=== PATIENT | female | born 1940 | race Caucasian/White ===

== ENCOUNTER 2020-04-19 10:45 | Inpatient (IN) | payer MEDICARE, SELFPAY ==
[2020-04-19] VITALS (8 sets, daily range): BP systolic 125–143; BP diastolic 64–109; PULSE 64–91; RESP 18–22; TEMP 36.3–36.7; O2SAT 91–98; BMI 30.5
--- NOTE | ~2020-04-19 | CT_ITS ---
EXAMINATION: CT pelvis wo con DATE: 04/19/2020 13:30 INDICATION: Pelvic fractures TECHNIQUE: Computed tomography (CT) of the pelvis was performed without intravenous contrast. Automat ed exposure control and iterative reconstruction technique were employed. Exam dose: 906.88 mGy-cm t otal exam DLP. COMPARISON: 04/19/2020 pelvis and bilateral hips 06/17/2019 CT pelvis FINDINGS: Advanced healing of a left posterolateral 11th rib fracture is noted. Bilateral recent sacral alar and body fractures are noted. There is some sclerosis of the sacrum from previous fracture is noted 06/17/2019. The sacral fractures extend into the sacroiliac joints but no dislocation is noted at the sacroiliac joints. Diffuse osteopenia. There is comminuted fracture of the right superior pubic ramus with displacement. There is a fracture of the right inferior pubic ramus. Old healed left inferior and left superior pubic ramus fractures. These were acute on 06/17/2019. Bilateral total hip arthroplasties. Degenerative disc disease of the lumbar spine. There is nonspecific increased fat density at the base of the mesentery. There is a moderately large umbilical hernia containing fat and probably nonobstructed small bowel lo op. IMPRESSION: Recent bilateral sacral fractures and right superior and inferior pubic ramus fractures Diffuse osteopenia Old left superior and inferior pubic ramus fractures Old sacral fractures Bilateral hip arthroplasties Reviewed, dictated and finalized at [facility]. Reviewed, dictated and finalized at location [facility].
--- NOTE | ~2020-04-19 | CT_ITS ---
EXAMINATION: CT brain wo con DATE: 04/19/2020 11:38 INDICATION: Patient fell and struck right side of head TECHNIQUE: Computed tomography (CT) of the head was performed without intravenous contrast. The mA wa s adjusted according to patient size. Iterative reconstruction technique was employed. Exam dose: 60 5.33 mGy-cm total exam DLP. COMPARISON: 05/09/2019 CT brain FINDINGS: No intracranial mass lesion or hemorrhage or cerebrovascular accident is evident. No midlin e shift or mass effect. No subdural or epidural hematoma. There is nonspecific diminished attenuation of the cerebral white matter, likely due to chronic small vessel ischemic changes. There are bilateral carotid siphon internal carotid artery calcifications. No fracture or bone destruction of the cranial vault. There is focal soft tissue opacification the posterior left sphenoid sinus. The paranasal sinuses and mastoid air cells are otherwise unremarkable. Is evidence of bilateral cataract surgery. No orbital mass lesion. IMPRESSION: No skull fracture or acute intracranial finding Reviewed, dictated and finalized at [facility]. Reviewed, dictated and finalized at [facility].
--- NOTE | ~2020-04-19 | XR_ITS ---
XR knee RT min 4V DATE: 04/19/2020 11:56 INDICATION: Fall. Right knee pain, swelling TECHNIQUE: Crosstable lateral, AP, oblique views COMPARISON: None FINDINGS: There is very prominent soft tissue swelling, particularly anteriorly. There is evidence of knee joint effusion. There is prominent periarticular spurring of the patellofemoral joint. There is periarticular spurrin g at the lateral compartment. Mild chondrocalcinosis of the knee joint. No fracture or dislocation is evident. Osteopenia. IMPRESSION: Prominent soft tissue swelling. Knee joint effusion Osteoarthritis Osteopenia. Reviewed, dictated and finalized at location [facility].
--- NOTE | ~2020-04-19 | XR_ITS ---
XR humerus LT DATE: 04/19/2020 11:56 INDICATION: Fall. Left shoulder, arm injury, pain TECHNIQUE: AP and lateral views COMPARISON: None FINDINGS: There is osteopenia. Rotator cuff atrophy. Osteoarthritis at the glenohumeral joint. Minimal dorsal spurring of the olecra non process of the proximal ulna. No fracture or dislocation, periosteal reaction or bone destruction of the left humerus is detected. IMPRESSION: No fracture or dislocation of left humerus Reviewed, dictated and finalized at location [facility].
--- NOTE | ~2020-04-19 | XR_ITS ---
XR shoulder LT min 2V DATE: 04/19/2020 11:56 INDICATION: Fall. Left shoulder injury, pain TECHNIQUE: 4 views COMPARISON: None FINDINGS: There is diffuse osteopenia. There is osteoarthritic change at the glenohumeral joint. There is rotator cuff atrophy. There is deg enerative change including joint space narrowing and spurring at the acromioclavicular joint. No fracture, dislocation, periosteal reaction or bone destruction of the left shoulder. Old healed left rib fractures. There is scoliosis and degenerative spurring of the thoracic spine. IMPRESSION: Osteopenia Osteoarthritic change at the glenohumeral joint, degenerative change at the acromioclavicular joint Rotator cuff atrophy Reviewed, dictated and finalized at location [facility]. IMPRESSION: Osteopenia Osteoarthritic change at the glenohumeral joint, degenerative change at the acr omioclavicular joint Rotator cuff atrophy
--- NOTE | ~2020-04-19 | XR_ITS ---
XR hip BI 2V w AP pelvis DATE: 04/19/2020 11:56 INDICATION: Fall. Pelvic, bilateral hip pain TECHNIQUE: AP pelvis. AP and lateral views of each hip. COMPARISON: 05/09/2019 pelvis FINDINGS: Diffuse osteopenia. There are displaced right superior and inferior pubic ramus fractures. There is left inferior pubic r amus fracture of uncertain age. Alignment appears intact at the pubic symphysis. Consider CT evaluati on for possible associated iliac or sacral fractures. Status post bilateral total hip arthroplasties. No recent fracture or dislocation at either hip is no jon. IMPRESSION: Displaced right superior and inferior pubic ramus fractures, new since 05/09/2019 Left inferior pubic ramus fracture, uncertain age Osteopenia Consider CT pelvis for further evaluation of any additional pelvic ring fractures Bilateral total hip arthroplasty Reviewed, dictated and finalized at location [facility]. IMPRESSION: Displaced right superior and inferior pubic ramus fractures, new si nce 05/09/2019 Left inferior pubic ramus fracture, uncertain age Osteopenia Consider CT pelvis for further evaluation of any additional pelvic ring fractur es Bilateral total hip arthroplasty
--- NOTE | ~2020-04-19 | XR_ITS ---
XR chest 2V DATE: 04/19/2020 11:56 INDICATION: Fall. TECHNIQUE: AP and lateral views COMPARISON: 06/16/2019 portable AP chest FINDINGS: Cardiomegaly. Aortic calcification and unfolding. No pulmonary infiltrate or consolidation, pleural effusion or pulmonary vascular congestion or pneumo thorax. The lungs are moderately hyperinflated. Diffuse osteopenia. Osteoarthritic changes at the glenohumeral joints, rotator cuff atrophy. Suggesti on of some calcification at the right rotator cuff. Levoscoliosis and degenerative spurring of the thoracic spine. IMPRESSION: Cardiomegaly Aortic atherosclerosis Bilateral hyperinflation; no active pulmonary disease Reviewed, dictated and finalized at location [facility].
--- NOTE | ~2020-04-19 | CT_ITS ---
CT knee RT wo con DATE: 04/19/2020 13:30 INDICATION: Right knee injury, pain, joint effusion TECHNIQUE: Axial CT images through the right knee; sagittal and coronal reconstructions. Exam dose: 427.77 mGy-cm total exam DLP. COMPARISON: 04/19/2020 right knee FINDINGS: There is edema of the right lower extremity. There is apparent hematoma in the anterior asp ect of the knee in the peripatellar area. There is knee joint effusion. Diffuse osteopenia. Tricompartment osteoarthritic changes are noted, including subchondral degenerative cysts, joint spac e narrowing, periarticular spurring. No recent fracture or dislocation or bone destruction is evident. IMPRESSION: Tricompartment osteoarthritis and joint effusion Soft tissue swelling, hematoma Reviewed, dictated and finalized at [facility]. Reviewed, dictated and finalized at location [facility].
--- NOTE | ~2020-04-19 | XR_ITS ---
XR knee LT min 4V DATE: 04/19/2020 11:56 INDICATION: Fall. Left knee injury, pain TECHNIQUE: Crosstable lateral, AP, bilateral oblique views COMPARISON: None FINDINGS: There is postoperative change from left total knee arthroplasty with patellar resurfacing. Mild knee joint effusion is suggested. There is enthesopathy of the patella at the insertions of the quadriceps and patellar tendon insertio ns. Osteopenia. No fracture or dislocation, periosteal reaction or bone destruction or radiopaque intra-articular loo se body is evident. IMPRESSION: Left total knee arthroplasty Knee joint effusion Reviewed, dictated and finalized at location [facility].
--- NOTE | 2020-04-19 11:16 | ED.FALL ---
HPI - Fall General Chief Complaint: Fall <ESPERANZA Benito Last Filed: 04/19/20 15:36> Stated Complaint: Fall <ESPERANZA Benito Last Filed: 04/19/20 15:36> Time Seen by Provider: 04/19/20 11:02 <ESPERANZA Benito Last Filed: 04/19/20 15:36> Source: patient <ESPERANZA Benito Last Filed: 04/19/20 15:36> Mode of arrival: wheelchair <ESPERANZA Benito Last Filed: 04/19/20 15:36> Limitations: no limitations <ESPERANZA Benito Last Filed: 04/19/20 15:36> History of Present Illness HPI Narrative: This is an 79-year-old female that presents the emergency department for a fall this morning. Reports she was in her garage and tripped over a plant. Reports falling forward and injuring her head, left shoulder, and right knee. Denies prodromal symptoms, loss of consciousness, shortness of breath, vision changes, vomiting, or numbness. <ESPERANZA Benito Last Filed: 04/19/20 15:36> Related Data Home Medications: Home Medications Medication Instructions Recorded Confirmed cholecalciferol (vitamin D3) 125 125 mcg PO DAILY 04/03/20 04/03/20 mcg (5,000 unit) capsule mecobalamin (vitamin B12) 5,000 mcg PO DAILY tablet 04/03/20 04/03/20 mcg disintegrating tablet <ESPERANZA Benito Last Filed: 04/19/20 15:36> Allergies/Adverse Reactions: Allergies Allergy/AdvReac Type Severity Reaction Status Date / Time Sulfa (Sulfonamide Allergy Severe Swelling Verified 04/19/20 11:07 Antibiotics) of Lip/Tongue/Throat aspirin AdvReac Unknown Unknown Verified 04/19/20 11:06 <ESPERANZA Benito Last Filed: 04/19/20 15:36> Review of Systems Review of Systems: Narrative: CONSTITUTIONAL: Denies fever EYES: Denies visual changes CARDIOVASCULAR: Denies chest pain RESPIRATORY: Denies dyspnea. GASTROINTESTINAL: Denies vomiting MUSCULOSKELETAL: Reports joint pain and myalgia. Denies back pain NEUROLOGIC: Denies headache, numbness, or weakness. <Sigrid Reyes PA-C - Last Filed: 04/19/20 15:36> All systems reviewed & are unremarkable except as noted in HPI and below <Sigrid Reyes PA-C - Last Filed: 04/19/20 15:36> PMFSH Social History Social History: Social History Smoking status: Former smoker Second hand tobacco smoke exposure: No Smoking end date: 11/28/81 Alcohol intake: current Gender identity (if verbalized by the patient): Female <Sigrid Reyes PA-C - Last Filed: 04/19/20 15:36> Exam Narrative: Exam Narrative: GENERAL: Elderly, well-nourished, and in no acute distress. HEAD: Normocephalic. Small frontal scalp contusion EYES: PERRLA and EOMI. ENT: Nares clear, no rhinorrhea or epistaxis. Mucous membranes moist. Oropharynx without tonsillar hypertrophy exudate or other lesions. Bilateral TMs pearly juan non-bulging NECK: Supple. No adenopathy or masses. No midline spinal tenderness CHEST: Clear to auscultation. No respiratory distress. No wheezes rales or rhonchi HEART: Regular rate and rhythm. No murmur heard. Normal peripheral pulses. ABDOMEN: Soft, nontender, nondistended, normal active bowel sounds. BACK: No midline spinal tenderness EXTREMITIES: Edema and bruising to the left shoulder and right knee with decreased range of motion due to pain. Otherwise normal range of motion in the extremities without pain SKIN: Warm, dry, no rash. NEURO: No focal deficits. Alert and oriented x3. Cranial nerves II through XII grossly intact PSYCH: Normal mood and affect <Sigrid Reyes PA-C - Last Filed: 04/19/20 15:36> Course WEAVER NEEDLE LOOM/PA Physician Supervision For this encounter, I have reviewed the PA documentation, treatment plan and medical decision making: And I have had [id number] time with the patient. Patient seen and evaluated by myself. Long discussion with patient as well as PA about admission patient with left shoulder pain as well as
--- NOTE | 2020-04-19 17:55 | ADMGEN ---
This patient, Lisa Robertson, was admitted to Medical Room 344-01. Patient/family oriented to hospital policies and general routines including ID bracelet, bed and alarms, visiting hours, pain management, procedures, bathroom and other care routines, personal items, smoking policy, room service/diet, and visiting hours. Valuables list has been completed. Information on how to activate the Rapid Response Team has been discussed. Patient/Family are encouraged to report perceived risks to care and to ask questions if they do not understand what they are told or what they should do.
--- NOTE | 2020-04-19 21:18 | PM.IMHP ---
H&P: HPI History of Present Illness Chief complaint: right inferior and superior pubic rami fractures Narrative: This is a pleasant 79 year old female who presented to the hospital after suffering a fall this morning in her garage. She is known to live alone and reports that she had a similar fall last year. Apparently she tripped over a plant in the garage and fell face forward. She injured her forehead, left shoulder and right knee. The patient denies passing out or seizure like activity today. She experienced ambulatory dysfunction afterwards. Pelvic CT demonstrated recent bilateral sacral fractures and right superior and inferior pubic ramus fractures. Tonight the patient is complaining of mild shortness of breath and bilateral hip pain. She continues to sporadically smoke cigarettes but denies any definitive diagnosis of COPD. On further questioning she denies any cough, fevers, chills, sore throat, abdominal pain, chest pain, dysuria, hematuria, nausea, vomiting, diarrhea or rectal bleeding. No other complaints. The patient was admitted to the hospital for pain control and placement. Review of Systems Review of Systems: All systems reviewed & are unremarkable except as noted in HPI and below PMFSH Past Medical History Medical History Arthritis of knee, degenerative Chronic bilateral low back pain without sciatica CKD (chronic kidney disease) stage 3, GFR 30-59 ml/min Contusion of knee, right Dyslipidemia Edema of both lower legs due to peripheral venous insufficiency Essential (primary) hypertension Fibrocystic breast 11/2010 Peripheral polyneuropathy RLS (restless legs syndrome) Rotator cuff arthropathy of right shoulder Unspecified osteoarthritis, unspecified site Vitamin D deficiency Surgical History Surgical History H/O arthroscopy 03/08/2007 - right knee H/O arthroscopy of knee 09/28/2006 - Left knee History of lumbar discectomy Family History Family History Father Hodgkin lymphoma Mother Cancer Social History Social History Smoking status: Former smoker Second hand tobacco smoke exposure: No Smoking end date: 11/28/81 Alcohol intake: never Substance use: never Gender identity (if verbalized by the patient): Female Spiritual care concerns: No Meds Home Medications and Allergies Home Medications Medication Instructions Recorded Confirmed Type furosemide 20 mg tablet 20 mg PO DAILY #90 tablet 11/20/19 04/19/20 Rx metoprolol succinate 50 mg 50 mg PO DAILY #90 tablet 12/17/19 04/19/20 Rx tablet,extended release 24 hr diclofenac sodium 75 mg See Rx Instructions .ROUTE 03/31/20 04/19/20 Rx tablet,delayed release .COMPLEX #90 each pramipexole 0.5 mg tablet See Rx Instructions .ROUTE 03/31/20 04/19/20 Rx .COMPLEX #90 tablet albuterol sulfate 90 mcg/actuation 1 puff INHALATION Q4H PRN #8.5 gm 04/03/20 04/19/20 Rx aerosol inhaler cholecalciferol (vitamin D3) 125 125 mcg PO DAILY 04/03/20 04/19/20 History mcg (5,000 unit) capsule mecobalamin (vitamin B12) 5,000 5,000 mcg PO DAILY tablet 04/03/20 04/19/20 History mcg disintegrating tablet triamcinolone acetonide 0.5 % See Rx Instructions .ROUTE 04/09/20 04/19/20 Rx topical cream .COMPLEX #30 gm Allergies Allergy/AdvReac Type Severity Reaction Status Date / Time Sulfa (Sulfonamide Allergy Severe Swelling Verified 04/19/20 11:07 Antibiotics) of Lip/Tongue/Throat aspirin AdvReac Unknown Unknown Verified 04/19/20 11:06 Vital Signs Vital Signs - 24 hr 04/19/20 10:54 04/19/20 16:06 04/19/20 17:33 Temperature 36.3 C L Pulse Rate 84 72 86 Respiratory Rate 18 18 18 Blood Pressure 126/109 H 142/71 H Pulse Oximetry 96 93 04/19/20 17:35 04/19/20 18:01 Temperatu
[2020-04-19] MEDS: ALBUTEROL SULFATE NEB 2.5 MG/0.5 ML INH 5 MG INHALATION (23:53)
[2020-04-20] VITALS (9 sets, daily range): BP systolic 108–142; BP diastolic 56–66; PULSE 75–95; RESP 16–20; TEMP 36.2–36.4; O2SAT 92–99
--- NOTE | 2020-04-20 01:52 | PCRCNOTE ---
Too close to previous tx
[2020-04-20] MEDS: ALBUTEROL SULFATE NEB 2.5 MG/0.5 ML INH 5 MG INHALATION (07:57)
--- NOTE | 2020-04-20 09:10 | PM.CNOR ---
Assessment and Plan Assessment and plan (1) Closed fracture of right superior pubic ramus: Qualifiers: Encounter type: initial encounter Qualified Code(s): S32.511A - Fracture of superior rim of right pubis, initial encounter for closed fracture Code(s): S32.511A - Fracture of superior rim of right pubis, initial encounter for closed fracture Status: Acute Assessment and Plan: New patient evaluation status post injury with fall yesterday at home. The history, physical exam and radiographs/CT scan reviewed with the patient. Type of fracture discussed in detail . Treatment options including operative and non operative treatment reviewed . Risks, benefits and alternatives of each treatment discussed in detail . The patient has declined surgical treatment. Risks of treatment decision discussed in detail. Potential problems with displacement of the fracture, loss of alignment, nonunion, malunion and dysfunction discussed in detail. The patient's questions were answered. They verbalized understanding and agreement. Conservative treatment with ice , compression and elevation. PT/OT with weight-bearing as tolerated. Patient will require placement due to inability to be independent at home. (2) Closed fracture of right inferior pubic ramus: Qualifiers: Encounter type: initial encounter Qualified Code(s): S32.591A - Other specified fracture of right pubis, initial encounter for closed fracture Code(s): S32.591A - Other specified fracture of right pubis, initial encounter for closed fracture Status: Acute (3) Acute pain of right knee: Code(s): M25.561 - Pain in right knee Status: Acute (4) Arthritis of knee, degenerative: Qualifiers: Osteoarthritis type: primary Laterality: right Qualified Code(s): M17.11 - Unilateral primary osteoarthritis, right knee Code(s): M17.10 - Unilateral primary osteoarthritis, unspecified knee Status: Acute (5) Contusion of knee, right: Qualifiers: Encounter type: initial encounter Qualified Code(s): S80.01XA - Contusion of right knee, initial encounter Code(s): S80.01XA - Contusion of right knee, initial encounter Status: Acute Assessment and Plan: CT scan reviewed showing knee effusion, no fracture. Moderate degenerative changes. Conservative treatment ice, compression, elevation and anti-inflammatories. Physical therapy offered/occupational therapy with weight-bearing as tolerated. (6) Rotator cuff arthropathy of right shoulder: Code(s): M12.811 - Other specific arthropathies, not elsewhere classified, right shoulder Status: Acute Assessment and Plan: New patient evaluation for chief complaint fall at home with right shoulder and right knee, pelvis injury. History, physical exam and radiographs reviewed with the patient. Discussed the condition, nature, etiology and course of natural history with the patient. Treatment options including surgical and nonoperative treatment were reviewed. Risks and benefits of each as well as alternatives reviewed. The patient's questions were answered. Conservative treatment ice, compression and elevation. Physical therapy/occupational therapy History of Present Illness HPI Consult date: 04/20/20 Requesting physician: Sarmad Auguste MD Chief complaint: right inferior and superior pubic rami fractures Narrative: Very active, pleasant woman fell at home yesterday in her garage. Initially with right shoulder and right hip pain. Brought to the emergency room and found to have pelvis fractures. Also with right knee pain and swelling with radiographs showing arthritis. Patient states right shoulder has improved overnight. She still has pain swelling in the right knee with motion. She has pain in the right hip with motion of the leg. She was unable to stand or walk yesterday. She denies numbness or tingling. Denies head neck or
[2020-04-20] MEDS: CHOLECALCIFEROL 1,000 UNIT TABLET 5000 UNITS PO (09:19)
[2020-04-20] MEDS: CYANOCOBALAMIN 1,000 MCG TABLET 5000 MCG PO (09:19)
[2020-04-20] MEDS: FUROSEMIDE 20 MG TABLET PO (09:20)
[2020-04-20] MEDS: METOPROLOL SUCCINATE EXT REL 50 MG TABCR PO (09:24)
[2020-04-20 10:35] LABS: Blood Urea Nitrogen 26 mg/dL (7-17); Calcium 8.8 mg/dL (8.4-10.2); Carbon Dioxide 30 mmol/L (22-30); Chloride 108 mmol/L (98-107); Estimated CRCL calculation 33 ml/min; Estimated Glomerular Filt Rate 39; Glucose 136 mg/dL (65-105); Magnesium 1.8 mg/dL (1.6-2.3); Potassium 3.9 mmol/L (3.4-5.0); Sodium 141 mmol/L (137-145)
--- NOTE | 2020-04-20 11:52 | PM.IMPN ---
Progress Note: A&P Assessment and Plan (1) Closed fracture of right inferior pubic ramus: Qualifiers: Encounter type: initial encounter Qualified Code(s): S32.591A - Other specified fracture of right pubis, initial encounter for closed fracture Code(s): S32.591A - Other specified fracture of right pubis, initial encounter for closed fracture Status: Acute Assessment and Plan: Patient presented after a fall 04/19 at home; imaging demonstrates bilateral sacral fractures and right superior and inferior pubic ramus fractures. Right knee joint effusion and hematoma without acute fracture. Imaging detailed below. Dr Agarwal consulted - appreciate recommendations. He offered her treatment options and patient has decided on nonoperative management. Continue pain control, care coordination working on placement. Weight bearing as tolerated. (2) Closed fracture of right superior pubic ramus: Qualifiers: Encounter type: initial encounter Qualified Code(s): S32.511A - Fracture of superior rim of right pubis, initial encounter for closed fracture Code(s): S32.511A - Fracture of superior rim of right pubis, initial encounter for closed fracture Status: Acute Assessment and Plan: See above. (3) Acute pain of right knee: Code(s): M25.561 - Pain in right knee Status: Acute Assessment and Plan: See imaging studies above. Conservative management. (4) Acute pain of left shoulder: Code(s): M25.512 - Pain in left shoulder Status: Acute Assessment and Plan: See above. (5) Acute respiratory failure with hypoxia: Code(s): J96.01 - Acute respiratory failure with hypoxia Status: Acute Assessment and Plan: On 2L supplemental O2. Not on oxygen at home. Given the bilateral hyperinflation and no active pulmonary disease on CXR and wheezing on exam, suspect possible undiagnosed COPD. Continue bronchodilator therapy. Wean O2 as tolerated to keep O2 saturations > 90%. Subjective Date/time seen: 04/20/20 1045 Interval history: Ms. Robertson is a 79yo F admitted with pelvic fractures. She is sitting up in the bedside chair. She notes that her pain is worst in her right knee currently. She denies any chest pain or shortness of breath. She is tolerating oral intake without nausea or vomiting. Review of Systems Review of Systems: Narrative: Twelve systems were reviewed with pertinent positives and negatives as per HPI. Exam Narrative: Exam Narrative: General: Female resting comfortably sitting up in bedside chair in no acute distress. HEENT: Normocephalic, EOMI, oral mucosa moist. Cardiovascular: Rate and rhythm are regular. Respiratory: Expiratory wheezing bilaterally. Non-labored breathing. Tolerating 2L nasal cannula. Abdomen: Soft, non-tender, non-distended, bowel sounds present. Extremities: R knee edematous with faint ecchymosis forming; L knee edematous but R > L. Distal extremities are neurovascularly intact. ROM R knee is limited due to pain. Neuro: No focal neurological deficits. Speech is clear. Objective Data Vital Signs Vital Signs: Last Vital Signs Temp 97.1 F L 04/20/20 06:00 Pulse 95 04/20/20 09:24 Resp 20 04/20/20 08:07 BP 108/62 04/20/20 06:00 Pulse Ox 92 04/20/20 09:43 Intake/Output Intake/Output: Intake & Output 04/17/20 04/18/20 04/19/20 04/20/20 23:59 23:59 23:59 23:59 Intake Total 240 890 Output Total 800 Balance 240 90 Meds/Results Medications: Active Medications Generic Name Dose Route Start Last Admin Trade Name Freq PRN Reason Stop Dose Admin Hydrocodone Bitart/Acetaminophen 1 tab 04/19/20 15:29 04/20/20 05:37 [place] 5-325 Mg PO 1 tab Q6H PRN Administration Pain Rated 6 or Greater Albuterol 1 puff
[2020-04-20 12:05] LABS: Folic Acid 14.2 ng/mL (2.76->20); Vitamin B12 > 1000.0 pg/mL (239-931)
[2020-04-20 15:27] LABS: Basophils Percent Auto 0.5 % (0.2-1.2); Eosinophils Absolute Auto 0.2 K/mm3 (0-0.3); Eosinophils Percent Auto 2.2 % (0-4.4); Hematocrit 37.2 % (37.0-47.0); Hemoglobin 11.4 g/dL (12.0-15.0); Immature Granulocyte Absolute 0.03 K/mm3 (0.00-0.031); Immature Granulocyte Percent A 0.4 % (0-0.5); Lymphocytes Absolute Auto 1.01 K/mm3 (0.9-3.2); Lymphocytes Percent Auto 12.5 % (18.3-44.2); Mean Corpuscular HGB Conc 30.6 g/dl (32-36); Mean Corpuscular Hemoglobin 29.5 pg (26-34); Mean Corpuscular Volume 96.1 fl (80-100); Mean Platelet Volume 10.7 fl (7.4-10.4); Monocytes Absolute Auto 0.7 K/mm3 (0.1-0.6); Monocytes Percent Auto 8.4 % (2.6-8.5); Neutrophils Absolute Auto 6.1 K/mm3 (1.3-6.7); Platelet Count Result 166 k/mm3 (150-375); Red Blood Count 3.87 M/mm3 (4.2-5.4); Red Cell Distribution Width 14.6 % (11.5-14.5); White Blood Count 8.1 K/mm3 (4.5-10.0)
[2020-04-20] MEDS: PRAMIPEXOLE 0.5 MG TABLET PO (17:31)
[2020-04-21 05:35] VITALS: BP 138/65; PULSE 87; RESP 14; TEMP 36.7; O2SAT 90
[2020-04-21 06:08] LABS: Basophils Percent Auto 0.3 % (0.2-1.2); Eosinophils Absolute Auto 0.2 K/mm3 (0-0.3); Eosinophils Percent Auto 3.4 % (0-4.4); Hematocrit 36.5 % (37.0-47.0); Hemoglobin 11.2 g/dL (12.0-15.0); Immature Granulocyte Absolute 0.02 K/mm3 (0.00-0.031); Immature Granulocyte Percent A 0.3 % (0-0.5); Lymphocytes Absolute Auto 1.06 K/mm3 (0.9-3.2); Lymphocytes Percent Auto 15.2 % (18.3-44.2); Mean Corpuscular HGB Conc 30.7 g/dl (32-36); Mean Corpuscular Hemoglobin 29.1 pg (26-34); Mean Corpuscular Volume 94.8 fl (80-100); Mean Platelet Volume 10.5 fl (7.4-10.4); Monocytes Absolute Auto 0.6 K/mm3 (0.1-0.6); Neutrophils Absolute Auto 5.1 K/mm3 (1.3-6.7); Neutrophils Percent Auto 72.8 % (45.5-73.1); Platelet Count Result 166 k/mm3 (150-375); Red Blood Count 3.85 M/mm3 (4.2-5.4); Red Cell Distribution Width 14.5 % (11.5-14.5)
[2020-04-21 06:21] LABS: Blood Urea Nitrogen 29 mg/dL (7-17); Calcium 8.6 mg/dL (8.4-10.2); Carbon Dioxide 31 mmol/L (22-30); Chloride 107 mmol/L (98-107); Estimated CRCL calculation 39 ml/min; Estimated Glomerular Filt Rate 48; Glucose 88 mg/dL (65-105); Potassium 4.2 mmol/L (3.4-5.0); Sodium 140 mmol/L (137-145)
[2020-04-21] MEDS: CHOLECALCIFEROL 1,000 UNIT TABLET 5000 UNITS PO (08:38)
[2020-04-21] MEDS: CYANOCOBALAMIN 1,000 MCG TABLET 5000 MCG PO (08:39)
[2020-04-21] MEDS: FUROSEMIDE 20 MG TABLET PO (08:39)
[2020-04-21 08:54] VITALS: PULSE 86
[2020-04-21] MEDS: METOPROLOL SUCCINATE EXT REL 50 MG TABCR PO (08:54)
[2020-04-21 10:23] VITALS: O2SAT 93
--- NOTE | 2020-04-21 12:51 | PM.IMPN ---
Progress Note: A&P Assessment and Plan (1) Closed fracture of right inferior pubic ramus: Qualifiers: Encounter type: initial encounter Qualified Code(s): S32.591A - Other specified fracture of right pubis, initial encounter for closed fracture Code(s): S32.591A - Other specified fracture of right pubis, initial encounter for closed fracture Status: Acute Assessment and Plan: Patient presented after a fall 04/19 at home; imaging demonstrates bilateral sacral fractures and right superior and inferior pubic ramus fractures. Right knee joint effusion and hematoma without acute fracture. Imaging detailed below. Dr Agarwal consulted - appreciate recommendations. He offered her treatment options and patient has decided on nonoperative management. Continue pain control. Weight bearing as tolerated. She is medically stable for discharge pending SNF placement. (2) Closed fracture of right superior pubic ramus: Qualifiers: Encounter type: initial encounter Qualified Code(s): S32.511A - Fracture of superior rim of right pubis, initial encounter for closed fracture Code(s): S32.511A - Fracture of superior rim of right pubis, initial encounter for closed fracture Status: Acute Assessment and Plan: See above. (3) Acute pain of right knee: Code(s): M25.561 - Pain in right knee Status: Acute Assessment and Plan: See imaging studies above. Conservative management. (4) Acute pain of left shoulder: Code(s): M25.512 - Pain in left shoulder Status: Acute Assessment and Plan: See above. (5) Acute respiratory failure with hypoxia: Code(s): J96.01 - Acute respiratory failure with hypoxia Status: Acute Assessment and Plan: On 2L supplemental O2. Not on oxygen at home. Given the bilateral hyperinflation and no active pulmonary disease on CXR and wheezing on exam, suspect possible undiagnosed COPD. Continue bronchodilator therapy. Wean O2 as tolerated to keep O2 saturations > 90%. Will monitor. Encourage incentive spirometry. (6) CKD (chronic kidney disease) stage 3, GFR 30-59 ml/min: Code(s): N18.3 - Chronic kidney disease, stage 3 (moderate) Status: Chronic Assessment and Plan: Cr 1.1 today; on review of previous labs her baseline creatinine appears around 1.5. Monitor renal function and avoid nephrotoxic agents. Subjective Date/time seen: 04/21/20 1015 Interval history: Ms. Robertson is a 79yo F admitted with pelvic fractures. She is sitting up in the bedside chair and reports feeling a little better today. Less pain in her right knee. She denies any chest pain or shortness of breath. She is tolerating oral intake without nausea or vomiting. Review of Systems Review of Systems: Narrative: Twelve systems were reviewed with pertinent positives and negatives as per HPI. Exam Narrative: Exam Narrative: General: Female resting comfortably sitting up in bedside chair in no acute distress. HEENT: Normocephalic, EOMI, oral mucosa moist. Cardiovascular: Rate and rhythm are regular. Respiratory: Faint expiratory wheezing improved from yesterday. Non-labored breathing. Tolerating 2L nasal cannula. Abdomen: Soft, non-tender, non-distended, bowel sounds present. Extremities: R knee edematous with faint ecchymosis but slightly improved from yesterday; L knee edematous but R > L. Distal extremities are neurovascularly intact. ROM R knee is limited due to pain. Neuro: No focal neurological deficits. Speech is clear. Objective Data Vital Signs Vital Signs: Last Vital Signs Temp 98.0 F 04/21/20 05:35 Pulse 86 04/21/20 08:54 Resp 14 04/21/20 05:35 BP 138/65 04/21/20 05:35 Pulse Ox 93 04/21/20 10:23 Intake/Output
[2020-04-21 14:00] VITALS: BP 123/53; PULSE 79; RESP 20; TEMP 36.1; O2SAT 98
[2020-04-21] MEDS: PRAMIPEXOLE 0.5 MG TABLET PO (17:23)
[2020-04-21 20:59] VITALS: BP 131/44; PULSE 88; RESP 18; TEMP 36.4; O2SAT 94
[2020-04-22 04:14] VITALS: BP 131/44; PULSE 88; RESP 18; TEMP 36.4; O2SAT 95
[2020-04-22 08:26] VITALS: PULSE 88
[2020-04-22] MEDS: FUROSEMIDE 20 MG TABLET PO (08:26)
[2020-04-22] MEDS: METOPROLOL SUCCINATE EXT REL 50 MG TABCR PO (08:26)
[2020-04-22] MEDS: CHOLECALCIFEROL 1,000 UNIT TABLET 5000 UNITS PO (08:26)
[2020-04-22 08:27] VITALS: PULSE 88; RESP 18; O2SAT 95
[2020-04-22] MEDS: CYANOCOBALAMIN 1,000 MCG TABLET 5000 MCG PO (08:27)
--- NOTE | 2020-04-22 10:35 | PM.IMPN ---
Subjective Date/time seen: 04/22/20 1000 Objective Data Vital Signs Vital Signs: Vital Signs - 24 hr 04/21/20 14:00 04/21/20 20:59 04/22/20 04:14 Temperature 96.9 F L 97.5 F L 97.5 F L Pulse Rate 79 88 88 Respiratory Rate 20 18 18 Blood Pressure 123/53 L 131/44 L 131/44 L Pulse Oximetry 98 94 95 04/22/20 08:26 Temperature Pulse Rate 88 Respiratory Rate Blood Pressure Pulse Oximetry Intake/Output Intake/Output: Intake & Output 04/19/20 04/20/20 04/21/20 04/22/20 23:59 23:59 23:59 23:59 Intake Total 240 2760 2040 625 Output Total 2800 250 790 Balance 240 -40 1790 -165 Meds/Results Medications: Active Medications Generic Name Dose Route Start Last Admin Trade Name Freq PRN Reason Stop Dose Admin Hydrocodone Bitart/Acetaminophen 1 tab 04/20/20 14:24 04/22/20 08:24 [place] 5-325 Mg PO 1 tab Q4HR PRN Administration Pain Rated 6 or Greater Albuterol 1 puff 04/20/20 05:41 Proventil Hfa INHALATION Q4H PRN shortness of breath or wheezing Cyanocobalamin 5,000 mcg 04/20/20 09:00 04/22/20 08:27 Vitamin B-12 Tab PO 5,000 mcg DAILY ADRIANO Administration Furosemide 20 mg 04/20/20 09:00 04/22/20 08:26 Lasix Tablet PO 20 mg DAILY ADRIANO Administration Metoprolol Succinate 50 mg 04/20/20 09:00 04/22/20 08:26 Toprol Xl PO 50 mg DAILY ADRIANO Administration Pramipexole Dihydrochloride 0.5 mg 04/20/20 18:00 04/21/20 17:23 Mirapex PO 0.5 mg QPM ADRIANO Administration Vitamin D 5,000 unit 04/20/20 09:00 04/22/20 08:26 Vitamin D PO 5,000 unit DAILY ADRIANO Administration Radiology Results: ITS Impressions Head CT 04/19/20 11:43 IMPRESSION: No skull fracture or acute intracranial finding Shoulder X-Ray 04/19/20 12:05 IMPRESSION: Osteopenia Osteoarthritic change at the glenohumeral joint, degenerative change at the acromioclavicular joint Rotator cuff atrophy Humerus X-Ray 04/19/20 12:07 IMPRESSION: No fracture or dislocation of left humerus Chest X-Ray 04/19/20 12:09 IMPRESSION: Cardiomegaly Aortic atherosclerosis Bilateral hyperinflation; no active pulmonary disease Knee X-Ray 04/19/20 12:13 IMPRESSION: Left total knee arthroplasty Knee joint effusion Hip/Pelvis X-Ray 04/19/20 12:14 IMPRESSION: Displaced right superior and inferior pubic ramus fractures, new since 05/09/2019 Left inferior pubic ramus fracture, uncertain age Osteopenia Consider CT pelvis for further evaluation of any additional pelvic ring fractures Bilateral total hip arthroplasty Pelvis CT 04/19/20 13:44 IMPRESSION: Recent bilateral sacral fractures and right superior and inferior pubic ramus fractures Diffuse osteopenia Old left superior and inferior pubic ramus fractures Old sacral fractures Bilateral hip arthroplasties Knee CT 04/19/20 13:53 IMPRESSION: Tricompartment osteoarthritis and joint effusion Soft tissue swelling, hematoma Quality VTE Prophylaxis VTE prophylaxis: mechanical ordered
--- NOTE | 2020-04-22 15:31 | PM.DS ---
DS: Admitting Diagnosis Admitting Diagnosis Admitting Diagnosis: Fracture of superior rim of right pubis, initial encounter for closed fracture DS: Discharge Diagnosis Discharge Diagnosis (1) Closed fracture of right inferior pubic ramus: Qualifiers: Encounter type: initial encounter Qualified Code(s): S32.591A - Other specified fracture of right pubis, initial encounter for closed fracture Code(s): S32.591A - Other specified fracture of right pubis, initial encounter for closed fracture Status: Acute Assessment and Plan: Date of Service 04/22/20: Ms. Robertson is a pleasant 79yo F with history of asthma, hypertension, and chronic kidney disease who presented to the ED for evaluation after a fall at home 04/19/20. She is normally quite active, was working on some yard work, walking in her garage and tripped over a plant, falling face first onto the concrete. She was unable to walk. Imaging is detailed below and demonstrated bilateral sacral fractures, right superior and inferior pubic rami fractures, right knee joint effusion with hematoma. She was evaluated by orthopedic surgery, Dr Agarwal, who educated her on the risks and benefits of her different her treatment options. She opted for nonsurgical management. She did well with PT/OT and has good rehabilitation potential. She was felt to be a good candidate for [facility]. She was hemodynamically stable for discharge to [facility] 04/22/20 and instructed to follow up with PCP after discharge from [facility]. She will be weight bearing as tolerated per orthopedic recommendations. She has a history of asthma and notes she has not been diagnosed with COPD. Chest XR shows hyperinflation without other acute cardiopulmonary disease. She was requiring 2L of supplemental O2 at discharge. Continue to encourage incentive spirometer in [facility] and wean O2 as tolerated, albuterol PRN. Consultations: -- Orthopedic surgery -- Dr Agarwal (2) Closed fracture of right superior pubic ramus: Qualifiers: Encounter type: initial encounter Qualified Code(s): S32.511A - Fracture of superior rim of right pubis, initial encounter for closed fracture Code(s): S32.511A - Fracture of superior rim of right pubis, initial encounter for closed fracture Status: Acute Assessment and Plan: See above. (3) Acute pain of right knee: Code(s): M25.561 - Pain in right knee Status: Acute Assessment and Plan: See imaging studies above. Conservative management. (4) Acute pain of left shoulder: Code(s): M25.512 - Pain in left shoulder Status: Acute Assessment and Plan: See above. (5) Acute respiratory failure with hypoxia: Code(s): J96.01 - Acute respiratory failure with hypoxia Status: Acute Assessment and Plan: On 2L supplemental O2. Not on oxygen at home. Given the bilateral hyperinflation and no active pulmonary disease on CXR and wheezing on exam, suspect possible undiagnosed COPD. Continue bronchodilator therapy. Wean O2 as tolerated to keep O2 saturations > 90%. Will monitor. Encourage incentive spirometry. (6) CKD (chronic kidney disease) stage 3, GFR 30-59 ml/min: Code(s): N18.3 - Chronic kidney disease, stage 3 (moderate) Status: Chronic Assessment and Plan: Stable. DS: Summary Time Spent with Patient Time attestation: Total time spent providing and/or coordinating discharge services: 35 minutes Exam Narrative: Exam Narrative: Last Vital Signs Temp 97.5 F L 04/22/20 04:14 Pulse 88 04/22/20 08:27 Resp 18 04/22/20 08:27 BP 131/44 L 04/22/20 04:14 Pulse Ox
--- NOTE | 2020-04-22 15:54 | PM.PNORT ---
Subjective Subjective Date/Time Seen: 04/22/20 15:54 Review of Systems Constitutional: Constitutional: Denies fever(s) Eyes: Eyes: Denies blurry vision ENT: Reports Normal hearing present Cardiovascular: Cardiovascular: Denies chest pain and Denies dyspnea Respiratory: Respiratory: Denies dyspnea and Denies wheezing Gastrointestinal: Gastrointestinal: Denies abdominal pain Genitourinary: Genitourinary: Denies urinary urgency Musculoskeletal: Musculoskeletal: Reports as per HPI and Denies numbness Integumentary/Breasts: Skin/Breast: Denies changing lesions and Denies sores Neurologic: Reports Normal hearing present, Denies behavioral changes, Denies confusion, Denies numbness and Denies convulsions Psychiatric: Psychiatric: Denies behavioral changes, Denies confusion and Denies hallucinations Endocrine: Endocrine: Denies heat intolerance Hematologic/Lymphatic: Hematologic/Lymphatic: Denies easy bleeding Allergic/Immunologic: Allergic/Immunologic: Denies wheezing Exam Const: General: No confusion Orientation/consciousness: patient oriented x3 and No confusion HENMT: Head: normal to inspection, normocephalic and atraumatic Eyes: Conjunctivae: conjunctivae normal Sclera: sclerae normal Neck: Neck: supple and nontender Chest: Chest palpation & inspection: normal inspection of the chest Resp: Effort & Inspection: normal respiratory effort and no audible wheezes Cardio: Rate: regular rate Rhythm: regular rhythm GI: GI Palp: No abdominal tenderness and Yes Soft to palpation : General: Yes deferred Skin: General skin exam: no rashes or lesions noted Neuro: General: patient oriented x3 and No confusion Extrem: General: capillary refill normal Right upper extremity: shoulder/upper arm, elbow/forearm, wrist and Extremity exam: right hand Left upper extremity: normal to inspection Right lower extremity: hip/thigh (Healed lateral hip incision), knee, ankle ( able to actively flex and extend ankle) and foot Left lower extremity: normal to inspection, hip/thigh (Healed lateral hip incision), knee (Healed anterior incision), lower leg, ankle (no calf tenderness) and foot Psych: Affect: normal affect Objective Data Vital Signs Vital Signs: Vital Signs - 24 hr 04/21/20 20:59 04/22/20 04:14 04/22/20 08:26 Temperature 36.4 C L 36.4 C L Pulse Rate 88 88 88 Respiratory Rate 18 18 Blood Pressure 131/44 L 131/44 L Pulse Oximetry 94 95 04/22/20 08:27 Temperature Pulse Rate 88 Respiratory Rate 18 Blood Pressure Pulse Oximetry 95 Intake/Output Intake/Output: Intake & Output 04/19/20 04/20/20 04/21/20 04/22/20 23:59 23:59 23:59 23:59 Intake Total 240 2760 2040 950 Output Total 2800 250 790 Balance 240 -40 1790 160 Meds/Results Medications: Active Medications Generic Name Dose Route Start Last Admin Trade Name Freq PRN Reason Stop Dose Admin Hydrocodone Bitart/Acetaminophen 1 tab 04/20/20 14:24 04/22/20 08:24 [place] 5-325 Mg PO 1 tab Q4HR PRN Administration Pain Rated 6 or Greater Albuterol 1 puff 04/20/20 05:41 Proventil Hfa INHALATION Q4H PRN shortness of breath or wheezing Cyanocobalamin 5,000 mcg 04/20/20 09:00 04/22/20 08:27 Vitamin B-12 Tab PO 5,000 mcg DAILY ADRIANO Administration Furosemide 20 mg 04/20/20 09:00 04/22/20 08:26 Lasix Tablet PO 20 mg DAILY ADRIANO Administration Metoprolol Succinate 50 mg 04/20/20 09:00 04/22/20 08:26 Toprol Xl PO 50 mg DAILY ADRIANO Administration Pramipexole Dihydrochloride 0.5 mg 04/20/20 18:00 04/21/20 17:23 Mirapex PO 0.5 mg QPM ADRIANO Administration Triamcinolone Acetonide 1 applic 04/22/20 21:00 Kenalog 0.1% Cream TOPICAL Q12HR [facility] Vitamin D 5,000 unit 04/20/20 09:00 04/22/20 08:26 Vitamin D PO 5,000 unit DAILY ADRIANO Administration Radiology Results: ITS Impressions Head CT 04/19/20 11:43 IMPRESSION: No skull fracture or
--- NOTE | 2020-04-22 15:58 | PM.PNORT ---
Progress Note: A&P Assessment and Plan (1) Closed fracture of right superior pubic ramus: Qualifiers: Encounter type: initial encounter Qualified Code(s): S32.511A - Fracture of superior rim of right pubis, initial encounter for closed fracture Code(s): S32.511A - Fracture of superior rim of right pubis, initial encounter for closed fracture Status: Acute Assessment and Plan: Continue PT/OT with WBAT. Continue pain control. Continue ice/compression and elevation. TRC for acute rehab. Fall Risk. (2) Contusion of knee, right: Qualifiers: Encounter type: initial encounter Qualified Code(s): S80.01XA - Contusion of right knee, initial encounter Code(s): S80.01XA - Contusion of right knee, initial encounter Status: Acute Assessment and Plan: Continue conservative treatment ice, compression, elevation and anti-inflammatories. PT/OT with weight-bearing as tolerated. (3) Rotator cuff arthropathy of right shoulder: Code(s): M12.811 - Other specific arthropathies, not elsewhere classified, right shoulder Status: Acute Assessment and Plan: Continue PT/OT. WBAT. Subjective Subjective Date/Time Seen: 04/22/20 15:58 Patient sitting up in bed. Awaiting transfer to [facility]. Reports improvement in pain. Concerned about previous rash on the anterior aspect of the right leg which she has battled for a long time per report. She has medication from her PCP and would like to begin using as it is her daily home medication. Complaints of right breast pain, hospitalist aware as well. No rib fractures noted. Plans to continue to monitor. Review of Systems Constitutional: Constitutional: Denies fever(s) Eyes: Eyes: Denies blurry vision ENT: Reports Normal hearing present Cardiovascular: Cardiovascular: Denies chest pain and Denies dyspnea Respiratory: Respiratory: Denies dyspnea and Denies wheezing Gastrointestinal: Gastrointestinal: Denies abdominal pain Genitourinary: Genitourinary: Denies urinary urgency Musculoskeletal: Musculoskeletal: Reports as per HPI and Denies numbness Integumentary/Breasts: Skin/Breast: Denies changing lesions and Denies sores Neurologic: Reports Normal hearing present, Denies behavioral changes, Denies confusion, Denies numbness and Denies convulsions Psychiatric: Psychiatric: Denies behavioral changes, Denies confusion and Denies hallucinations Endocrine: Endocrine: Denies heat intolerance Hematologic/Lymphatic: Hematologic/Lymphatic: Denies easy bleeding Allergic/Immunologic: Allergic/Immunologic: Denies wheezing Exam Const: General: No confusion Orientation/consciousness: patient oriented x3 and No confusion HENMT: Head: normal to inspection, normocephalic and atraumatic Eyes: Conjunctivae: conjunctivae normal Sclera: sclerae normal Neck: Neck: supple and nontender Chest: Chest palpation & inspection: normal inspection of the chest Resp: Effort & Inspection: normal respiratory effort and no audible wheezes Cardio: Rate: regular rate Rhythm: regular rhythm GI: GI Palp: No abdominal tenderness and Yes Soft to palpation : General: Yes deferred Skin: General skin exam: no rashes or lesions noted Neuro: General: patient oriented x3 and No confusion Extrem: General: capillary refill normal Right upper extremity: shoulder/upper arm abnormal ROM (limited ROM ) pain with active ROM, elbow/forearm, wrist and Extremity exam: right hand Left upper extremity: shoulder/upper arm (Limited ROM ) abnormal ROM pain with active ROM in ADduction, in ABduction, in extension and in flexion Right lower extremity: hip/thigh (Healed lateral hip incision), knee Details: swelling (moderate right knee effusion ) and ecchymosis, ankle ( able to actively flex and extend ankle) and foot Left lower extremity: normal to inspection, hip/thigh (Healed lateral hip incision), knee (Healed anterior incision), lower leg, ank
[2020-04-22] MEDS: PRAMIPEXOLE 0.5 MG TABLET PO (16:37)
== END 2020-04-22 17:40 | DRG 535 ==
LOC: ANHED 15:37 → ANH3MED 04-21 05:23
PROVIDERS: Physician Assistant; Admitting Provider Internal Medicine; Emergency Provider Emergency Medicine; PCP Family Medicine; Visit Provider Internal Medicine
DX: S32.511A Fracture of superior rim of right pubis, initial encounter for closed fracture (principal); J96.01 Acute respiratory failure with hypoxia; W01.0XXA Fall on same level from slipping, tripping and stumbling without subsequent striking against object, initial encounter; Y92.015 Private garage of single-family (private) house as the place of occurrence of the external cause; I12.9 Hypertensive chronic kidney disease with stage 1 through stage 4 chronic kidney disease, or unspecified chronic kidney disease; N18.3 Chronic kidney disease, stage 3 (moderate); E55.9 Vitamin D deficiency, unspecified; E78.5 Hyperlipidemia, unspecified; M25.512 Pain in left shoulder; S80.01XA Contusion of right knee, initial encounter; M12.811 Other specific arthropathies, not elsewhere classified, right shoulder; Z87.891 Personal history of nicotine dependence; J45.909 Unspecified asthma, uncomplicated
CPT/HCPCS: 36415; 70450; 71046; 72192; 73030; 73060; 73521; 73564; 73700; 80048; 82607; 82746; 83735; 85025; 94640; 97110; 97116; 97161; 97165; 97530; 97535; 99285; A9270; J0131

== ENCOUNTER 2020-04-22 17:59 | IRF | payer MEDICARE, SELFPAY ==
--- NOTE | ~2020-04-22 | US_ITS ---
EXAMINATION:US venous doppler LE BI INDICATION:Bilateral lower extremity swelling TECHNIQUE: Multiple grayscale, color flow and Doppler images of the lower extremity deep venous syste ms were obtained and reviewed. COMPARISON:Comparison ultrasound dated 08/30/2019 FINDINGS: The common femoral, superficial femoral and popliteal veins demonstrate normal respiratory variation, augmentation and compressibility. Color flow is also seen within the posterior tibial, pe roneal, greater saphenous and profunda veins. IMPRESSION: 1: No lower extremity deep venous thrombosis. Reviewed, dictated and finalized at location A.
[2020-04-22 17:45] VITALS: BP 123/57; PULSE 90; RESP 20; TEMP 37.7; O2SAT 98
[2020-04-22 18:11] VITALS: BMI 33.1
--- NOTE | 2020-04-22 18:27 | PC.NURSE ---
This patient, Lisa Robertson, was admitted to [facility] Room 230-02. Patient/family oriented to hospital policies and general routines including ID bracelet, bed and alarms, visiting hours, pain management, procedures, bathroom and other care routines, personal items, smoking policy, room service/diet, and visiting hours. Valuables list has been completed. Information on how to activate the Rapid Response Team has been discussed. Patient/Family are encouraged to report perceived risks to care and to ask questions if they do not understand what they are told or what they should do.
[2020-04-22 20:17] VITALS: O2SAT 90
[2020-04-22] MEDS: TRIAMCINOLONE ACET 0.5% CREAM 15 GM TUBE 1 APPLIC TOPICAL (20:20)
[2020-04-22] MEDS: PRAMIPEXOLE 0.5 MG TABLET 1 MG PO (20:20)
[2020-04-22 22:00] VITALS: BP 130/50; PULSE 99; RESP 18; TEMP 37.9; O2SAT 92
[2020-04-23 04:39] LABS: Basophils Percent Auto 0.3 % (0.2-1.2); Eosinophils Absolute Auto 0.2 K/mm3 (0-0.3); Eosinophils Percent Auto 2.5 % (0-4.4); Hematocrit 32.7 % (37.0-47.0); Immature Granulocyte Absolute 0.02 K/mm3 (0.00-0.031); Immature Granulocyte Percent A 0.3 % (0-0.5); Lymphocytes Absolute Auto 0.88 K/mm3 (0.9-3.2); Mean Corpuscular HGB Conc 30.6 g/dl (32-36); Mean Corpuscular Hemoglobin 29.2 pg (26-34); Mean Corpuscular Volume 95.3 fl (80-100); Mean Platelet Volume 10.8 fl (7.4-10.4); Monocytes Absolute Auto 0.8 K/mm3 (0.1-0.6); Monocytes Percent Auto 10.9 % (2.6-8.5); Neutrophils Absolute Auto 5.4 K/mm3 (1.3-6.7); Platelet Count Result 163 k/mm3 (150-375); Red Blood Count 3.43 M/mm3 (4.2-5.4); Red Cell Distribution Width 14.2 % (11.5-14.5); White Blood Count 7.3 K/mm3 (4.5-10.0)
[2020-04-23 06:00] VITALS: BP 124/55; PULSE 79; RESP 20; TEMP 36.8; O2SAT 95
[2020-04-23 07:35] LABS: Blood Urea Nitrogen 29 mg/dL (7-17); Carbon Dioxide 37 mmol/L (22-30); Chloride 101 mmol/L (98-107); Estimated CRCL calculation 36 ml/min; Estimated Glomerular Filt Rate 43; Glucose 91 mg/dL (65-105); Sodium 138 mmol/L (137-145)
[2020-04-23] MEDS: CHOLECALCIFEROL 1,000 UNIT TABLET 5000 UNITS PO (10:19)
[2020-04-23] MEDS: TRIAMCINOLONE ACET 0.5% CREAM 15 GM TUBE 1 APPLIC TOPICAL ×2 (10:20→20:06)
[2020-04-23] MEDS: FUROSEMIDE 20 MG TABLET PO (10:20)
[2020-04-23] MEDS: CYANOCOBALAMIN 1,000 MCG TABLET 5000 MCG PO (10:20)
[2020-04-23 10:21] VITALS: PULSE 79
[2020-04-23] MEDS: METOPROLOL SUCCINATE EXT REL 50 MG TABCR PO (10:21)
[2020-04-23 13:35] VITALS: BMI 33.1
[2020-04-23 14:00] VITALS: BP 129/54; PULSE 88; RESP 18; TEMP 36.3; O2SAT 98
--- NOTE | 2020-04-23 14:12 | WPDREHABHP ---
H&P: HPI History of Present Illness Chief complaint: Pelvic Fracture Narrative: Lisa Robertson is a 79 year old female HISTORY OF PRESENT ILLNESS: The patient's primary rehab impairment category is 0 7/orthopedic/ lower extremity fracture. The etiologic diagnosis is Right inferior and superior pubic rami fractures I saw this patient [id number] on April 23, 2020 at 10:30 a.m. The patient is a 79-year-old right-handed woman with a past medical history of peripheral polyneuropathy, chronic back pain and peripheral venous insufficiency of bilateral lower extremity who presented to [facility] on April 19, 2020 after she fell in her garage. She lives alone and reported a similar fall last year. She complained of injury to her forehead left shoulder and right knee. Head CT showed no fractures or acute intracranial minute findings. Shoulder x-ray showed osteopenia osteoarthritic change at the Ivan 0 humeral joint degenerative changes at the acromioclavicular joint and rotator cuff atrophy. Humerus x-ray was negative for fracture or dislocation. Chest x-ray showed cardiomegaly aortic atherosclerosis and bilateral hyperinflation but no active pulmonary disease. CT of the pelvis revealed bilateral hip arthroplasties recent bilateral sacral fractures and right superior and inferior pubic ramus fractures and old sacral fractures. CT of the D showed try compartment osteoarthritis and joint effusion with soft tissue swelling and hematoma. Orthopedic surgeon was consulted in the plan for non operative treatment at this time. Dr. bucio recommends in patient acute rehab for PT OT with weight-bearing as tolerated. Medical complications including respiratory insufficiency requiring supplemental oxygen uncontrolled pain, anemia, leukocytosis, renal issues, edema, hypertension, and increased urinary incontinence. Patient is awake alert x4 patient's evening [place] March 30, 2025 for pain The patient has not traveled outside the [place] or had contact with someone who is ill that has traveled outside the [place] in the past 21 days. The patient has not traveled to an area of the [place] that is experiencing no transmission of the Coronavirus and has not had close personal contact with anyone that has. Patient does not have a fever. The patient is not experiencing lower extremity illness symptoms. The patient does however have shortness of breath at her baseline and the ordinarily uses oxygen at home Therapy was initiated at the acute care facility and the patient transferred to us from [facility] on April 22, 2020 FALLS OR SURGERIES: The patient has had no major surgeries in the 100 days prior to admission. They had falls in the past year. They had falls with injury in the past year. PAST MEDICAL HISTORY: acute respiratory failure, degenerative right knee arthritis, shortness of breath, chronic bilateral low back pain without she had a car, peripheral neuropathy, vitamin-D deficiency, dyslipidemia, restless leg syndrome, osteoarthritis, hypertension, stage 3 chronic kidney disease, peripheral initial sufficiency. PAST SURGICAL HISTORY: Right knee arthroplasty, arthroscopic left knee, lumbar diskectomy, bilateral hip arthroplasty SOCIAL HISTORY: patient lives alone in a 1 level home with 2 to 4 steps to enter. She has a full basement. She was totally independent with all ADLs I ADL S and mobility without assistive device but has used a cane wheel walker or wheelchair occasionally in the last 3 months due to low back pain. 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 Patient reported that she has had 2 granddaughters who has been assisting her at home or she can higher help. She is very motivated to do [facility] program. Patient is a former smoker and stopped on smoking 1982 patient denies any alcohol or illicit use of drugs. FAMILY HISTORY: Mother had cancer, father had Hodgkin's lymphoma PRIOR LEVEL OF FUNCTION:
[2020-04-23] MEDS: PRAMIPEXOLE 0.5 MG TABLET 1 MG PO (17:58)
[2020-04-23 22:00] VITALS: BP 132/60; PULSE 95; RESP 16; TEMP 37.4; O2SAT 96
[2020-04-24 06:00] VITALS: BP 128/60; PULSE 82; RESP 20; TEMP 36.6; O2SAT 92
[2020-04-24 08:39] VITALS: PULSE 82
[2020-04-24] MEDS: METOPROLOL SUCCINATE EXT REL 50 MG TABCR PO (08:39)
[2020-04-24] MEDS: CYANOCOBALAMIN 1,000 MCG TABLET 5000 MCG PO (08:40)
[2020-04-24] MEDS: FUROSEMIDE 20 MG TABLET PO (08:40)
[2020-04-24] MEDS: CHOLECALCIFEROL 1,000 UNIT TABLET 5000 UNITS PO (08:40)
[2020-04-24] MEDS: TRIAMCINOLONE ACET 0.5% CREAM 15 GM TUBE 1 APPLIC TOPICAL ×2 (08:40→20:05)
[2020-04-24 14:00] VITALS: BP 131/57; PULSE 82; RESP 19; TEMP 36.4; O2SAT 98
--- NOTE | 2020-04-24 16:31 | RPD ---
INDIVIDUALIZED PLAN OF CARE FOR Lisa Robertson Brief Synthesis of Pre-Admission Screen, Post-Admission Evaluation and Therapy Evaluations: The patient presents to rehab with right inferior and superior pubic rami fractures and bilateral sacral fractures. Comorbidities include acute respiratory failure with hypoxia, rotator cuff arthropathy of right shoulder, contusion of right knee, degenerative right knee arthritis, acute pain right knee, acute pain left shoulder, shortness of breath, chronic bilateral low back pain without sciatica, peripheral neuropathy, vitamin D deficiency, dyslipidemia, restless leg syndrome, osteoarthritis, hypertension, stage 3 chronic kidney disease, bilateral LE edema due to peripheral venous insufficiency. The complexity of the patient's medical management, nursing, and therapy needs require an inpatient rehab hospital stay with a physician-led interdisciplinary team approach. The patient requires physician services for medical oversight, management of medical complications in setting of present comorbidities, and pain management.The patient requires nursing services for DVT prophylactics, infection protection, medication management and education, pressure relief, and wound care. Deficits include:ADLs, Balance, Endurance, Family Training/Education, Mobility, Pain Management, ROM, Strength, Transfers, and Safety Lithoduplicator Operator/Case Management for: Discharge Planning and Patient/Family Counseling Physical Therapy: 5 days per week for 90 minutes. Treatments may include: Therapeutic Exercise, Gait Training, Neuromuscular Re-education, Transfer Training, Community Reintegration, Bed Mobility, Patient/Family Education, Wheelchair Mobility Group Therapy/Concurrent Therapy Rationales: -Improve attention span during functional activities in a distracted environment. -Enhance problem solving and/or adequate judgment skills during functional activities in a distracted environment. -Promote increased safety awareness in a distracted environment to reduce fall risk with functional tasks, transfers, and ambulation to allow a more safe, self-sufficient return to the home environment. -Improve dynamic balance skills to promote safety and independence with functional activities in a distracted environment for maximum gain. Occupational Therapy: 5 days per week for 90 minutes. Treatments may include: Therapeutic Exercise, Therapeutic Activity, Cognitive Training, Self-Care Transfer Training, Community Reintegration, Home Management, Patient/Family Education, Wheelchair Mobility Training, Energy Conservation Training Group Therapy/Concurrent Therapy Rationales: -Allow therapist to observe and teach generalization and carry-over of skills learned in individual therapy. -Enhance problem solving and sequencing skills during therapeutic activities in a distracted environment. -Promote increased safety awareness in a realistic setting to reduce fall risk with functional tasks due to visual and verbal distractions. -Increase functional level with ADLs, ADL transfers and use of adaptive equipment through therapeutic activities with others while promoting safety to allow a more safe, self-sufficient return home. Medical Prognosis: Good Anticipated Length of Stay: 10 days Rehab Goals: Eating Goal: 06-Independent Oral Hygiene Goal: 06-Independent Toileting Hygiene Goal: 06-Independent Shower/Bathe Self Goal: 04-Supervision or Touching Assistance Upper Body Dressing Goal: 06-Independent Lower Body Dressing Goal: 06-Independent Putting On/Taking Off Footwear Goal: 06-Independent Rolling Left and Right Goal: 06-Independent Sit to Lying Goal: 06-Independent Lying to Sitting on Side of Bed Goal: 06-Independent Sit to Stand Goal: 06-Independent Chair/[id number] Transfer Goal: 06-Independent Toilet Transfer Goal: 06-Independent Car Transfer Goal: 06-Independent Walk 10' Goal: 06-Independent Walk 50' with Two Turns Goal: 06-Independent Walk 150' Goal: 0
[2020-04-24] MEDS: PRAMIPEXOLE 0.5 MG TABLET 1 MG PO (17:09)
[2020-04-24 21:04] VITALS: O2SAT 92
[2020-04-24 22:00] VITALS: BP 102/50; PULSE 81; RESP 20; TEMP 36.9; O2SAT 97
[2020-04-25 06:00] VITALS: BP 145/66; PULSE 84; RESP 20; TEMP 37.1; O2SAT 91
[2020-04-25 08:06] VITALS: O2SAT 95
[2020-04-25] MEDS: CYANOCOBALAMIN 1,000 MCG TABLET 5000 MCG PO (09:40)
[2020-04-25] MEDS: FUROSEMIDE 20 MG TABLET PO (09:40)
[2020-04-25] MEDS: CHOLECALCIFEROL 1,000 UNIT TABLET 5000 UNITS PO (09:40)
[2020-04-25 09:41] VITALS: PULSE 84
[2020-04-25] MEDS: TRIAMCINOLONE ACET 0.5% CREAM 15 GM TUBE 1 APPLIC TOPICAL ×2 (09:41→21:00)
[2020-04-25] MEDS: METOPROLOL SUCCINATE EXT REL 50 MG TABCR PO (09:41)
--- NOTE | 2020-04-25 11:16 | PM.PNORT ---
Progress Note: A&P Assessment and Plan (1) Contusion of right knee: Qualifiers: Encounter type: subsequent encounter Qualified Code(s): S80.01XD - Contusion of right knee, subsequent encounter Code(s): S80.01XA - Contusion of right knee, initial encounter Status: Acute Assessment and Plan: Continue PT/OT. WBAT. Ice. Compression as needed. Walker. High Fall Risk. Continue pain control. Follow up as an outpatient in 5-6 weeks. (2) Closed fracture of right superior pubic ramus: Qualifiers: Encounter type: initial encounter Qualified Code(s): S32.511A - Fracture of superior rim of right pubis, initial encounter for closed fracture Code(s): S32.511A - Fracture of superior rim of right pubis, initial encounter for closed fracture Status: Acute Assessment and Plan: Continue PT/OT with WBAT. Continue pain control. Continue ice/compression and elevation. Fall Risk. Walker. Follow up as an outpatient in 5-6 weeks. (3) Closed fracture of right inferior pubic ramus: Qualifiers: Encounter type: initial encounter Qualified Code(s): S32.591A - Other specified fracture of right pubis, initial encounter for closed fracture Code(s): S32.591A - Other specified fracture of right pubis, initial encounter for closed fracture Status: Acute Assessment and Plan: Continue PT/OT with WBAT. Continue pain control. Continue ice/compression and elevation. Fall Risk. (4) Rotator cuff arthropathy of both shoulders: Code(s): M12.811 - Other specific arthropathies, not elsewhere classified, right shoulder; M12.812 - Other specific arthropathies, not elsewhere classified, left shoulder Status: Acute Assessment and Plan: Limitations with ROM/strength of b/l UE. Continue PT/OT. WBAT. Assistive devices for ADLs as needed. Subjective Subjective Date/Time Seen: 04/25/20 11:16 Patient currently in [facility]. She is sitting up in the chair taking her morning pills. She states she overall feels better and is working well with PT/OT. She does continue to c/o right knee pain. Review of Systems Constitutional: Constitutional: Denies fever(s) Eyes: Eyes: Denies blurry vision ENT: Reports Normal hearing present Cardiovascular: Cardiovascular: Denies chest pain and Denies dyspnea Respiratory: Respiratory: Denies dyspnea and Denies wheezing Gastrointestinal: Gastrointestinal: Denies abdominal pain Genitourinary: Genitourinary: Denies urinary urgency Musculoskeletal: Musculoskeletal: Reports as per HPI and Denies numbness Integumentary/Breasts: Skin/Breast: Denies changing lesions and Denies sores Neurologic: Reports Normal hearing present, Denies behavioral changes, Denies confusion, Denies numbness and Denies convulsions Psychiatric: Psychiatric: Denies behavioral changes, Denies confusion and Denies hallucinations Endocrine: Endocrine: Denies heat intolerance Hematologic/Lymphatic: Hematologic/Lymphatic: Denies easy bleeding Allergic/Immunologic: Allergic/Immunologic: Denies wheezing Exam Const: General: comfortable and no acute distress Resp: Effort & Inspection: normal respiratory effort Cardio: Rate: regular rate Rhythm: regular rhythm GI: Inspection: non-distended Skin: Other: Ecchymosis right LE Extrem: Right upper extremity: normal capillary refill and shoulder/upper arm tenderness of the proximal humerus and of the mid-shaft humerus; not of the A-C joint and not of the scapula, swelling of the proximal humerus and abnormal ROM pain with active ROM in ABduction and with range as follows (FF: 90) Left upper extremity: normal capillary refill and shoulder/upper arm axillary nerve sensory function normal, abnormal ROM (RTC arthropathy) with range as follows (FF: 20 (must use right arm to lift arm above 90) ) and other (Can touch hair with LUE with bent elbow ); no tenderness and no swelling Right lower extremity: knee D
[2020-04-25 14:00] VITALS: BP 134/63; PULSE 88; RESP 19; TEMP 36.7; O2SAT 100
--- NOTE | 2020-04-25 14:23 | WPDNEURORHBP ---
Subjective Date/time seen: 04/25/20 14:23 Interval history: this 79-year-old woman is here because of pelvic fracture debility and also dependent on oxygen with underlying medical issues as outlined in my initial history and physical examination she also has contusion of the right knee complaining of swelling of the right knee and also some redness which is definite producing does not look like cellulitis however I am concerned about the DVT so I am going to order a Doppler study Review of Systems Review of Systems: All systems reviewed & are unremarkable except as noted in HPI and below Functional Status Ambulation Ability Ability to Ambulate 10 Feet: Contact Guard Ability to Ambulate 50 Feet With 2 Turns: Contact Guard Ability to Ambulate 150 Feet: Contact Guard Ambulation Assistive Devices: Walker, Wheeled Transfers Ability Ability to Transfer In/Out of Chair: Minimum Assistance X 1 Exam Const: General: comfortable and no acute distress HENMT: General nose exam: Normal nares present Mouth: Yes moist mucous membranes Eyes: General: appearance normal, both eyes and all related structures Neck: Neck: supple and no JVD Resp: Effort & Inspection: normal respiratory effort Auscultation: clear to auscultation bilaterally Cardio: Rate: regular rate Rhythm: regular rhythm GI: GI Palp: Yes Soft to palpation Auscultation: normal bowel sounds Skin: General skin exam: normal color and no rashes or lesions noted Neuro: Other: she is awake and alert well oriented has generalized weakness without any lateralizing focal motor weakness the weakness is related to the contusion of the right knee and swelling of the leg for which the orthopedic is following Extrem: Other: swelling of the right more than left leg I do not feel that the redness is due to cellulitis I believe it is the bruising when she apparently had fallen and broke pelvic Psych: Mental Status: mental status grossly normal Objective Data Vital Signs Vital Signs: Vital Signs - 24 hr 04/24/20 21:04 04/24/20 22:00 04/25/20 06:00 Temperature 36.9 C 37.1 C Pulse Rate 81 84 Respiratory Rate 20 20 Blood Pressure 102/50 L 145/66 H Pulse Oximetry 92 97 91 04/25/20 08:06 04/25/20 09:41 Temperature Pulse Rate 84 Respiratory Rate Blood Pressure Pulse Oximetry 95 Intake/Output Intake/Output: Intake & Output 04/22/20 04/23/20 04/24/2004/25/20 23:59 23:59 23:59 23:59 Intake Total 240 1440 1440 240 Balance 240 1440 1440 240 Meds/Results Medications: Active Medications Generic Name Dose Route Start Last Admin Trade Name Freq PRN Reason Stop Dose Admin Acetaminophen 650 mg 04/22/20 18:41 Tylenol Tablet PO Q6H PRN fever or pain RATED 1-3 Hydrocodone Bitart/Acetaminophen 1 tab 04/22/20 18:41 04/25/20 09:45 [place] 5-325 Mg PO 1 tab Q4HR PRN Administration Pain Rated 6 Or Greater Albuterol 1 puff 04/22/20 18:41 Proventil Hfa INHALATION Q4H PRN shortness of breath or wheezin Cyanocobalamin 5,000 mcg 04/23/20 09:00 04/25/20 09:40 Vitamin B-12 Tab PO 05/23/20 09:01 5,000 mcg DAILY ADRIANO Administration Furosemide 20 mg 04/23/20 09:00 04/25/20 09:40 Lasix Tablet PO 20 mg DAILY ADRIANO Administration Metoprolol Succinate 50 mg 04/23/20 09:00 04/25/20 09:41 Toprol Xl PO 50 mg DAILY ADRIANO Administration Pramipexole Dihydrochloride 1 mg 04/22/20 19:10 04/24/20 17:09 Mirapex PO 1 mg DAILY@1800 ADRIANO Administration Triamcinolone Acetonide 1 applic 04/22/20 21:00 04/25/20 09:41 Kenalog 0.5% Cream TOPICAL 1 applic Q12HR ADRIANO Administration Vitamin D 5,000 unit 04/23/20 09:00 04/25/20 09:40 Vitamin D PO 5,000 unit DAILY ADRIANO Administration Progress Note: A&P Assessment and Plan (1) Contusion of right knee: Qualifiers: Encounter type: subsequent encounter Qualified Code(s): S80.01XD - Contusion of right knee, subsequen
[2020-04-25] MEDS: PRAMIPEXOLE 0.5 MG TABLET 1 MG PO (18:35)
[2020-04-25 21:44] VITALS: BP 132/68; PULSE 87; RESP 18; TEMP 37.3; O2SAT 98
[2020-04-26 06:00] VITALS: BP 141/65; PULSE 88; RESP 20; TEMP 37.1; O2SAT 97
[2020-04-26] MEDS: FUROSEMIDE 20 MG TABLET PO (10:24)
[2020-04-26] MEDS: CHOLECALCIFEROL 1,000 UNIT TABLET 5000 UNITS PO (10:24)
[2020-04-26] MEDS: CYANOCOBALAMIN 1,000 MCG TABLET 5000 MCG PO (10:24)
[2020-04-26 10:25] VITALS: PULSE 88
[2020-04-26] MEDS: TRIAMCINOLONE ACET 0.5% CREAM 15 GM TUBE 1 APPLIC TOPICAL ×2 (10:25→20:28)
[2020-04-26] MEDS: METOPROLOL SUCCINATE EXT REL 50 MG TABCR PO (10:25)
[2020-04-26 14:00] VITALS: BP 142/68; PULSE 85; RESP 19; TEMP 36.3; O2SAT 98
--- NOTE | 2020-04-26 16:11 | WPDNEURORHBP ---
Subjective Date/time seen: 04/26/20 16:11 Interval history: this 79-year-old woman is here with pelvic fracture doing fairly well her Doppler studies of the lower extremities unremarkable she does have venous insufficiency for quite some time and that is the reason her legs are swollen she does not have any calf tenderness in Rosi sign is negative she denies any headache nausea vomiting chest pain shortness of breath fever chills sore throat Review of Systems Review of Systems: All systems reviewed & are unremarkable except as noted in HPI and below Functional Status Ambulation Ability Ability to Ambulate 10 Feet: Contact Guard Ability to Ambulate 50 Feet With 2 Turns: Contact Guard Ability to Ambulate 150 Feet: Contact Guard Ambulation Assistive Devices: Walker, Wheeled Transfers Ability Ability to Transfer In/Out of Chair: Standby Assistance Exam Const: General: comfortable and no acute distress HENMT: General nose exam: Normal nares present Mouth: Yes moist mucous membranes Eyes: General: appearance normal, both eyes and all related structures Neck: Neck: supple and no JVD Resp: Effort & Inspection: normal respiratory effort Auscultation: clear to auscultation bilaterally Cardio: Rate: regular rate Rhythm: regular rhythm GI: GI Palp: Yes Soft to palpation Auscultation: normal bowel sounds Skin: General skin exam: normal color and no rashes or lesions noted Neuro: Other: she is awake and alert well oriented time place and person speech and language functions are normal cranial examination is normal strength is improving she is engage in therapy quite well Extrem: Other: bilateral lower extremity venous insufficiency no evidence of cellulitis Psych: Mental Status: mental status grossly normal Objective Data Vital Signs Vital Signs: Vital Signs - 24 hr 04/25/20 21:44 04/26/20 06:00 04/26/20 10:25 Temperature 37.3 C 37.1 C Pulse Rate 87 88 88 Respiratory Rate 18 20 Blood Pressure 132/68 141/65 H Pulse Oximetry 98 97 Intake/Output Intake/Output: Intake & Output 04/23/20 04/24/20 04/25/20 04/26/20 23:59 23:59 23:59 23:59 Intake Total 1440 1440 1200 480 Balance 1440 1440 1200 480 Meds/Results Medications: Active Medications Generic Name Dose Route Start Last Admin Trade Name Freq PRN Reason Stop Dose Admin Acetaminophen 650 mg 04/22/20 18:41 Tylenol Tablet PO Q6H PRN fever or pain RATED 1-3 Hydrocodone Bitart/Acetaminophen 1 tab 04/22/20 18:41 04/25/20 09:45 [place] 5-325 Mg PO 1 tab Q4HR PRN Administration Pain Rated 6 Or Greater Albuterol 1 puff 04/22/20 18:41 Proventil Hfa INHALATION Q4H PRN shortness of breath or wheezin Cyanocobalamin 5,000 mcg 04/23/20 09:00 04/26/20 10:24 Vitamin B-12 Tab PO 05/23/20 09:01 5,000 mcg DAILY ADRIANO Administration Furosemide 20 mg 04/23/20 09:00 04/26/20 10:24 Lasix Tablet PO 20 mg DAILY ADRIANO Administration Metoprolol Succinate 50 mg 04/23/20 09:00 04/26/20 10:25 Toprol Xl PO 50 mg DAILY ADRIANO Administration Pramipexole Dihydrochloride 1 mg 04/22/20 19:10 04/25/20 18:35 Mirapex PO 1 mg DAILY@1800 ADRIANO Administration Triamcinolone Acetonide 1 applic 04/22/20 21:00 04/26/20 10:25 Kenal[place] 0.5% Cream TOPICAL 1 applic Q12HR ADRIANO Administration Vitamin D 5,000 unit 04/23/20 09:00 04/26/20 10:24 Vitamin D PO 5,000 unit DAILY ADRIANO Administration Radiology Results: ITS Impressions Venous Doppler Study 04/25/20 15:48 IMPRESSION: 1: No lower extremity deep venous thrombosis. Progress Note: A&P Assessment and Plan (1) Contusion of right knee: Qualifiers: Encounter type: subsequent encounter Qualified Code(s): S80.01XD - Contusion of right knee, subsequent encounter Code(s): S80.01XA - Contusion of right knee, initial encounter Status: Acute (2) Rotator cuff arthropathy of both shoulders
[2020-04-26] MEDS: PRAMIPEXOLE 0.5 MG TABLET 1 MG PO (18:02)
[2020-04-26 20:00] VITALS: BP 131/51; PULSE 84; RESP 20; TEMP 36.9; O2SAT 97
[2020-04-27 06:00] VITALS: BP 134/62; PULSE 86; RESP 16; TEMP 37.1; O2SAT 94
[2020-04-27] MEDS: CHOLECALCIFEROL 1,000 UNIT TABLET 5000 UNITS PO (08:32)
[2020-04-27] MEDS: CYANOCOBALAMIN 1,000 MCG TABLET 5000 MCG PO (08:32)
[2020-04-27] MEDS: FUROSEMIDE 20 MG TABLET PO (08:32)
[2020-04-27 08:55] VITALS: PULSE 86
[2020-04-27] MEDS: METOPROLOL SUCCINATE EXT REL 50 MG TABCR PO (08:55)
[2020-04-27] MEDS: TRIAMCINOLONE ACET 0.5% CREAM 15 GM TUBE 1 APPLIC TOPICAL ×2 (08:55→20:51)
[2020-04-27 09:48] VITALS: O2SAT 93
[2020-04-27 14:00] VITALS: BP 128/53; PULSE 82; RESP 20; TEMP 36.7; O2SAT 97
[2020-04-27] MEDS: PRAMIPEXOLE 0.5 MG TABLET 1 MG PO (17:52)
--- NOTE | 2020-04-27 18:44 | WPDNEURORHBP ---
Subjective Date/time seen: 04/27/20 18:44 Interval history: this pleasant 79-year-old woman is here after sustaining pelvic fracture she is doing fairly well she denies any extraordinary amount of pain she denies any fever chills sore throat headache nausea and vomiting and progressing well in the rehab Review of Systems Review of Systems: All systems reviewed & are unremarkable except as noted in HPI and below Functional Status Ambulation Ability Ability to Ambulate 10 Feet: Contact Guard Ability to Ambulate 50 Feet With 2 Turns: Contact Guard Ability to Ambulate 150 Feet: Contact Guard Ambulation Assistive Devices: Walker, Wheeled Transfers Ability Ability to Transfer In/Out of Chair: Minimum Assistance X 1 Exam Const: General: comfortable and no acute distress HENMT: General nose exam: Normal nares present Mouth: Yes moist mucous membranes Eyes: General: appearance normal, both eyes and all related structures Neck: Neck: supple and no JVD Resp: Effort & Inspection: normal respiratory effort Auscultation: clear to auscultation bilaterally Cardio: Rate: regular rate Rhythm: regular rhythm GI: GI Palp: Yes Soft to palpation Auscultation: normal bowel sounds Skin: General skin exam: normal color and no rashes or lesions noted Neuro: Other: she is awake and alert well oriented in time place and person has normal speech and language function normal cranial examination and improving strength in both upper lower extremitie Extrem: General: normal to inspection Psych: Mental Status: mental status grossly normal Objective Data Vital Signs Vital Signs: Vital Signs - 24 hr 04/26/20 20:00 04/27/20 06:00 04/27/20 08:55 Temperature 36.9 C 37.1 C Pulse Rate 84 86 86 Respiratory Rate 20 16 Blood Pressure 131/51 L 134/62 Pulse Oximetry 97 94 04/27/20 09:48 04/27/20 14:00 Temperature 36.7 C Pulse Rate 82 Respiratory Rate 20 Blood Pressure 128/53 L Pulse Oximetry 93 97 Intake/Output Intake/Output: Intake & Output 04/24/20 04/25/20 04/26/20 04/27/20 23:59 23:59 23:59 23:59 Intake Total 1440 1200 1440 720 Balance 1440 1200 1440 720 Meds/Results Medications: Active Medications Generic Name Dose Route Start Last Admin Trade Name Freq PRN Reason Stop Dose Admin Acetaminophen 650 mg 04/22/20 18:41 Tylenol Tablet PO Q6H PRN fever or pain RATED 1-3 Hydrocodone Bitart/Acetaminophen 1 tab 04/22/20 18:41 04/27/20 08:33 [place] 5-325 Mg PO 1 tab Q4HR PRN Administration Pain Rated 6 Or Greater Albuterol 1 puff 04/22/20 18:41 Proventil Hfa INHALATION Q4H PRN shortness of breath or wheezin Cyanocobalamin 5,000 mcg 04/23/20 09:00 04/27/20 08:32 Vitamin B-12 Tab PO 05/23/20 09:01 5,000 mcg DAILY ADRIANO Administration Furosemide 20 mg 04/23/20 09:00 04/27/20 08:32 Lasix Tablet PO 20 mg DAILY ADRIANO Administration Metoprolol Succinate 50 mg 04/23/20 09:00 04/27/20 08:55 Toprol Xl PO 50 mg DAILY ADRIANO Administration Pramipexole Dihydrochloride 1 mg 04/22/20 19:10 04/27/20 17:52 Mirapex PO 1 mg DAILY@1800 ADRIANO Administration Triamcinolone Acetonide 1 applic 04/22/20 21:00 04/27/20 08:55 Kenalog 0.5% Cream TOPICAL 1 applic Q12HR ADRIANO Administration Vitamin D 5,000 unit 04/23/20 09:00 04/27/20 08:32 Vitamin D PO 5,000 unit DAILY ADRIANO Administration Radiology Results: ITS Impressions Venous Doppler Study 04/25/20 15:48 IMPRESSION: 1: No lower extremity deep venous thrombosis. Progress Note: A&P Assessment and Plan (1) Contusion of right knee: Qualifiers: Encounter type: subsequent encounter Qualified Code(s): S80.01XD - Contusion of right knee, subsequent encounter Code(s): S80.01XA - Contusion of right knee, initial encounter Status: Acute (2) Rotator cuff arthropathy of both shoulders: Code(s): M12.811 - Other specific arthro
[2020-04-27 22:10] VITALS: BP 135/52; PULSE 86; RESP 20; TEMP 37.1; O2SAT 95
[2020-04-28 06:00] VITALS: BP 133/54; PULSE 81; RESP 20; TEMP 36.9; O2SAT 95
[2020-04-28] MEDS: CYANOCOBALAMIN 1,000 MCG TABLET 5000 MCG PO (09:39)
[2020-04-28 09:40] VITALS: PULSE 81
[2020-04-28] MEDS: CHOLECALCIFEROL 1,000 UNIT TABLET 5000 UNITS PO (09:40)
[2020-04-28] MEDS: TRIAMCINOLONE ACET 0.5% CREAM 15 GM TUBE 1 APPLIC TOPICAL ×2 (09:40→21:40)
[2020-04-28] MEDS: FUROSEMIDE 20 MG TABLET PO (09:40)
[2020-04-28] MEDS: METOPROLOL SUCCINATE EXT REL 50 MG TABCR PO (09:40)
--- NOTE | 2020-04-28 11:10 | WPDNEURORHBP ---
Subjective Date/time seen: S/P pelvic fracture doing well04/28/20 11:10 Review of Systems Review of Systems: All systems reviewed & are unremarkable except as noted in HPI and below Functional Status Ambulation Ability Ability to Ambulate 10 Feet: Contact Guard Ability to Ambulate 50 Feet With 2 Turns: Contact Guard Ability to Ambulate 150 Feet: Contact Guard Ambulation Assistive Devices: Walker, Wheeled Transfers Ability Ability to Transfer In/Out of Chair: Minimum Assistance X 1 Exam Const: General: cooperative, healthy appearing, comfortable and no acute distress HENMT: Head: normal to inspection Ears: hearing grossly normal bilaterally General nose exam: Normal external nose present, Normal nares present and No nasal discharge present Face and sinus: normal facial exam Mouth: Yes Normal oral and palatal mucosa present Eyes: General: appearance normal, both eyes and all related structures Neck: Neck: full ROM Resp: Effort & Inspection: normal respiratory effort Auscultation: clear to auscultation bilaterally Cardio: Rate: regular rate Rhythm: regular rhythm GI: Inspection: normal to inspection Percussion: Yes normal to percussion Auscultation: normal bowel sounds Skin: General skin exam: no rashes or lesions noted Neuro: General: patient oriented x3 Cranial nerves: Yes CN's II-XII intact bilaterally Speech: normal speech Motor exam (neuro): 5/5 motor strength present throughout (improving) Psych: Appearance: grossly normal Objective Data Vital Signs Vital Signs: Vital Signs - 24 hr 04/27/20 14:00 04/27/20 22:10 04/28/20 06:00 Temperature 36.7 C 37.1 C 36.9 C Pulse Rate 82 86 81 Respiratory Rate 20 20 20 Blood Pressure 128/53 L 135/52 L 133/54 L Pulse Oximetry 97 95 95 04/28/20 09:40 Temperature Pulse Rate 81 Respiratory Rate Blood Pressure Pulse Oximetry Intake/Output Intake/Output: Intake & Output 04/25/20 04/26/20 04/27/20 04/28/20 23:59 23:59 23:59 23:59 Intake Total 1200 1440 720 120 Balance 1200 1440 720 120 Meds/Results Medications: Active Medications Generic Name Dose Route Start Last Admin Trade Name Freq PRN Reason Stop Dose Admin Acetaminophen 650 mg 04/22/20 18:41 Tylenol Tablet PO Q6H PRN fever or pain RATED 1-3 Hydrocodone Bitart/Acetaminophen 1 tab 04/22/20 18:41 04/28/20 09:37 [place] 5-325 Mg PO 1 tab Q4HR PRN Administration Pain Rated 6 Or Greater Albuterol 1 puff 04/22/20 18:41 Proventil Hfa INHALATION Q4H PRN shortness of breath or wheezin Cyanocobalamin 5,000 mcg 04/23/20 09:00 04/28/20 09:39 Vitamin B-12 Tab PO 05/23/20 09:01 5,000 mcg DAILY ADRIANO Administration Furosemide 20 mg 04/23/20 09:00 04/28/20 09:40 Lasix Tablet PO 20 mg DAILY ADRIANO Administration Metoprolol Succinate 50 mg 04/23/20 09:00 04/28/20 09:40 Toprol Xl PO 50 mg DAILY ADRIANO Administration Pramipexole Dihydrochloride 1 mg 04/22/20 19:10 04/27/20 17:52 Mirapex PO 1 mg DAILY@1800 ADRIANO Administration Triamcinolone Acetonide 1 applic 04/22/20 21:00 04/28/20 09:40 Kenalog 0.5% Cream TOPICAL 1 applic Q12HR ADRIANO Administration Vitamin D 5,000 unit 04/23/20 09:00 04/28/20 09:40 Vitamin D PO 5,000 unit DAILY ADRIANO Administration Radiology Results: ITS Impressions Venous Doppler Study 04/25/20 15:48 IMPRESSION: 1: No lower extremity deep venous thrombosis. Progress Note: A&P Assessment and Plan (1) Contusion of right knee: Qualifiers: Encounter type: subsequent encounter Qualified Code(s): S80.01XD - Contusion of right knee, subsequent encounter Code(s): S80.01XA - Contusion of right knee, initial encounter Status: Acute (2) Rotator cuff arthropathy of both shoulders: Code(s): M12.811 - Other specific arthropathies, not elsewhere classified, right shoulder; M12.812 - Other specif
[2020-04-28 14:00] VITALS: BP 128/57; PULSE 83; RESP 20; TEMP 36.9; O2SAT 97
[2020-04-28] MEDS: PRAMIPEXOLE 0.5 MG TABLET 1 MG PO (17:38)
[2020-04-28 21:56] VITALS: BP 130/49; PULSE 84; RESP 20; TEMP 36.8; O2SAT 96
[2020-04-29 06:00] VITALS: BP 145/59; PULSE 92; RESP 20; TEMP 36.8; O2SAT 93
[2020-04-29] MEDS: CHOLECALCIFEROL 1,000 UNIT TABLET 5000 UNITS PO (09:28)
[2020-04-29] MEDS: FUROSEMIDE 20 MG TABLET PO (09:29)
[2020-04-29] MEDS: CYANOCOBALAMIN 1,000 MCG TABLET 5000 MCG PO (09:29)
[2020-04-29 09:31] VITALS: PULSE 92
[2020-04-29] MEDS: METOPROLOL SUCCINATE EXT REL 50 MG TABCR PO (09:31)
[2020-04-29] MEDS: TRIAMCINOLONE ACET 0.5% CREAM 15 GM TUBE 1 APPLIC TOPICAL ×2 (10:00→20:58)
--- NOTE | 2020-04-29 14:33 | WPDNEURORHBP ---
Subjective Date/time seen: 04/29/20 14:33 Interval history: this 79-year-old woman is here after having had pelvic fracture she is complaining of more redness and more swelling of the right leg and she feels that she needs to be on an antibiotic she is also on the oxygen. But she denies any headache nausea vomiting chest pain shortness of breath fever chills sore throat she has walked 150 feet and she is on weight-bearing as tolerated Discussed in the team conference and I will add some antibiotic to the regimen empirically Review of Systems Review of Systems: All systems reviewed & are unremarkable except as noted in HPI and below Functional Status Ambulation Ability Ability to Ambulate 10 Feet: Standby Assistance Ability to Ambulate 50 Feet With 2 Turns: Standby Assistance Ability to Ambulate 150 Feet: Standby Assistance Ambulation Assistive Devices: Walker, Wheeled Transfers Ability Ability to Transfer In/Out of Chair: Independent Exam Const: General: comfortable and no acute distress HENMT: General nose exam: Normal nares present Mouth: Yes moist mucous membranes Eyes: General: appearance normal, both eyes and all related structures Neck: Neck: supple and no JVD Resp: Effort & Inspection: normal respiratory effort Auscultation: clear to auscultation bilaterally Cardio: Rate: regular rate Rhythm: regular rhythm GI: GI Palp: Yes Soft to palpation Auscultation: normal bowel sounds Skin: Other: right more the left swelling of the legs which she has had for long time and possibility of a cellulitis of the right leg along with the bruising and swelling of the right knee Neuro: Other: patient is walking much better still needs assistance in most of the activities of daily living Extrem: Other: swelling of the right knee and the bruising and redness along with the swelling and redness of the right lower extremity raising the question of cellulitis Objective Data Vital Signs Vital Signs: Vital Signs - 24 hr 04/28/20 21:56 04/29/20 06:00 04/29/20 09:31 Temperature 36.8 C 36.8 C Pulse Rate 84 92 92 Respiratory Rate 20 20 Blood Pressure 130/49 L 145/59 H Pulse Oximetry 96 93 Intake/Output Intake/Output: Intake & Output 04/26/20 04/27/20 04/28/20 04/29/20 23:59 23:59 23:59 23:59 Intake Total 1440 720 560 480 Balance 1440 720 560 480 Meds/Results Medications: Active Medications Generic Name Dose Route Start Last Admin Trade Name Freq PRN Reason Stop Dose Admin Acetaminophen 650 mg 04/22/20 18:41 Tylenol Tablet PO Q6H PRN fever or pain RATED 1-3 Hydrocodone Bitart/Acetaminophen 1 tab 04/22/20 18:41 04/29/20 09:27 [place] 5-325 Mg PO 1 tab Q4HR PRN Administration Pain Rated 6 Or Greater Albuterol 1 puff 04/22/20 18:41 Proventil Hfa INHALATION Q4H PRN shortness of breath or wheezin Cyanocobalamin 5,000 mcg 04/23/20 09:00 04/29/20 09:29 Vitamin B-12 Tab PO 05/23/20 09:01 5,000 mcg DAILY ADRIANO Administration Furosemide 20 mg 04/23/20 09:00 04/29/20 09:29 Lasix Tablet PO 20 mg DAILY ADRIANO Administration Metoprolol Succinate 50 mg 04/23/20 09:00 04/29/20 09:31 Toprol Xl PO 50 mg DAILY ADRIANO Administration Pramipexole Dihydrochloride 1 mg 04/22/20 19:10 04/28/20 17:38 Mirapex PO 1 mg DAILY@1800 ADRIANO Administration Triamcinolone Acetonide 1 applic 04/22/20 21:00 04/28/20 21:40 Kenalog 0.5% Cream TOPICAL 1 applic Q12HR ADRIANO Administration Vitamin D 5,000 unit 04/23/20 09:00 04/29/20 09:28 Vitamin D PO 5,000 unit DAILY ADRIANO Administration Radiology Results: ITS Impressions Venous Doppler Study 04/25/20 15:48 IMPRESSION: 1: No lower extremity deep venous thrombosis. Progress Note: A&P Assessment and Plan (1) Cellulitis of right leg: Code(s): L03.115 - Cellulitis of right lower limb Status: Acute (2) Contusion of right knee: Qualifiers:
[2020-04-29 14:40] VITALS: O2SAT 83
[2020-04-29 16:00] VITALS: BP 140/58; PULSE 93; RESP 20; TEMP 36.9; O2SAT 95
[2020-04-29] MEDS: PRAMIPEXOLE 0.5 MG TABLET 1 MG PO (17:35)
[2020-04-29 20:45] VITALS: O2SAT 93
[2020-04-29] MEDS: CEFUROXIME AXETIL 250 MG TABLET 500 MG PO (20:58)
[2020-04-29 22:00] VITALS: BP 151/57; PULSE 99; RESP 18; TEMP 37.4; O2SAT 93
[2020-04-30] VITALS (9 sets, daily range): BP systolic 134–146; BP diastolic 53–69; PULSE 84–89; RESP 18–20; TEMP 36.6–37; O2SAT 87–98
[2020-04-30 05:16] LABS: Basophils Percent Auto 0.4 % (0.2-1.2); Eosinophils Absolute Auto 0.3 K/mm3 (0-0.3); Hematocrit 34.7 % (37.0-47.0); Hemoglobin 10.6 g/dL (12.0-15.0); Immature Granulocyte Absolute 0.03 K/mm3 (0.00-0.031); Immature Granulocyte Percent A 0.4 % (0-0.5); Lymphocytes Absolute Auto 1.43 K/mm3 (0.9-3.2); Lymphocytes Percent Auto 16.8 % (18.3-44.2); Mean Corpuscular HGB Conc 30.5 g/dl (32-36); Mean Corpuscular Hemoglobin 28.7 pg (26-34); Mean Platelet Volume 10.3 fl (7.4-10.4); Monocytes Absolute Auto 0.7 K/mm3 (0.1-0.6); Monocytes Percent Auto 7.7 % (2.6-8.5); Neutrophils Absolute Auto 6.1 K/mm3 (1.3-6.7); Neutrophils Percent Auto 71.7 % (45.5-73.1); Platelet Count Result 233 k/mm3 (150-375); Red Blood Count 3.69 M/mm3 (4.2-5.4); Red Cell Distribution Width 13.7 % (11.5-14.5); White Blood Count 8.5 K/mm3 (4.5-10.0)
[2020-04-30 05:38] LABS: Blood Urea Nitrogen 42 mg/dL (7-17); Carbon Dioxide 37 mmol/L (22-30); Chloride 98 mmol/L (98-107); Estimated CRCL calculation 39 ml/min; Estimated Glomerular Filt Rate 48; Glucose 101 mg/dL (65-105); Potassium 4.3 mmol/L (3.4-5.0); Sodium 136 mmol/L (137-145)
[2020-04-30] MEDS: CEFUROXIME AXETIL 250 MG TABLET 500 MG PO ×2 (09:55→21:37)
[2020-04-30] MEDS: METOPROLOL SUCCINATE EXT REL 50 MG TABCR PO (09:56)
[2020-04-30] MEDS: CYANOCOBALAMIN 1,000 MCG TABLET 5000 MCG PO (09:56)
[2020-04-30] MEDS: CHOLECALCIFEROL 1,000 UNIT TABLET 5000 UNITS PO (09:57)
[2020-04-30] MEDS: FUROSEMIDE 20 MG TABLET PO (09:57)
[2020-04-30] MEDS: TRIAMCINOLONE ACET 0.5% CREAM 15 GM TUBE 1 APPLIC TOPICAL ×2 (09:57→21:37)
--- NOTE | 2020-04-30 11:16 | WPDNEURORHBP ---
Subjective Date/time seen: 04/30/20 11:16 Interval history: this 79-year-old woman is here after having had a pelvic fracture she is engage in therapy however always concerned about her right leg which is more swollen and reddish for which I put her on antibiotic she denies any fever chills sore throat headache nausea vomiting chest pain and after finished rehab looking forward to go home Review of Systems Review of Systems: All systems reviewed & are unremarkable except as noted in HPI and below Functional Status Ambulation Ability Ability to Ambulate 10 Feet: Standby Assistance Ability to Ambulate 50 Feet With 2 Turns: Standby Assistance Ability to Ambulate 150 Feet: Standby Assistance Ambulation Assistive Devices: Walker, Wheeled Transfers Ability Ability to Transfer In/Out of Chair: Standby Assistance Exam Const: General: comfortable and no acute distress HENMT: General nose exam: Normal nares present Mouth: Yes moist mucous membranes Eyes: General: appearance normal, both eyes and all related structures Neck: Neck: supple and no JVD Resp: Effort & Inspection: normal respiratory effort Auscultation: clear to auscultation bilaterally Cardio: Rate: regular rate Rhythm: regular rhythm GI: GI Palp: Yes Soft to palpation Auscultation: normal bowel sounds Skin: General skin exam: normal color and no rashes or lesions noted Neuro: Other: patient is awake and alert will oriented not any distress her legs are roughly about the same high due to contusion the right knee also bothers her but overall she is improving making progress her strength is moving improving and she is improving in the PT and OT and gait training Extrem: Other: swelling of the legs from chronic venous in for insufficiency possibly cellulitis of the right leg being treated with antibiotic also contusion of the knee which is slowly resolving however it is painful and hurting to her Psych: Mental Status: mental status grossly normal Objective Data Vital Signs Vital Signs: Vital Signs - 24 hr 04/29/20 14:40 04/29/20 16:00 04/29/20 20:45 Temperature 36.9 C Pulse Rate 93 Respiratory Rate 20 Blood Pressure 140/58 L Pulse Oximetry 83 L 95 93 04/29/20 22:00 04/30/20 06:00 04/30/20 09:35 Temperature 37.4 C 36.6 C Pulse Rate 99 84 Respiratory Rate 18 18 Blood Pressure 151/57 H 146/69 H Pulse Oximetry 93 98 93 Intake/Output Intake/Output: Intake & Output 04/27/20 04/28/20 04/29/20 04/30/20 23:59 23:59 23:59 23:59 Intake Total 720 560 720 240 Balance 720 560 720 240 Meds/Results Medications: Active Medications Generic Name Dose Route Start Last Admin Trade Name Freq PRN Reason Stop Dose Admin Acetaminophen 650 mg 04/22/20 18:41 Tylenol Tablet PO Q6H PRN fever or pain RATED 1-3 Hydrocodone Bitart/Acetaminophen 1 tab 04/22/20 18:41 04/30/20 09:56 [place] 5-325 Mg PO 1 tab Q4HR PRN Administration Pain Rated 6 Or Greater Albuterol 1 puff 04/22/20 18:41 Proventil Hfa INHALATION Q4H PRN shortness of breath or wheezin Cefuroxime Axetil 500 mg 04/29/20 21:00 04/30/20 09:55 Ceftin PO 500 mg Q12HR ADIRANO Administration Cyanocobalamin 5,000 mcg 04/23/20 09:00 04/30/20 09:56 Vitamin B-12 Tab PO 05/23/20 09:01 5,000 mcg DAILY ADRIANO Administration Furosemide 20 mg 04/23/20 09:00 04/30/20 09:57 Lasix Tablet PO 20 mg DAILY ADRIANO Administration Metoprolol Succinate 50 mg 04/23/20 09:00 04/30/20 09:56 Toprol Xl PO 50 mg DAILY ADRIANO Administration Pramipexole Dihydrochloride 1 mg 04/22/20 19:10 04/29/20 17:35 Mirapex PO 1 mg DAILY@1800 ADRIANO Administration Triamcinolone Acetonide 1 applic 04/22/20 21:00 04/30/20 09:57 Kenalog 0.5% Cream TOPICAL 1 applic Q12HR ADRIANO Administration Vitamin D 5,000 unit 04/23/20 09:00 04/30/20 09:57 Vitamin D PO 5,000 unit DAILY ADRIANO Administration Radiology Results: ITS Im
--- NOTE | 2020-04-30 13:13 | PCDIET ---
Nutrition Follow-Up Complete: No nutrition diagnosis at this time. Nutrition Goal: Patient to consume 75% of meals or greater. Goal met. Patient consuming 100% of most meals on regular diet. Reports good appetite and denies c/o or concerns. Last recorded weight is 87.6 kg. Recommend obtaining new weight. Bowel Motility: +BM on 04/29/20. Labs Reviewed: BUN (42), Cr (1.1), Na (136) Meds Noted: Albuterol, Vitamin B12, Lasix, Ceftin, Vitamin D Additional Notes: No documented skin breakdown. Nutrition Monitoring and Evaluation: Follow up in 7 days.
--- NOTE | 2020-04-30 16:57 | HOMEO2EVAL ---
Home Oxygen Evaluation RC: Home Oxygen (O2) Evaluation Start: 04/29/20 14:37 Freq: ONCE Status: Active Protocol: RPE Activity Type Activity Date Activity User E-Sign Co-Sign Detail Recorded Client Recorded Date Recorded By Document 04/30/20 16:32 [email or web address] [email or web address] 04/30/20 16:55 ROSI Document 04/30/20 16:35 [email or web address] [email or web address] 04/30/20 16:55 ROSI Document 04/30/20 16:40 [email or web address] [email or web address] 04/30/20 16:55 RSOI Document 04/30/20 16:50 [email or web address] [email or web address] 04/30/20 16:57 ROSI Document 04/30/20 16:30 [email or web address] [email or web address] 04/30/20 16:53 ROSI 04/30/20 04/30/20 04/30/20 16:32 16:35 16:40 Home O2 Evaluation Test Phase Resting Resting Exercise Oxygen Delivery Nasal Cannula Nasal Cannula Nasal Cannula Oxygen Flow Rate (L/min) 1 2 2 Pulse Oximetry (90-100 %) 87 L 93 90 Activity Tolerance Good Home Oxygen Evaluation Comments PT AMBULATED TO BATHROOM AND BACK TO BED WITH WALKER Treatment Charges 04/30/20 04/30/20 16:50 16:30 Home O2 Evaluation Test Phase Resting Resting Oxygen Delivery Nasal Cannula Room Air Oxygen Flow Rate (L/min) 2 Pulse Oximetry (90-100 %) 93 87 L Activity Tolerance Home Oxygen Evaluation Comments PT REQUIRES 2 L AT REST AND WITH EXERTION Treatment Charges O2 Evaluation
[2020-04-30] MEDS: PRAMIPEXOLE 0.5 MG TABLET 1 MG PO (18:11)
[2020-05-01 06:00] VITALS: BP 149/61; PULSE 82; RESP 19; TEMP 36.8; O2SAT 92
[2020-05-01] MEDS: FUROSEMIDE 20 MG TABLET PO (10:01)
[2020-05-01] MEDS: CYANOCOBALAMIN 1,000 MCG TABLET 5000 MCG PO (10:01)
[2020-05-01] MEDS: CHOLECALCIFEROL 1,000 UNIT TABLET 5000 UNITS PO (10:01)
[2020-05-01] MEDS: CEFUROXIME AXETIL 250 MG TABLET 500 MG PO ×2 (10:01→21:35)
[2020-05-01] MEDS: TRIAMCINOLONE ACET 0.5% CREAM 15 GM TUBE 1 APPLIC TOPICAL ×2 (10:02→21:37)
[2020-05-01 10:31] VITALS: PULSE 82
[2020-05-01] MEDS: METOPROLOL SUCCINATE EXT REL 50 MG TABCR PO (10:31)
[2020-05-01 14:00] VITALS: BP 122/50; PULSE 90; RESP 22; TEMP 36.9; O2SAT 98
--- NOTE | 2020-05-01 14:21 | WPDNEURORHBP ---
Subjective Date/time seen: 05/01/20 14:21 Interval history: this 79-year-old is here after having had pelvic fracture with previous history of having had other fractures also she is doing fairly well in the rehab and the denies any new complaints she is walking with a walker quite a bit denies any headache nausea vomiting chest pain shortness of breath fever chills sore throat Review of Systems Review of Systems: All systems reviewed & are unremarkable except as noted in HPI and below Functional Status Ambulation Ability Ability to Ambulate 10 Feet: Independent Ability to Ambulate 50 Feet With 2 Turns: Standby Assistance Ability to Ambulate 150 Feet: Standby Assistance Ambulation Assistive Devices: Walker, Wheeled Transfers Ability Ability to Transfer In/Out of Chair: Independent Exam Const: General: comfortable and no acute distress HENMT: General nose exam: Normal nares present Mouth: Yes moist mucous membranes Eyes: General: appearance normal, both eyes and all related structures Neck: Neck: supple and no JVD Resp: Effort & Inspection: normal respiratory effort Auscultation: clear to auscultation bilaterally Cardio: Rate: regular rate Rhythm: regular rhythm GI: GI Palp: Yes Soft to palpation Auscultation: normal bowel sounds Skin: General skin exam: normal color and no rashes or lesions noted Neuro: Other: patient is awake and alert well oriented time place and person her weakness in the lower extremities is improving Extrem: General: normal to inspection Psych: Mental Status: mental status grossly normal Objective Data Vital Signs Vital Signs: Vital Signs - 24 hr 05/01/20 22:00 05/02/20 06:00 05/02/20 09:10 Temperature 37.9 C H 37.4 C Pulse Rate 91 90 90 Respiratory Rate 20 20 Blood Pressure 143/49 H 145/62 H Pulse Oximetry 97 93 Intake/Output Intake/Output: Intake & Output 04/29/20 04/30/20 05/01/20 05/02/20 23:59 23:59 23:59 23:59 Intake Total 720 720 600 240 Balance 720 720 600 240 Meds/Results Medications: Active Medications Generic Name Dose Route Start Last Admin Trade Name Freq PRN Reason Stop Dose Admin Acetaminophen 650 mg 04/22/20 18:41 Tylenol Tablet PO Q6H PRN fever or pain RATED 1-3 Hydrocodone Bitart/Acetaminophen 1 tab 04/22/20 18:41 05/01/20 10:00 [place] 5-325 Mg PO 1 tab Q4HR PRN Administration Pain Rated 6 Or Greater Albuterol 1 puff 04/22/20 18:41 Proventil Hfa INHALATION Q4H PRN shortness of breath or wheezin Cefuroxime Axetil 500 mg 04/29/20 21:00 05/02/20 09:09 Ceftin PO 500 mg Q12HR ADRIANO Administration Cyanocobalamin 5,000 mcg 04/23/20 09:00 05/02/20 09:09 Vitamin B-12 Tab PO 05/23/20 09:01 5,000 mcg DAILY ADRIANO Administration Furosemide 20 mg 04/23/20 09:00 05/02/20 09:09 Lasix Tablet PO 20 mg DAILY ADRIANO Administration Metoprolol Succinate 50 mg 04/23/20 09:00 05/02/20 09:10 Toprol Xl PO 50 mg DAILY ADRIANO Administration Pramipexole Dihydrochloride 1 mg 04/22/20 19:10 05/01/20 17:42 Mirapex PO 1 mg DAILY@1800 ADRIANO Administration Triamcinolone Acetonide 1 applic 04/22/20 21:00 05/02/20 09:15 Kenalog 0.5% Cream TOPICAL 1 applic Q12HR ADRIANO Administration Vitamin D 5,000 unit 04/23/20 09:00 05/02/20 09:09 Vitamin D PO 5,000 unit DAILY ADRIANO Administration Radiology Results: ITS Impressions Venous Doppler Study 04/25/20 15:48 IMPRESSION: 1: No lower extremity deep venous thrombosis. Progress Note: A&P Assessment and Plan (1) Cellulitis of right leg: Code(s): L03.115 - Cellulitis of right lower limb Status: Acute (2) Contusion of right knee: Qualifiers: Encounter type: subsequent encounter Qualified Code(s): S80.01XD - Contusion of right knee, subsequent encounter Code(s): S80.01XA - Contusion of right knee, initial encounter Status: Acute (3) Rotator cuff
[2020-05-01] MEDS: PRAMIPEXOLE 0.5 MG TABLET 1 MG PO (17:42)
[2020-05-01 22:00] VITALS: BP 143/49; PULSE 91; RESP 20; TEMP 37.9; O2SAT 97
[2020-05-02 06:00] VITALS: BP 145/62; PULSE 90; RESP 20; TEMP 37.4; O2SAT 93
[2020-05-02] MEDS: CEFUROXIME AXETIL 250 MG TABLET 500 MG PO ×2 (09:09→20:23)
[2020-05-02] MEDS: FUROSEMIDE 20 MG TABLET PO (09:09)
[2020-05-02] MEDS: CHOLECALCIFEROL 1,000 UNIT TABLET 5000 UNITS PO (09:09)
[2020-05-02] MEDS: CYANOCOBALAMIN 1,000 MCG TABLET 5000 MCG PO (09:09)
[2020-05-02 09:10] VITALS: PULSE 90
[2020-05-02] MEDS: METOPROLOL SUCCINATE EXT REL 50 MG TABCR PO (09:10)
[2020-05-02] MEDS: TRIAMCINOLONE ACET 0.5% CREAM 15 GM TUBE 1 APPLIC TOPICAL ×2 (09:15→20:27)
--- NOTE | 2020-05-02 13:40 | PCRCNOTE ---
PLEASE CALL OXYGEN COMPANY AT [facility] - REP FOR PayPay [phone] CELL #
[2020-05-02 14:00] VITALS: BP 155/70; PULSE 88; RESP 19; TEMP 37; O2SAT 96
--- NOTE | 2020-05-02 14:54 | WPDNEURORHBP ---
Subjective Date/time seen: 05/02/20 14:54 Interval history: this 79-year-old is here because of pelvic fracture and multiple other comorbidities including suspected cellulitis of the right leg she is doing fairly well and will be going home in couple of days progress in rehab she denies any fever chills sore throat nausea vomiting Review of Systems Review of Systems: All systems reviewed & are unremarkable except as noted in HPI and below Functional Status Ambulation Ability Ability to Ambulate 10 Feet: Independent Ability to Ambulate 50 Feet With 2 Turns: Standby Assistance Ability to Ambulate 150 Feet: Standby Assistance Ambulation Assistive Devices: Walker, Wheeled Transfers Ability Ability to Transfer In/Out of Chair: Independent Exam Const: General: comfortable and no acute distress HENMT: General nose exam: Normal nares present Mouth: Yes moist mucous membranes Eyes: General: appearance normal, both eyes and all related structures Neck: Neck: supple and no JVD Resp: Effort & Inspection: normal respiratory effort Auscultation: clear to auscultation bilaterally Cardio: Rate: regular rate Rhythm: regular rhythm GI: GI Palp: Yes Soft to palpation Auscultation: normal bowel sounds Skin: General skin exam: normal color and no rashes or lesions noted Other: except the right lower extremity which is reddish but is getting better Neuro: Other: patient's has normal mental status normal cranial examination and the weakness in the lower extremities related to the pelvic fracture is improving Extrem: Other: the right lower extremity is getting better the contusion of the knee is getting better Psych: Mental Status: mental status grossly normal Objective Data Vital Signs Vital Signs: Vital Signs - 24 hr 05/01/20 22:00 05/02/20 06:00 05/02/20 09:10 Temperature 37.9 C H 37.4 C Pulse Rate 91 90 90 Respiratory Rate 20 20 Blood Pressure 143/49 H 145/62 H Pulse Oximetry 97 93 Intake/Output Intake/Output: Intake & Output 04/29/20 04/30/20 05/01/20 05/02/20 23:59 23:59 23:59 23:59 Intake Total 720 720 600 240 Balance 720 720 600 240 Meds/Results Medications: Active Medications Generic Name Dose Route Start Last Admin Trade Name Freq PRN Reason Stop Dose Admin Acetaminophen 650 mg 04/22/20 18:41 Tylenol Tablet PO Q6H PRN fever or pain RATED 1-3 Hydrocodone Bitart/Acetaminophen 1 tab 04/22/20 18:41 05/01/20 10:00 [place] 5-325 Mg PO 1 tab Q4HR PRN Administration Pain Rated 6 Or Greater Albuterol 1 puff 04/22/20 18:41 Proventil Hfa INHALATION Q4H PRN shortness of breath or wheezin Cefuroxime Axetil 500 mg 04/29/20 21:00 05/02/20 09:09 Ceftin PO 500 mg Q12HR ADRIANO Administration Cyanocobalamin 5,000 mcg 04/23/20 09:00 05/02/20 09:09 Vitamin B-12 Tab PO 05/23/20 09:01 5,000 mcg DAILY ADRIANO Administration Furosemide 20 mg 04/23/20 09:00 05/02/20 09:09 Lasix Tablet PO 20 mg DAILY ADRIANO Administration Metoprolol Succinate 50 mg 04/23/20 09:00 05/02/20 09:10 Toprol Xl PO 50 mg DAILY ADRIANO Administration Pramipexole Dihydrochloride 1 mg 04/22/20 19:10 05/01/20 17:42 Mirapex PO 1 mg DAILY@1800 ADRIANO Administration Triamcinolone Acetonide 1 applic 04/22/20 21:00 05/02/20 09:15 Kenalog 0.5% Cream TOPICAL 1 applic Q12HR ADRIANO Administration Vitamin D 5,000 unit 04/23/20 09:00 05/02/20 09:09 Vitamin D PO 5,000 unit DAILY ADRIANO Administration Radiology Results: ITS Impressions Venous Doppler Study 04/25/20 15:48 IMPRESSION: 1: No lower extremity deep venous thrombosis. Progress Note: A&P Assessment and Plan (1) Cellulitis of right leg: Code(s): L03.115 - Cellulitis of right lower limb Status: Acute (2) Contusion of right knee: Qualifiers: Encounter type: subsequent encounter Qualified Code(s): S80.01XD - Contusion of right kn
[2020-05-02 15:29] VITALS: O2SAT 87
--- NOTE | 2020-05-02 15:30 | HOMEO2EVAL ---
Home Oxygen Evaluation RC: Home Oxygen (O2) Evaluation Start: 04/29/20 14:37 Freq: ONCE Status: Active Protocol: RPE Activity Type Activity Date Activity User E-Sign Co-Sign Detail Recorded Client Recorded Date Recorded By Document 05/02/20 15:29 ROSI [id number] 05/02/20 15:29 ROSI 05/02/20 15:29 Home O2 Evaluation Test Phase Resting Oxygen Delivery Room Air Pulse Oximetry (90-100 %) 87 L Treatment Charges O2 Evaluation
[2020-05-02] MEDS: PRAMIPEXOLE 0.5 MG TABLET 1 MG PO (17:57)
[2020-05-02 22:00] VITALS: BP 136/67; PULSE 86; RESP 20; TEMP 37.1; O2SAT 96
[2020-05-03] VITALS (7 sets, daily range): BP systolic 100–147; BP diastolic 59–78; PULSE 85–94; RESP 18–19; TEMP 36.8; O2SAT 93–98
[2020-05-03] MEDS: METOPROLOL SUCCINATE EXT REL 50 MG TABCR PO (09:05)
[2020-05-03] MEDS: FUROSEMIDE 20 MG TABLET PO (09:05)
[2020-05-03] MEDS: CHOLECALCIFEROL 1,000 UNIT TABLET 5000 UNITS PO (09:05)
[2020-05-03] MEDS: CEFUROXIME AXETIL 250 MG TABLET 500 MG PO ×2 (09:05→20:19)
[2020-05-03] MEDS: CYANOCOBALAMIN 1,000 MCG TABLET 5000 MCG PO (09:06)
[2020-05-03] MEDS: TRIAMCINOLONE ACET 0.5% CREAM 15 GM TUBE 1 APPLIC TOPICAL ×2 (09:07→20:19)
[2020-05-03] MEDS: PRAMIPEXOLE 0.5 MG TABLET 1 MG PO (17:08)
[2020-05-04 06:00] VITALS: BP 143/81; PULSE 78; RESP 19; TEMP 36; O2SAT 98
[2020-05-04] MEDS: CEFUROXIME AXETIL 250 MG TABLET 500 MG PO (10:33)
[2020-05-04 10:36] VITALS: PULSE 78
[2020-05-04] MEDS: CHOLECALCIFEROL 1,000 UNIT TABLET 5000 UNITS PO (10:36)
[2020-05-04] MEDS: FUROSEMIDE 20 MG TABLET PO (10:36)
[2020-05-04] MEDS: METOPROLOL SUCCINATE EXT REL 50 MG TABCR PO (10:36)
[2020-05-04] MEDS: CYANOCOBALAMIN 1,000 MCG TABLET 5000 MCG PO (10:36)
[2020-05-04] MEDS: TRIAMCINOLONE ACET 0.5% CREAM 15 GM TUBE 1 APPLIC TOPICAL (10:37)
--- NOTE | 2020-05-07 10:50 | PM.DS ---
DS: Admitting Diagnosis Admitting Diagnosis Admitting Diagnosis: Fracture of superior rim of right pubis, initial encounter for closed fracture DS: Discharge Diagnosis Discharge Diagnosis (1) Cellulitis of right leg: Code(s): L03.115 - Cellulitis of right lower limb Status: Acute (2) Contusion of right knee: Qualifiers: Encounter type: subsequent encounter Qualified Code(s): S80.01XD - Contusion of right knee, subsequent encounter Code(s): S80.01XA - Contusion of right knee, initial encounter Status: Acute (3) Rotator cuff arthropathy of both shoulders: Code(s): M12.811 - Other specific arthropathies, not elsewhere classified, right shoulder; M12.812 - Other specific arthropathies, not elsewhere classified, left shoulder Status: Acute (4) Venous insufficiency (chronic) (peripheral): Code(s): I87.2 - Venous insufficiency (chronic) (peripheral) Status: Acute (5) Acute respiratory failure with hypoxia: Code(s): J96.01 - Acute respiratory failure with hypoxia Status: Acute (6) Arthritis of knee, degenerative: Qualifiers: Osteoarthritis type: primary Laterality: right Qualified Code(s): M17.11 - Unilateral primary osteoarthritis, right knee Code(s): M17.10 - Unilateral primary osteoarthritis, unspecified knee Status: Acute (7) Closed fracture of right inferior pubic ramus: Qualifiers: Encounter type: initial encounter Qualified Code(s): S32.591A - Other specified fracture of right pubis, initial encounter for closed fracture Code(s): S32.591A - Other specified fracture of right pubis, initial encounter for closed fracture Status: Acute (8) Closed fracture of right superior pubic ramus: Qualifiers: Encounter type: initial encounter Qualified Code(s): S32.511A - Fracture of superior rim of right pubis, initial encounter for closed fracture Code(s): S32.511A - Fracture of superior rim of right pubis, initial encounter for closed fracture Status: Acute (9) Acute pain of right knee: Code(s): M25.561 - Pain in right knee Status: Acute (10) Acute pain of left shoulder: Code(s): M25.512 - Pain in left shoulder Status: Acute (11) Shortness of breath on exertion: Code(s): R06.02 - Shortness of breath Status: Acute (12) Chronic bilateral low back pain without sciatica: Code(s): M54.5 - Low back pain; G89.29 - Other chronic pain Status: Acute (13) Peripheral polyneuropathy: Code(s): G62.9 - Polyneuropathy, unspecified Status: Acute (14) Vitamin D deficiency: Code(s): E55.9 - Vitamin D deficiency, unspecified Status: Acute (15) Dyslipidemia: Code(s): E78.5 - Hyperlipidemia, unspecified Status: Acute (16) RLS (restless legs syndrome): Code(s): G25.81 - Restless legs syndrome Status: Acute (17) Essential (primary) hypertension: Code(s): I10 - Essential (primary) hypertension Status: Acute (18) CKD (chronic kidney disease) stage 3, GFR 30-59 ml/min: Code(s): N18.3 - Chronic kidney disease, stage 3 (moderate) Status: Chronic (19) Edema of both lower legs due to peripheral venous insufficiency: Code(s): I87.2 - Venous insufficiency (chronic) (peripheral); R60.9 - Edema, unspecified Status: Acute DS: Summary Hospital Course Reason for hospitalization: this 79-year-old woman was admitted with multiple medical issues but the primary diagnosis for the admission was pelvic fractures which were conservatively treated her ongoing issue has been her left shoulder issues which will need to be addressed when the patient goes home along with most likely having the EMG and nerve conduction study to looking into the weakness of that arm which I had discussed with her during the course of hospitalization she did receive the physical therapy occupational therap
== END 2020-05-04 10:40 | disposition home health service (06) | DRG 560 ==
PROVIDERS: Admitting Provider Psychiatry & Neurology Neurology; PCP Family Medicine; Visit Provider Psychiatry & Neurology Neurology
DX: S32.511D Fracture of superior rim of right pubis, subsequent encounter for fracture with routine healing (principal); L03.115 Cellulitis of right lower limb; S32.591D Other specified fracture of right pubis, subsequent encounter for fracture with routine healing; S80.01XD Contusion of right knee, subsequent encounter; D63.1 Anemia in chronic kidney disease; E55.9 Vitamin D deficiency, unspecified; E78.5 Hyperlipidemia, unspecified; G25.81 Restless legs syndrome; G89.29 Other chronic pain; G62.9 Polyneuropathy, unspecified; I87.2 Venous insufficiency (chronic) (peripheral); I13.10 Hypertensive heart and chronic kidney disease without heart failure, with stage 1 through stage 4 chronic kidney disease, or unspecified chronic kidney disease; M54.5 Low back pain; M85.811 Other specified disorders of bone density and structure, right shoulder; N18.3 Chronic kidney disease, stage 3 (moderate); R06.02 Shortness of breath; R60.9 Edema, unspecified; R32 Unspecified urinary incontinence; Z96.643 Presence of artificial hip joint, bilateral; Z96.651 Presence of right artificial knee joint; Z87.891 Personal history of nicotine dependence; M12.811 Other specific arthropathies, not elsewhere classified, right shoulder; M12.812 Other specific arthropathies, not elsewhere classified, left shoulder; Z99.81 Dependence on supplemental oxygen
CPT/HCPCS: 36415; 80048; 85025; 93970; 94618; 97110; 97116; 97161; 97165; 97166; 97530; 97535; A9270

== ENCOUNTER 2020-06-20 12:40 | Outpatient (CLI) | payer MEDICARE, SELFPAY ==
--- NOTE | 2020-06-22 12:32 | WPDPFTINT ---
PFT Interpretation PFT Interpretation: This PFT met all criteria for ATS standards and reproducibility FEV/FVC post bronchodilator 55% of predicted FEV1 39% or 0.85 liters FVC 46% or 1.55 liters Post bronchodilator FEV1 and FVC both improved in significant amounts but hard to know if this is true improvement or improved patient effort on post bronchodilator attempt. TLC 135% or 6.96 liters RV 196% RV/TLC 67% DLCO 50% when adjusted for alveolar volume but not adjusted for hemoglobin Flow volume loops showed significant expiratory coving Impression: Severe airflow obstruction with good response to bronchodilators. Hyperinflation with air trapping and moderately reduced diffusion capacity are also present. This pattern fits that of COPD with possible Asthma component present. Clinical correlation is advised.
== END 2020-06-20 12:41 | disposition home or self-care (01) ==
PROVIDERS: PCP Family Medicine; Visit Provider Family Medicine
DX: R06.02 Shortness of breath (principal); F17.200 Nicotine dependence, unspecified, uncomplicated
CPT/HCPCS: 94060; 94726; 94729

== ENCOUNTER 2020-09-25 15:09 | Inpatient (IN) | payer MEDICARE, SELFPAY ==
[2020-09-25] VITALS (10 sets, daily range): BP systolic 130–171; BP diastolic 70–102; PULSE 78–94; RESP 17–24; TEMP 36.9; O2SAT 63–98; BMI 31.4
--- NOTE | ~2020-09-25 | XR_ITS ---
EXAMINATION: XR chest 2V DATE: 09/25/2020 15:49 INDICATION: Asthma presenting with shortness of breath TECHNIQUE: frontal and lateral views of the chest were obtained. COMPARISON: Chest radiograph dated 03/30/2020 FINDINGS: Cardiomegaly with pulmonary vascular congestion. Increased opacities at the posterior lung bases and favor atelectasis or mild pulmonary edema over pneumonia. Small amount of fluid tracking along one of the fissures on the lateral projection. No pneumothorax. Thoracic kyphosis with moderate spondylosis . IMPRESSION: 1. Bibasilar opacities which could represent atelectasis, mild pulmonary edema, pneumonia or some com bination thereof. 2. Cardiomegaly with pulmonary vascular congestion. Reviewed, dictated and finalized at location B. IMPRESSION: 1. Bibasilar opacities which could represent atelectasis, mild pulmonary edema, pneumonia or some combination thereof. 2. Cardiomegaly with pulmonary vascular congestion.
--- NOTE | ~2020-09-25 | NM_ITS ---
NM pulmonary perfusion INDICATION: This of breath TECHNIQUE: 5.2 mCi Tc 99m MAA was injected intravenously for perfusion images. Multiple images were then acquired. COMPARISON: Chest x-ray dated 09/25/2020 FINDINGS: Comparison chest radiograph demonstrates bibasilar infiltrates. Cardiomegaly. There is perf usion abnormality of the left mid lung, likely due to cardiomegaly. Small perfusion abnormalities of the lower lung zones. IMPRESSION: 1: Small perfusion abnormality is of the lower lung zones corresponding to the areas of bibasilar inf iltrate seen on chest x-ray. Reviewed, dictated and finalized at location A. IMPRESSION: 1: Small perfusion abnormality is of the lower lung zones corresponding to the areas of bibasilar infiltrate seen on chest x-ray.
--- NOTE | 2020-09-25 15:15 | ECG_ITS ---
Measurements Intervals [place] Rate: 92 P: 43 MO: 178 QRS: -10 QRSD: 94 T: 48 QT: 349 QTc: 433 Interpretive Statements SINUS RHYTHM BORDERLINE R WAVE PROGRESSION, ANTERIOR LEADS CONSIDER INFERIOR INFARCT, AGE INDETERMINATE BASELINE ARTIFACT- I, II, III, V5-V6 ABNORMAL ECG Electronically Signed On 09-25-2020 15:32:15 CDT by Arnold Berg D.O.
--- NOTE | 2020-09-25 15:32 | ED.GENADULT ---
HPI - General Adult General Chief complaint: Shortness of Breath/Dyspnea Stated complaint: SOB Time Seen by Provider: 09/25/20 15:26 Source: patient History of Present Illness HPI narrative: Patient is a 79 y/o female complaining of severe SOB starting yesterday. She states that she has history of asthma and COPD. She is normally not on O2. She was seen at Dr. Hernandez's office today and her pulse ox was in 60s. She was then sent here for further evaluation. She thought COVID test was done while she was in Dr. Hernandez's office, but she is not sure. She declined transport by EMS. She was brought in by granddaughter. Related Data Home Medications Medication Instructions Recorded Confirmed cholecalciferol (vitamin D3) 125 125 mcg PO DAILY 04/03/20 09/25/20 mcg (5,000 unit) capsule mecobalamin (vitamin B12) 5,000 5,000 mcg PO DAILY tablet 04/03/20 09/25/20 mcg disintegrating tablet Allergies Allergy/AdvReac Type Severity Reaction Status Date / Time Sulfa (Sulfonamide Allergy Unknown Rash,Swelling Verified 09/25/20 14:18 Antibiotics) of Lip/Tongue/Throat aspirin AdvReac Unknown Unknown Verified 09/25/20 14:18 Review of Systems Constitutional: Constitutional: Denies chills, Denies fever(s), Denies headache(s) and Denies weakness Eyes: Eyes: Denies blurry vision ENT: Denies headache(s) and Denies neck pain Cardiovascular: Cardiovascular: Denies chest pain and Reports dyspnea Respiratory: Respiratory: Denies cough and Reports dyspnea Gastrointestinal: Gastrointestinal: Denies abdominal pain, Denies diarrhea, Denies nausea and Denies vomiting Genitourinary: Genitourinary: Denies hematuria and Denies dysuria Musculoskeletal: Musculoskeletal: Denies back pain and Denies neck pain Neurologic: Denies headache(s) and Denies weakness [facility] Past Medical History Medical History Arthritis of knee, degenerative Chronic bilateral low back pain without sciatica CKD (chronic kidney disease) stage 3, GFR 30-59 ml/min Contusion of knee, right Contusion of right knee COPD with asthma Diastolic dysfunction Dyslipidemia Edema of both lower legs due to peripheral venous insufficiency Essential (primary) hypertension Fibrocystic breast 11/2010 Peripheral polyneuropathy RLS (restless legs syndrome) Rotator cuff arthropathy of both shoulders Rotator cuff arthropathy of right shoulder Unspecified osteoarthritis, unspecified site Venous insufficiency (chronic) (peripheral) Vitamin D deficiency Surgical History Surgical History H/O arthroscopy 03/08/2007 - right knee H/O arthroscopy of knee 09/28/2006 - Left knee History of lumbar discectomy Family History Family History Father Hodgkin lymphoma Mother Cancer Social History Social History Smoking status: Former smoker Second hand tobacco smoke exposure: No Smoking end date: 04/22/20 Alcohol intake: never Substance use: never Gender identity (if verbalized by the patient): Female Spiritual care concerns: No Exam Const: General: no acute distress and well developed Orientation/consciousness: oriented to person, oriented to place, oriented to time and patient oriented x3 HENMT: Head: normocephalic Ears: external ears normal General nose exam: Normal external nose present Eyes: General: appearance normal, both eyes and all related structures Conjunctivae: conjunctivae normal Neck: Neck: normal visual inspection and full ROM Chest: Chest palpation & inspection: normal inspection of the chest and no tenderness Resp: Effort & Inspection: normal respiratory effort Auscultation: clear to auscultation bilaterally Cardio: Rate: regular rate Rhythm: regular rhythm GI: GI Palp: No abdominal tenderness and Yes Soft to p
--- NOTE | 2020-09-25 15:39 | PC.NURSE ---
pt in xray at this time.
[2020-09-25] MEDS: methylPREDNISolone SOD SUCC 125 MG VIAL IV PUSH (15:58)
[2020-09-25 16:02] LABS: Basophils Percent Auto 0.4 % (0.2-1.2); Eosinophils Percent Auto 0.5 % (0-4.4); Hematocrit 43.6 % (37.0-47.0); Hemoglobin 12.8 g/dL (12.0-15.0); Immature Granulocyte Absolute 0.02 K/mm3 (0.00-0.031); Immature Granulocyte Percent A 0.3 % (0-0.5); Lymphocytes Absolute Auto 0.75 K/mm3 (0.9-3.2); Lymphocytes Percent Auto 9.7 % (18.3-44.2); Mean Corpuscular HGB Conc 29.4 g/dl (32-36); Mean Corpuscular Hemoglobin 27.9 pg (26-34); Mean Platelet Volume 11.2 fl (7.4-10.4); Monocytes Absolute Auto 0.6 K/mm3 (0.1-0.6); Monocytes Percent Auto 7.9 % (2.6-8.5); Neutrophils Absolute Auto 6.3 K/mm3 (1.3-6.7); Neutrophils Percent Auto 81.2 % (45.5-73.1); Platelet Count Result 195 k/mm3 (150-375); Red Blood Count 4.59 M/mm3 (4.2-5.4); Red Cell Distribution Width 15.3 % (11.5-14.5); White Blood Count 7.7 K/mm3 (4.5-10.0)
[2020-09-25 16:14] LABS: Alanine Aminotransferase 14 U/L (4-35); Albumin Level 3.8 g/dL (3.5-5.1); Alkaline Phosphatase 79 U/L (38-126); Anion Gap 3.99999 mmol/L (8-16); Aspartate Amino Transferase 24 U/L (14-36); Bilirubin,Total 0.4 mg/dL (0.2-1.3); Blood Urea Nitrogen 36 mg/dL (7-17); Calcium 8.7 mg/dL (8.4-10.2); Carbon Dioxide > 40 mmol/L (22-30); Chloride 101 mmol/L (98-107); Estimated Glomerular Filt Rate 29; Glucose 97 mg/dL (65-105); Potassium 3.8 mmol/L (3.4-5.0); Sodium 145 mmol/L (137-145)
[2020-09-25 16:24] LABS: Anisocytosis 2+ (NORMAL); Hypochromasia 1+ (NORMAL); Platelet Estimate Adequate (Adequate)
[2020-09-25 16:25] LABS: NT Pro B Type Natriuretic Pept 1510 PG/ML (5-100); Troponin I 0.014 ng/mL (0.000-0.034)
[2020-09-25 17:21] LABS: D Dimer 1.46 ug/mL (<0.48)
--- NOTE | 2020-09-25 18:24 | PC.NURSE ---
HEART HEALTHY DIET PLACED AT THIS TIME PER YESI GRULLON.
[2020-09-25 18:25] LABS: Alveolar/Arterial O2 Gradient 18.1 mmHg; Base Excess ABG 6.2 mEq/l (+/-2.0); Fractional Inspired Oxygen 21 %; HCO3 ABG 33.8 mEq/l (22.0-26.0); Oxygen Content ABG 16.5 %vol (16.0-22.0); Oxygen Saturation ABG 87.3 % (95.0-100.0); Oxyhemoglobin 86.8 % THb (90.0-100.0); PO2 ABG 56.7 mmHg (80.0-100.0); Total Hemoglobin 13.5 g/dL (12.0-18.0)
[2020-09-25 18:27] LABS: Device ROOM AIR; Modified Allen's Test Pass; PCO2 ABG 62.6 mmHg (35.0-45.0); Site Drawn LEFT RADIAL
--- NOTE | 2020-09-25 22:10 | ADMGEN ---
This patient, Lisa Robertson, was admitted to [facility] Surg Room 324-01. Patient/family oriented to hospital policies and general routines including ID bracelet, bed and alarms, visiting hours, pain management, procedures, bathroom and other care routines, personal items, smoking policy, room service/diet, and visiting hours. Information on how to activate the Rapid Response Team has been discussed. Patient/Family are encouraged to report perceived risks to care and to ask questions if they do not understand what they are told or what they should do.
--- NOTE | 2020-09-25 22:11 | PM.IMHP ---
H&P: HPI History of Present Illness Date/Time: 09/25/20 22:40 Chief complaint: Shortness of breath Narrative: Lisa Robertson is a 79 year old female With a past medical history of diastolic dysfunction and COPD with asthma who presented to the ER with worsening shortness of breath. She reports that she has been having increased shortness of breath for about 2 months but it acutely worsened yesterday. Her shortness breath is worse with exertion. She has noticed increased fatigue and she thinks that she does snore. It sounds as if she also may be having some orthopnea. She denies any cough, congestion, fevers or chills. She has had chronic lower extremity swelling but over the last 2 months her lower extremity swelling is not improving with Lasix like it used to. She denies any calf pain or tenderness. She has not been having any chest pain or palpitations. She does not notice a cough or congestion but does have frequent sneezing but this is unchanged from baseline. Due to her increased shortness of breath she went to her primary care physician's office where she was noted to have oxygen saturations in the 50s. She was referred to the ER but declined transport via EMS. When she arrived to the ER her oxygen saturations were 60% on arrival. Patient was placed on 6 L nasal cannula initially with improvement in her oxygen saturations up to 98%. Her oxygen was weaned down to 3 L nasal cannula and her oxygen saturation was 96% at the time of my evaluation. the patient reports that she thinks she snores and that she feels fatigued frequently. She reports she can fall asleep almost immediately after she gets up for the day. She has never had a study. Being staff reported to me that the patient's oxygen saturations were dropping down as low as 88% while she was asleep. She reports that she has been going out in the community and went to the [employer] [place] to shop recently. She denies any known recent ill contacts or COVID-19 exposure. Review of Systems Review of Systems: Narrative: 12 systems were reviewed with pertinent positives and negatives per HPI. Except as documented in the HPI, all other systems were reviewed and are negative. [facility] Past Medical History Medical History (Updated 09/26/20 @ 01:37 by Neha Walker DO) Arthritis of knee, degenerative B12 deficiency Chronic bilateral low back pain without sciatica CKD (chronic kidney disease) stage 3, GFR 30-59 ml/min COPD with asthma PFTs 06/22/2020 Diastolic dysfunction echocardiogram 05/13/2020: Moderate concentric left ventricular hypertrophy, impaired diastolic relaxation grade 1, EF of 65%, mild aortic stenosis with peak velocity 1.8 peak gradient of 13 mean gradient of 7 valve area of 1.7 Dyslipidemia Essential (primary) hypertension Fibrocystic breast 11/2010 Mild aortic stenosis Osteoporosis Peripheral polyneuropathy RLS (restless legs syndrome) Rotator cuff arthropathy of both shoulders 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 insufficiency (chronic) (peripheral) Vitamin D deficiency Surgical History Surgical History (Updated 09/25/20 @ 22:15 by Neha Walker DO) History of bilateral cataract extraction History of bilateral hip replacements History of lumbar discectomy History of release of tendon right lower extremity History of total bilateral knee replacement History of total hysterectomy with bilateral salpingo-oophorectomy (BSO) Hx of cholecystectomy S/P FESS (functional endoscopic sinus surgery) Family History Family History Father Hodgkin lymphoma Mother Diabetes mellitus Uterine cancer Social History Social History Social History: The patient is and lives in [facility]. she is a former smoker and smoked a quarter pack of cigarettes per day and quit in 2008. Primar
[2020-09-26] VITALS (13 sets, daily range): BP systolic 110–156; BP diastolic 54–84; PULSE 79–94; RESP 18–22; TEMP 36.6–37.4; O2SAT 85–97
[2020-09-26] MEDS: ALBUTEROL SULFATE (*SP) AEROSOL 1 PUFF 6 PUFF INHALATION ×3 (02:19→15:15)
[2020-09-26] MEDS: methylPREDNISolone SOD SUCC 125 MG VIAL 60 MG IV PUSH ×3 (05:47→22:12)
[2020-09-26] MEDS: HYDROcodone/acetaminophen (*CRX) 5-325 MG TABLET 1 TAB PO (05:47)
[2020-09-26 05:57] LABS: Hematocrit 40.2 % (37.0-47.0); Hemoglobin 11.9 g/dL (12.0-15.0); Mean Corpuscular HGB Conc 29.6 g/dl (32-36); Mean Corpuscular Hemoglobin 27.9 pg (26-34); Mean Corpuscular Volume 94.4 fl (80-100); Mean Platelet Volume 10.7 fl (7.4-10.4); Platelet Count Result 165 k/mm3 (150-375); Red Blood Count 4.26 M/mm3 (4.2-5.4); White Blood Count 5.6 K/mm3 (4.5-10.0)
[2020-09-26 06:09] LABS: Anion Gap 2.99999 mmol/L (8-16); Blood Urea Nitrogen 39 mg/dL (7-17); Calcium 8.3 mg/dL (8.4-10.2); Carbon Dioxide > 40 mmol/L (22-30); Chloride 101 mmol/L (98-107); Estimated CRCL calculation 28 ml/min; Estimated Glomerular Filt Rate 31; Glucose 137 mg/dL (65-105); Sodium 144 mmol/L (137-145)
[2020-09-26] MEDS: FUROSEMIDE INJ 40 MG/4 ML VIAL IV PUSH (08:28)
[2020-09-26] MEDS: ENOXAPARIN 40 MG/0.4 ML SYRINGE SUB-Q (08:28)
[2020-09-26] MEDS: TRIAMCINOLONE ACET 0.5% CREAM 15 GM TUBE 1 APPLIC TOPICAL ×2 (08:28→17:20)
[2020-09-26] MEDS: CHOLECALCIFEROL 1,000 UNITS TABLET 5000 UNITS PO (08:29)
[2020-09-26] MEDS: CYANOCOBALAMIN 1,000 MCG TABLET 5000 MCG PO (08:29)
--- NOTE | 2020-09-26 11:31 | PM.IMPN ---
Progress Note: A&P Assessment and Plan (1) Acute respiratory failure with hypoxia: Code(s): J96.01 - Acute respiratory failure with hypoxia Status: Acute Assessment and Plan: CXR showed bibasilar opacities representing likely a combination of atelectasis, pulmonary edema, or pneumonia. She was hypoxic at 60% on room air upon presentation. She was hypercarbic and hypoxic. Seems to be multifactorial related to COPD exacerbation and diastolic dysfunction. She is currently maintaining adequate oxygen saturations on 3L O2 per NC. Continue supplemental O2 as needed with goal saturation 90% or above Continue IV steroids, bronchodilators, and Lasix (2) Asthma exacerbation in COPD: Code(s): J44.1 - Chronic obstructive pulmonary disease with (acute) exacerbation; J45.901 - Unspecified asthma with (acute) exacerbation Status: Acute Assessment and Plan: She is not on chronic O2. She is not established with pulmonology. She reported audible wheezing for 2 days. Continue IV Solu-medrol. Plan to wean as tolerated. Supplemental O2 with goal 90% or above. Bronchodilators. Albuterol increased to 4 puffs q6h Continue symbicort. (3) Diastolic CHF: Code(s): I50.30 - Unspecified diastolic (congestive) heart failure Status: Acute Assessment and Plan: Echo from 04/2020 showed normal EF 65% with grade I diastolic dysfunction. CXR shows evidence of pulmonary vascular congestion and patient has 2+ edema of lower extremities. She complains of ORTEGA. IV lasix administered in place of patients typical 20 mg PO Lasix. Strict I&O's and daily weights. Heart healthy diet. (4) CKD (chronic kidney disease) stage 3, GFR 30-59 ml/min: Code(s): N18.3 - Chronic kidney disease, stage 3 (moderate) Status: Chronic Assessment and Plan: At presentation, Cr was 1.7. Baseline appears to be fluctuant. Creatinine is 1.6 today. Monitor renal function closely. Renally dose medications and avoid nephrotoxic agents. (5) Essential (primary) hypertension: Code(s): I10 - Essential (primary) hypertension Status: Acute Assessment and Plan: BP evaluated today and is stable at 143/65. Continue metoprolol Monitor BP daily (6) COVID-19 ruled out by laboratory testing: Code(s): Z03.818 - Encounter for observation for suspected exposure to other biological agents ruled out Status: Acute Assessment and Plan: Negative test on 09/25/2020. Isolation precautions discontinued. Subjective Date/time seen: 09/26/20 11:31 Interval history: Date of service: 09/26/2020 Lisa Robertson is a an 79-year-old female with a history of CKD stage 3, COPD, diastolic dysfunction, and hypertension who is seen in follow-up for acute respiratory failure, likely secondary to COPD exacerbation. on my encounter, patient was quite irritated by several details including the bathroom being too far from the bed and not receiving a dose of her pramipexole. She stated that she would not stay in this hospital any longer because of these things. I explained to her the importance of her hospitalization, which reassured her and she became calm. She tells me that overall she is feeling well today. She has not had any cough. She still feels a bit short of breath but notes significant improvement. She did endorse wheezing yesterday and all through the night. She states that she got no sleep secondary to this. She denies orthopnea or PND. She denies dyspnea on exertion. She had a small amount of breakfast today. She had a bowel movement last night. She has been urinating today and denies any episodes of dysuria, hematuria, malodorous or dark appearing urine. she denies chest pain or palpitations. She denies nausea, vomiting, fever, chills, or abdominal pain. Review of Systems Review of Systems: All systems reviewed & are unremarkable except as noted in HPI and belo
[2020-09-26 12:45] LABS: SARS-CoV-2 RNA PCR Negative
[2020-09-26] MEDS: METOPROLOL SUCCINATE EXT REL 50 MG TABCR PO (14:38)
[2020-09-26] MEDS: PRAMIPEXOLE 0.5 MG TABLET BY MOUTH (17:20)
[2020-09-26] MEDS: ALBUTEROL SULFATE (*SP) AEROSOL 1 PUFF 4 PUFF INHALATION (20:25)
[2020-09-27] VITALS (21 sets, daily range): BP systolic 132–162; BP diastolic 62–74; PULSE 56–99; RESP 16–22; TEMP 36.6–37.2; O2SAT 84–97
[2020-09-27 05:12] LABS: Hematocrit 39.1 % (37.0-47.0); Hemoglobin 11.8 g/dL (12.0-15.0); Mean Corpuscular HGB Conc 30.2 g/dl (32-36); Mean Corpuscular Hemoglobin 27.3 pg (26-34); Mean Corpuscular Volume 90.5 fl (80-100); Platelet Count Result 167 k/mm3 (150-375); Red Blood Count 4.32 M/mm3 (4.2-5.4); Red Cell Distribution Width 14.7 % (11.5-14.5); White Blood Count 7.5 K/mm3 (4.5-10.0)
[2020-09-27] MEDS: methylPREDNISolone SOD SUCC 125 MG VIAL 60 MG IV PUSH ×3 (05:27→21:21)
[2020-09-27 05:30] LABS: Anion Gap 1.99999 mmol/L (8-16); Blood Urea Nitrogen 48 mg/dL (7-17); Calcium 8.6 mg/dL (8.4-10.2); Carbon Dioxide > 40 mmol/L (22-30); Chloride 98 mmol/L (98-107); Estimated CRCL calculation 32 ml/min; Estimated Glomerular Filt Rate 36; Glucose 163 mg/dL (65-105); Potassium 4.3 mmol/L (3.4-5.0); Sodium 140 mmol/L (137-145)
[2020-09-27] MEDS: ALBUTEROL SULFATE (*SP) AEROSOL 1 PUFF 4 PUFF INHALATION ×3 (08:31→20:01)
[2020-09-27] MEDS: FUROSEMIDE INJ 40 MG/4 ML VIAL IV PUSH (09:28)
[2020-09-27] MEDS: METOPROLOL SUCCINATE EXT REL 50 MG TABCR PO (09:28)
[2020-09-27] MEDS: CYANOCOBALAMIN 1,000 MCG TABLET 5000 MCG PO (09:29)
[2020-09-27] MEDS: ENOXAPARIN 40 MG/0.4 ML SYRINGE SUB-Q (09:29)
[2020-09-27] MEDS: CHOLECALCIFEROL 1,000 UNITS TABLET 5000 UNITS PO (09:30)
[2020-09-27] MEDS: HYDROcodone/acetaminophen (*CRX) 5-325 MG TABLET 1 TAB PO ×2 (09:43→21:20)
[2020-09-27] MEDS: TRIAMCINOLONE ACET 0.5% CREAM 15 GM TUBE 1 APPLIC TOPICAL ×2 (09:44→18:51)
--- NOTE | 2020-09-27 12:01 | PM.IMPN ---
Progress Note: A&P Assessment and Plan (1) Acute respiratory failure with hypoxia: Code(s): J96.01 - Acute respiratory failure with hypoxia Status: Acute Assessment and Plan: CXR showed bibasilar opacities representing likely a combination of atelectasis, pulmonary edema, or pneumonia. She was hypoxic at 60% on room air upon presentation and hypercarbic. Seems to be multifactorial related to COPD exacerbation and diastolic dysfunction. She is currently maintaining adequate oxygen saturations on 3L O2 per NC. Continue supplemental O2 as needed with goal saturation 90% or above Continue IV steroids, bronchodilators, and Lasix Will complete home O2 eval (2) Asthma exacerbation in COPD: Code(s): J44.1 - Chronic obstructive pulmonary disease with (acute) exacerbation; J45.901 - Unspecified asthma with (acute) exacerbation Status: Acute Assessment and Plan: She is not on chronic O2. She is not established with pulmonology. She reported audible wheezing for 2 days. Continue IV Solu-medrol. Transition to PO Prednisone 60 mg tomorrow. Supplemental O2 with goal 90% or above. Bronchodilators. Albuterol increased to 4 puffs q6h Continue symbicort. (3) Diastolic CHF: Code(s): I50.30 - Unspecified diastolic (congestive) heart failure Status: Acute Assessment and Plan: Echo from 04/2020 showed normal EF 65% with grade I diastolic dysfunction. CXR shows evidence of pulmonary vascular congestion and patient had 2+ edema of lower extremities which has improved. Continue IV lasix. Patient is on 20 mg PO lasix at home, which will likely be increased to 40 mg upon discharge Strict I&O's and daily weights. Heart healthy diet. (4) CKD (chronic kidney disease) stage 3, GFR 30-59 ml/min: Code(s): N18.3 - Chronic kidney disease, stage 3 (moderate) Status: Chronic Assessment and Plan: At presentation, Cr was 1.7. Baseline appears to be anywhere between 1.1-1.4. Creatinine is 1.4 today. Monitor renal function closely. Renally dose medications and avoid nephrotoxic agents. (5) Essential (primary) hypertension: Code(s): I10 - Essential (primary) hypertension Status: Acute Assessment and Plan: BP evaluated today and is stable at 132/63. Continue metoprolol Monitor BP daily (6) COVID-19 ruled out by laboratory testing: Code(s): Z03.818 - Encounter for observation for suspected exposure to other biological agents ruled out Status: Acute Assessment and Plan: Negative test on 09/25/2020. Isolation precautions discontinued. Subjective Date/time seen: 09/27/20 12:01 Interval history: Date of service: 09/27/2020 Lisa Robertson is a an 79-year-old female with a history of CKD stage 3, COPD, diastolic dysfunction, and hypertension who is seen in follow-up for acute respiratory failure secondary to COPD exacerbation. she reports that she is feeling much better today. She is very eager to go home, stating that she has many details to tend to in her house and she has to sort the mail. I discussed with her that it is important to continue monitoring her. She agreed to this but made it clear that she absolutely wants to go home first thing tomorrow morning. She is feeling better. She thinks that she is breathing better and she is having a looser cough. She is not coughing up anything. She endorses ORTEGA. No orthopnea or palpitations. No N/V/D, fever, chills, abd pain, dizziness, lightheadedness, weakness. She is eating well. She has no additional concerns. Review of Systems Review of Systems: All systems reviewed & are unremarkable except as noted in HPI and below Exam Narrative: Exam Narrative: Ms. Robertson is a well-nourished, well-appearing 79-year-old female who is sitting up at the bedside. She appears comfortable and is in NARD. HR 56, BP 132/63, R 16, T 98.9?, 97% on 3 L Neuro: awake, alert and alba
[2020-09-27] MEDS: PRAMIPEXOLE 0.5 MG TABLET BY MOUTH (18:50)
[2020-09-28] VITALS (8 sets, daily range): BP systolic 159–162; BP diastolic 68–80; PULSE 71–82; RESP 20; TEMP 36.7–37.1; O2SAT 95–98
--- NOTE | 2020-09-28 01:46 | PC.NURSE ---
Daylight Savings Time For Daylight Savings Time Ending in the Fall - Clocks are moved back. For Daylight Savings Time Beginning in the Spring - Clocks are moved ahead. For [facility], the time of change occurs at 0200 hrs. Time is taken from the artillery or naval gunfire observer. This entry on the patient's chart recognizes the change in time reflected during documentation. Example: 2 entries for vital signs may be charted for 0200 hrs.
[2020-09-28] MEDS: ALBUTEROL SULFATE (*SP) AEROSOL 1 PUFF 4 PUFF INHALATION ×2 (02:21→08:43)
[2020-09-28] MEDS: HYDROcodone/acetaminophen (*CRX) 5-325 MG TABLET 1 TAB PO (02:33)
[2020-09-28 06:30] LABS: Hematocrit 41.4 % (37.0-47.0); Hemoglobin 12.3 g/dL (12.0-15.0); Mean Corpuscular HGB Conc 29.7 g/dl (32-36); Mean Corpuscular Hemoglobin 27.3 pg (26-34); Mean Corpuscular Volume 91.8 fl (80-100); Mean Platelet Volume 11.4 fl (7.4-10.4); Platelet Count Result 196 k/mm3 (150-375); Red Blood Count 4.51 M/mm3 (4.2-5.4); Red Cell Distribution Width 14.7 % (11.5-14.5); White Blood Count 9.7 K/mm3 (4.5-10.0)
[2020-09-28 06:38] LABS: Anion Gap 4 mmol/L (8-16); Blood Urea Nitrogen 52 mg/dL (7-17); Calcium 8.8 mg/dL (8.4-10.2); Carbon Dioxide 38 mmol/L (22-30); Chloride 97 mmol/L (98-107); Estimated CRCL calculation 32 ml/min; Estimated Glomerular Filt Rate 36; Glucose 127 mg/dL (65-105); Potassium 4.1 mmol/L (3.4-5.0); Sodium 139 mmol/L (137-145)
[2020-09-28] MEDS: predniSONE 20 MG TABLET 60 MG PO (08:48)
[2020-09-28] MEDS: ENOXAPARIN 40 MG/0.4 ML SYRINGE SUB-Q (08:49)
[2020-09-28] MEDS: CHOLECALCIFEROL 1,000 UNITS TABLET 5000 UNITS PO (08:49)
[2020-09-28] MEDS: FUROSEMIDE INJ 40 MG/4 ML VIAL IV PUSH (08:49)
[2020-09-28] MEDS: METOPROLOL SUCCINATE EXT REL 50 MG TABCR PO (08:49)
[2020-09-28] MEDS: CYANOCOBALAMIN 1,000 MCG TABLET 5000 MCG PO (08:49)
[2020-09-28] MEDS: TRIAMCINOLONE ACET 0.5% CREAM 15 GM TUBE 1 APPLIC TOPICAL (08:50)
--- NOTE | 2020-09-28 10:43 | PCRCNOTE ---
PT. DME CHOICE IS [facility]. TANK IN ROOM. 2LPM AT REST, 4LPM WITH ACTIVITY.
--- NOTE | 2020-09-28 11:28 | PM.DS ---
DS: Admitting Diagnosis Admitting Diagnosis Admitting Diagnosis: Shortness of breath DS: Discharge Diagnosis Discharge Diagnosis (1) Acute respiratory failure with hypoxia: Code(s): J96.01 - Acute respiratory failure with hypoxia Status: Acute Assessment and Plan: CXR showed bibasilar opacities representing likely a combination of atelectasis, pulmonary edema, or pneumonia. She was hypoxic at 60% on room air upon presentation and hypercarbic. Seemed to be multifactorial related to COPD exacerbation and diastolic dysfunction. She maintained adequate oxygen saturations on 2-4L O2 per NC. She was treated with IV steroids and bronchodilators. Home O2 eval was completed on 09/28/20. She will require 2L O2 at rest and 4L O2 with activity. She will benefit from outpatient pulmonology referral at PCP discretion. (2) Asthma exacerbation in COPD: Code(s): J44.1 - Chronic obstructive pulmonary disease with (acute) exacerbation; J45.901 - Unspecified asthma with (acute) exacerbation Status: Acute Assessment and Plan: Prior to admission, not on chronic O2. She is not established with pulmonology. She reported audible wheezing for 2 days prior to presentation. She was treated with IV solu-medrol and improved. Lungs were clear to auscultation. She was given nebulized breathing treatments. She will continue an outpatient Prednisone taper. As above, she will benefit from pulmonology referral for PFT. (3) Diastolic CHF: Code(s): I50.30 - Unspecified diastolic (congestive) heart failure Status: Acute Assessment and Plan: Echo from 04/2020 showed normal EF 65% with grade I diastolic dysfunction. CXR showed evidence of pulmonary vascular congestion and patient had 2+ edema of lower extremities. She was diuresed with IV Lasix and had symptomatic improvement. Lower extremity edema improved. Her PO lasix was increased from 20 mg to 40 mg. We discussed heart healthy diet and monitoring daily weights. (4) CKD (chronic kidney disease) stage 3, GFR 30-59 ml/min: Code(s): N18.3 - Chronic kidney disease, stage 3 (moderate) Status: Chronic Assessment and Plan: At presentation, Cr was 1.7. Baseline appears to be anywhere between 1.1-1.4. Creatinine was 1.4 at time of discharge. (5) Essential (primary) hypertension: Code(s): I10 - Essential (primary) hypertension Status: Acute Assessment and Plan: Blood pressures evaluated daily and were generally well controlled. Continue metoprolol. (6) COVID-19 ruled out by laboratory testing: Code(s): Z03.818 - Encounter for observation for suspected exposure to other biological agents ruled out Status: Acute Assessment and Plan: Negative test on 09/25/2020. Isolation precautions discontinued. DS: Summary Hospital Course Hospital Course: Date of admission: 09/25/2020 Date of discharge: 09/28/2020 Lisa Robertson is a an 79-year-old female with a history of CKD stage 3, COPD, diastolic dysfunction, and hypertension who presented to the emergency department on 09/25/2020 with complaints of SOB. She had been at an appointment with her PCP and was found to by hypoxic in the 60s. She also complained of wheezing for several days. At presentation, VSS, afebrile, CBC wnl, bicarb elevated, BUN 36, Cr 1.7, CXR showed bibasilar opacities and cardiomegaly, and pulmonary perfusion study showed small perfusion abnormality correlating to bibasilar infiltrate. She was admitted to the hospitalist service for further evaluation and treatment. Please see above for further details. She was treated with IV steroids and bronchodilators. Her SOB and wheezing resolved. She had a home O2 eval performed and will continue with home oxygen, 2L at rest and 4L with exertion. She was extremely eager for discharge home and felt comfortable with plan. Given her overall improvement, she was determined to no longer require inpatient care
== END 2020-09-28 11:50 | disposition home or self-care (01) | DRG 189 ==
LOC: ANHED 19:27 → ANH3MEDSUR 09-26 01:24
PROVIDERS: Internal Medicine; Admitting Provider Internal Medicine; Emergency Provider Emergency Medicine; PCP Family Medicine; Visit Provider Physician Assistant
DX: J96.01 Acute respiratory failure with hypoxia (principal); I50.33 Acute on chronic diastolic (congestive) heart failure; J44.1 Chronic obstructive pulmonary disease with (acute) exacerbation; I13.0 Hypertensive heart and chronic kidney disease with heart failure and stage 1 through stage 4 chronic kidney disease, or unspecified chronic kidney disease; N18.30 Chronic kidney disease, stage 3 unspecified; Z20.828 Contact with and (suspected) exposure to other viral communicable diseases
CPT/HCPCS: 36415; 36600; 71046; 78580; 80048; 80053; 82805; 83880; 84484; 85025; 85027; 85380; 87635; 93005; 94640; 94762; 96374; 99291; A9270; A9540; C9803; J1650; J1940; J2930; J7512; U0003

== ENCOUNTER 2021-01-21 18:28 | Inpatient (IN) | payer MEDICARE, SELFPAY ==
--- NOTE | ~2021-01-21 | US_ITS ---
EXAMINATION: US venous doppler [facility] EXAM DATE: 01/22/2021 16:02 INDICATION: Swollen legs. TECHNIQUE: Multiple grayscale, color flow and Doppler images of the lower extremity deep venous syste ms bilaterally were obtained and reviewed. Comparison is made to prior examination from 04/25/2020. FINDINGS: Right side: The right common femoral, femoral and profunda veins demonstrate normal color flow, respi ratory variation, augmentation and compressibility. Compressibility, color flow confirmed within the right popliteal, posterior tibial, peroneal, and greater saphenous veins. Left side: The left common femoral, femoral and profunda veins demonstrate normal color flow, respira tory variation, augmentation and compressibility. Compressibility, color flow confirmed within the l eft popliteal, posterior tibial, peroneal, and greater saphenous veins. IMPRESSION: 1. No lower extremity deep venous thrombosis bilaterally. Reviewed, dictated and finalized at location B. [employer] SERVICES MANAGER
--- NOTE | ~2021-01-21 | XR_ITS ---
EXAMINATION: XR chest 2V DATE: 01/21/2021 19:22 INDICATION: Shortness of breath. TECHNIQUE: Frontal and lateral views of the chest were obtained. COMPARISON: Chest 2 views 09/25/2020 FINDINGS: There is no pneumonia, pleural effusion, or pneumothorax. Cardiomegaly is noted. There are multiple old healed left rib fractures. IMPRESSION: 1. Cardiomegaly. Reviewed, dictated and finalized at location A. CMA IMPRESSION: 1. Cardiomegaly.
--- NOTE | ~2021-01-21 | NM_ITS ---
EXAMINATION: NM pulmonary perfusion DATE: 01/21/2021 21:47 INDICATION: Chest pain and shortness of breath. TECHNIQUE: 3.98 mCi Tc-99m MAA was administered intravenously for perfusion images. Scintigraphic im ages of the chest were obtained. COMPARISON: Chest 2 views 01/17/2021, perfusion scintigraphy 09/25/2020, chest CT 09/30/2006 FINDINGS: Perfusion images show large and moderate sized defects in the lower lobes and small and moderate size d defects in the upper lobes. IMPRESSION: 1. Pulmonary embolism present (high probability). Reviewed, dictated and finalized at location A. ICAL IMMUNOLOGIST
--- NOTE | 2021-01-21 18:31 | ECG_ITS ---
Measurements Intervals [place] Rate: 92 P: 63 MN: 175 QRS: 2 QRSD: 92 T: 72 QT: 337 QTc: 418 Interpretive Statements SINUS RHYTHM ANTERIOR INFARCT, AGE INDETERMINATE BASELINE ARTIFACT- V4 ABNORMAL ECG Electronically Signed On 01-21-2021 20:16:22 [employer]CHITECT by Arnold Berg D.O.
[2021-01-21 18:41] VITALS: BP 89/56; PULSE 90; RESP 18; TEMP 36.8; O2SAT 90
[2021-01-21 19:08] LABS: Basophils Percent Auto 0.2 % (0.2-1.2); Eosinophils Absolute Auto 0.2 K/mm3 (0-0.3); Eosinophils Percent Auto 1.8 % (0-4.4); Hematocrit 42.3 % (37.0-47.0); Hemoglobin 13.2 g/dL (12.0-15.0); Immature Granulocyte Absolute 0.02 K/mm3 (0.00-0.031); Immature Granulocyte Percent A 0.2 % (0-0.5); Lymphocytes Absolute Auto 1.23 K/mm3 (0.9-3.2); Lymphocytes Percent Auto 13.8 % (18.3-44.2); Mean Corpuscular HGB Conc 31.2 g/dl (32-36); Mean Corpuscular Hemoglobin 28.6 pg (26-34); Mean Corpuscular Volume 91.8 fl (80-100); Monocytes Absolute Auto 0.7 K/mm3 (0.1-0.6); Monocytes Percent Auto 7.8 % (2.6-8.5); Neutrophils Absolute Auto 6.8 K/mm3 (1.3-6.7); Neutrophils Percent Auto 76.2 % (45.5-73.1); Platelet Count Result 195 k/mm3 (150-375); Red Blood Count 4.61 M/mm3 (4.2-5.4); Red Cell Distribution Width 14.5 % (11.5-14.5); White Blood Count 8.9 K/mm3 (4.5-10.0)
[2021-01-21 19:19] LABS: D Dimer 1.85 ug/mL (<0.48)
--- NOTE | 2021-01-21 19:20 | ED.SOB ---
HPI - SOB/Dyspnea General Chief Complaint: Shortness of Breath/Dyspnea <Rubio Hayes MD - Last Filed: 01/22/21 11:38> Stated Complaint: Right Leg Swelling, SOB <Rubio Hayes MD - Last Filed: 01/22/21 11:38> Time Seen by Provider: 01/21/21 18:46 <Rubio Hayes MD - Last Filed: 01/22/21 11:38> Source: patient <Rubio Hayes MD - Last Filed: 01/22/21 11:38> Mode of arrival: ambulatory <Rubio Hayes MD - Last Filed: 01/22/21 11:38> Limitations: no limitations <Rubio Hayes MD - Last Filed: 01/22/21 11:38> History of Present Illness HPI Narrative: 80-year-old female Sent her doctor's office for evaluation of worsening shortness of breath right greater than left leg swelling Patient says that it has been a problem all winter and that it started in her opinion with a sinus infection and may be an ear infection which have been treated with different antibiotics at various times unsuccessfully She indicates the right leg swelling is not necessarily new but it is much worse than it usually is She has had prior hip replacements and a knee replacement on the left side but none of those operations have been done recently Currently she has a bit of a cough but it is not productive and is not having any fever She does not have chest pain Last summer she had a pretty unremarkable echocardiogram with a normal ejection fraction and normal systolic function <Rubio Hayes MD - Last Filed: 01/22/21 11:38> Related Data Home Medications: Home Medications Medication Instructions Recorded Confirmed cholecalciferol (vitamin D3) 125 125 mcg PO DAILY 04/03/20 01/22/21 mcg (5,000 unit) capsule mecobalamin (vitamin B12) 5,000 5,000 mcg PO DAILY tablet 04/03/20 01/22/21 mcg disintegrating tablet <Rubio Hayes MD - Last Filed: 01/22/21 11:38> Allergies/Adverse Reactions: Allergies Allergy/AdvReac Type Severity Reaction Status Date / Time Sulfa (Sulfonamide Allergy Unknown Rash,Swelling Verified 01/22/21 01:05 Antibiotics) of Lip/Tongue/Throat aspirin AdvReac Unknown Nausea Verified 01/22/21 01:05 <Rubio Hayes MD - Last Filed: 01/22/21 11:38> Review of Systems Review of Systems: All systems reviewed & are unremarkable except as noted in HPI and below <Rubio Hayes MD - Last Filed: 01/22/21 11:38> Constitutional: Constitutional: Denies chills, Denies fatigue, Denies fever(s), Denies headache(s) and Denies weakness <Rubio Hayes MD - Last Filed: 01/22/21 11:38> Eyes: Eyes: Reports no additional eye complaints and Denies change in vision <Rubio Hayes MD - Last Filed: 01/22/21 11:38> ENT: Denies headache(s), Denies epistaxis, Reports nasal congestion and Denies sore throat <Rubio Hayes MD - Last Filed: 01/22/21 11:38> Cardiovascular: Cardiovascular: Denies chest pain, Denies leg edema, Denies palpitations and Denies dyspnea <Rubio Hayes MD - Last Filed: 01/22/21 11:38> Respiratory: Respiratory: Reports cough, Reports dyspnea and Denies wheezing <Rubio Hayes MD - Last Filed: 01/22/21 11:38> Gastrointestinal: Gastrointestinal: Denies abdominal pain, Denies diarrhea, Denies nausea and Denies vomiting <Rubio Hayes MD - Last Filed: 01/22/21 11:38> Genitourinary: Genitourinary: Denies hematuria, Denies urinary frequency and Denies dysuria <Rubio Hayes MD - Last Filed: 01/22/21 11:38> Musculoskeletal: Musculoskeletal: Denies deformity, Denies arthralgias, Reports joint swelling (Right ankle), Denies muscle weakness and Denies numbness <Rubio Hayes MD - Last Filed: 01/22/21 11:38> Integumentary/Breasts: Skin/Breast: Denies rash and Denies wounds <Rubio Hayes MD - Last Filed: 01/22/21 11:38> Neurologic: Denies headache(s), Denies focal weakness, Denies numbness and Denies weakness <Rubio Hayes MD - Last Filed: 01/22/21 11:38> Psychiatric: Psychiatric: Reports no additional psychiatric complaints <Rubio Hayes MD
[2021-01-21 19:22] LABS: Anion Gap 5 mmol/L (8-16); Blood Urea Nitrogen 33 mg/dL (7-17); Calcium 9.2 mg/dL (8.4-10.2); Carbon Dioxide 38 mmol/L (22-30); Chloride 102 mmol/L (98-107); Estimated CRCL calculation 21 ml/min; Estimated Glomerular Filt Rate 24; Glucose 129 mg/dL (65-105); Potassium 4.3 mmol/L (3.4-5.0); Sodium 145 mmol/L (137-145)
[2021-01-21 19:42] LABS: NT Pro B Type Natriuretic Pept 519 PG/ML (5-100); Troponin I < 0.012 ng/mL (0.000-0.034)
[2021-01-21] MEDS: ENOXAPARIN 80 MG/0.8 ML SYRINGE SUB-Q (20:04)
[2021-01-21 23:59] VITALS: BP 156/89; PULSE 69; RESP 18; O2SAT 96
[2021-01-22] VITALS (13 sets, daily range): BP systolic 123–169; BP diastolic 56–77; PULSE 76–95; RESP 17–20; TEMP 36.7–37; O2SAT 92–100; BMI 31.9
--- NOTE | 2021-01-22 00:05 | ADMGEN ---
This patient, Lisa Robertson, was admitted to 3 [facility] Surg Room 302-01. Patient/family oriented to hospital policies and general routines including ID bracelet, bed and alarms, visiting hours, pain management, procedures, bathroom and other care routines, personal items, smoking policy, room service/diet, and visiting hours. Information on how to activate the Rapid Response Team has been discussed. Patient/Family are encouraged to report perceived risks to care and to ask questions if they do not understand what they are told or what they should do.
[2021-01-22] MEDS: SODIUM CHLORIDE 0.9% IV 1,000 ML 75 ML IV CONT ×2 (00:15→18:22)
[2021-01-22 06:20] LABS: Anion Gap 1 mmol/L (8-16); Blood Urea Nitrogen 30 mg/dL (7-17); Calcium 8.5 mg/dL (8.4-10.2); Carbon Dioxide 38 mmol/L (22-30); Chloride 104 mmol/L (98-107); Estimated CRCL calculation 31 ml/min; Estimated Glomerular Filt Rate 36; Glucose 99 mg/dL (65-105); Potassium 4.2 mmol/L (3.4-5.0); Sodium 143 mmol/L (137-145)
--- NOTE | 2021-01-22 10:51 | PM.IMHP ---
H&P: HPI History of Present Illness Date/Time: 01/22/21 10:51 Chief Complaint: SOB and right calf redness Narrative: Lisa Robertson is a 80 year old female admitted with SOB and swelling of her right calf. Pt has history of COPD ex -smoker heavy half pack for several years. pt usually wears oxygen she is at her baseline. Pt found to have PE on perfusion scan. Pt right calf is swollen and red tender to touch. Pt has history of hip and knee replacements, but non have been recently. Review of Systems Review of Systems: All systems reviewed & are unremarkable except as noted in HPI and below PMFSH Past Medical History Medical History B12 deficiency Chronic bilateral low back pain without sciatica CKD (chronic kidney disease) stage 3, GFR 30-59 ml/min COPD with asthma PFTs 06/22/2020 Diastolic dysfunction echocardiogram 05/13/2020: Moderate concentric left ventricular hypertrophy, impaired diastolic relaxation grade 1, EF of 65%, mild aortic stenosis with peak velocity 1.8 peak gradient of 13 mean gradient of 7 valve area of 1.7 Dyslipidemia Essential (primary) hypertension Fibrocystic breast 11/2010 Mild aortic stenosis Osteoporosis Peripheral polyneuropathy RLS (restless legs syndrome) Rotator cuff arthropathy of both shoulders 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 insufficiency (chronic) (peripheral) Vitamin D deficiency Surgical History Surgical History History of bilateral cataract extraction (~04/13/01) History of bilateral hip replacements (~03/08/07) Right Hip 03/08/07, Left hip 09/2007 History of lumbar discectomy (~1960) History of release of tendon (Unknown) right lower extremity History of total bilateral knee replacement (~09/28/06) History of total hysterectomy with bilateral salpingo-oophorectomy (BSO) (Unknown) Hx of cholecystectomy (Unknown) S/P FESS (functional endoscopic sinus surgery) (Unknown) Family History Family History Father Hodgkin lymphoma Mother Diabetes mellitus Uterine cancer Social History Social History Social History: The patient is and lives in [facility] in her own home. She is a former smoker and smoked a quarter pack of cigarettes per day and quit in 2008. Primary care physician: Dr. Nicky Watts Smoking packs per day: 0.5 Smoking cigarettes per day: 10.0 Years smoked: 40 Smoking pack-years: 20.00 Smoking status: Former smoker Tobacco type: cigarettes Second hand tobacco smoke exposure: No Smoking end date: 11/28/20 Alcohol intake: never Substance use: never Substance use type: does not use Gender identity (if verbalized by the patient): Female Sexual Orientation (if Verbalized by the Patient): Straight or Heterosexual Spiritual care concerns: No Meds Home Medications and Allergies Home Medications Medication Instructions Recorded Confirmed Type cholecalciferol (vitamin D3) 125 125 mcg PO DAILY 04/03/20 01/22/21 History mcg (5,000 unit) capsule mecobalamin (vitamin B12) 5,000 5,000 mcg PO DAILY tablet 04/03/20 01/22/21 History mcg disintegrating tablet albuterol sulfate 1 puff INHALATION Q4H PRN #8.5 gm 05/02/20 01/22/21 Rx triamcinolone acetonide See Rx Instructions .ROUTE 05/02/20 01/22/21 Rx .COMPLEX #30 gm pramipexole 0.5 mg tablet See Rx Instructions .ROUTE 09/09/20 01/22/21 Rx .COMPLEX #90 tablet furosemide 20 mg tablet 20 mg PO QAM #90 tablet 01/06/21 01/22/21 Rx metoprolol succinate 50 mg 50 mg PO DAILY #90 tablet 01/06/21 01/22/21 Rx tablet,extended release 24 hr fluticasone furoate 200 1 inh INHALATION DAILY #60 each 01/21/21 01/22/21 Rx mcg-vilanterol 25 mcg/dose inhalation powder
[2021-01-22] MEDS: ENOXAPARIN 80 MG/0.8 ML SYRINGE SUB-Q ×2 (12:19→21:08)
[2021-01-22] MEDS: METOPROLOL SUCCINATE EXT REL 50 MG TABCR PO (15:15)
[2021-01-22] MEDS: FUROSEMIDE 20 MG TABLET PO (15:16)
[2021-01-22] MEDS: PRAMIPEXOLE 0.5 MG TABLET BY MOUTH (18:20)
[2021-01-23] VITALS (10 sets, daily range): BP systolic 123–149; BP diastolic 49–72; PULSE 75–90; RESP 18–20; TEMP 36.3–36.8; O2SAT 90–97
[2021-01-23] MEDS: FUROSEMIDE 20 MG TABLET PO (09:57)
[2021-01-23] MEDS: METOPROLOL SUCCINATE EXT REL 50 MG TABCR PO (09:57)
[2021-01-23] MEDS: ENOXAPARIN 80 MG/0.8 ML SYRINGE SUB-Q ×2 (09:58→20:52)
--- NOTE | 2021-01-23 10:47 | PM.IMPN ---
Progress Note: A&P Assessment and Plan (1) Cellulitis, leg: Code(s): L03.119 - Cellulitis of unspecified part of limb Status: Acute Assessment and Plan: Pt having cellulitis of his R leg, order blood cultures and start IV ancef for cellulitis (2) Pulmonary emboli: Qualifiers: Acute cor pulmonale presence: unspecified Chronicity: acute Pulmonary embolism type: unspecified Qualified Code(s): I26.99 - Other pulmonary embolism without acute cor pulmonale Code(s): I26.99 - Other pulmonary embolism without acute cor pulmonale Status: Acute Assessment and Plan: Pt is on lovenox BID. (3) LIDIA (acute kidney injury): Code(s): N17.9 - Acute kidney failure, unspecified Status: Acute Assessment and Plan: Stop fluids pt is eating and drinking well. (4) Diastolic CHF: Qualifiers: Heart failure chronicity: chronic Qualified Code(s): I50.32 - Chronic diastolic (congestive) heart failure Code(s): I50.30 - Unspecified diastolic (congestive) heart failure Status: Acute Assessment and Plan: Pt is on oral Lasix. (5) COPD with asthma: Code(s): J44.9 - Chronic obstructive pulmonary disease, unspecified Status: Acute Assessment and Plan: Pt has history of COPD. Subjective Date/time seen: 01/23/21 10:47 Interval history: 80 year old female admitted with SOB and swelling of her right calf. Pt has history of COPD ex -smoker heavy half pack for several years. pt usually wears oxygen she is at her baseline. Pt found to have PE on perfusion scan. having pain in the calf. Review of Systems Review of Systems: All systems reviewed & are unremarkable except as noted in HPI and below Exam Const: General: other (Tired ) HENMT: Head: normocephalic Neck: Neck: supple Chest: Chest palpation & inspection: normal inspection of the chest Resp: Effort & Inspection: normal respiratory effort Auscultation: clear to auscultation bilaterally Cardio: Jugular venous distension: no JVD Rhythm: regular rhythm Heart sounds: S1 normal heart sound present and S2 normal heart sound present GI: Inspection: normal to inspection Skin: General skin exam: normal color and dry skin Neuro: Cranial nerves: Yes CN's II-XII intact bilaterally and Yes Equal, round and reactive pupils present Cognition (Neuro): normal cognition Speech: normal speech Motor exam (neuro): 5/5 motor strength present throughout Extrem: General: other (R leg swollen hot red tender to touch, twice the size as the L leg ) Psych: Appearance: grossly normal Mental Status: mental status grossly normal Objective Data Vital Signs Vital Signs: Vital Signs - 24 hr 01/22/21 12:00 01/22/21 14:00 01/22/21 15:15 Temperature 37.0 C Pulse Rate 95 85 87 Respiratory Rate 20 Blood Pressure 169/67 H Pulse Oximetry 97 01/22/21 15:53 01/22/21 16:00 01/22/21 20:00 Temperature Pulse Rate 86 79 76 Respiratory Rate 17 Blood Pressure Pulse Oximetry 100 96 01/22/21 21:09 01/23/21 00:00 01/23/21 04:00 Temperature 36.9 C Pulse Rate 79 85 79 Respiratory Rate 18 Blood Pressure 147/56 H Pulse Oximetry 96 01/23/21 06:00 01/23/21 09:57 Temperature 36.8 C Pulse Rate 86 86 Respiratory Rate 18 Blood Pressure 145/72 H Pulse Oximetry 97 Intake/Output Intake/Output: Intake & Output 01/20/21 01/21/21 01/22/21 01/23/21 23:59 23:59 23:59 23:59 Intake Total 2470 290 Output Total 700 500 Balance 1770 -210 Meds/Results Medications: Active Medications Generic Name Dose Route Start Last Admin Trade Name Freq PRN Reason Stop Dose Admin Albuterol 1 puff 01/22/21 11:58 Albuterol Sulfate (*Sp) Aerosol 1 Puff INHALATION Q4H PRN shortness of breath or wheezing Budesonide/Formoterol Fumarate 2 puff 01/22/21 20:00 01/22/21 23:53 Budesonide/Form 160-4.5 Mcg (*Sp) INHALATION Not Given Q12HRT SC
[2021-01-23] MEDS: PRAMIPEXOLE 0.5 MG TABLET BY MOUTH (17:58)
[2021-01-23] MEDS: ALBUTEROL SULFATE (*SP) AEROSOL 1 PUFF INHALATION (19:04)
[2021-01-24] VITALS (12 sets, daily range): BP systolic 115–143; BP diastolic 46–69; PULSE 75–92; RESP 18–24; TEMP 36.3–36.5; O2SAT 91–95
[2021-01-24] MEDS: HYDROcodone/acetaminophen (*CRX) 5-325 MG TABLET 1 TAB PO ×3 (01:11→12:12)
[2021-01-24 08:28] LABS: Glucose Point of Care 101 (65-105)
[2021-01-24] MEDS: METOPROLOL SUCCINATE EXT REL 50 MG TABCR PO (08:53)
[2021-01-24] MEDS: FUROSEMIDE 20 MG TABLET PO (08:54)
[2021-01-24] MEDS: ENOXAPARIN 80 MG/0.8 ML SYRINGE SUB-Q (08:54)
[2021-01-24 12:03] LABS: Glucose Point of Care 142 (65-105)
--- NOTE | 2021-01-24 13:28 | PM.IMPN ---
Progress Note: A&P Assessment and Plan (1) Cellulitis, leg: Code(s): L03.119 - Cellulitis of unspecified part of limb Status: Acute Assessment and Plan: Pt having cellulitis of his R leg, order blood cultures and start IV ancef for cellulitis (2) Pulmonary emboli: Qualifiers: Acute cor pulmonale presence: unspecified Chronicity: acute Pulmonary embolism type: unspecified Qualified Code(s): I26.99 - Other pulmonary embolism without acute cor pulmonale Code(s): I26.99 - Other pulmonary embolism without acute cor pulmonale Status: Acute Assessment and Plan: Pt is on lovenox BID. can transition to Xarelto 1`5 mg po bid for 21 days then 20 mg po daily (3) LIDIA (acute kidney injury): Code(s): N17.9 - Acute kidney failure, unspecified Status: Acute Assessment and Plan: Stop fluids pt is eating and drinking well. (4) Diastolic CHF: Qualifiers: Heart failure chronicity: chronic Qualified Code(s): I50.32 - Chronic diastolic (congestive) heart failure Code(s): I50.30 - Unspecified diastolic (congestive) heart failure Status: Acute Assessment and Plan: Pt is on oral Lasix. (5) COPD with asthma: Code(s): J44.9 - Chronic obstructive pulmonary disease, unspecified Status: Acute Assessment and Plan: Pt has history of COPD. Subjective Date/time seen: 01/24/21 13:28 Interval history: 80 year old female admitted with SOB and swelling of her right calf. Pt has history of COPD ex -smoker heavy half pack for several years. pt usually wears oxygen she is at her baseline. Pt found to have PE on perfusion scan. having pain in the calf. Can transition to oral anticoagulation Review of Systems Review of Systems: All systems reviewed & are unremarkable except as noted in HPI and below Exam Const: General: other (Tired ) HENMT: Head: normocephalic Eyes: General: appearance normal, both eyes and all related structures Pupils: Equal, round and reactive pupils present Neck: Neck: supple Chest: Chest palpation & inspection: normal inspection of the chest Resp: Effort & Inspection: normal respiratory effort Auscultation: clear to auscultation bilaterally Cardio: Jugular venous distension: no JVD Rhythm: regular rhythm Heart sounds: S1 normal heart sound present and S2 normal heart sound present GI: Inspection: normal to inspection Auscultation: normal bowel sounds Skin: General skin exam: normal color and dry skin Neuro: Cranial nerves: Yes CN's II-XII intact bilaterally and Yes Equal, round and reactive pupils present Cognition (Neuro): normal cognition Speech: normal speech Motor exam (neuro): 5/5 motor strength present throughout Extrem: General: other (R leg looking much beter les red or swollen) Psych: Appearance: grossly normal Mental Status: mental status grossly normal Objective Data Vital Signs Vital Signs: Vital Signs - 24 hr 01/23/21 14:00 01/23/21 16:00 01/23/21 20:00 Temperature 36.3 C L Pulse Rate 77 87 87 Respiratory Rate 18 Blood Pressure 123/49 L Pulse Oximetry 97 90 01/23/21 22:00 01/24/21 00:00 01/24/21 01:19 Temperature 36.6 C Pulse Rate 90 92 Respiratory Rate 20 Blood Pressure 149/66 H Pulse Oximetry 95 95 01/24/21 04:00 01/24/21 06:00 01/24/21 08:50 Temperature 36.3 C L Pulse Rate 90 75 Respiratory Rate 18 Blood Pressure 143/69 H Pulse Oximetry 92 92 01/24/21 08:53 Temperature Pulse Rate 80 Respiratory Rate Blood Pressure Pulse Oximetry Intake/Output Intake/Output: Intake & Output 01/21/21 01/22/21 01/23/21 01/24/21 23:59 23:59 23:59 23:59 Intake Total 2470 1540 370 Output Total 700 1500 700 Balance 1770 40 -330 Meds/Results Medications: Active Medications Generic Name Dose Route Start Last Admin Trade Name Freq PRN Reason Stop Dose Admin Hydrocodone Bitart/Acetaminophen 1 tab 01/23/21 1
[2021-01-24] MEDS: HYDROcodone/acetaminophen (*CRX) 5-325 MG TABLET 2 TAB PO ×2 (14:42→21:33)
[2021-01-24] MEDS: RIVAROXABAN 15 MG TABLET PO (17:45)
[2021-01-24] MEDS: PRAMIPEXOLE 0.5 MG TABLET BY MOUTH (17:45)
[2021-01-25] VITALS (10 sets, daily range): BP systolic 112–124; BP diastolic 36–51; PULSE 77–88; RESP 18–24; TEMP 36.4–36.8; O2SAT 92–96
[2021-01-25] MEDS: HYDROcodone/acetaminophen (*CRX) 5-325 MG TABLET 2 TAB PO ×2 (03:38→16:49)
[2021-01-25] MEDS: METOPROLOL SUCCINATE EXT REL 50 MG TABCR PO (08:18)
[2021-01-25] MEDS: RIVAROXABAN 15 MG TABLET PO ×2 (08:18→17:54)
[2021-01-25] MEDS: FUROSEMIDE 20 MG TABLET PO (08:19)
[2021-01-25] MEDS: ALBUTEROL SULFATE (*SP) AEROSOL 1 PUFF INHALATION (08:28)
--- NOTE | 2021-01-25 13:28 | PM.IMPN ---
Progress Note: A&P Assessment and Plan (1) Cellulitis, leg: Code(s): L03.119 - Cellulitis of unspecified part of limb Status: Acute Assessment and Plan: Pt having cellulitis of his R leg,bc negative to date. pt started IV ancef for cellulitis doing well. (2) Pulmonary emboli: Qualifiers: Acute cor pulmonale presence: unspecified Chronicity: acute Pulmonary embolism type: unspecified Qualified Code(s): I26.99 - Other pulmonary embolism without acute cor pulmonale Code(s): I26.99 - Other pulmonary embolism without acute cor pulmonale Status: Acute Assessment and Plan: Pt is on lovenox BID. can transition to Xarelto 1`5 mg po bid for 21 days then 20 mg po daily (3) LIDIA (acute kidney injury): Code(s): N17.9 - Acute kidney failure, unspecified Status: Acute Assessment and Plan: Stop fluids pt is eating and drinking well. (4) Diastolic CHF: Qualifiers: Heart failure chronicity: chronic Qualified Code(s): I50.32 - Chronic diastolic (congestive) heart failure Code(s): I50.30 - Unspecified diastolic (congestive) heart failure Status: Acute Assessment and Plan: Pt is on oral Lasix. (5) COPD with asthma: Code(s): J44.9 - Chronic obstructive pulmonary disease, unspecified Status: Acute Assessment and Plan: Pt has history of COPD. Subjective Date/time seen: 01/25/21 13:28 Interval history: 80 year old female admitted with SOB and swelling of her right calf. Pt has history of COPD ex -smoker heavy half pack for several years. pt usually wears oxygen she is at her baseline. Pt found to have PE on perfusion scan. some pain in the calf. Doing well on xarelto, calf pain better plan discharge tomorrow morning. Review of Systems Review of Systems: All systems reviewed & are unremarkable except as noted in HPI and below Exam Const: General: other (Tired ) HENMT: Head: normocephalic Eyes: General: appearance normal, both eyes and all related structures Pupils: Equal, round and reactive pupils present Neck: Neck: supple Chest: Chest palpation & inspection: normal inspection of the chest Resp: Effort & Inspection: normal respiratory effort Auscultation: clear to auscultation bilaterally Cardio: Jugular venous distension: no JVD Rhythm: regular rhythm Heart sounds: S1 normal heart sound present and S2 normal heart sound present GI: Inspection: normal to inspection Auscultation: normal bowel sounds Skin: General skin exam: normal color and dry skin Neuro: Cranial nerves: Yes CN's II-XII intact bilaterally and Yes Equal, round and reactive pupils present Cognition (Neuro): normal cognition Speech: normal speech Motor exam (neuro): 5/5 motor strength present throughout Extrem: General: other (scattered redness on right leg ) Psych: Appearance: grossly normal Mental Status: mental status grossly normal Objective Data Vital Signs Vital Signs: Vital Signs - 24 hr 01/24/21 14:00 01/24/21 16:00 01/24/21 20:00 Temperature 36.5 C Pulse Rate 77 81 87 Respiratory Rate 24 H Blood Pressure 115/46 L Pulse Oximetry 94 95 01/24/21 22:00 01/25/21 00:00 01/25/21 04:00 Temperature 36.5 C Pulse Rate 85 82 83 Respiratory Rate 20 Blood Pressure 138/68 Pulse Oximetry 91 01/25/21 06:00 01/25/21 08:15 01/25/21 08:18 Temperature 36.4 C Pulse Rate 81 88 Respiratory Rate 18 Blood Pressure 124/45 L Pulse Oximetry 94 92 Intake/Output Intake/Output: Intake & Output 01/22/21 01/23/21 01/24/21 01/25/21 23:59 23:59 23:59 23:59 Intake Total 2470 1540 960 730 Output Total 700 1500 1375 450 Balance 1770 40 -415 280 Meds/Results Medications: Active Medications Generic Name Dose Route Start Last Admin Trade Name Freq PRN Reason Stop Dose Admin Hydrocodone Bitart/Acetaminophen 1 tab 01/23/21 10:51 01/24/21 12:12 Hydrocodone/Acetaminophen (*Crx) 5-325
[2021-01-25] MEDS: PRAMIPEXOLE 0.5 MG TABLET BY MOUTH (17:54)
[2021-01-26 05:46] VITALS: BP 136/53; PULSE 86; RESP 18; TEMP 36.6; O2SAT 92
[2021-01-26 06:30] LABS: Estimated CRCL calculation 33 ml/min; Estimated Glomerular Filt Rate 39
[2021-01-26 08:00] VITALS: O2SAT 92
[2021-01-26 08:14] VITALS: PULSE 76
[2021-01-26] MEDS: RIVAROXABAN 15 MG TABLET PO (08:14)
[2021-01-26] MEDS: METOPROLOL SUCCINATE EXT REL 50 MG TABCR PO (08:14)
[2021-01-26] MEDS: FUROSEMIDE 20 MG TABLET PO (08:14)
[2021-01-26] MEDS: HYDROcodone/acetaminophen (*CRX) 5-325 MG TABLET 2 TAB PO (09:58)
--- NOTE | 2021-01-26 12:18 | PM.DS ---
DS: Admitting Diagnosis Admitting Diagnosis Admitting Diagnosis: SOB and right calf redness DS: Discharge Diagnosis Discharge Diagnosis (1) Cellulitis, leg: Code(s): L03.119 - Cellulitis of unspecified part of limb Status: Acute Assessment and Plan: Pt having cellulitis of his R leg, bc negative to date. pt started IV ancef for cellulitis doing well. Pt to continue on keflex at home fo another 10 days. (2) Pulmonary emboli: Qualifiers: Acute cor pulmonale presence: unspecified Chronicity: acute Pulmonary embolism type: unspecified Qualified Code(s): I26.99 - Other pulmonary embolism without acute cor pulmonale Code(s): I26.99 - Other pulmonary embolism without acute cor pulmonale Status: Acute Assessment and Plan: Pt is on lovenox BID. can transition to Xarelto 1`5 mg po bid for 21 days then 20 mg po daily (3) LIDIA (acute kidney injury): Code(s): N17.9 - Acute kidney failure, unspecified Status: Acute Assessment and Plan: Stop fluids pt is eating and drinking well. (4) Diastolic CHF: Qualifiers: Heart failure chronicity: chronic Qualified Code(s): I50.32 - Chronic diastolic (congestive) heart failure Code(s): I50.30 - Unspecified diastolic (congestive) heart failure Status: Acute Assessment and Plan: Pt is on oral Lasix. Pt can continue on lasix at home (5) COPD with asthma: Code(s): J44.9 - Chronic obstructive pulmonary disease, unspecified Status: Acute Assessment and Plan: Pt has history of COPD. Pt is on oxygen and inhalers at home DS: Summary Hospital Course Hospital Course: 80 year old female admitted with SOB and swelling of her right calf. Pt has history of COPD ex -smoker heavy half pack for several years. pt usually wears oxygen she is at her baseline. Pt found to have PE on perfusion scan. some pain in the calf. Doing well on xarelto, calf pain better plan discharge today with norco and keflex script. Pt discharged on 15 mg po Xarelto twice a day for 21 days pcp to give follow uo script for Xarelto 20 mg qdaily. Time Spent with Patient Time attestation: Total time spent providing and/or coordinating discharge services:40 minutes on day of discharge Exam Const: General: other (Tired ) HENMT: Head: normocephalic Eyes: General: appearance normal, both eyes and all related structures Pupils: Equal, round and reactive pupils present Neck: Neck: supple Chest: Chest palpation & inspection: normal inspection of the chest Resp: Effort & Inspection: normal respiratory effort Auscultation: clear to auscultation bilaterally Cardio: Jugular venous distension: no JVD Rhythm: regular rhythm Heart sounds: S1 normal heart sound present and S2 normal heart sound present GI: Inspection: normal to inspection Auscultation: normal bowel sounds Skin: General skin exam: normal color and dry skin Neuro: Cranial nerves: Yes CN's II-XII intact bilaterally and Yes Equal, round and reactive pupils present Cognition (Neuro): normal cognition Speech: normal speech Motor exam (neuro): 5/5 motor strength present throughout Extrem: General: other (scattered redness on right leg ) Psych: Appearance: grossly normal Mental Status: mental status grossly normal DS: Data Data Completed and Pending Labs on day of discharge: Labs from last 24 hours 01/26/21 05:25 Creatinine 1.30 H Estim Creat Clear Calc 33 Estimated GFR 39 L Preliminary micro results at discharge 01/22/21 12:48 Blood Culture - Preliminary Blood 01/22/21 12:50 Blood Culture - Preliminary Blood Discharge Plan Discharge Attending physician on discharge: Bee Cox Discharging Clinician: Bee Cox Anticipated Discharge Date/Time: 01/26/21 12:13 Patient Disposition: Home, Self-Care Activity: as tolerated Diet: heart healthy Discharge Instructions: Continue on Xarelt
== END 2021-01-26 14:05 | disposition home or self-care (01) | DRG 602 ==
LOC: ANHED 23:11 → ANH3MEDSUR 23:43
PROVIDERS: Emergency Medicine; Admitting Provider Family Medicine; Emergency Provider Emergency Medicine; PCP Family Medicine; Visit Provider Family Medicine
DX: L03.115 Cellulitis of right lower limb (principal); I26.99 Other pulmonary embolism without acute cor pulmonale; N17.9 Acute kidney failure, unspecified; I13.0 Hypertensive heart and chronic kidney disease with heart failure and stage 1 through stage 4 chronic kidney disease, or unspecified chronic kidney disease; I50.32 Chronic diastolic (congestive) heart failure; N18.30 Chronic kidney disease, stage 3 unspecified; J44.9 Chronic obstructive pulmonary disease, unspecified; Z96.643 Presence of artificial hip joint, bilateral; Z96.652 Presence of left artificial knee joint; E53.8 Deficiency of other specified B group vitamins; E78.5 Hyperlipidemia, unspecified; M81.0 Age-related osteoporosis without current pathological fracture; G25.81 Restless legs syndrome; I87.2 Venous insufficiency (chronic) (peripheral); E55.9 Vitamin D deficiency, unspecified; I35.0 Nonrheumatic aortic (valve) stenosis; Z87.891 Personal history of nicotine dependence; Z85.828 Personal history of other malignant neoplasm of skin; Z90.710 Acquired absence of both cervix and uterus; Z90.49 Acquired absence of other specified parts of digestive tract; Z90.722 Acquired absence of ovaries, bilateral; Z98.42 Cataract extraction status, left eye; Z98.41 Cataract extraction status, right eye
CPT/HCPCS: 36415; 71046; 78580; 80048; 82565; 82948; 83880; 84484; 85025; 85380; 87040; 93005; 93970; 96361; 96365; 96372; 99285; A9270; A9540; G0378; J0690; J1650; J7030

== ENCOUNTER 2021-05-27 15:36 | Inpatient (IN) | payer MEDICARE, SELFPAY ==
[2021-05-27] VITALS (27 sets, daily range): BP systolic 124–182; BP diastolic 73–128; PULSE 86–107; RESP 12–38; TEMP 37–37.1; O2SAT 93–100; BMI 33.5
--- NOTE | ~2021-05-27 | XR_ITS ---
EXAMINATION: XR chest 2V DATE: 05/29/2021 15:33 INDICATION: Shortness of breath TECHNIQUE: AP and lateral views of the chest are obtained. COMPARISON: 05/27/2021 FINDINGS: There are small to moderate-sized pleural effusions which are stable. Cardiomegaly is noted . There is a mild diffuse interstitial pattern which is unchanged. No pneumothorax is identified. The re are airspace opacities of the lung bases. There is moderate thoracic spondylosis. Cranial migratio n of the left humeral head with respect to the glenoid is consistent with chronic rotator cuff tear. IMPRESSION: 1. Cardiomegaly with mild pulmonary edema. 2. Zvnel-xj-mtifzhul sized pleural effusions. 3. Bibasilar airspace opacities, consistent with atelectasis versus pneumonia. Reviewed, dictated and finalized at location B. IMPRESSION: 1. Cardiomegaly with mild pulmonary edema. 2. Faqvu-av-xwbxzwel sized pleural effusions. 3. Bibasilar airspace opacities, consistent with atelectasis versus pneumonia.
--- NOTE | ~2021-05-27 | XR_ITS ---
EXAMINATION: XR chest 2V EXAM DATE: 05/27/2021 16:44 INDICATION: sob; 3L o2 home use; hx of COPD. TECHNIQUE: Frontal and lateral projections of the chest obtained and reviewed. Comparison is made to prior examination from 01/21/2021. FINDINGS: There is cardiomegaly and pulmonary vascular congestion. Small to moderate pleural effusio n which is new compared to previous examination. Some adjacent atelectasis. The lungs are otherwise c lear. There is no pneumothorax suspected. There are bony degenerative changes. IMPRESSION: 1. Cardiomegaly, pulmonary vascular congestion. 2. Development of small to moderate right pleural effusion, adjacent compressive atelectasis. Reviewed, dictated and finalized at location A. IMPRESSION: 1. Cardiomegaly, pulmonary vascular congestion. 2. Development of small to moderate right pleural effusion, adjacent compressi ve atelectasis.
--- NOTE | ~2021-05-27 | US_ITS ---
EXAMINATION: US venous doppler [facility] DATE: 05/28/2021 11:36 INDICATION: Lower limb edema. TECHNIQUE: Grayscale ultrasound images without and with compression and Doppler ultrasound images of the bilateral lower extremity veins were obtained. COMPARISON: Ultrasound 01/22/2021 FINDINGS: The visualized portions of right common femoral vein, profunda (deep) femoral vein, femoral vein, pop liteal vein, peroneal veins, posterior tibial veins, and greater saphenous vein outflow are patent. The visualized portions of left common femoral vein, profunda femoral vein, femoral vein, popliteal v ein, peroneal veins, posterior tibial veins, and greater saphenous vein outflow are patent. IMPRESSION: 1. No deep venous thrombosis. Reviewed, dictated and finalized at location A.
--- NOTE | ~2021-05-27 | CT_ITS ---
EXAMINATION: CT brain wo con DATE: 05/29/2021 15:38 INDICATION: Confusion. Right ear pain. TECHNIQUE: Computed tomography (CT) of the head was performed without intravenous contrast. The mA wa s adjusted according to patient size. Iterative reconstruction technique was employed. The dose-lengt h product was 605.33 mGy-cm. COMPARISON: Head CT 04/19/2020 FINDINGS: There are scattered areas of low attenuation in the cerebral white matter, which is within normal limits for the patient's age. There is no intracranial hemorrhage, acute infarction, or abnorm al intracranial mass lesion. The ventricles are normal in size. There are likely changes of ocular le ns replacement surgeries. There is dependent fluid in the sphenoid sinuses. There is mild mucosal thi ckening in the ethmoid sinuses. The mastoid air cells are normal. There is cerumen in the right exter nal auditory canal. IMPRESSION: 1. Normal aging brain. Reviewed, dictated and finalized at location A. IMPRESSION: 1. Normal aging brain.
--- NOTE | 2021-05-27 16:08 | ECG_ITS ---
Measurements Intervals [place] Rate: 88 P: 51 [place]: 176 QRS: 2 QRSD: 98 T: 45 QT: 326 QTc: 396 Interpretive Statements SINUS RHYTHM BASELINE ARTIFACT- I, III, AVL, V5-V6 NORMAL ECG Electronically Signed On 05-27-2021 18:08:59 CDT by Arnold Berg D.O.
[2021-05-27 16:26] LABS: Basophils Percent Auto 0.4 % (0.2-1.2); Eosinophils Absolute Auto 0.1 K/mm3 (0-0.3); Eosinophils Percent Auto 1.4 % (0-4.4); Hematocrit 34.2 % (37.0-47.0); Hemoglobin 9.8 g/dL (12.0-15.0); Immature Granulocyte Absolute 0.02 K/mm3 (0.00-0.031); Immature Granulocyte Percent A 0.2 % (0-0.5); Lymphocytes Absolute Auto 0.79 K/mm3 (0.9-3.2); Lymphocytes Percent Auto 9.8 % (18.3-44.2); Mean Corpuscular HGB Conc 28.7 g/dl (32-36); Mean Corpuscular Hemoglobin 27.4 pg (26-34); Mean Corpuscular Volume 95.5 fl (80-100); Mean Platelet Volume 10.6 fl (7.4-10.4); Monocytes Absolute Auto 0.5 K/mm3 (0.1-0.6); Monocytes Percent Auto 5.7 % (2.6-8.5); Neutrophils Absolute Auto 6.7 K/mm3 (1.3-6.7); Neutrophils Percent Auto 82.5 % (45.5-73.1); Platelet Count Result 183 k/mm3 (150-375); Red Blood Count 3.58 M/mm3 (4.2-5.4); Red Cell Distribution Width 14.5 % (11.5-14.5); White Blood Count 8.1 K/mm3 (4.5-10.0)
[2021-05-27 16:29] LABS: Alveolar/Arterial O2 Gradient 54.3 mmHg; Base Excess ABG 12.2 mEq/l (+/-2.0); Carboxyhemoglobin 0.2 % THb (0-2.0); Fractional Inspired Oxygen 30 %; HCO3 ABG 40.1 mEq/l (22.0-26.0); Methemoglobin ABG 0.2 %THb (0-1.5); Oxygen Saturation ABG 93.4 % (95.0-100.0); Oxyhemoglobin 93.2 % THb (90.0-100.0); PO2 ABG 73.2 mmHg (80.0-100.0); PO2 FiO2 Ratio Arterial Blood 2.44 %; Reduced Hemoglobin 6.4 %THb (0-5.0); Total Hemoglobin 10.6 g/dL (12.0-18.0); pH ABG 7.355 (7.350-7.450)
[2021-05-27 16:31] LABS: PCO2 ABG 73.5 mmHg (35.0-45.0)
[2021-05-27 16:32] LABS: Device NASAL CANNULA; Liters per Minute 2.5 LPM; Modified Allen's Test Pass; Site Drawn LEFT RADIAL
[2021-05-27 16:36] LABS: INR 1.3; Prothrombin Time 16.4 Seconds (11.1-14.7)
[2021-05-27 16:36] LABS: Lactic Acid Reflex 0.6 mmol/L (0.7-2.1)
[2021-05-27 16:37] LABS: Partial Thromboplastin Time 40.4 SECONDS (22.3-36.8)
--- NOTE | 2021-05-27 16:39 | ED.SOB ---
HPI - SOB/Dyspnea General Chief Complaint: Shortness of Breath/Dyspnea Stated Complaint: R EAR PAIN,BLEEDING FROM EAR Time Seen by Provider: 05/27/21 15:47 Source: patient, EMS and RN notes reviewed Mode of arrival: EMS Limitations: no limitations History of Present Illness HPI Narrative: Patient is an 80-year-old female who presents per EMS from home for evaluation of bleeding from the right ear patient notes that she was cleaning her ear and developed bleeding on arrival patient appears tachypneic and short of breath she is oxygen dependent at 2-1/2 L nasal cannula patient is somewhat of a limited historian on arrival she notes that she lives at home by herself and notes that she has been more dyspneic over the last several days. Patient denies any pain vomiting diarrhea sick contacts Related Data Home Medications Medication Instructions Recorded Confirmed cholecalciferol (vitamin D3) 125 125 mcg PO DAILY 04/03/20 04/15/21 mcg (5,000 unit) capsule mecobalamin (vitamin B12) 5,000 5,000 mcg PO DAILY tablet 04/03/20 04/15/21 mcg disintegrating tablet pramipexole 0.5 mg tablet 0.5 mg PO QHS tablet 04/15/21 04/15/21 Allergies Allergy/AdvReac Type Severity Reaction Status Date / Time Sulfa (Sulfonamide Allergy Unknown Rash,Swelling Verified 04/15/21 13:52 Antibiotics) of Lip/Tongue/Throat aspirin AdvReac Unknown Nausea Verified 04/15/21 13:52 Review of Systems Review of Systems: All systems reviewed & are unremarkable except as noted in HPI and below PMFSH Past Medical History Medical History B12 deficiency Chronic bilateral low back pain without sciatica CKD (chronic kidney disease) stage 3, GFR 30-59 ml/min COPD with asthma PFTs 06/22/2020 Diastolic dysfunction echocardiogram 05/13/2020: Moderate concentric left ventricular hypertrophy, impaired diastolic relaxation grade 1, EF of 65%, mild aortic stenosis with peak velocity 1.8 peak gradient of 13 mean gradient of 7 valve area of 1.7 Dyslipidemia Essential (primary) hypertension Fibrocystic breast 11/2010 History of patellar fracture 02/2021 History of rib fracture 02/2021 - Right - 8th and 9 th Mild aortic stenosis Osteoporosis Peripheral polyneuropathy RLS (restless legs syndrome) Rotator cuff arthropathy of both shoulders 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 insufficiency (chronic) (peripheral) Vitamin D deficiency Surgical History Surgical History History of bilateral cataract extraction (~04/13/01) History of bilateral hip replacements (~03/08/07) Right Hip 03/08/07, Left hip 09/2007 History of lumbar discectomy (~1960) History of release of tendon (Unknown) right lower extremity History of total bilateral knee replacement (~09/28/06) History of total hysterectomy with bilateral salpingo-oophorectomy (BSO) (Unknown) Hx of cholecystectomy (Unknown) S/P FESS (functional endoscopic sinus surgery) (Unknown) Family History Family History Father Hodgkin lymphoma Mother Diabetes mellitus Uterine cancer Social History Social History Social History: The patient is and lives in [facility] in her own home. She is a former smoker and smoked a quarter pack of cigarettes per day and quit in 2008. Primary care physician: Dr. Nicky Watts Smoking packs per day: 0.5 Smoking cigarettes per day: 10.0 Years smoked: 40 Smoking pack-years: 20.00 Smoking status: Former smoker Tobacco type: cigarettes Second hand tobacco smoke exposure: No Smoking end date: 11/28/20 Alcohol intake: never Substance use: never Substance use type: does not use Gender identity (if verbalized by the patient): Female Spiritual care conc
[2021-05-27 16:45] LABS: Alanine Aminotransferase 14 U/L (4-35); Alkaline Phosphatase 80 U/L (38-126); Aspartate Amino Transferase 22 U/L (14-36); Bilirubin,Total 0.3 mg/dL (0.2-1.3); Blood Urea Nitrogen 39 mg/dL (7-17); Calcium 9.1 mg/dL (8.4-10.2); Carbon Dioxide > 40 mmol/L (22-30); Chloride 97 mmol/L (98-107); Estimated CRCL calculation 27 ml/min; Estimated Glomerular Filt Rate 31; Glucose 101 mg/dL (65-105); Sodium 143 mmol/L (137-145)
[2021-05-27 16:48] LABS: CRP 0.6 mg/dL (<1.0)
[2021-05-27 16:49] LABS: Troponin I 0.019 ng/mL (0.000-0.034)
[2021-05-27 16:50] LABS: NT Pro B Type Natriuretic Pept 886 pg/mL (5-100)
[2021-05-27 16:54] LABS: Hypochromasia 1+ (NORMAL); Platelet Estimate Adequate (Adequate)
[2021-05-27] MEDS: LORazepam INJ (*CRX) 2 MG/ML VIAL 1 MG IV PUSH (17:33)
--- NOTE | 2021-05-27 17:33 | PC.NURSE ---
pt agitated. restless. ativan given per order.
--- NOTE | 2021-05-27 18:18 | PC.NURSE ---
pt sleeping on stretcher. no distress noted. tolerating bipap well
[2021-05-27] MEDS: AMOXICILLIN/CLAVULANATE K 875-125 MG TAB 1 TABLET PO (19:24)
[2021-05-27] MEDS: methylPREDNISolone SOD SUCC 125 MG VIAL IV PUSH (19:24)
--- NOTE | 2021-05-27 20:02 | PC.NURSE ---
Spoke with patients narinder/OWEN Loyola. She states that patient has not been taking her meds recently because she was hoping she'd just . Updated that patient was to be admitted to hospital
[2021-05-27 20:15] LABS: Add Urine Microscopic? YES; Appearance Urine Clear (Clear); Bilirubin Urine Negative (Negative); Blood Urine Negative (Negative); Color Urine Straw (Yellow); Glucose Urine UA Negative (Negative); Ketones Urine Negative (Negative); Leukocyte Esterase Ur Trace LEU/UL (Negative); Mucus Urine Rare /lpf; Nitrate Urine Negative (Negative); Protein Urine 2+ mg/dL (Negative); RBC Urine 0-2 /hpf (0-2); Specific Grav Ur 1.015 (1.001-1.035); Squamous Epithelial Cell Urine Occasional /hpf (Few); Urobilinogen Urine Negative mg/dL (<2.0); WBC Urine 0-3 /hpf
--- NOTE | 2021-05-27 21:38 | ADMGEN ---
This patient, Lisa Robertson, was admitted to IMU Room 231-01 at 2130. Patient/family oriented to hospital policies and general routines including ID bracelet, bed and alarms, visiting hours, pain management, procedures, bathroom and other care routines, personal items, smoking policy, room service/diet, and visiting hours. Information on how to activate the Rapid Response Team has been discussed. Patient/Family are encouraged to report perceived risks to care and to ask questions if they do not understand what they are told or what they should do.
[2021-05-27 21:48] LABS: Alveolar/Arterial O2 Gradient 59.3 mmHg; Base Excess ABG 13.4 mEq/l (+/-2.0); Carboxyhemoglobin 0.3 % THb (0-2.0); Fractional Inspired Oxygen 30 %; HCO3 ABG 41.8 mEq/l (22.0-26.0); Methemoglobin ABG 0.4 %THb (0-1.5); Oxygen Content ABG 13.6 %vol (16.0-22.0); Oxygen Saturation ABG 89.8 % (95.0-100.0); Reduced Hemoglobin 9.3 %THb (0-5.0); Total Hemoglobin 10.7 g/dL (12.0-18.0); pH ABG 7.347 (7.350-7.450)
[2021-05-27 21:49] LABS: Device NON-INVASIVE VENT; Modified Allen's Test Pass; Site Drawn RIGHT RADIAL
[2021-05-27 21:51] LABS: Non-Invasive Vent Rate 14 /MIN
[2021-05-27 21:52] LABS: Non-Invasive Expiratory Pressure 8 CMH2O; Non-Invasive Inspiratory Pressure 14 CMH2O
[2021-05-27] MEDS: FAMOTIDINE 20 MG/2 ML VIAL IV PUSH (22:10)
[2021-05-28] VITALS (22 sets, daily range): BP systolic 134–159; BP diastolic 50–79; PULSE 81–105; RESP 18–96; TEMP 35.8–36.8; O2SAT 19–99
--- NOTE | 2021-05-28 02:29 | PM.IMHP ---
H&P: HPI History of Present Illness Date/Time: 05/28/21 00:29 Chief Complaint: bleeding from right ear Narrative: in the 1-year-old female with past medical history of chronic hypoxic hypercarbic respiratory failure on chronic home O2 of 2 L, COPD, CHF, and chronic venous stasis who presented to the ER via EMS due to her right ear bleeding. The patient reported that she was cleaning her ear with a Q-tip and obtained a small amount of brown material. Shortly thereafter she began having a significant amount of blood coming from the ear that she could not stop bleeding. By time EMS arrived the patient's bleeding was controlled. The patient denied pushing the Q-tip too far into her urine denies any ear pain. She reports that she had tried to clean her ears in close to a year. She had she is on chronic anticoagulation with Xarelto since she had a pulmonary embolism in late December 2020. On arrival to the ER patient's hemoglobin had dropped from a prior value of 13.2 down to 9.8. She denies any abner med emesis or hematochezia or melena. She does note that her stools have been darker recently. She denies any abdominal pain. The patient noted to have multiple scattered bruising all over her body. She reports that she was pulling her skin back on her left cheek to pull at higher out of her chin when she developed a bruise this morning on her left mandible. She has a large bruise to her left shoulder and scattered bruising to her arms bilaterally. She denies any recent falls and states that her last fall was about a month ago. She has chronic dyspnea on exertion and uses oxygen chronically. She feels like she is home bound and tied down to her house because the oxygen canisters are too heavy for her to move. She does have a concentrator at home. His she reports that her shortness of breath is worse when she goes out into the heat. She reports that she goes out in the heat several times a day because her house is too cold and she cannot get her house to warm up. She does note that she has seemed to be more confused over the last month or so but the episodes of confusion or intermittent. She realizes when she is having episodes of confusion. She is concerned she may be developing some dementia. She denies any recent head injury. She is not having any headache or visual changes. She has not had any recent cough or congestion. She denies any orthopnea. She reports that her lower extremity swelling is actually better than her baseline since she received Lasix in the ER. She reports that she gets up and ambulates at home about every hour resulting in some edema. She reports that she was too busy providing meals for the people who working on her house/Community yesterday in order to stop in actually eat herself. She reports that she feels hungry. She wears Bernard hose each day. Her granddaughter reported to the ER staff that the patient has not been the most compliant with her home medications recently as the patient was hoping to just . However the patient denies any suicidal ideation or depression. She is simply frustrated with being chronically ill. She still wishes to be a full code. It appears that the patient has been taking her Xarelto as directed as it was recently refilled. Review of Systems Review of Systems: Narrative: 12 systems were reviewed with pertinent positives and negatives per HPI. Except as documented in the HPI, all other systems were reviewed and are negative. [facility], [facility] Past Medical History Medical History (Updated 05/28/21 @ 05:56 by Neha Walker, ) B12 deficiency Chronic bilateral low back pain without sciatica Chronic respiratory failure with hypoxia and hypercapnia CKD (chronic kidney disease) stage 3, GFR 30-59 ml/min COPD with asthma PFTs 06/22/2020 Diastolic dysfunction echocardiogram 05/13/2020: Moderate concentric left ventricular hypertrophy, impaired diastolic relaxation grade 1, EF of 65%, mild aortic stenosis
[2021-05-28 04:45] LABS: Alveolar/Arterial O2 Gradient 65.8 mmHg; Base Excess ABG 8.7 mEq/l (+/-2.0); Carboxyhemoglobin 0.3 % THb (0-2.0); Fractional Inspired Oxygen 32 %; HCO3 ABG 36.9 mEq/l (22.0-26.0); Methemoglobin ABG 0.4 %THb (0-1.5); Oxygen Content ABG 14.2 %vol (16.0-22.0); Oxygen Saturation ABG 93.7 % (95.0-100.0); PO2 ABG 76.6 mmHg (80.0-100.0); PO2 FiO2 Ratio Arterial Blood 2.39 %; Reduced Hemoglobin 6.3 %THb (0-5.0); Total Hemoglobin 10.8 g/dL (12.0-18.0)
[2021-05-28 04:47] LABS: PCO2 ABG 73.3 mmHg (35.0-45.0)
[2021-05-28 04:48] LABS: Device NASAL CANNULA; Modified Allen's Test Pass; Site Drawn RIGHT BRACHIAL
[2021-05-28 05:53] LABS: Blood Urea Nitrogen 35 mg/dL (7-17); Calcium 9.3 mg/dL (8.4-10.2); Carbon Dioxide > 40 mmol/L (22-30); Chloride 97 mmol/L (98-107); Estimated CRCL calculation 33 ml/min; Estimated Glomerular Filt Rate 39; Glucose 189 mg/dL (65-105); Sodium 142 mmol/L (137-145)
[2021-05-28 05:56] LABS: Basophils Percent Auto 0.1 % (0.2-1.2); Hemoglobin 10.1 g/dL (12.0-15.0); Immature Granulocyte Absolute 0.04 K/mm3 (0.00-0.031); Immature Granulocyte Percent A 0.6 % (0-0.5); Lymphocytes Absolute Auto 0.27 K/mm3 (0.9-3.2); Lymphocytes Percent Auto 3.9 % (18.3-44.2); Mean Corpuscular HGB Conc 28.9 g/dl (32-36); Mean Corpuscular Hemoglobin 27.2 pg (26-34); Mean Corpuscular Volume 94.1 fl (80-100); Mean Platelet Volume 11.1 fl (7.4-10.4); Monocytes Percent Auto 0.3 % (2.6-8.5); Neutrophils Absolute Auto 6.7 K/mm3 (1.3-6.7); Neutrophils Percent Auto 95.1 % (45.5-73.1); Platelet Count Result 187 k/mm3 (150-375); Red Blood Count 3.72 M/mm3 (4.2-5.4); Red Cell Distribution Width 14.4 % (11.5-14.5)
[2021-05-28 06:23] LABS: Lactate Dehydrogenase 408 U/L (313-618)
[2021-05-28 06:43] LABS: Iron 38 ug/dL (37-170)
[2021-05-28 06:53] LABS: Percent Iron Saturation 11 % (20-50)
[2021-05-28 07:05] LABS: Immature Reticulocyte Fraction 15.9 % (3.0-15.9); Reticulocyte Percent 1.69 % (0.7-4.3); Reticulocytes Absolute 0.06 B/L (32.2-175.7)
[2021-05-28 07:33] LABS: Folic Acid 11.5 ng/mL (2.76->20); Vitamin B12 > 1000.0 pg/mL (239-931)
[2021-05-28] MEDS: IPRATROPIUM BR 0.02% INH SOLN 0.5 MG/2.5 ML VIAL INHALATION (08:13)
[2021-05-28] MEDS: ALBUTEROL SULFATE NEB 2.5 MG/0.5 ML INH 5 MG INHALATION (08:13)
--- NOTE | 2021-05-28 09:38 | PM.CNPUL ---
Assessment and Plan Assessment and plan (1) Chronic respiratory failure with hypoxia and hypercapnia: Code(s): J96.11 - Chronic respiratory failure with hypoxia; J96.12 - Chronic respiratory failure with hypercapnia Status: Acute Assessment and Plan: She has a history of asthma since childhood and very obstructed severe obstructive abnormality with an FEV1 of 28% predicted, hyperinflation, air trapping on 06/20/2020. she wears oxygen 2.5 L 24-7, on 09/25/2020 her blood gas was pH 7.35/63/57 on room air and serum bicarbonates values dating back to 04/23/2020 at 37 or greater since then indicating hypercarbic respiratory failure. Etiology of chronic respiratory failure with hypoxia and hypercapnia include very severe COPD, possible asthma, fluid overload and history of pulmonary embolism. Patient has shortness of breath but no change in her sputum volume or color. Patient has improved overnight with diuresis as well as steroids and bronchodilators. I think fluid overload is the likely region reason for her acute change in the last 2 days but I will also continue treatment for possible COPD exacerbation with oral steroids and continued bronchodilators. Patient has no evidence of pneumonia or tracheobronchitis and I do not feel there is a need for antibiotics at this time. Aggressive diuresis as tolerated by her cardiac and renal systems per the hospitalist team. Patient has chronic hypercarbic respiratory failure from her COPD with elevated serum bicarbonates and a PaCO2 of 63 on 09/25/2020 and a PaCO2 of 74 on 05/27/2021. Patient would benefit from noninvasive ventilation to prevent further deterioration and prevent further hospitalizations. Patient did not tolerate BiPAP last night and I have placed her on AVAPS mode with respiratory rate 18, tidal volume 450, EPAP 5, minimal inspiratory pressure 6, maximal inspiratory pressure 25, inspiratory time 1.2 seconds, rise 5 which is our slow S-2, 30% FiO2. After adjusting her mass and place here on these settings patient fell asleep after about 1-2 minutes of these settings. She said they felt very comfortable. I will order of a blood gas in the morning prior to removal of these settings and an overnight apnea link on 30% to assess her oxygenation. I have informed our clinical coordinator to initiate home noninvasive ventilate non invasive ventilation. Will follow with you. (2) Pulmonary emboli: Onset Date: 12/2020 Qualifiers: Acute cor pulmonale presence: unspecified Chronicity: acute Pulmonary embolism type: unspecified Qualified Code(s): I26.99 - Other pulmonary embolism without acute cor pulmonale Code(s): I26.99 - Other pulmonary embolism without acute cor pulmonale Status: Acute Assessment and Plan: Patient has a pulmonary embolism diagnosed by V/Q scan on 01/21/2021. She was placed on Xarelto at that time. Patient is maintained on Xarelto. I am concerned that patient has had previous falls with broken ribs and right knee fracture while on Xarelto and now has bleeding from her ears after Q-tip cleaning and bruising throughout her body. I will check lower extremity Dopplers to exclude current DVTs. In my opinion with recent falls resulting in fractured bones I would recommend discontinuation of anticoagulation at this time. I will talk to the hospitalist team regarding the risk benefit analysis of continued anticoagulation in this patient. History of Present Illness History of Present Illness Consult date: 05/28/21 Requesting physician: Dalila Gaxiola MD Reason for consult: COPD Chief complaint: COPD Exacerbation,Hypercarbia,Right ear injury Narrative: This is a new patient consult for COPD with chronic hypercarbic and hypoxemic respiratory failure. This is an 80-year-old woman with a history of tobacco exposure, COPD with chronic hypercarbic and hypoxemic respiratory failure on 2.5 L nasal cannula oxygen 24-7, asthma since ch
[2021-05-28] MEDS: FAMOTIDINE 20 MG/2 ML VIAL IV PUSH ×2 (10:03→19:58)
[2021-05-28] MEDS: CHOLECALCIFEROL 1,000 UNITS TABLET 5000 UNITS PO (10:03)
[2021-05-28] MEDS: FUROSEMIDE INJ 40 MG/4 ML VIAL 20 MG IV PUSH (10:03)
[2021-05-28] MEDS: RIVAROXABAN 20 MG TABLET PO (10:04)
[2021-05-28] MEDS: METOPROLOL SUCCINATE EXT REL 50 MG TABCR PO (10:04)
[2021-05-28] MEDS: predniSONE 20 MG TABLET 60 MG PO (10:04)
--- NOTE | 2021-05-28 17:12 | PM.IMPN ---
Progress Note: A&P Assessment and Plan (1) Chronic respiratory failure with hypoxia and hypercapnia: Code(s): J96.11 - Chronic respiratory failure with hypoxia; J96.12 - Chronic respiratory failure with hypercapnia Status: Acute Assessment and Plan: patient is doing much better discussed with pulmonology Dr. Sanchez follow-up pulmonology recommendations (2) Acute exacerbation of congestive heart failure: Qualifiers: Heart failure type: diastolic Qualified Code(s): I50.33 - Acute on chronic diastolic (congestive) heart failure Code(s): I50.9 - Heart failure, unspecified Status: Acute Assessment and Plan: continue Lasix continue to monitor intake and output (3) Anemia: Qualifiers: Anemia type: unspecified type Qualified Code(s): D64.9 - Anemia, unspecified Code(s): D64.9 - Anemia, unspecified Status: Acute Assessment and Plan: continue to monitor transfuse as needed (4) Injury of right ear: Qualifiers: Encounter type: initial encounter Qualified Code(s): S09.91XA - Unspecified injury of ear, initial encounter Code(s): S09.91XA - Unspecified injury of ear, initial encounter Status: Acute Assessment and Plan: requested ENT consult (5) Pulmonary emboli: Onset Date: 12/2020 Qualifiers: Acute cor pulmonale presence: unspecified Chronicity: acute Pulmonary embolism type: unspecified Qualified Code(s): I26.99 - Other pulmonary embolism without acute cor pulmonale Code(s): I26.99 - Other pulmonary embolism without acute cor pulmonale Status: Acute Assessment and Plan: on anticoagulation WILL LIKELY STOP ORAL ANTICOAGULATION PATIENT HAS BEEN HAVING FREQUENT FALLS WITH TRAUMA AND IS POSING A RISK Additional Plan patient was tried on AVADS the patient has chronic hypercapnic hypoxic respiratory failure. I suspect that her ABG actually got worse after BiPAP due to shunting. Once patient was placed back on her home nasal cannula her PO2 and pCO2 actually improved. Her pH remained stable. The patient does report symptoms of snoring and has suspected apnea at the time of my evaluation. However she did not seem to tolerate BiPAP very well and his likely to be noncompliant with BiPAP therapy given her recent non adherence to medical therapy. Patient received 1 dose of Solu-Medrol in the ER. Will place patient NPO Solu-Medrol and scheduled albuterol and Atrovent nebs. Pulmonology has been consulted and would appreciate pulmonology recommendations. Apnea link has been ordered. The patient's chest x-ray is consistent with pulmonary edema and or CHF exacerbation. Patient's lower extremity edema has improved with Lasix administered in the ER. Her edema probably worsened as she has been noncompliant with her Lasix at home. Will continue gentle diuresis with Lasix 20 mg IV daily. Will monitor electrolyte panel closely. The patient had recent diagnosis of pulmonary emboli in December 2020. She has multiple areas of bruising and bleeding from the right ear canal. She has had a 4 g drop in her hemoglobin. Will check stool for occult blood. Will continue patient's home Xarelto but will repeat CBC to monitor hemoglobin. I suspect that her acute anemia is due to GI blood loss versus dietary deficiency. Patient has been admitted as observation status. Subjective Date/time seen: 05/28/21 17:12 I feel much better Review of Systems Review of Systems: All systems reviewed & are unremarkable except as noted in HPI and below Eyes: Eyes: Reports no additional eye complaints ENT: Reports system reviewed and no additional complaints, except as documented and Reports sinus pressure Cardiovascular: Cardiovascular: Reports no additional cardiovascular complaints Respiratory: Respiratory: Reports no additional respiratory complaints Gastrointestinal: Gastrointestinal:
[2021-05-28] MEDS: PRAMIPEXOLE 0.5 MG TABLET PO (19:58)
[2021-05-29] VITALS (7 sets, daily range): BP systolic 154–178; BP diastolic 63–83; PULSE 79–86; RESP 20–24; TEMP 36.1–36.3; O2SAT 93–96
[2021-05-29 01:02] LABS: Alveolar/Arterial O2 Gradient 67.6 mmHg; Base Excess ABG 13.3 mEq/l (+/-2.0); Carboxyhemoglobin 0.3 % THb (0-2.0); Device NASAL CANNULA; Fractional Inspired Oxygen 30 %; HCO3 ABG 39.4 mEq/l (22.0-26.0); Liters per Minute 2.5 LPM; Methemoglobin ABG 0.4 %THb (0-1.5); Modified Allen's Test Pass; Oxygen Content ABG 12.9 %vol (16.0-22.0); Oxygen Saturation ABG 95.3 % (95.0-100.0); PCO2 ABG 59.8 mmHg (35.0-45.0); PO2 FiO2 Ratio Arterial Blood 2.53 %; Reduced Hemoglobin 5.3 %THb (0-5.0); Site Drawn LEFT RADIAL; Total Hemoglobin 9.7 g/dL (12.0-18.0); pH ABG 7.437 (7.350-7.450)
--- NOTE | 2021-05-29 01:15 | PCRCNOTE ---
Apnea study was not completed; Patient removed the apnea monitor and refused further use of NIV; pt was placed on 2.5L of O2; abgc was obtained
--- NOTE | 2021-05-29 07:54 | PM.PNPUL ---
Progress Note: A&P Assessment and Plan (1) Chronic respiratory failure with hypoxia and hypercapnia: Code(s): J96.11 - Chronic respiratory failure with hypoxia; J96.12 - Chronic respiratory failure with hypercapnia Status: Acute Assessment and Plan: 05/28 She has a history of asthma since childhood and very obstructed severe obstructive abnormality with an FEV1 of 28% predicted, hyperinflation, air trapping on 06/20/2020. she wears oxygen 2.5 L 24-7, on 09/25/2020 her blood gas was pH 7.35/63/57 on room air and serum bicarbonates values dating back to 04/23/2020 at 37 or greater since then indicating chronic hypercarbic respiratory failure. Despite adjusting mask and AVAPS to comfort during the day she does not tolerate BiPAP or noninvasive nocturnal ventilation Etiology of chronic respiratory failure with hypoxia and hypercapnia include very severe COPD, possible asthma, fluid overload and history of pulmonary embolism. Patient has shortness of breath but no change in her sputum volume or color. Patient has improved overnight with diuresis as well as steroids and bronchodilators. I think fluid overload is the likely region reason for her acute change in the last 2 days but I will also continue treatment for possible COPD exacerbation with oral steroids and continued bronchodilators. Patient has no evidence of pneumonia or tracheobronchitis and I do not feel there is a need for antibiotics at this time. Aggressive diuresis as tolerated by her cardiac and renal systems per the hospitalist team. Patient has chronic hypercarbic respiratory failure from her COPD with elevated serum bicarbonates and a PaCO2 of 63 on 09/25/2020 and a PaCO2 of 74 on 05/27/2021. Patient would benefit from noninvasive ventilation to prevent further deterioration and prevent further hospitalizations. Patient did not tolerate BiPAP last night and I have placed her on AVAPS mode with respiratory rate 18, tidal volume 450, EPAP 5, minimal inspiratory pressure 6, maximal inspiratory pressure 25, inspiratory time 1.2 seconds, rise 5 which is our slow S-2, 30% FiO2. After adjusting her mass and place here on these settings patient fell asleep after about 1-2 minutes of these settings. She said they felt very comfortable. I will order of a blood gas in the morning prior to removal of these settings and an overnight apnea link on 30% to assess her oxygenation. I have informed our clinical coordinator to initiate home noninvasive ventilate non invasive ventilation. 05/29 Patient improving and no wheezes today. Patient is on day 2 of 5 prednisone 50 mg p.o.. I will continue Symbicort 160-4.5 at 2 puffs b.i.d. for her asthma COPD overlap syndrome. She has chronic hypercarbic respiratory failure but the patient will not tolerate nocturnal noninvasive ventilation or BiPAP. Currently her saturations are 96% on 2 L nasal cannula. I will perform an apnea link tonight for with oximetry data only on 2 L nasal cannula. if her time with saturation less than or equal to 88% is less than 5 minutes continue 2 L at night. If her time with saturations less than or equal to 88% is greater than 5 minutes would increase her nasal cannula and repeat the oximetry data to ensure that her time with saturation less than or equal to 88% is less than 5 minutes. Being diuresed per hospitalist team. When suitable for discharge would discharge on these pulmonary medications Symbicort 160/4.5 at 2 puffs BID Rescue albuterol 2 puffs Q 4 H p.r.n. shortness of breath or wheezing Prednisone 50 mg p.o. for a total of 5 days (last doses on 06/01) Oxygen during rest and ambulation per formal home O2 assessment prior to discharge Oxygen at night at a level per her overnight oximetry that achieves a time with saturations less than or equal to 88% of less than [address] Gaxiola call with questions I offered follow up in pulmonary clinic and she will discuss with her primary physicia
[2021-05-29] MEDS: predniSONE 10 MG TABLET 50 MG PO (09:26)
[2021-05-29] MEDS: FAMOTIDINE 20 MG/2 ML VIAL IV PUSH ×2 (09:27→20:36)
[2021-05-29] MEDS: CHOLECALCIFEROL 1,000 UNITS TABLET 5000 UNITS PO (09:27)
[2021-05-29] MEDS: METOPROLOL SUCCINATE EXT REL 50 MG TABCR PO (09:27)
[2021-05-29] MEDS: FUROSEMIDE INJ 40 MG/4 ML VIAL 20 MG IV PUSH (09:27)
[2021-05-29 10:47] LABS: Ammonia < 9 umol/L (9-30)
[2021-05-29 10:56] LABS: Alanine Aminotransferase 12 U/L (4-35); Albumin Level 3.4 g/dL (3.5-5.1); Alkaline Phosphatase 59 U/L (38-126); Aspartate Amino Transferase 21 U/L (14-36); Bilirubin,Total 0.3 mg/dL (0.2-1.3); Blood Urea Nitrogen 44 mg/dL (7-17); Calcium 9.1 mg/dL (8.4-10.2); Carbon Dioxide > 40 mmol/L (22-30); Chloride 95 mmol/L (98-107); Estimated CRCL calculation 33 ml/min; Estimated Glomerular Filt Rate 39; Glucose 96 mg/dL (65-105); Potassium 4.3 mmol/L (3.4-5.0); Sodium 140 mmol/L (137-145)
[2021-05-29 11:44] LABS: IFOB Positive Control Positive; Immunochemical Fecal Occult Bl Positive (N)
--- NOTE | 2021-05-29 12:46 | PM.IMPN ---
Progress Note: A&P Assessment and Plan (1) Chronic respiratory failure with hypoxia and hypercapnia: Code(s): J96.11 - Chronic respiratory failure with hypoxia; J96.12 - Chronic respiratory failure with hypercapnia Status: Acute Assessment and Plan: patient is doing much better discussed with pulmonology Dr. Sanchez follow-up pulmonology recommendations Apnea link study tonight (2) Acute exacerbation of congestive heart failure: Qualifiers: Heart failure type: diastolic Qualified Code(s): I50.33 - Acute on chronic diastolic (congestive) heart failure Code(s): I50.9 - Heart failure, unspecified Status: Acute Assessment and Plan: continue Lasix continue to monitor intake and output (3) Anemia: Qualifiers: Anemia type: unspecified type Qualified Code(s): D64.9 - Anemia, unspecified Code(s): D64.9 - Anemia, unspecified Status: Acute Assessment and Plan: continue to monitor transfuse as needed (4) Injury of right ear: Qualifiers: Encounter type: initial encounter Qualified Code(s): S09.91XA - Unspecified injury of ear, initial encounter Code(s): S09.91XA - Unspecified injury of ear, initial encounter Status: Acute Assessment and Plan: requested ENT consult (5) Pulmonary emboli: Onset Date: 12/2020 Qualifiers: Acute cor pulmonale presence: unspecified Chronicity: acute Pulmonary embolism type: unspecified Qualified Code(s): I26.99 - Other pulmonary embolism without acute cor pulmonale Code(s): I26.99 - Other pulmonary embolism without acute cor pulmonale Status: Acute Assessment and Plan: on anticoagulation WILL LIKELY STOP ORAL ANTICOAGULATION PATIENT HAS BEEN HAVING FREQUENT FALLS WITH TRAUMA AND IS POSING A RISK (6) Altered mental status: Code(s): R41.82 - Altered mental status, unspecified Status: Acute Assessment and Plan: Likely sunding Work up in progress Supportive care Awaiting lab results CT head has been ordered Additional Plan patient was tried on AVADS Did not tolerate noninvasive vent the patient has chronic hypercapnic hypoxic respiratory failure. I suspect that her ABG actually got worse after BiPAP due to shunting. Once patient was placed back on her home nasal cannula her PO2 and pCO2 actually improved. Her pH remained stable. The patient does report symptoms of snoring and has suspected apnea at the time of my evaluation. However she did not seem to tolerate BiPAP very well and his likely to be noncompliant with BiPAP therapy given her recent non adherence to medical therapy. Patient received 1 dose of Solu-Medrol in the ER. Will place patient NPO Solu-Medrol and scheduled albuterol and Atrovent nebs. Pulmonology has been consulted and would appreciate pulmonology recommendations. Apnea link has been ordered. The patient's chest x-ray is consistent with pulmonary edema and or CHF exacerbation. Patient's lower extremity edema has improved with Lasix administered in the ER. Her edema probably worsened as she has been noncompliant with her Lasix at home. Will continue gentle diuresis with Lasix 20 mg IV daily. Will monitor electrolyte panel closely. The patient had recent diagnosis of pulmonary emboli in December 2020. She has multiple areas of bruising and bleeding from the right ear canal. She has had a 4 g drop in her hemoglobin. Will check stool for occult blood. Will continue patient's home Xarelto but will repeat CBC to monitor hemoglobin. I suspect that her acute anemia is due to GI blood loss versus dietary deficiency. Patient has been admitted as observation status. Subjective Date/time seen: 05/29/21 12:46 states that feels much better today Review of Systems Review of Systems: All systems reviewed & are unremarkable except as noted in HPI and below Eyes: Eyes: Reports no additio
[2021-05-29 12:50] LABS: Basophils Percent Auto 0.2 % (0.2-1.2); Hematocrit 33.3 % (37.0-47.0); Hemoglobin 9.5 g/dL (12.0-15.0); Immature Granulocyte Absolute 0.04 K/mm3 (0.00-0.031); Immature Granulocyte Percent A 0.4 % (0-0.5); Lymphocytes Absolute Auto 0.51 K/mm3 (0.9-3.2); Lymphocytes Percent Auto 4.7 % (18.3-44.2); Mean Corpuscular HGB Conc 28.5 g/dl (32-36); Mean Corpuscular Hemoglobin 27.2 pg (26-34); Mean Corpuscular Volume 95.4 fl (80-100); Mean Platelet Volume 10.9 fl (7.4-10.4); Monocytes Absolute Auto 0.2 K/mm3 (0.1-0.6); Monocytes Percent Auto 2.1 % (2.6-8.5); Neutrophils Percent Auto 92.6 % (45.5-73.1); Platelet Count Result 194 k/mm3 (150-375); Red Blood Count 3.49 M/mm3 (4.2-5.4); Red Cell Distribution Width 14.5 % (11.5-14.5); White Blood Count 10.8 K/mm3 (4.5-10.0)
--- NOTE | 2021-05-29 15:08 | WPDCN ---
Assessment and Plan Assessment and plan (1) Otitis media, right: Code(s): H66.91 - Otitis media, unspecified, right ear Status: Acute Assessment and Plan: unsure if this represents an otitis media that ruptured or and otitis externa. Regardless would use drops as directed. A Floxin b.i.d. neomycin TID ciprofloxacin b.i.d. it is expensive regimen I often uses ofloxacin TID 5-7 drops. I would do this for 7 days. I will have the patient follow up with myself or Dr. Smith following her discharge from the hospital. Thank you (2) Otitis externa of right ear: Code(s): H60.91 - Unspecified otitis externa, right ear Status: Acute HPI Data of Consult Date/Time: 05/29/21 15:08 Requesting Physician: Teddy Rockwell MD Primary Care Provider: Nicky Watts MD Consult Narrative Narrative: Lisa Robertson is a 80 year old female Reports feeling intense pressure in the right ear and a popping or rupture with blood in the EAC. Patient reports having a URI or sinus infection prior to this. ENT consult it for further evaluation and treatment. Patient reports having multiple sinonasal surgeries in the past. Review of Systems Constitutional: Constitutional: Denies fatigue, Denies fever(s) and Denies lethargy Eyes: Eyes: Denies blurry vision and Denies change in vision ENT: Reports as per HPI Cardiovascular: Cardiovascular: Denies chest pain Respiratory: Respiratory: Denies cough Endocrine: Endocrine: Denies fatigue Hematologic/Lymphatic: Hematologic/Lymphatic: Denies easy bleeding, Denies easy bruising and Denies lymphadenopathy Allergic/Immunologic: Allergic/Immunologic: Denies seasonal rhinorrhea [facility] Past Medical History Medical History (Updated 05/29/21 @ 15:10 by Juan Donovan MD) B12 deficiency Chronic bilateral low back pain without sciatica Chronic respiratory failure with hypoxia and hypercapnia CKD (chronic kidney disease) stage 3, GFR 30-59 ml/min COPD with asthma PFTs 06/22/2020 Diastolic dysfunction echocardiogram 05/13/2020: Moderate concentric left ventricular hypertrophy, impaired diastolic relaxation grade 1, EF of 65%, mild aortic stenosis with peak velocity 1.8 peak gradient of 13 mean gradient of 7 valve area of 1.7 Dyslipidemia Essential (primary) hypertension Fibrocystic breast 11/2010 History of patellar fracture 02/2021 History of rib fracture 02/2021 - Right - 8th and 9 th Mild aortic stenosis Osteoporosis Peripheral polyneuropathy Pulmonary emboli (12/2020) RLS (restless legs syndrome) Rotator cuff arthropathy of both shoulders 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 insufficiency (chronic) (peripheral) Vitamin D deficiency Surgical History Surgical History (Updated 05/28/21 @ 05:18 by Neha Walker DO) History of bilateral cataract extraction (~04/13/01) History of bilateral hip replacements (~03/08/07) Right Hip 03/08/07, Left hip 09/2007 History of left knee replacement (~2005) History of lumbar discectomy (~1959) History of release of tendon (Unknown) right lower extremity History of total hysterectomy with bilateral salpingo-oophorectomy (BSO) (Unknown) Hx of cholecystectomy (Unknown) S/P FESS (functional endoscopic sinus surgery) (Unknown) Family History Family History Father Hodgkin lymphoma Mother Diabetes mellitus Uterine cancer Social History Social History (Updated 05/28/21 @ 05:22 by Neha Walker DO) Social History: The patient is and lives in [facility] in her own home. She is a former smoker and smoked a quarter pack of cigarettes per day and quit smoking approximately 6 months ago. (However she stated previously that she quit smoking in 2005 or 2008.) She has a daughter and a son. Her daughter lives locally in [place] and her son lives in the same time as her but is currently ou
--- NOTE | 2021-05-29 15:39 | PC.NURSE ---
This patient, Lisa Robertson, was transferred to [facility] on 05/29/21 at 1540. Personal belongings sent with patient. Report given to ELVA Hoffman. Appropriate documentation sent with patient.
--- NOTE | 2021-05-29 16:18 | PC.NURSE ---
Received patient from radiology - from IMU - and settled patient in room. No distress noted. Patient awake and alert, denies pain or discomfort.
--- NOTE | 2021-05-29 17:12 | PC.NURSE ---
Patient up to [facility] to void. Became short of breath and panicky and began hyperventilating. O2 sat 80% on 2 liters per nasal cannula. Increased O2 to 4 liters per nasal cannula and talked to patient about taking slow deep breaths through her nose and out her mouth. Patient gradually began to calm down. O2 sat quickly increased to 96%. Patient back in bed and breathing continued to improve. O2 decreased to 2.5 liters (patient wears 2-3 liters per nasal cannula at home). O2 sat remained in the 90s on 2.5 liters. Will continue to monitor.
[2021-05-29 17:15] LABS: Add Urine Microscopic? YES; Appearance Urine Clear (Clear); Bilirubin Urine Negative (Negative); Blood Urine Negative (Negative); Color Urine Straw (Yellow); Glucose Urine UA Negative (Negative); Ketones Urine Negative (Negative); Leukocyte Esterase Ur Negative LEU/UL (Negative); Mucus Urine Rare /lpf; Nitrate Urine Negative (Negative); Protein Urine 2+ mg/dL (Negative); RBC Urine 0-2 /hpf (0-2); Specific Grav Ur 1.012 (1.001-1.035); Squamous Epithelial Cell Urine Rare /hpf (Few); Urobilinogen Urine Negative mg/dL (<2.0); WBC Urine 0-3 /hpf
[2021-05-29] MEDS: PRAMIPEXOLE 0.5 MG TABLET PO (20:36)
[2021-05-30] VITALS (8 sets, daily range): BP systolic 140–169; BP diastolic 60–82; PULSE 69–90; RESP 18; TEMP 35.9–36.7; O2SAT 94–97
--- NOTE | 2021-05-30 04:37 | PCRCNOTE ---
RT checked pt during the apnea study and found the pulse ox on the floor at 2320; RT applied a new pulse ox and continued the study; The pulse ox was removed from the patient's finger again at 0330
[2021-05-30] MEDS: CHOLECALCIFEROL 1,000 UNITS TABLET 5000 UNITS PO (08:45)
[2021-05-30] MEDS: predniSONE 10 MG TABLET 50 MG PO (08:45)
[2021-05-30] MEDS: FAMOTIDINE 20 MG/2 ML VIAL IV PUSH ×2 (08:45→20:25)
[2021-05-30] MEDS: FUROSEMIDE INJ 40 MG/4 ML VIAL 20 MG IV PUSH (08:45)
[2021-05-30] MEDS: METOPROLOL SUCCINATE EXT REL 50 MG TABCR PO (08:46)
--- NOTE | 2021-05-30 15:35 | PM.IMPN ---
Progress Note: A&P Assessment and Plan (1) Chronic respiratory failure with hypoxia and hypercapnia: Code(s): J96.11 - Chronic respiratory failure with hypoxia; J96.12 - Chronic respiratory failure with hypercapnia Status: Acute Assessment and Plan: patient is doing much better discussed with pulmonology Dr. Sanchez follow-up pulmonology recommendations Apnea link study tonight TITRATE NOCTURNAL SUPPLEMENTAL OXYGEN TO SATURATIONS AT 88% OR ABOVE HOME O2 EVAL PRIOR TO DISCHARGE (2) Acute exacerbation of congestive heart failure: Qualifiers: Heart failure type: diastolic Qualified Code(s): I50.33 - Acute on chronic diastolic (congestive) heart failure Code(s): I50.9 - Heart failure, unspecified Status: Acute Assessment and Plan: continue Lasix continue to monitor intake and output IMPROVED (3) Anemia: Qualifiers: Anemia type: unspecified type Qualified Code(s): D64.9 - Anemia, unspecified Code(s): D64.9 - Anemia, unspecified Status: Acute Assessment and Plan: continue to monitor transfuse as needed STABLE (4) Injury of right ear: Qualifiers: Encounter type: initial encounter Qualified Code(s): S09.91XA - Unspecified injury of ear, initial encounter Code(s): S09.91XA - Unspecified injury of ear, initial encounter Status: Acute Assessment and Plan: requested ENT consult STABLE (5) Pulmonary emboli: Onset Date: 12/2020 Qualifiers: Acute cor pulmonale presence: unspecified Chronicity: acute Pulmonary embolism type: unspecified Qualified Code(s): I26.99 - Other pulmonary embolism without acute cor pulmonale Code(s): I26.99 - Other pulmonary embolism without acute cor pulmonale Status: Acute Assessment and Plan: on anticoagulation WILL LIKELY STOP ORAL ANTICOAGULATION PATIENT HAS BEEN HAVING FREQUENT FALLS WITH TRAUMA AND IS POSING A RISK (6) Altered mental status: Code(s): R41.82 - Altered mental status, unspecified Status: Acute Assessment and Plan: Likely Work up in progress Supportive care Awaiting lab results CT head has been ordered Additional Plan APNEA LINK TO TITRATE NOCTURNAL OXYGEN TO OXYGEN SATURATION OF 88% OR ABOVE HOME O2 EVAL PRIOR TO GOING HOME patient was tried on AVADS Did not tolerate noninvasive vent the patient has chronic hypercapnic hypoxic respiratory failure. I suspect that her ABG actually got worse after BiPAP due to shunting. Once patient was placed back on her home nasal cannula her PO2 and pCO2 actually improved. Her pH remained stable. The patient does report symptoms of snoring and has suspected apnea at the time of my evaluation. However she did not seem to tolerate BiPAP very well and his likely to be noncompliant with BiPAP therapy given her recent non adherence to medical therapy. Patient received 1 dose of Solu-Medrol in the ER. Will place patient NPO Solu-Medrol and scheduled albuterol and Atrovent nebs. Pulmonology has been consulted and would appreciate pulmonology recommendations. Apnea link has been ordered. The patient's chest x-ray is consistent with pulmonary edema and or CHF exacerbation. Patient's lower extremity edema has improved with Lasix administered in the ER. Her edema probably worsened as she has been noncompliant with her Lasix at home. Will continue gentle diuresis with Lasix 20 mg IV daily. Will monitor electrolyte panel closely. The patient had recent diagnosis of pulmonary emboli in December 2020. She has multiple areas of bruising and bleeding from the right ear canal. She has had a 4 g drop in her hemoglobin. Will check stool for occult blood. Will continue patient's home Xarelto but will repeat CBC to monitor hemoglobin. I suspect that her acute anemia is due to GI blood loss versus dietary deficiency. Patient has been admitted as
[2021-05-30] MEDS: PRAMIPEXOLE 0.5 MG TABLET PO (20:25)
[2021-05-31 05:45] VITALS: O2SAT 94
[2021-05-31 06:00] VITALS: BP 176/70; PULSE 76; RESP 18; TEMP 36.5; O2SAT 96
[2021-05-31] MEDS: predniSONE 10 MG TABLET 50 MG PO (07:43)
[2021-05-31] MEDS: CHOLECALCIFEROL 1,000 UNITS TABLET 5000 UNITS PO (07:43)
[2021-05-31] MEDS: FAMOTIDINE 20 MG/2 ML VIAL IV PUSH (07:44)
[2021-05-31] MEDS: FUROSEMIDE INJ 40 MG/4 ML VIAL 20 MG IV PUSH (07:47)
[2021-05-31 07:50] VITALS: PULSE 76
[2021-05-31] MEDS: METOPROLOL SUCCINATE EXT REL 50 MG TABCR PO (07:50)
[2021-05-31 07:59] VITALS: BP 152/84; PULSE 72; O2SAT 97
--- NOTE | 2021-05-31 14:28 | PM.DS ---
DS: Admitting Diagnosis Admitting Diagnosis Admitting Diagnosis: (1) Chronic respiratory failure with hypoxia and hypercapnia: Code(s): J96.11 - Chronic respiratory failure with hypoxia; J96.12 - Chronic respiratory failure with hypercapnia Status: Acute (2) Acute exacerbation of congestive heart failure: Qualifiers: Heart failure type: diastolic Qualified Code(s): I50.33 - Acute on chronic diastolic (congestive) heart failure Code(s): I50.9 - Heart failure, unspecified Status: Acute (3) Anemia: Qualifiers: Anemia type: unspecified type Qualified Code(s): D64.9 - Anemia, unspecified Code(s): D64.9 - Anemia, unspecified Status: Acute (4) Injury of right ear: Qualifiers: Encounter type: initial encounter Qualified Code(s): S09.91XA - Unspecified injury of ear, initial encounter Code(s): S09.91XA - Unspecified injury of ear, initial encounter Status: Acute (5) Pulmonary emboli: Onset Date: 12/2020 Qualifiers: Acute cor pulmonale presence: unspecified Chronicity: acute Pulmonary embolism type: unspecified Qualified Code(s): I26.99 - Other pulmonary embolism without acute cor pulmonale Code(s): I26.99 - Other pulmonary embolism without acute cor pulmonale Status: Acute Additional Plan the patient has chronic hypercapnic hypoxic respiratory failure. I suspect that her ABG actually got worse after BiPAP due to shunting. Once patient was placed back on her home nasal cannula her PO2 and pCO2 actually improved. Her pH remained stable. The patient does report symptoms of snoring and has suspected apnea at the time of my evaluation. However she did not seem to tolerate BiPAP very well and his likely to be noncompliant with BiPAP therapy given her recent non adherence to medical therapy. Patient received 1 dose of Solu-Medrol in the ER. Will place patient NPO Solu-Medrol and scheduled albuterol and Atrovent nebs. Pulmonology has been consulted and would appreciate pulmonology recommendations. Apnea link has been ordered. The patient's chest x-ray is consistent with pulmonary edema and or CHF exacerbation. Patient's lower extremity edema has improved with Lasix administered in the ER. Her edema probably worsened as she has been noncompliant with her Lasix at home. Will continue gentle diuresis with Lasix 20 mg IV daily. Will monitor electrolyte panel closely. The patient had recent diagnosis of pulmonary emboli in December 2020. She has multiple areas of bruising and bleeding from the right ear canal. She has had a 4 g drop in her hemoglobin. Will check stool for occult blood. Will continue patient's home Xarelto but will repeat CBC to monitor hemoglobin. I suspect that her acute anemia is due to GI blood loss versus dietary deficiency. DS: Discharge Diagnosis Discharge Diagnosis (1) Chronic respiratory failure with hypoxia and hypercapnia: Code(s): J96.11 - Chronic respiratory failure with hypoxia; J96.12 - Chronic respiratory failure with hypercapnia Status: Acute Assessment and Plan: patient is doing much better discussed with pulmonology Dr. Sanchez follow-up pulmonology recommendations Apnea link study tonight TITRATE NOCTURNAL SUPPLEMENTAL OXYGEN TO SATURATIONS AT 88% OR ABOVE HOME O2 EVAL PRIOR TO DISCHARGE INCREASED SUPPLEMENTAL OXYGEN NOCTURNAL TO 4 L (2) Acute exacerbation of congestive heart failure: Qualifiers: Heart failure type: diastolic Qualified Code(s): I50.33 - Acute on chronic diastolic (congestive) heart failure Code(s): I50.9 - Heart failure, unspecified Status: Acute Assessment and Plan: continue Lasix continue to monitor intake and output IMPROVED (3) Anemia: Qualifiers: Anemia type: unspecified type Qualified Code(s): D64.9 - Anemia, unspecified Code(s): D64.9 - Anemia, unspecified Status: Ac
== END 2021-05-31 15:58 | disposition home health service (06) | DRG 291 ==
LOC: ANHED 18:47 → ANHIMU 20:23 → ANH3MED 05-31 14:28 → ANHIMU 06-03 13:12
PROVIDERS: Emergency Medicine Emergency Medical Services; Internal Medicine; Admitting Provider Internal Medicine; Emergency Provider Emergency Medicine; PCP Family Medicine; Visit Provider Internal Medicine
DX: I13.0 Hypertensive heart and chronic kidney disease with heart failure and stage 1 through stage 4 chronic kidney disease, or unspecified chronic kidney disease (principal); I50.33 Acute on chronic diastolic (congestive) heart failure; D62 Acute posthemorrhagic anemia; J44.1 Chronic obstructive pulmonary disease with (acute) exacerbation; J96.11 Chronic respiratory failure with hypoxia; J96.12 Chronic respiratory failure with hypercapnia; F05 Delirium due to known physiological condition; K92.2 Gastrointestinal hemorrhage, unspecified; N18.30 Chronic kidney disease, stage 3 unspecified; G47.30 Sleep apnea, unspecified; I35.0 Nonrheumatic aortic (valve) stenosis; G62.9 Polyneuropathy, unspecified; M81.0 Age-related osteoporosis without current pathological fracture; E55.9 Vitamin D deficiency, unspecified; H60.91 Unspecified otitis externa, right ear; H66.91 Otitis media, unspecified, right ear; S00.431A Contusion of right ear, initial encounter; X58.XXXA Exposure to other specified factors, initial encounter; I87.2 Venous insufficiency (chronic) (peripheral); R29.6 Repeated falls; Z96.653 Presence of artificial knee joint, bilateral; Z96.643 Presence of artificial hip joint, bilateral; Z79.01 Long term (current) use of anticoagulants; Z91.19 Patient's noncompliance with other medical treatment and regimen; Z91.14 Patient's other noncompliance with medication regimen; Z99.81 Dependence on supplemental oxygen; Z90.710 Acquired absence of both cervix and uterus; Z90.49 Acquired absence of other specified parts of digestive tract; Z87.891 Personal history of nicotine dependence; E66.9 Obesity, unspecified; Z68.31 Body mass index [BMI] 31.0-31.9, adult; Z86.711 Personal history of pulmonary embolism
CPT/HCPCS: 36415; 36600; 70450; 71046; 80048; 80053; 81001; 82140; 82274; 82375; 82607; 82728; 82746; 82805; 83050; 83540; 83550; 83605; 83615; 83880; 84443; 84484; 85025; 85046; 85610; 85730; 86140; 87040; 93005; 93970; 94002; 94003; 94640; 94660; 94762; 96374; 96375; 96376; 97161; 97165; 99291; A9270; G0378; J1940; J2060; J2930; J7512

== ENCOUNTER 2021-07-29 14:32 | Inpatient (IN) | payer MEDICARE, SELFPAY ==
[2021-07-29] VITALS (19 sets, daily range): BP systolic 98–137; BP diastolic 57–78; PULSE 102–129; RESP 14–31; TEMP 36.4–37.2; O2SAT 85–97; BMI 29.3
--- NOTE | ~2021-07-29 | XR_ITS ---
EXAMINATION: XR chest 1V portable DATE: 08/11/2021 06:05 INDICATION: COVID pneumonia TECHNIQUE: frontal view of the chest was obtained. COMPARISON: Chest radiograph dated 08/10/2021 FINDINGS: Endotracheal tube tip 3.7 cm above the cookie. Nasogastric tube tip at the gastric pylorus. Right int ernal jugular central venous catheter with distal tip near the superior cavoatrial junction. No significant interval change in bilateral upper lung predominant patchy airspace opacities. There i s been some improvement in aeration at the left lower lung zone. No pleural effusion or pneumothorax. The cardiomediastinal silhouette is normal. Old left rib fractures. IMPRESSION: 1. Interval improvement in aeration at the left lung base with otherwise unchanged bilateral patchy a irspace opacities consistent with pneumonia and/or atelectasis. Reviewed, dictated and finalized at location A. IMPRESSION: 1. Interval improvement in aeration at the left lung base with otherwise unchan ged bilateral patchy airspace opacities consistent with pneumonia and/or atelec tasis.
--- NOTE | ~2021-07-29 | XR_ITS ---
EXAMINATION: XR chest 1V portable DATE: 08/07/2021 06:02 INDICATION: Acute respiratory failure. COVID-19 pneumonia. TECHNIQUE: A single frontal view of the chest was obtained. COMPARISON: Chest single view 08/06/2021 FINDINGS: The patient is rotated to her left. There are patchy airspace opacities in all lung zones b ilaterally with a peripheral and upper lung zone predominance. No pleural effusion or pneumothorax. T he heart size is normal. There is a prominent left paracardial fat pad. The endotracheal tube tip is 4.5 cm above the cookie. The nasogastric tube tip is in the stomach. A right internal jugular central venous catheter is seen with tip at the superior cavoatrial junction. IMPRESSION: 1. Stable diffuse lung disease, consistent with pneumonia. Reviewed, dictated and finalized at location A.
--- NOTE | ~2021-07-29 | XR_ITS ---
EXAMINATION: XR chest 1V portable EXAM DATE: 07/29/2021 15:56 INDICATION: Dyspnea, COPD, hypertension. TECHNIQUE: Portable AP frontal chest x-ray was obtained. Comparison is made to prior examination from 05/29/2021. FINDINGS: Development of patchy bilateral ill-defined airspace disease could be edema or pneumonia. T here has been interval development of small left pleural effusion. No pneumothorax. Mild cardiomegaly . The bones are osteopenic. There are bony degenerative changes. IMPRESSION: 1. Development of bilateral patchy edema or pneumonia. 2. Development of small left pleural effusion. 3. Cardiomegaly. Reviewed, dictated and finalized at location B.
--- NOTE | ~2021-07-29 | XR_ITS ---
EXAMINATION: XR chest ET placement, XR abdomen NG/feed tube insert DATE: 08/01/2021 12:21 INDICATION: Confirm endotracheal tube placement. Central line placement. TECHNIQUE: 1. Frontal view of the chest was obtained. 2. AP supine view of the abdomen was obtained. COMPARISON: Chest radiograph dated 07/29/2021 FINDINGS: Chest: Endotracheal tube tip 2.8 cm above the cookie. Right internal jugular central venous catheter with di stal tip near the superior cavoatrial junction. Interval progression of patchy airspace opacities thr oughout both lungs most prominent in the right upper, left mid and left lower lung zones consistent w ith pneumonia. No pneumothorax or right-sided pleural effusion. Small left pleural effusion not exclu dable. The cardiomediastinal silhouette is within normal limits for AP technique. Abdomen: Nasogastric tube with proximal side-port in the distal body of the stomach and distal tip near the ga stric pylorus. No dilated loops of gas-filled bowel in the visualized upper abdomen. IMPRESSION: 1. Lines and tubes in expected positions. Would however consider 8 cm withdrawal of the tip the nasog astric tube from the region of the pylorus to the distal body. 2. Interval progression of bilateral patchy lung disease consistent with atelectasis and/or pneumonia , possible small left pleural effusion. Reviewed, dictated and finalized at location A. IMPRESSION: 1. Lines and tubes in expected positions. Would however consider 8 cm withdrawa l of the tip the nasogastric tube from the region of the pylorus to the distal body. 2. Interval progression of bilateral patchy lung disease consistent with atelec tasis and/or pneumonia, possible small left pleural effusion.
--- NOTE | ~2021-07-29 | XR_ITS ---
EXAMINATION: XR chest 1V portable DATE: 08/02/2021 05:38 INDICATION: Acute respiratory failure. COVID pneumonia. TECHNIQUE: frontal view of the chest was obtained. COMPARISON: Chest radiograph dated 08/01/2021 FINDINGS: Endotracheal tube tip 1.6 cm above the cookie. Nasogastric tube extends below the left hemidiaphragm with distal tip collimated off the study. Right internal jugular central venous catheter with distal tip at the superior cavoatrial junction. Again seen are scattered bilateral patchy airspace opacities with slight improvement in a few regions . No pneumothorax or pleural effusion. The cardiomediastinal silhouette is within normal limits for A P technique. IMPRESSION: 1. Slight improvement in bilateral patchy lung disease with waxing and waning pattern suggesting COVI D pneumonia with improvement in likely prior mild superimposed pulmonary edema. Reviewed, dictated and finalized at location A. IMPRESSION: 1. Slight improvement in bilateral patchy lung disease with waxing and waning p attern suggesting COVID pneumonia with improvement in likely prior mild superim posed pulmonary edema.
--- NOTE | ~2021-07-29 | XR_ITS ---
EXAMINATION: XR chest 1V portable DATE: 08/12/2021 06:08 INDICATION: COVID pneumonia TECHNIQUE: frontal view of the chest was obtained. COMPARISON: Chest radiograph dated 08/11/2021 and 08/10/2021 FINDINGS: Endotracheal tube tip 4.1 cm above the cookie. Nasogastric tube extends below the left hemidiaphragm with distal tip collimated off the study. Right internal jugular central venous catheter with distal tip near the superior cavoatrial junction. Again seen are bilateral upper lung predominant patchy airspace opacities which are likely without si gnificant interval change accounting for differences in patient positioning. No pleural effusion or p neumothorax. The cardiomediastinal silhouette is normal. Old left rib fractures. Moderate bilateral g lenohumeral osteoarthritis. IMPRESSION: 1. No significant change in patchy upper lung predominant airspace disease consistent with pneumonia. Reviewed, dictated and finalized at location A. IMPRESSION: 1. No significant change in patchy upper lung predominant airspace disease cons istent with pneumonia.
--- NOTE | ~2021-07-29 | XR_ITS ---
EXAMINATION: XR chest 1V portable DATE: 08/10/2021 05:55 INDICATION: Respiratory failure TECHNIQUE: frontal view of the chest was obtained. COMPARISON: Chest radiograph dated 08/09/2021 FINDINGS: Endotracheal tube tip 4.5 cm above the cookie. Nasogastric tube extends below the left hemidiaphragm with distal tip collimated off the study. Right internal jugular central venous catheter tip at the high right atrium. No significant interval change in the upper lung predominant bilateral patchy airspace opacities. Int erval increase in opacities in the left lower lung zone and could not exclude small posterior layerin g left pleural effusion. No pneumothorax or right pleural effusion. The cardiomediastinal silhouette is normal. IMPRESSION: 1. Patchy bilateral lung disease without significant change in the upper lung zones consistent with p neumonia and/or atelectasis. 2. Increasing opacity left lower lung zone with similar differential but also including possible smal l left pleural effusion. Reviewed, dictated and finalized at location A. IMPRESSION: 1. Patchy bilateral lung disease without significant change in the upper lung z ones consistent with pneumonia and/or atelectasis. 2. Increasing opacity left lower lung zone with similar differential but also i ncluding possible small left pleural effusion.
--- NOTE | ~2021-07-29 | US_ITS ---
EXAMINATION: US renal BI EXAM DATE: 08/04/2021 12:29 INDICATION: Increased BUN Creatinine. TECHNIQUE: Multiple grayscale and Doppler images of the kidneys were obtained (by a technologist who performed the scan) and subsequently reviewed. Comparison is made to prior examination from 07/11/2019 . FINDINGS: There is bilateral renal cortical thinning. Right kidney: There is normal contour and increased echogenicity. It measures 10.8 x 5.1 x 4.7 centi meters. There is a 14 mm cyst. There is no hydronephrosis. Left kidney: There is normal contour and increased echogenicity. It measures 9.4 x 5.5 x 4.4 centime ters. Several cysts measuring up to 2.5 cm. There is no hydronephrosis. Bladder unremarkable. IMPRESSION: 1. Echogenic kidneys consistent with medical renal disease. 2. Renal cortical thinning. 3. No hydronephrosis. Reviewed, dictated and finalized at location A.
--- NOTE | ~2021-07-29 | CT_ITS ---
EXAMINATION: CT brain wo con DATE: 08/01/2021 11:09 INDICATION: Mental status change TECHNIQUE: Computed tomography (CT) of the head was performed without intravenous contrast. Sagittal and coronal reconstructions were performed. The mA was adjusted according to patient size. Iterative reconstruction technique was employed. The dose-length product was 605.33 mGy-cm. COMPARISON: head CT dated 05/29/2021 FINDINGS: There is diffuse mild motion and streak artifact which only mildly limits evaluation. No fracture. No acute intracranial hemorrhage, acute infarction or abnormal extra axial fluid collection. There is m ild to moderate scattered white matter hypoattenuation consistent with chronic small vessel ischemic disease. Symmetric prominence of the sulci consistent with mild to moderate age-appropriate diffuse c erebral volume loss. Ventricles are normal and symmetric. There is an empty sella with flattened p ituitary tissue with concave cephalad margin within the dilated otherwise fluid-filled sella turcica which measures approximately 18 x 16 mm in diameter. The infundibulum remains midline with no displac ement to suggest a cystic sellar lesion. This is better appreciated on the prior study. No mass/mass effect. Changes of bilateral intraocular lens replacement. Mild mucosal thickening in the left maxill robert sinus. The orbits, paranasal sinuses and mastoid air cells are normal. IMPRESSION: 1. No acute intracranial process. Evaluation mildly limited by motion and streak artifact. 2. Age-related changes including mild to moderate diffuse volume loss and mild to moderate scattered white matter hypoattenuation consistent with chronic small vessel ischemic disease. 3. Empty sella which can be seen with idiopathic intracranial hypertension. Reviewed, dictated and finalized at location A. IMPRESSION: 1. No acute intracranial process. Evaluation mildly limited by motion and strea k artifact. 2. Age-related changes including mild to moderate diffuse volume loss and mild to moderate scattered white matter hypoattenuation consistent with chronic smal l vessel ischemic disease. 3. Empty sella which can be seen with idiopathic intracranial hypertension.
--- NOTE | ~2021-07-29 | XR_ITS ---
EXAMINATION: XR chest 1V portable EXAM DATE: 08/05/2021 09:11 INDICATION: Acute respiratory failure/COVID pneumonia. TECHNIQUE: Portable AP frontal chest x-ray was obtained. Comparison is made to prior examination from 08/04/2021. FINDINGS: Endotracheal tube tip is 5 centimeters above the cookie. There is a nasogastric tube seen with tip collimated off the study, but below the left hemidiaphragm. There is right-sided IJ venous l ine in position. Moderate amount of patchy bilateral airspace disease which is ill-defined but with regions of conflue nce. Appearance is consistent with pneumonia. Probably some underlying hyperinflation and emphysema. There are no sizable pleural effusions. There is no pneumothorax suspected. Cardiomediastinal si lhouette is normal. There are bony degenerative changes. Old left rib fractures. There is no significant interval change compared to prior exam. IMPRESSION: 1. Line and tube(s) in position. 2. Stable airspace disease and other findings as above. Reviewed, dictated and finalized at location A.
--- NOTE | ~2021-07-29 | XR_ITS ---
EXAMINATION: XR chest 1V portable EXAM DATE: 08/08/2021 05:41 INDICATION: Acute respiratory failure/COVID pneumonia TECHNIQUE: Portable AP frontal chest x-ray was obtained. Comparison is made to prior examination from 08/07/2021. FINDINGS: Endotracheal tube tip is 3 centimeters above the cookie. There is a nasogastric tube seen with tip collimated off the study, but below the left hemidiaphragm. There is a right-sided IJ venou s line in position. Moderate amount of patchy bilateral acute airspace disease. There are no sizable pleural effusions. There is no pneumothorax suspected. The cardiomediastinal silhouette is prominent but magnified o n this AP technique. The bones and soft tissues are unremarkable. Compared to prior study, mild progression in the airspace disease is suspected. IMPRESSION: 1. Line and tube(s) in position. 2. Moderate quantity bilateral pneumonia, mild interval progression. Reviewed, dictated and finalized at location A.
--- NOTE | ~2021-07-29 | XR_ITS ---
EXAMINATION: XR chest 1V portable DATE: 08/04/2021 08:49 INDICATION: Acute respiratory failure. COVID-19 pneumonia. TECHNIQUE: A single frontal view of the chest was obtained. COMPARISON: Chest single view 08/02/21 FINDINGS: The patient is prone and rotated to her right. There are airspace opacities in all lung zon es bilaterally. No pleural effusion or pneumothorax. Cardiomegaly is noted. There are prominent parac ardial fat pads. The endotracheal tube tip is 5.9 cm above the cookie. The nasogastric tube tip is in the stomach. A right internal jugular central venous catheter is seen with tip at the superior cavoa trial junction. IMPRESSION: 1. Diffuse lung disease with worsening in right lower lung zone, consistent with pneumonia. 2. Cardiomegaly. Reviewed, dictated and finalized at location A. IMPRESSION: 1. Diffuse lung disease with worsening in right lower lung zone, consistent wit h pneumonia. 2. Cardiomegaly.
--- NOTE | ~2021-07-29 | XR_ITS ---
EXAMINATION: XR chest 1V portable EXAM DATE: 08/09/2021 06:06 INDICATION: Acute respiratory failure/COVID pneumonia. TECHNIQUE: Portable AP frontal chest x-ray was obtained. Comparison is made to prior examination from 08/08/2021. FINDINGS: Endotracheal tube tip is 3 centimeters above the cookie. There is a nasogastric tube seen with tip collimated off the study, but below the left hemidiaphragm. There is a right-sided IJ venou s line in position. Moderate amount of patchy bilateral upper lobe predominant acute airspace disease. There are no siza ble pleural effusions. There is no pneumothorax suspected. The cardiomediastinal silhouette is pr ominent but magnified on this AP technique. Some thoracic spondylosis. There is no significant interval change. IMPRESSION: 1. Line and tube(s) in position. 2. Moderate quantity bilateral pneumonia. Reviewed, dictated and finalized at location A.
--- NOTE | ~2021-07-29 | XR_ITS ---
EXAMINATION: XR chest 1V portable INDICATION: Acute respiratory failure, COVID pneumonia TECHNIQUE: Portable AP chest at 0944 hours COMPARISON: 08/05/2021 FINDINGS: The endotracheal tube ends approximately 4.8 cm above the cookie. The nasogastric tube is f ollowed as far as the stomach. Its tip is beyond the inferior margin of the radiograph. A right inter nal jugular central venous catheter ends with its tip at the superior cavoatrial junction. Diffuse op acities persist throughout all lung zones with slight improvement in the upper lung zones. There is n o pleural effusion or pneumothorax. The cardiomediastinal silhouette is stable. IMPRESSION: 1. Diffuse lung disease with interval improvement, consistent with pneumonia and/or pulmonary edema a nd/or acute respiratory distress syndrome (ARDS). Reviewed, dictated and finalized at location B. IMPRESSION: 1. Diffuse lung disease with interval improvement, consistent with pneumonia an d/or pulmonary edema and/or acute respiratory distress syndrome (ARDS).
--- NOTE | 2021-07-29 15:16 | ECG_ITS ---
Measurements Intervals [place] Rate: 137 P: -47 WA: 111 QRS: -9 QRSD: 84 T: 77 QT: 288 QTc: 435 Interpretive Statements SINUS OR ECTOPIC ATRIAL TACHYCARDIA CHANGES TO SINUS TACHYCARDIA ATRIAL PREMATURE COMPLEX BORDERLINE R WAVE PROGRESSION, ANTERIOR LEADS BASELINE ARTIFACT- AVR, AVL, AVF ABNORMAL ECG Electronically Signed On 07-29-2021 15:38:26 CDT by Arnold Berg D.O.
[2021-07-29] MEDS: methylPREDNISolone SOD SUCC 125 MG VIAL IV PUSH (15:40)
[2021-07-29 15:41] LABS: Alveolar/Arterial O2 Gradient 173.6 mmHg; Base Excess ABG -1.1 mEq/l (+/-2.0); Fractional Inspired Oxygen 36 %; HCO3 ABG 22.6 mEq/l (22.0-26.0); Oxygen Content ABG 12.6 %vol (16.0-22.0); Oxyhemoglobin 77.3 % THb (90.0-100.0); PCO2 ABG 34.4 mmHg (35.0-45.0); Total Hemoglobin 11.6 g/dL (12.0-18.0); pH ABG 7.435 (7.350-7.450)
[2021-07-29] MEDS: IPRATROPIUM BR 0.02% INH SOLN 0.5 MG/2.5 ML VIAL INHALATION (15:45)
[2021-07-29] MEDS: ALBUTEROL SULFATE NEB 2.5 MG/0.5 ML INH 5 MG INHALATION (15:45)
[2021-07-29 15:50] LABS: PO2 ABG 43.2 mmHg (80.0-100.0)
[2021-07-29 15:51] LABS: Device NASAL CANNULA; Modified Allen's Test Pass; Oxygen Saturation ABG 81.1 % (95.0-100.0); Site Drawn LEFT RADIAL
[2021-07-29 16:15] LABS: Basophils Percent Auto 0.3 % (0.2-1.2); Hematocrit 37.9 % (37.0-47.0); Hemoglobin 11.2 g/dL (12.0-15.0); Immature Granulocyte Absolute 0.09 K/mm3 (0.00-0.031); Immature Granulocyte Percent A 1.2 % (0-0.5); Lymphocytes Absolute Auto 0.46 K/mm3 (0.9-3.2); Lymphocytes Percent Auto 6.1 % (18.3-44.2); Mean Corpuscular HGB Conc 29.6 g/dl (32-36); Mean Corpuscular Hemoglobin 24.7 pg (26-34); Mean Corpuscular Volume 83.5 fl (80-100); Monocytes Absolute Auto 0.4 K/mm3 (0.1-0.6); Monocytes Percent Auto 5.1 % (2.6-8.5); Neutrophils Absolute Auto 6.6 K/mm3 (1.3-6.7); Neutrophils Percent Auto 87.3 % (45.5-73.1); Platelet Count Result 256 k/mm3 (150-375); Red Blood Count 4.54 M/mm3 (4.2-5.4); Red Cell Distribution Width 15.1 % (11.5-14.5); White Blood Count 7.5 K/mm3 (4.5-10.0)
[2021-07-29 16:27] LABS: Prothrombin Time 13.5 Seconds (11.1-14.7)
[2021-07-29 16:28] LABS: Partial Thromboplastin Time 36.7 SECONDS (22.3-36.8)
[2021-07-29 16:30] LABS: Alanine Aminotransferase 19 U/L (4-35); Albumin Level 3.3 g/dL (3.5-5.1); Alkaline Phosphatase 85 U/L (38-126); Anion Gap 12 mmol/L (8-16); Aspartate Amino Transferase 36 U/L (14-36); Bilirubin,Total 0.6 mg/dL (0.2-1.3); Blood Urea Nitrogen 48 mg/dL (7-17); Calcium 8.6 mg/dL (8.4-10.2); Carbon Dioxide 26 mmol/L (22-30); Chloride 107 mmol/L (98-107); Estimated CRCL calculation 20 ml/min; Estimated Glomerular Filt Rate 24; Glucose 122 mg/dL (65-110); Magnesium 1.6 mg/dL (1.6-2.3); Potassium 3.2 mmol/L (3.4-5.0); Sodium 145 mmol/L (137-145)
[2021-07-29 16:32] LABS: Add Urine Microscopic? YES; Amorphous Sediment Urine Few; Appearance Urine Cloudy (Clear); Bacteria Urine Trace /hpf; Bilirubin Urine Negative (Negative); Blood Urine Negative (Negative); Color Urine Yellow (Yellow); Glucose Urine UA Negative (Negative); Ketones Urine Trace mg/dL (Negative); Leukocyte Esterase Ur Negative LEU/UL (Negative); Mucus Urine Rare /lpf; Nitrate Urine Negative (Negative); Protein Urine 2+ mg/dL (Negative); RBC Urine 0-2 /hpf (0-2); Specific Grav Ur 1.016 (1.001-1.035); Squamous Epithelial Cell Urine Few /hpf (Few); Urobilinogen Urine Negative mg/dL (<2.0)
[2021-07-29 16:43] LABS: NT Pro B Type Natriuretic Pept 2410 pg/mL (5-100); Troponin I 0.063 ng/mL (0.000-0.034)
[2021-07-29 16:52] LABS: Hypochromasia 1+ (NORMAL); Ovalocytes 1+ (NORMAL); Platelet Estimate Adequate (Adequate)
[2021-07-29 16:53] LABS: EDCOVIDSCREEN Negative (Negative)
[2021-07-29 17:02] LABS: Creatine Kinase 196 U/L (30-135)
[2021-07-29] MEDS: FUROSEMIDE INJ 40 MG/4 ML VIAL IV PUSH (17:10)
--- NOTE | 2021-07-29 18:06 | ED.SOB ---
HPI - SOB/Dyspnea General Chief Complaint: Shortness of Breath/Dyspnea Stated Complaint: resp distress Time Seen by Provider: 07/29/21 15:05 Source: patient and RN notes reviewed Mode of arrival: EMS Limitations: no limitations History of Present Illness HPI Narrative: This is an 80 year old female with history of chronic respiratory failure, home oxygen 3L, chronic renal disease who presents from home for evaluation of shortness of breath. EMS states patient was found laying in bed in soiled clothing. Patient states she has been able to get up and go to the restroom. She states her daughter called EMS when she came over to get her laundry. She reports she has been having increasing shortness of breath but she denies chest pain, cough or fever. She also denies abdominal pain. She does complain of burning pain at location of rash in her bilateral groin. Related Data Home Medications Medication Instructions Recorded Confirmed cholecalciferol (vitamin D3) 125 125 mcg PO DAILY 04/03/20 07/07/21 mcg (5,000 unit) capsule mecobalamin (vitamin B12) 5,000 5,000 mcg PO DAILY tablet 04/03/20 07/07/21 mcg disintegrating tablet Allergies Allergy/AdvReac Type Severity Reaction Status Date / Time Sulfa (Sulfonamide Allergy Unknown Rash,Swelling Verified 06/29/21 14:00 Antibiotics) of Lip/Tongue/Throat aspirin AdvReac Unknown Nausea Verified 06/29/21 14:00 Review of Systems Review of Systems: All systems reviewed & are unremarkable except as noted in HPI and below PMFSH Past Medical History Medical History B12 deficiency Chronic bilateral low back pain without sciatica Chronic respiratory failure with hypoxia and hypercapnia CKD (chronic kidney disease) stage 3, GFR 30-59 ml/min COPD with asthma PFTs 06/22/2020 Diastolic dysfunction echocardiogram 05/13/2020: Moderate concentric left ventricular hypertrophy, impaired diastolic relaxation grade 1, EF of 65%, mild aortic stenosis with peak velocity 1.8 peak gradient of 13 mean gradient of 7 valve area of 1.7 Dyslipidemia Essential (primary) hypertension Fibrocystic breast 11/2010 History of patellar fracture 02/2021 History of rib fracture 02/2021 - Right - 8th and 9 th Knee fracture, right Mild aortic stenosis Osteoporosis Peripheral polyneuropathy Pulmonary emboli (12/2020) RLS (restless legs syndrome) Rotator cuff arthropathy of both shoulders 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ctomy (~1959) History of release of tendon (Unknown) right lower extremity History of total hysterectomy with bilateral salpingo-oophorectomy (BSO) (Unknown) Hx of cholecystectomy (Unknown) S/P FESS (functional endoscopic sinus surgery) (Unknown) Family History Family History Father Hodgkin lymphoma Mother Diabetes mellitus Uterine cancer Social History Social History Social History: The patient is and lives in [facility] in her own home. She is a former smoker and smoked a quarter pack of cigarettes per day and quit smoking approximately 6 months ago. (However she stated previously that she quit smoking in 2005 or 2008.) She has a daughter and a son. Her daughter lives locally in [place] and her son lives in the same time as her but is currently out of town for work. She ambulates using a walker or wheelchair. Primary care physician: Dr. Nicky Watts Code status: Full
--- NOTE | 2021-07-29 22:01 | PM.IMHP ---
H&P: HPI History of Present Illness Date/Time: 07/29/21 22:01 this is a 80-year-old female patient who has a history of chronic respiratory failure she is on oxygen at 3 L chronically at home and she has chronic renal disease. The granddaughter went to check on her today and she was found laying in the bed so oil to clothing. The patient stated that she did get up and go to the bathroom. The patient tells me that she feels better now. However her oxygen is on 12 L per nasal cannula at this time. Chest x-ray was read as development of bilateral patchy edema or pneumonia. Development of small left pleural effusion. Cardiomegaly. The patient stated she has not been vaccinated for COVID-19. Her ABG were read as pH of 7.435, CO2 34.4, PO2 43.2, O2 saturation 81.8% potassium was found to be 3.2 please run in the low potassium. Creatinine was noted to be 2 .0. The patient was given nebulizer treatments, azithromycin, Rocephin, Solu-Medrol, and Lasix IV in the emergency room. Her Pap COVID was found to be negative. The patient is being admitted to inpatient services on the date of service of 12/18 Chief Complaint: sob Review of Systems Review of Systems: All systems reviewed & are unremarkable except as noted in HPI and below Constitutional: Constitutional: Reports as per HPI and Reports no additional constitutional complaints Eyes: Eyes: Reports as per HPI and Reports no additional eye complaints ENT: Reports system reviewed and no additional complaints, except as documented and Reports Normal hearing present Cardiovascular: Cardiovascular: Reports no additional cardiovascular complaints Respiratory: Respiratory: Reports no additional respiratory complaints and Reports no additional respiratory complaints Gastrointestinal: Gastrointestinal: Reports as per HPI and Reports no additional gastrointestinal complaints Musculoskeletal: Musculoskeletal: Reports no additional musculoskeletal complaints Integumentary/Breasts: Skin/Breast: Reports system reviewed and no additional complaints, except as docu and Reports as per HPI Neurologic: Reports system reviewed and no additional complaints, except as documented, Reports as per HPI and Reports Normal hearing present Psychiatric: Psychiatric: Reports no additional psychiatric complaints and Reports as per HPI Endocrine: Endocrine: Reports no additional endocrine complaints Hematologic/Lymphatic: Hematologic/Lymphatic: Reports no additional hematologic/lymphatic complaints Allergic/Immunologic: Allergic/Immunologic: Reports no additional allergic/immunologic complaints [facility] Past Medical History Medical History (Updated 07/29/21 @ 22:20 by Jennifer Kaufman NP) B12 deficiency Chronic bilateral low back pain without sciatica Chronic respiratory failure with hypoxia and hypercapnia CKD (chronic kidney disease) stage 3, GFR 30-59 ml/min COPD with asthma PFTs 06/22/2020 Depression Diastolic dysfunction echocardiogram 05/13/2020: Moderate concentric left ventricular hypertrophy, impaired diastolic relaxation grade 1, EF of 65%, mild aortic stenosis with peak velocity 1.8 peak gradient of 13 mean gradient of 7 valve area of 1.7 Dyslipidemia Essential (primary) hypertension Fibrocystic breast 11/2010 History of patellar fracture 02/2021 History of rib fracture 02/2021 - Right - 8th and 9 th Knee fracture, right Mild aortic stenosis Osteoporosis Peripheral polyneuropathy Pulmonary emboli (12/2020) RLS (restless legs syndrome) Rotator cuff arthropathy of both shoulders 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
--- NOTE | 2021-07-29 22:09 | ADMGEN ---
This patient, Lisa Robertson, was admitted to IMU Room 202-01. Patient/family oriented to hospital policies and general routines including ID bracelet, bed and alarms, visiting hours, pain management, procedures, bathroom and other care routines, personal items, smoking policy, room service/diet, and visiting hours. Information on how to activate the Rapid Response Team has been discussed. Patient/Family are encouraged to report perceived risks to care and to ask questions if they do not understand what they are told or what they should do.
[2021-07-29] MEDS: POTASSIUM CHLORIDE 20 MEQ PACKET (FOR LIQUID) PO (22:35)
[2021-07-30] VITALS (32 sets, daily range): BP systolic 127–150; BP diastolic 47–95; PULSE 80–140; RESP 20–30; TEMP 35.5–36.8; O2SAT 87–99
--- NOTE | 2021-07-30 | ECHO_ITS ---
Patient Info Name: Lisa Robertson Age: 80 years : 1940 Gender: Female Ht: 64 in Wt: 170 lbs BSA: 1.89 m2 HR: 93 bpm BP: 127 / 61 mmHg Heart Rhythm: Sinus Rhythm Technical Quality: Good Exam Date: 07/30/2021 10:51 AM Exam Location: [facility] Patient Status: Inpatient Admit Date: 07/29/2021 Staff Ordering Physician: Jennifer Kaufman NP Supervisor [employer] Service: [facility] Attending Provider: Darrel Pelaez MD Referring Physician: Shae COUGHLIN; Exam Type: CA echo doppler color flow Study Info Indications I50.9 - Heart failure, unspecified Complete two-dimensional, color flow and Doppler transthoracic echocardiogram is performed. Summary 1. Complete two-dimensional, color flow and Doppler transthoracic echocardiogram is performed. 2. Left ventricular systolic function is lower limits of normal, estimated at 50-55%. 3. There is mildly increased left ventricular wall thickness. 4. Left ventricular chamber dimension is mildly enlarged. 5. The left ventricular diastolic function is grade I diastolic dysfunction. 6. There is mild to moderate aortic valve stenosis with a peak velocity of 212 cm/s, mean gradient of 10 mmHg, and aortic valve area of 1.4 cm2. 7. There is mild aortic valve regurgitation. 8. Technically difficult study with limited views. Left Ventricle Left ventricular systolic function is lower limits of normal, estimated at 50-55%. There is mildly increased left ventricular wall thickness. Left ventricular chamber dimension is mildly enlarged. The left ventricular diastolic function is grade I diastolic dysfunction. Right Ventricle Right ventricular chamber dimension is normal. Right ventricular systolic function is normal. Left Atria Left atrial chamber dimension is normal. Right Atria Right atrial chamber dimension is normal. Aortic Valve The aortic valve is probable trileaflet. There is mild to moderate aortic valve stenosis with a peak velocity of 212 cm/s, mean gradient of 10 mmHg, and aortic valve area of 1.4 cm2. There is mild aortic valve regurgitation. There is mild aortic valve calcification. Pulmonic Valve The pulmonic valve is not well visualized. There is trace pulmonic regurgitation. There is mild pulmonic valve calcification. Mitral Valve The mitral valve has thickened leaflets. There is trace mitral valve regurgitation. The mitral valve annulus is moderately calcified. Tricuspid Valve The tricuspid valve leaflets are normal. There is trace tricuspid valve regurgitation. Unable to estimate PA systolic pressure due to poor spectral resolution of tricuspid regurgitant jet velocity. Pericardium/Pleural The pericardium appears normal. There is small pericardial effusion. Inferior Vena Cava Normal inferior vena cava with <50% collapse upon inspiration consistent with elevated right atrial pressure, 10 mmHg. Aorta The aortic root size at the sinus of Valsalva is normal. There is mild aortic atherosclerosis. Left Ventricular Outflow Tract Name Value Normal LVOT 2D LVOT Diameter 2.0 cm LVOT Doppler LVOT Peak Gradient 4 mmHg
[2021-07-30 00:09] LABS: Anion Gap 12 mmol/L (8-16); Blood Urea Nitrogen 53 mg/dL (7-17); Calcium 8.1 mg/dL (8.4-10.2); Carbon Dioxide 22 mmol/L (22-30); Chloride 104 mmol/L (98-107); Estimated CRCL calculation 18 ml/min; Estimated Glomerular Filt Rate 21; Glucose 294 mg/dL (65-110); Potassium 3.8 mmol/L (3.4-5.0); Sodium 138 mmol/L (137-145)
[2021-07-30] MEDS: ALBUTEROL SULFATE NEB 2.5 MG/0.5 ML INH 5 MG INHALATION ×4 (01:33→20:35)
[2021-07-30] MEDS: MORPHINE SULFATE (*CRX) 2 MG/ML INJ IV PUSH (04:00)
[2021-07-30] MEDS: LORazepam INJ (*CRX) 2 MG/ML VIAL 1 MG IV PUSH (04:01)
[2021-07-30 05:27] LABS: Hematocrit 30.8 % (37.0-47.0); Hemoglobin 9.2 g/dL (12.0-15.0); Immature Granulocyte Absolute 0.04 K/mm3 (0.00-0.031); Immature Granulocyte Percent A 0.8 % (0-0.5); Lymphocytes Absolute Auto 0.24 K/mm3 (0.9-3.2); Mean Corpuscular HGB Conc 29.9 g/dl (32-36); Mean Corpuscular Hemoglobin 24.9 pg (26-34); Mean Corpuscular Volume 83.2 fl (80-100); Mean Platelet Volume 12.1 fl (7.4-10.4); Monocytes Absolute Auto 0.1 K/mm3 (0.1-0.6); Monocytes Percent Auto 1.9 % (2.6-8.5); Neutrophils Absolute Auto 4.4 K/mm3 (1.3-6.7); Neutrophils Percent Auto 92.3 % (45.5-73.1); Nucleated Red Blood Cells Perc 0.4 % (0.0-0.2); Platelet Count Result 214 k/mm3 (150-375); Red Cell Distribution Width 14.9 % (11.5-14.5); White Blood Count 4.8 K/mm3 (4.5-10.0)
[2021-07-30 05:36] LABS: D Dimer 3.34 ug/mL (<0.48)
[2021-07-30 05:39] LABS: Lactic Acid Reflex 1.1 mmol/L (0.7-2.1)
[2021-07-30 06:55] LABS: Alanine Aminotransferase 13 U/L (4-35); Albumin Level 2.8 g/dL (3.5-5.1); Alkaline Phosphatase 64 U/L (38-126); Anion Gap 8 mmol/L (8-16); Aspartate Amino Transferase 29 U/L (14-36); Bilirubin,Total 0.4 mg/dL (0.2-1.3); Blood Urea Nitrogen 57 mg/dL (7-17); Calcium 8.1 mg/dL (8.4-10.2); Carbon Dioxide 24 mmol/L (22-30); Chloride 106 mmol/L (98-107); Estimated CRCL calculation 20 ml/min; Estimated Glomerular Filt Rate 24; Glucose 217 mg/dL (65-110); Lactate Dehydrogenase 624 U/L (313-618); Magnesium 1.7 mg/dL (1.6-2.3); Potassium 3.5 mmol/L (3.4-5.0); Sodium 138 mmol/L (137-145)
[2021-07-30 07:40] LABS: Thyroid Stimulating Hormone Reflex 0.265 uIU/mL (0.465-4.68)
[2021-07-30 07:55] LABS: Glucose Point of Care 202 mg/dl (65-105)
[2021-07-30 09:13] LABS: Free T4 Free Thyroxine Reflex 1.49 ng/dL (0.78-2.19)
[2021-07-30] MEDS: FLUTICASONE/UMECLIDIN/VILANTER 200-62.5-25 MCG ELLIPTA 1 PUFF INHALATION (09:43)
[2021-07-30] MEDS: FUROSEMIDE INJ 40 MG/4 ML VIAL 20 MG IV PUSH ×2 (10:07→16:38)
[2021-07-30] MEDS: METOPROLOL SUCCINATE EXT REL 50 MG TABCR PO (10:07)
[2021-07-30 12:14] LABS: Glucose Point of Care 184 mg/dl (65-105)
[2021-07-30] MEDS: ESCITALOPRAM OXALATE 5 MG TABLET PO (14:50)
[2021-07-30] MEDS: CHOLECALCIFEROL 1,000 UNITS TABLET 5000 UNITS PO (14:50)
[2021-07-30] MEDS: CYANOCOBALAMIN 1,000 MCG TABLET 5000 MCG PO (14:50)
--- NOTE | 2021-07-30 14:56 | PC.NURSE ---
On 07/30/21, the student, [Stacey ], provided care and completed [facility] documentation on this patient. I have reviewed the student's documentation and agree with the findings.
--- NOTE | 2021-07-30 14:59 | PC.NURSE ---
On 07/30/21, the student, [Jovanny], provided care and completed [facility] documentation on this patient. I have reviewed the student's documentation and agree with the findings.
--- NOTE | 2021-07-30 16:18 | PM.IMPN ---
Progress Note: A&P Assessment and Plan (1) Diastolic CHF: Qualifiers: Heart failure chronicity: chronic Qualified Code(s): I50.32 - Chronic diastolic (congestive) heart failure Code(s): I50.30 - Unspecified diastolic (congestive) heart failure Status: Acute Assessment and Plan: Repeat echo. Lasix IV. Continue with metoprolol. 07/30 patient with shortness of breath upon arrival requiring 12 L of oxygen most likely multifocal possibly due to community-acquired pneumonia and underlying COPD, patient still remains confused unable to provide review of symptom, will continue present managed will continue to monitor, will have PT OT evaluate the patient and further recommendation to follow. (2) CAP (community acquired pneumonia): Code(s): J18.9 - Pneumonia, unspecified organism Status: Acute Assessment and Plan: Continue with azithromycin and Rocephin. Continue with nebulizer treatments. Sputum and blood cultures are pending. No leukocytosis. (3) CKD (chronic kidney disease) stage 3, GFR 30-59 ml/min: Qualifiers: Chronic kidney disease stage 3 subtype: stage 3a (GFR 45-59) Qualified Code(s): N18.31 - Chronic kidney disease, stage 3a Code(s): N18.3 - Chronic kidney disease, stage 3 (moderate) Status: Chronic Assessment and Plan: Patient's creatinine is 2.0 it looks like her baseline is anywhere from 1.3 to 2. Monitor her BMP closely. (4) COPD with asthma: Code(s): J44.9 - Chronic obstructive pulmonary disease, unspecified Status: Acute Assessment and Plan: The patient is typically on oxygen at 3 L per nasal cannula. The patient is up to 12 L per nasal cannula. The patient was given Solu-Medrol in the emergency room. Continue with her home inhalers. Patient's rapid COVID was found to be negative (5) RLS (restless legs syndrome): Code(s): G25.81 - Restless legs syndrome Status: Acute Assessment and Plan: Continue home medication. (6) Essential (primary) hypertension: Code(s): I10 - Essential (primary) hypertension Status: Acute Assessment and Plan: Continue home medication. (7) Depression: Code(s): F32.9 - Major depressive disorder, single episode, unspecified Status: Chronic Assessment and Plan: Continue home medication. (8) Hypokalemia: Code(s): E87.6 - Hypokalemia Status: Acute Assessment and Plan: The patient was given Lasix in the emergency room. Her potassium was slightly low and with her renal function I did not want to give her a large dose of potassium. I gave her small dose of potassium and will recheck her basic metabolic panel and her magnesium as well. Subjective Date/time seen: 07/30/21 16:18 this is a 80-year-old female patient who has a history of chronic respiratory failure she is on oxygen at 3 L chronically at home and she has chronic renal disease. The granddaughter went to check on her today and she was found laying in the bed so oil to clothing. The patient stated that she did get up and go to the bathroom. The patient tells me that she feels better now. However her oxygen is on 12 L per nasal cannula at this time. Chest x-ray was read as development of bilateral patchy edema or pneumonia. Development of small left pleural effusion. Cardiomegaly. The patient stated she has not been vaccinated for COVID-19. Her ABG were read as pH of 7.435, CO2 34.4, PO2 43.2, O2 saturation 81.8% potassium was found to be 3.2 please run in the low potassium. Creatinine was noted to be 2 .0. The patient was given nebulizer treatments, azithromycin, Rocephin, Solu-Medrol, and Lasix IV in the emergency room. Her Pap COVID was found to be negative. The patient is being admitted to inpatient services on the date of service of 12/18 07/30 patient with shortness of breath upon arrival requiring 12 L of oxygen most likely multifocal possibly due to com
[2021-07-30] MEDS: POTASSIUM CHLORIDE 20 MEQ TABLET 40 MEQ PO (16:30)
[2021-07-30] MEDS: PRAMIPEXOLE 0.5 MG TABLET PO (16:39)
[2021-07-30] MEDS: METOPROLOL TARTRATE INJ 5 MG/5 ML VIAL IV PUSH (17:21)
[2021-07-30 17:22] LABS: Glucose Point of Care 172 mg/dl (65-105)
[2021-07-30 17:29] LABS: Total Triiodothyronine (T3) 0.72 NG/ML (0.97-1.69)
[2021-07-30] MEDS: LORazepam INJ (*CRX) 2 MG/ML VIAL IV PUSH (17:41)
[2021-07-30 17:43] LABS: Potassium 3.5 mmol/L (3.4-5.0)
[2021-07-30 20:17] LABS: Glucose Point of Care 168 mg/dl (65-105)
[2021-07-30] MEDS: TOLNAFTATE 1% POWDER 45 GM BTL 1 APPLIC TOPICAL (20:56)
[2021-07-31] VITALS (23 sets, daily range): BP systolic 104–125; BP diastolic 52–84; PULSE 68–136; RESP 18–30; TEMP 36.3–37.1; O2SAT 91–100
[2021-07-31] MEDS: ALBUTEROL SULFATE NEB 2.5 MG/0.5 ML INH 5 MG INHALATION ×4 (02:56→21:34)
[2021-07-31] MEDS: LORazepam INJ (*CRX) 2 MG/ML VIAL 1 MG IV PUSH (03:57)
[2021-07-31 05:09] LABS: Hematocrit 30.4 % (37.0-47.0); Hemoglobin 9.2 g/dL (12.0-15.0); Mean Corpuscular HGB Conc 30.3 g/dl (32-36); Mean Corpuscular Hemoglobin 24.9 pg (26-34); Mean Corpuscular Volume 82.2 fl (80-100); Mean Platelet Volume 12.1 fl (7.4-10.4); Platelet Count Result 244 k/mm3 (150-375); White Blood Count 11.1 K/mm3 (4.5-10.0)
[2021-07-31 05:24] LABS: Anion Gap 5 mmol/L (8-16); Blood Urea Nitrogen 52 mg/dL (7-17); Calcium 8.4 mg/dL (8.4-10.2); Carbon Dioxide 28 mmol/L (22-30); Chloride 104 mmol/L (98-107); Estimated CRCL calculation 21 ml/min; Estimated Glomerular Filt Rate 25; Glucose 173 mg/dL (65-110); Potassium 3.6 mmol/L (3.4-5.0); Sodium 137 mmol/L (137-145)
--- NOTE | 2021-07-31 08:16 | P.CDI_ITS ---
CDI Query Clarification Request -07/29 CXR impression: Bilateral patchy edema or pneumonia, small left pleural effusion -07/29 BNP 2410 -Lasix 40mg IV given once in ED and Lasix 20mg IV BID scheduled -Chronic diastolic CHF has been documented With above findings, please clarify acuity of CHF: * Acute on chronic diastolic CHF * Chronic diastolic CHF * Unable to determine <Ирина Jackman RN - Last Filed: 07/31/21 08:23> Clarified Diagnosis (1) Diastolic CHF: Qualifiers: Heart failure chronicity: chronic Qualified Code(s): I50.32 - Chronic diastolic (congestive) heart failure <Ирина Jackman RN - Last Filed: 07/31/21 08:23> Code(s): I50.30 - Unspecified diastolic (congestive) heart failure <Ирина Jackman RN - Last Filed: 07/31/21 08:23> Status: Acute <Ирина Jackman RN - Last Filed: 07/31/21 08:23> Assessment and Plan: Most likely patient has acute on chronic diastolic CHF <Darrel Pelaez MD - Last Filed: 08/23/21 15:23>
[2021-07-31] MEDS: FUROSEMIDE INJ 40 MG/4 ML VIAL 20 MG IV PUSH ×2 (10:00→17:58)
[2021-07-31] MEDS: TOLNAFTATE 1% POWDER 45 GM BTL 1 APPLIC TOPICAL (10:00)
[2021-07-31] MEDS: METOPROLOL SUCCINATE EXT REL 50 MG TABCR PO (10:01)
[2021-07-31 13:30] LABS: Alveolar/Arterial O2 Gradient 522.1 mmHg; Base Excess ABG 2.8 mEq/l (+/-2.0); Device NON-INVASIVE VENT; Fractional Inspired Oxygen 90 %; HCO3 ABG 27.4 mEq/l (22.0-26.0); Modified Allen's Test Pass; Oxygen Content ABG 16.4 %vol (16.0-22.0); Oxygen Saturation ABG 95.6 % (95.0-100.0); Oxyhemoglobin 93.8 % THb (90.0-100.0); PCO2 ABG 42.2 mmHg (35.0-45.0); PO2 ABG 76.4 mmHg (80.0-100.0); PO2 FiO2 Ratio Arterial Blood 0.85 %; Site Drawn LEFT RADIAL; Total Hemoglobin 12.4 g/dL (12.0-18.0)
[2021-07-31 13:31] LABS: Non-Invasive Expiratory Pressure 8 CMH2O; Non-Invasive Inspiratory Pressure 12 CMH2O; Non-Invasive Vent Rate 14 /MIN
--- NOTE | 2021-07-31 14:29 | PM.IMPN ---
Progress Note: A&P Assessment and Plan (1) Diastolic CHF: Qualifiers: Heart failure chronicity: chronic Qualified Code(s): I50.32 - Chronic diastolic (congestive) heart failure Code(s): I50.30 - Unspecified diastolic (congestive) heart failure Status: Acute Assessment and Plan: Repeat echo. Lasix IV. Continue with metoprolol. 07/31/21 14:29 Repeat echo. Lasix IV. Continue with metoprolol. 07/30 patient with shortness of breath upon arrival requiring 12 L of oxygen most likely multifocal possibly due to community-acquired pneumonia and underlying COPD, patient still remains confused unable to provide review of symptom, will continue present managed will continue to monitor, will have PT OT evaluate the patient and further recommendation to follow. 07/31 patient respiratory symptoms of worsening currently on BiPAP and struggling, suspect patient may have a COVID-19 being tested an isolated, abg was done and showed 7.43/42.2/76.4, Fio2 90%, most likely her symptoms are stemming from community-acquired pneumonia being treated with Rocephin azithromycin and acute on chronic diastolic congestive heart failure with IV Lasix 20 mg b.i.d. now possibly COVID-19, can you to monitor and further recommendation to follow. once clinically stable patient will benefit from PT OT. (2) CAP (community acquired pneumonia): Code(s): J18.9 - Pneumonia, unspecified organism Status: Acute Assessment and Plan: Continue with azithromycin and Rocephin. Continue with nebulizer treatments. Sputum and blood cultures are pending. No leukocytosis. (3) CKD (chronic kidney disease) stage 3, GFR 30-59 ml/min: Qualifiers: Chronic kidney disease stage 3 subtype: stage 3a (GFR 45-59) Qualified Code(s): N18.31 - Chronic kidney disease, stage 3a Code(s): N18.3 - Chronic kidney disease, stage 3 (moderate) Status: Chronic Assessment and Plan: Patient's creatinine is 2.0 it looks like her baseline is anywhere from 1.3 to 2. Monitor her BMP closely. (4) COPD with asthma: Code(s): J44.9 - Chronic obstructive pulmonary disease, unspecified Status: Acute Assessment and Plan: The patient is typically on oxygen at 3 L per nasal cannula. The patient is up to 12 L per nasal cannula. The patient was given Solu-Medrol in the emergency room. Continue with her home inhalers. Patient's rapid COVID was found to be negative (5) RLS (restless legs syndrome): Code(s): G25.81 - Restless legs syndrome Status: Acute Assessment and Plan: Continue home medication. (6) Essential (primary) hypertension: Code(s): I10 - Essential (primary) hypertension Status: Acute Assessment and Plan: Continue home medication. (7) Depression: Code(s): F32.9 - Major depressive disorder, single episode, unspecified Status: Chronic Assessment and Plan: Continue home medication. (8) Hypokalemia: Code(s): E87.6 - Hypokalemia Status: Acute Assessment and Plan: The patient was given Lasix in the emergency room. Her potassium was slightly low and with her renal function I did not want to give her a large dose of potassium. I gave her small dose of potassium and will recheck her basic metabolic panel and her magnesium as well. Subjective Date/time seen: 07/31/21 14:29 Repeat echo. Lasix IV. Continue with metoprolol. 07/30 patient with shortness of breath upon arrival requiring 12 L of oxygen most likely multifocal possibly due to community-acquired pneumonia and underlying COPD, patient still remains confused unable to provide review of symptom, will continue present managed will continue to monitor, will have PT OT evaluate the patient and further recommendation to follow. 07/31 patient respiratory symptoms of worsening currently on BiPAP and struggling, suspect patient may have a COVID-19 being tested an isolated, abg was done
[2021-07-31 14:44] LABS: Glucose Point of Care 148 mg/dl (65-105)
[2021-07-31 14:44] LABS: Glucose Point of Care 146 mg/dl (65-105)
[2021-07-31 16:56] LABS: Magnesium 1.6 mg/dL (1.6-2.3)
[2021-07-31 17:51] LABS: Glucose Point of Care 128 mg/dl (65-105)
[2021-07-31 18:14] LABS: SARS-CoV-2 RNA PCR Positive
[2021-07-31 19:51] LABS: Basophils Percent Auto 0.1 % (0.2-1.2); Eosinophils Percent Auto 0.1 % (0-4.4); Hematocrit 37.8 % (37.0-47.0); Hemoglobin 10.9 g/dL (12.0-15.0); Immature Granulocyte Absolute 0.12 K/mm3 (0.00-0.031); Immature Granulocyte Percent A 0.8 % (0-0.5); Lymphocytes Absolute Auto 0.37 K/mm3 (0.9-3.2); Lymphocytes Percent Auto 2.6 % (18.3-44.2); Mean Corpuscular HGB Conc 28.8 g/dl (32-36); Mean Corpuscular Hemoglobin 24.9 pg (26-34); Mean Corpuscular Volume 86.5 fl (80-100); Mean Platelet Volume 11.7 fl (7.4-10.4); Monocytes Absolute Auto 0.5 K/mm3 (0.1-0.6); Monocytes Percent Auto 3.5 % (2.6-8.5); Neutrophils Absolute Auto 13.5 K/mm3 (1.3-6.7); Neutrophils Percent Auto 92.9 % (45.5-73.1); Nucleated Red Blood Cells Perc 0.1 % (0.0-0.2); Platelet Count Result 295 k/mm3 (150-375); Red Blood Count 4.37 M/mm3 (4.2-5.4); Red Cell Distribution Width 15.2 % (11.5-14.5); White Blood Count 14.5 K/mm3 (4.5-10.0)
[2021-07-31 20:00] LABS: Prothrombin Time 12.9 Seconds (11.1-14.7)
[2021-07-31 20:03] LABS: Anion Gap 7 mmol/L (8-16); Blood Urea Nitrogen 52 mg/dL (7-17); Calcium 8.6 mg/dL (8.4-10.2); Carbon Dioxide 28 mmol/L (22-30); Chloride 102 mmol/L (98-107); Estimated CRCL calculation 24 ml/min; Estimated Glomerular Filt Rate 29; Glucose 114 mg/dL (65-110); Potassium 3.8 mmol/L (3.4-5.0); Sodium 137 mmol/L (137-145)
[2021-07-31 20:06] LABS: Alanine Aminotransferase 18 U/L (4-35); Aspartate Amino Transferase 47 U/L (14-36)
[2021-07-31 20:13] LABS: Ovalocytes 1+ (NORMAL); Platelet Estimate Adequate (Adequate)
[2021-07-31 20:51] LABS: Glucose Point of Care 113 mg/dl (65-105)
[2021-08-01] VITALS (36 sets, daily range): BP systolic 89–153; BP diastolic 54–85; PULSE 90–158; RESP 22–33; TEMP 36.1–36.9; O2SAT 90–97
[2021-08-01] MEDS: TOLNAFTATE 1% POWDER 45 GM BTL 1 APPLIC TOPICAL ×3 (00:08→20:27)
[2021-08-01] MEDS: dilTIAZem HCl INJ 25 MG/5 ML VIAL 10 MG IV PUSH (00:08)
[2021-08-01] MEDS: ALBUTEROL SULFATE NEB 2.5 MG/0.5 ML INH 5 MG INHALATION ×3 (02:55→14:23)
[2021-08-01] MEDS: METOPROLOL TARTRATE INJ 5 MG/5 ML VIAL IV PUSH (04:01)
[2021-08-01 08:00] LABS: Glucose Point of Care 111 mg/dl (65-105)
--- NOTE | 2021-08-01 08:26 | PCRCNOTE ---
MDI's not given patient on bipap
[2021-08-01] MEDS: FUROSEMIDE INJ 40 MG/4 ML VIAL 20 MG IV PUSH (09:26)
--- NOTE | 2021-08-01 10:46 | PM.IMPN ---
Progress Note: A&P Assessment and Plan (1) Pneumonia due to COVID-19 virus: Code(s): U07.1 - COVID-19; J12.82 - Pneumonia due to coronavirus disease 2018 Status: Acute Assessment and Plan: Clinically deteriorating with worsened encephalopthy with looming need for mechanical ventilation as she is not tolerating bipap CT Brain ABG D/w nursing staff and turpentiner and because family wishes that she remain full code will transfer to ICU Px is poor in this elderly female with chronic hypoxic respiratory failure who has rapidly deteriorated in the 3 days since admission. D/w granddaughter/POA by phone and she wishes intubation and full support, pending progress over the next few days or until there is no hope . (2) Diastolic CHF: Qualifiers: Heart failure chronicity: chronic Qualified Code(s): I50.32 - Chronic diastolic (congestive) heart failure Code(s): I50.30 - Unspecified diastolic (congestive) heart failure Status: Acute Assessment and Plan: Currently receiving IV furosemide (3) CKD (chronic kidney disease) stage 3, GFR 30-59 ml/min: Qualifiers: Chronic kidney disease stage 3 subtype: stage 3a (GFR 45-59) Qualified Code(s): N18.31 - Chronic kidney disease, stage 3a Code(s): N18.3 - Chronic kidney disease, stage 3 (moderate) Status: Chronic Assessment and Plan: LIDIA on CKD Creatinine improved from 2.0 to / 1.7 (4) COPD with asthma: Code(s): J44.9 - Chronic obstructive pulmonary disease, unspecified Status: Acute Assessment and Plan: The patient is typically on oxygen at 3 L per nasal cannula. T (5) RLS (restless legs syndrome): Code(s): G25.81 - Restless legs syndrome Status: Acute Assessment and Plan: Continue home medication as she tolerates (6) Essential (primary) hypertension: Code(s): I10 - Essential (primary) hypertension Status: Acute Assessment and Plan: Continue home medication as she tolerates (7) Depression: Qualifiers: Depression Type: unspecified Qualified Code(s): F32.9 - Major depressive disorder, single episode, unspecified Code(s): F32.9 - Major depressive disorder, single episode, unspecified Status: Chronic Assessment and Plan: Continue home medication as she tolerates (8) Hypokalemia: Code(s): E87.6 - Hypokalemia Status: Acute Assessment and Plan: Resolved Subjective Date/time seen: 08/01/21 10:46 Interval history: Admitted 07/29/2021 with CHF/CAP. 08/01/21 visit: More confused. Restless. Trying to remove bipap. Review of Systems Review of Systems: ROS unobtainable: Yes unobtainable due to medical condition Objective Data Vital Signs Vital Signs: Vital Signs - 24 hr 07/31/21 11:15 07/31/21 12:00 07/31/21 13:47 Temperature 97.3 F L Pulse Rate 113 H 134 H 98 Respiratory Rate 23 H 19 20 Blood Pressure 115/62 Pulse Oximetry 93 94 07/31/21 13:54 07/31/21 14:00 07/31/21 16:00 Temperature 97.9 F Pulse Rate 102 H 120 H 68 Respiratory Rate 20 24 H Blood Pressure 118/52 L Pulse Oximetry 95 07/31/21 18:00 07/31/21 20:00 07/31/21 21:35 Temperature 98.7 F Pulse Rate 112 H 135 H 125 H Respiratory Rate 27 H 24 H Blood Pressure 104/71 Pulse Oximetry 100 07/31/21 21:49 07/31/21 22:00 08/01/21 00:00 Temperature 97.9 F Pulse Rate 128 H 115 H 127 H Respiratory Rate 24 H 30 H Blood Pressure 106/54 L Pulse Oximetry 99 95 08/01/21 02:00 08/01/21 02:58 08/01/21 03:10 Temperature Pulse Rate 125 H 131 H 127 H Respiratory Rate 33 H 27 H Blood Pressure Pulse Oximetry 94 08/01/21 04:00 08/01/21 04:01 08/01/21 04:25 Temperature 97.8 F Pulse Rate 144 H 158 H Respiratory Rate 26 H 26 H Blood Pressure 135/78 Pulse Oximetry 95 08/01/21 06:00 08/01/21 08:00 08/01/21 08:32 Temperature 98.4 F Pulse Rate 137 H 129 H 132 H Resp
[2021-08-01 10:56] LABS: Base Excess ABG 6.9 mEq/l (+/-2.0); Fractional Inspired Oxygen 70 %; HCO3 ABG 31.2 mEq/l (22.0-26.0); Oxygen Content ABG 15.3 %vol (16.0-22.0); Oxygen Saturation ABG 92.7 % (95.0-100.0); Oxyhemoglobin 90.1 % THb (90.0-100.0); PCO2 ABG 43.2 mmHg (35.0-45.0); PO2 ABG 60.7 mmHg (80.0-100.0); PO2 FiO2 Ratio Arterial Blood 0.87 %; Total Hemoglobin 12.1 g/dL (12.0-18.0); pH ABG 7.476 (7.350-7.450)
[2021-08-01 10:58] LABS: Device NON-INVASIVE VENT; Site Drawn RIGHT BRACHIAL
[2021-08-01 10:59] LABS: Non-Invasive Expiratory Pressure 8 CMH2O; Non-Invasive Inspiratory Pressure 12 CMH2O; Non-Invasive Vent Rate 14 /MIN
[2021-08-01] MEDS: AMIODARONE 150 MG/D5W 100 ML 150 MG/100 ML BAG 600 MG IV CONT (11:35)
[2021-08-01] MEDS: MIDAZOLAM 100MG/NS 100ML(*CRX) 100 MG/100 ML BAG IV CONT (12:15)
[2021-08-01] MEDS: FENTANYL 2,500MCG/NS250ML(*CRX 2,500 MCG/250 ML BAG IV CONT (12:15)
--- NOTE | 2021-08-01 12:17 | PC.NURSE ---
Pt brought over from [facility] with bipap. Md to bedside to assess. Md plans to intubate at 1125. 1138 20 etomidate given followed by 50 of lorena. Et placed with jon breath sounds and color change. OG placed. Md to place central line. 2mg versed given at 1200. line placed. Awaiting xray to confrom placements.
[2021-08-01] MEDS: AMIODARONE 360 MG/D5W 200 ML 360 MG/200 ML BAG 33.33 MG IV CONT (12:30)
[2021-08-01 13:36] LABS: Alveolar/Arterial O2 Gradient 592.8 mmHg; Arterial Blood Gas Ventilator rate 24 /MIN; Base Excess ABG 6.4 mEq/l (+/-2.0); Carboxyhemoglobin 0.3 % THb (0-2.0); Device VENTILATOR; Fractional Inspired Oxygen 100 %; HCO3 ABG 32.1 mEq/l (22.0-26.0); Methemoglobin ABG 0.3 %THb (0-1.5); Modified Allen's Test Pass; Oxygen Content ABG 15.6 %vol (16.0-22.0); Oxygen Saturation ABG 93.9 % (95.0-100.0); Oxyhemoglobin 91.6 % THb (90.0-100.0); PO2 ABG 69.2 mmHg (80.0-100.0); PO2 FiO2 Ratio Arterial Blood 0.69 %; Reduced Hemoglobin 7.8 %THb (0-5.0); Site Drawn RIGHT RADIAL; Total Hemoglobin 12.1 g/dL (12.0-18.0); pH ABG 7.417 (7.350-7.450)
[2021-08-01 13:37] LABS: Arterial Blood Gas PEEP 8 cmH2O; Arterial Blood Gas Tidal Volume 320 ml; Arterial Blood Gas Vent Mode CMV
[2021-08-01 13:42] LABS: Hemoglobin 10.8 g/dL (12.0-15.0); Mean Corpuscular HGB Conc 29.2 g/dl (32-36); Mean Corpuscular Hemoglobin 24.6 pg (26-34); Mean Corpuscular Volume 84.3 fl (80-100); Mean Platelet Volume 11.1 fl (7.4-10.4); Platelet Count Result 251 k/mm3 (150-375); Red Blood Count 4.39 M/mm3 (4.2-5.4); Red Cell Distribution Width 15.2 % (11.5-14.5); White Blood Count 9.9 K/mm3 (4.5-10.0)
[2021-08-01 14:08] LABS: Alanine Aminotransferase 17 U/L (4-35); Estimated CRCL calculation 22 ml/min; Estimated Glomerular Filt Rate 27
[2021-08-01 14:09] LABS: Magnesium 1.5 mg/dL (1.6-2.3)
[2021-08-01 14:20] LABS: INR 1.1; Prothrombin Time 14.1 Seconds (11.1-14.7)
--- NOTE | 2021-08-01 14:39 | WPDCNINT ---
Assessment and Plan Assessment and plan (1) Acute respiratory failure with hypoxia: Code(s): J96.01 - Acute respiratory failure with hypoxia Status: Acute Assessment and Plan: Patient with acute hypoxic respiratory failure likely related to COVID pneumonia. Presented on 07/29/2021, increased oxygen requirements along with altered mental status, on BiPAP and using accessory muscles of ventilation, discussed with 2 granddaughters were agreeable to intubation and mechanical ventilation. Patient was intubated on 08/01/2021 -remains on 100% FiO2 and peep of 8 -chest x-ray and ABGs reviewed -continue bronchodilators, -continue Pulmicort -continue fentanyl and Versed for sedation (2) Pneumonia due to COVID-19 virus: Code(s): U07.1 - COVID-19; J12.82 - Pneumonia due to coronavirus disease 2019 Status: Acute Assessment and Plan: Pneumonia secondary to COVID-19. SARS-CoV-2 PCR positive on 07/31/2021 -patient has been started dexamethasone 20 mg IV x5 days then 10 mg IV x5 days -patient's GFR according to pharmacy is significantly low in patient does not qualify for remdesivir due to chronic kidney disease and low GFR -check stat CRP, ferritin, LDH, D-dimer, if they are elevated patient may benefit from Baricitinib or Tocilizumab (3) Atrial fibrillation with RVR: Code(s): I48.91 - Unspecified atrial fibrillation Status: Acute Assessment and Plan: Seem like new onset AFib RVR, patient on amiodarone infusion after receiving amiodarone bolus -started on heparin infusion -continue to monitor -TSH was slightly low but T3 and T4 within normal limits (4) Diastolic CHF: Qualifiers: Heart failure chronicity: chronic Qualified Code(s): I50.32 - Chronic diastolic (congestive) heart failure Code(s): I50.30 - Unspecified diastolic (congestive) heart failure Status: Acute Assessment and Plan: Echocardiogram on 07/30/2021: Echocardiogram showed LVEF of 50-55%. Mildly increased LV wall thickness. Grade 1 diastolic dysfunction, mild to moderate aortic valve stenosis -will hold Lasix for now as patient has soft blood pressures (5) CKD (chronic kidney disease) stage 3, GFR 30-59 ml/min: Qualifiers: Chronic kidney disease stage 3 subtype: stage 3a (GFR 45-59) Qualified Code(s): N18.31 - Chronic kidney disease, stage 3a Code(s): N18.3 - Chronic kidney disease, stage 3 (moderate) Status: Chronic Assessment and Plan: Chronic kidney disease stage 3, creatinine improved from 2.0-1.7 this morning on 08/01/2021 -continue to monitor renal function, electrolytes and urine output (6) DVT prophylaxis: Code(s): Z29.9 - Encounter for prophylactic measures, unspecified Status: Acute Assessment and Plan: Heparin infusion Additional Plan Stress ulcer prophylaxis: Protonix Bedside nurses discussed with mar and they were agreeable for intubation and mechanical ventilation. Code status: Full code Critical care time spent: 54 minutes This dictation may have been done utilizing a voice recognition system. Attempts have been made to correct errors. However, there may be uncorrected grammatical, spelling, and recognition errors present. Due to a high probability of clinically significant, life threatening deterioration, the patient required my highest level of preparedness to intervene emergently and I personally spent this critical care time directly and personally managing the patient. This critical care time included obtaining a history; examining the patient; pulse oximetry; ordering and review of studies; arranging urgent treatment with development of a management plan; evaluation of patient's response to treatment; frequent reassessment; and discussions with other providers. It was exclusive of separately billable procedures and treating other patients and teaching time. Please see Assessment and Plan section and the rest o
--- NOTE | 2021-08-01 15:11 | P.PCNBED_ITS ---
Procedures Central Line Placement Right IJ: Central Line Date: 08/01/21 Central Line Time: 11:40 Discussed w/ the patient/family/POA,the placement of a central venous catheter, including its clinical necessity/indication & associated potential risks, benifits and alternatives.: Yes The patient/family/POA understand(s) and acknowledge(s) the need to proceed with central venous catheter insertion as an important element of the patient's clinical management.: Yes Time Out Performed: Yes Patient Position: supine Patient placed on monitor/pulse ox: Yes Provider Prep: mask, sterile gown, sterile gloves, Max. sterile barrier precautions, cap and hand hygiene with conventional soap/water or alcohol based hand rub Central line prep: 2% Chlorhexidine scrub Local anesthesia used: lidocaine 1% Amount of anesthesia used (ml): 3 Sterile US Technique with sterile gel/sterile probe covers: Yes Central line lumen inserted: triple Sinhala: 7 Length (cm): 16 Depth of Insertion (cm): 16 Post Procedure: sutured in place, good blood return, all ports aspirated, flushed, capped, transparent dressing, hemostatic product, antimicrobial product, securement product and aseptic technique maintained throughout procedure Post procedure x-ray: tip of catheter in good position and no pneumothorax seen Patient tolerated procedure: well Complications: none
--- NOTE | 2021-08-01 15:13 | WPDPROCEDUR ---
Procedures Intubation Intubation Date: 08/01/21 Intubation Time: 11:31 A pre-procedural Time-Out was completed immediately before starting the procedure and confirmed: Patient Identification, Site, Procedure, Patient Position and the Availability of Requisite Equipment: Yes Sedative: etomidate Paralytic: rocuronium Laryngoscope: fiber optic video scope Assist device used: fiber optic device ET tube size: 7.5 Tube secured depth (cm): 23 Tube secured location: lips Tube placement confirmation: visualized tube passing through cords, equal breath sounds bilaterally, no breath sounds over epigastrium and confirmation by capnometry Patient tolerated procedure: well Intubation complications: none
[2021-08-01 15:30] LABS: Lactate Dehydrogenase 627 U/L (313-618)
[2021-08-01 15:50] LABS: D Dimer 3.83 ug/mL (<0.48)
[2021-08-01 15:58] LABS: INR 1.1
[2021-08-01 15:59] LABS: Partial Thromboplastin Time 32.3 SECONDS (22.3-36.8)
[2021-08-01 16:04] LABS: CRP 14.9 mg/dL (<1.0)
[2021-08-01] MEDS: HEPARIN SOD/D5W 100 UNITS/ML 25,000 UNITS/250 ML BAG 12 UNITS IV CONT (16:12)
[2021-08-01 16:25] LABS: Anion Gap 6 mmol/L (8-16); Blood Urea Nitrogen 49 mg/dL (7-17); Calcium 8.6 mg/dL (8.4-10.2); Carbon Dioxide 33 mmol/L (22-30); Chloride 100 mmol/L (98-107); Estimated CRCL calculation 21 ml/min; Estimated Glomerular Filt Rate 25; Glucose 200 mg/dL (65-110); Potassium 4.3 mmol/L (3.4-5.0); Sodium 139 mmol/L (137-145)
[2021-08-01] MEDS: CENTRAL LINE FLUSH 10 ML IV PUSH ×3 (16:50→21:05)
[2021-08-01] MEDS: AMIODARONE 360 MG/D5W 200 ML 360 MG/200 ML BAG 16.67 MG IV CONT (17:57)
[2021-08-01 18:12] LABS: Glucose Point of Care 281 mg/dl (65-105)
[2021-08-01] MEDS: BUDESONIDE RESPULE NEB 0.5 MG/2 ML AMP INHALATION (21:04)
[2021-08-01] MEDS: MINERAL OIL/WHITE PETROLATUM OINTMENT 1 APPLIC EACH EYE (21:05)
[2021-08-02] VITALS (44 sets, daily range): BP systolic 77–151; BP diastolic 7–77; PULSE 72–106; RESP 20–32; TEMP 34.6–36.6; O2SAT 92–99
[2021-08-02 00:19] LABS: Partial Thromboplastin Time 181.4 SECONDS (22.3-36.8)
[2021-08-02 05:19] LABS: Alveolar/Arterial O2 Gradient 470.6 mmHg; Base Excess ABG 4.9 mEq/l (+/-2.0); Carboxyhemoglobin 0.3 % THb (0-2.0); Fractional Inspired Oxygen 80 %; HCO3 ABG 28.7 mEq/l (22.0-26.0); Methemoglobin ABG 0.2 %THb (0-1.5); Oxygen Saturation ABG 92.1 % (95.0-100.0); Oxyhemoglobin 88.5 % THb (90.0-100.0); PCO2 ABG 39.4 mmHg (35.0-45.0); PO2 ABG 58.4 mmHg (80.0-100.0); PO2 FiO2 Ratio Arterial Blood 0.73 %; Total Hemoglobin 11.2 g/dL (12.0-18.0)
[2021-08-02 05:20] LABS: Device VENTILATOR; Modified Allen's Test Unable to perform; Site Drawn RIGHT RADIAL
[2021-08-02 05:21] LABS: Arterial Blood Gas PEEP 8 cmH2O; Arterial Blood Gas Tidal Volume 320 ml; Arterial Blood Gas Vent Mode CMV; Arterial Blood Gas Ventilator rate 24 /MIN
[2021-08-02] MEDS: AMIODARONE 360 MG/D5W 200 ML 360 MG/200 ML BAG 16.67 MG IV CONT ×2 (05:39→17:14)
[2021-08-02 05:48] LABS: Basophils Percent Auto 0.1 % (0.2-1.2); Hematocrit 35.1 % (37.0-47.0); Hemoglobin 10.5 g/dL (12.0-15.0); Immature Granulocyte Percent A 1.4 % (0-0.5); Lymphocytes Absolute Auto 0.39 K/mm3 (0.9-3.2); Lymphocytes Percent Auto 5.4 % (18.3-44.2); Mean Corpuscular HGB Conc 29.9 g/dl (32-36); Mean Corpuscular Hemoglobin 24.9 pg (26-34); Mean Corpuscular Volume 83.2 fl (80-100); Monocytes Absolute Auto 0.1 K/mm3 (0.1-0.6); Monocytes Percent Auto 1.5 % (2.6-8.5); Neutrophils Absolute Auto 6.6 K/mm3 (1.3-6.7); Neutrophils Percent Auto 91.6 % (45.5-73.1); Platelet Count Result 235 k/mm3 (150-375); Red Blood Count 4.22 M/mm3 (4.2-5.4); Red Cell Distribution Width 15.4 % (11.5-14.5); White Blood Count 7.2 K/mm3 (4.5-10.0)
[2021-08-02 06:03] LABS: D Dimer 2.94 ug/mL (<0.48)
[2021-08-02 06:05] LABS: Alanine Aminotransferase 17 U/L (4-35); Albumin Level 2.8 g/dL (3.5-5.1); Alkaline Phosphatase 65 U/L (38-126); Anion Gap 6 mmol/L (8-16); Aspartate Amino Transferase 22 U/L (14-36); Bilirubin,Total 0.3 mg/dL (0.2-1.3); Blood Urea Nitrogen 59 mg/dL (7-17); Calcium 8.5 mg/dL (8.4-10.2); Carbon Dioxide 35 mmol/L (22-30); Chloride 97 mmol/L (98-107); Estimated CRCL calculation 18 ml/min; Estimated Glomerular Filt Rate 21; Glucose 207 mg/dL (65-110); Lactate Dehydrogenase 499 U/L (313-618); Magnesium 1.6 mg/dL (1.6-2.3); Phosphorus 4.3 mg/dL (2.5-4.5); Potassium 4.2 mmol/L (3.4-5.0); Sodium 138 mmol/L (137-145)
[2021-08-02] MEDS: CENTRAL LINE FLUSH 10 ML IV PUSH ×3 (06:54→22:35)
[2021-08-02 07:34] LABS: CRP 19.2 mg/dL (<1.0)
[2021-08-02 07:40] LABS: Partial Thromboplastin Time 102.5 SECONDS (22.3-36.8)
[2021-08-02] MEDS: BUDESONIDE RESPULE NEB 0.5 MG/2 ML AMP INHALATION ×2 (09:05→20:14)
[2021-08-02] MEDS: SODIUM CHLORIDE 0.9% IV 500 ML IV CONT (09:15)
[2021-08-02] MEDS: CHOLECALCIFEROL 1,000 UNITS TABLET 5000 UNITS PO (09:15)
[2021-08-02] MEDS: CYANOCOBALAMIN 1,000 MCG TABLET 5000 MCG PO (09:15)
[2021-08-02] MEDS: TOLNAFTATE 1% POWDER 45 GM BTL 1 APPLIC TOPICAL ×2 (09:16→20:38)
[2021-08-02] MEDS: PANTOPRAZOLE SODIUM IV 40 MG VIAL IV PUSH (09:16)
[2021-08-02] MEDS: MINERAL OIL/WHITE PETROLATUM OINTMENT 1 APPLIC EACH EYE ×2 (09:16→20:38)
[2021-08-02] MEDS: NOREPINEPHRINE 8 MG/D5W 250 ML 8 MG/250 ML BAG 9.38 MG IV CONT (11:05)
[2021-08-02] MEDS: SODIUM CHLORIDE 0.9% IV 1,000 ML 100 ML IV CONT (11:07)
--- NOTE | 2021-08-02 11:27 | WPDINTPN ---
Progress Note: A&P Assessment and Plan (1) Acute respiratory failure with hypoxia: Code(s): J96.01 - Acute respiratory failure with hypoxia Status: Acute Assessment and Plan: Patient with acute hypoxic respiratory failure likely related to COVID pneumonia. Presented on 07/29/2021, increased oxygen requirements along with altered mental status, on BiPAP and using accessory muscles of ventilation, discussed with 2 granddaughters were agreeable to intubation and mechanical ventilation. Patient was intubated on 08/01/2021 -chest x-ray and ABGs reviewed, ventilator adjusted, increase PEEP to 10 and decrease respiratory rate to 20. -08/02/2021: ETT was at 27 cm at the lip this morning which was pulled out to 23 cm at the lip with better air entry on the left side and increased O2 sats -continue bronchodilators, -continue Pulmicort -continue fentanyl and Versed for sedation -prone patient starting today (2) Pneumonia due to COVID-19 virus: Code(s): U07.1 - COVID-19; J12.82 - Pneumonia due to coronavirus disease 2019 Status: Acute Assessment and Plan: Pneumonia secondary to COVID-19. SARS-CoV-2 PCR positive on 07/31/2021 -patient has been started dexamethasone 20 mg IV x5 days then 10 mg IV x5 days -patient's GFR according to pharmacy is significantly low in patient does not qualify for remdesivir due to chronic kidney disease and low GFR -patient's CRP was 14.9, patient was given Tocilizumab on 08/01/2021 (3) Atrial fibrillation with RVR: Code(s): I48.91 - Unspecified atrial fibrillation Status: Acute Assessment and Plan: 08/01/2021 Seem like new onset AFib RVR, received amiodarone bolus and amiodarone infusion, will infusion, currently rate controlled AFib -continue heparin infusion -continue to monitor -TSH was slightly low but T3 and T4 within normal limits (4) Diastolic CHF: Qualifiers: Heart failure chronicity: chronic Qualified Code(s): I50.32 - Chronic diastolic (congestive) heart failure Code(s): I50.30 - Unspecified diastolic (congestive) heart failure Status: Acute Assessment and Plan: Echocardiogram on 07/30/2021: Echocardiogram showed LVEF of 50-55%. Mildly increased LV wall thickness. Grade 1 diastolic dysfunction, mild to moderate aortic valve stenosis -will hold Lasix for now as patient has soft blood pressures (5) CKD (chronic kidney disease) stage 3, GFR 30-59 ml/min: Qualifiers: Chronic kidney disease stage 3 subtype: stage 3a (GFR 45-59) Qualified Code(s): N18.31 - Chronic kidney disease, stage 3a Code(s): N18.3 - Chronic kidney disease, stage 3 (moderate) Status: Chronic Assessment and Plan: Chronic kidney disease stage 3, -slight increase in creatinine, -will give 1 L IV fluids gently -continue to monitor renal function, electrolytes and urine output (6) DVT prophylaxis: Code(s): Z29.9 - Encounter for prophylactic measures, unspecified Status: Acute Assessment and Plan: Heparin infusion Additional Plan Stress ulcer prophylaxis: Protonix Discussed with Keke, patient's granddaughter and updated with patient's condition plan of care. I answered all the questions. Code status: Full code Critical care time spent: 34 minutes This dictation may have been done utilizing a voice recognition system. Attempts have been made to correct errors. However, there may be uncorrected grammatical, spelling, and recognition errors present. Due to a high probability of clinically significant, life threatening deterioration, the patient required my highest level of preparedness to intervene emergently and I personally spent this critical care time directly and personally managing the patient. This critical care time included obtaining a history; examining the patient; pulse oximetry; ordering and review of studies; arranging urgent treatment with development of a management plan; feliciano
--- NOTE | 2021-08-02 11:33 | PM.IMPN ---
Progress Note: A&P Assessment and Plan (1) Acute respiratory failure with hypoxia: Code(s): J96.01 - Acute respiratory failure with hypoxia Status: Acute Assessment and Plan: -chest x-ray and ABGs reviewed -continue bronchodilators, -continue Pulmicort -continue fentanyl and Versed for sedation -prone intermittently -wean as possible (2) Pneumonia due to COVID-19 virus: Code(s): U07.1 - COVID-19; J12.82 - Pneumonia due to coronavirus disease 2018 Status: Acute Assessment and Plan: Pneumonia secondary to COVID-19. SARS-CoV-2 PCR positive on 07/31/2021 -patient has been started dexamethasone 20 mg IV x5 days then 10 mg IV x5 days -does not qualify for remdesivir due to chronic kidney disease and low GFR -Tocilizumab on 08/01/2021 (3) Atrial fibrillation with RVR: Code(s): I48.91 - Unspecified atrial fibrillation Status: Acute Assessment and Plan: 08/01/2021 new onset AFib RVR, received amiodarone bolus and amiodarone infusion -continue heparin infusion -continue to monitor -TSH was slightly low but T3 and T4 within normal limits (4) Diastolic CHF: Qualifiers: Heart failure chronicity: chronic Qualified Code(s): I50.32 - Chronic diastolic (congestive) heart failure Code(s): I50.30 - Unspecified diastolic (congestive) heart failure Status: Acute Assessment and Plan: Echocardiogram on 07/30/2021: Echocardiogram showed LVEF of 50-55%. Mildly increased LV wall thickness. Grade 1 diastolic dysfunction, mild to moderate aortic valve stenosis -hold Lasix due to soft blood pressures (5) CKD (chronic kidney disease) stage 3, GFR 30-59 ml/min: Qualifiers: Chronic kidney disease stage 3 subtype: stage 3a (GFR 45-59) Qualified Code(s): N18.31 - Chronic kidney disease, stage 3a Code(s): N18.3 - Chronic kidney disease, stage 3 (moderate) Status: Chronic Assessment and Plan: Chronic kidney disease stage 3, -08/02 creatinine increased to 2.2, fluid challenge initiated (6) DVT prophylaxis: Code(s): Z29.9 - Encounter for prophylactic measures, unspecified Status: Acute Assessment and Plan: Heparin infusion Subjective Date/time seen: 08/02/21 11:33 Interval history: Admitted 07/29/2021 with CHF/CAP. Intubated 08/01/2021. 08/02/21 visit: ET tube in place, sedated. Review of Systems Review of Systems: ROS unobtainable: Yes unobtainable due to medical condition Exam Narrative: General: Patient is intubated on mechanical ventilation, sedated, in no acute distress at this time HEENT: Sclerae nonicteric. ET tube in place Neck: No JVD Lungs/Chest: Trachea central coarse BS B/L, scattered crackles, decreased breath sounds at bases Cardiac: Irregularly irregular rhythm, regular rate Circulation: Pedal pulses are intact and symmetrical. Abdomen: Hypoactive bowel sounds.. Soft. NT. ND. Extremities: No clubbing, cyanosis or edema. Warm : Mayo in place Neurologic: Patient is intubated, sedated Skin: Warm, no rash Objective Data Vital Signs Vital Signs: Vital Signs - 24 hr 08/01/21 12:00 08/01/21 12:15 08/01/21 12:30 Temperature Pulse Rate 137 H 144 H 139 H Respiratory Rate 24 H 24 H 24 H Blood Pressure 140/75 Pulse Oximetry 94 08/01/21 12:57 08/01/21 13:02 08/01/21 13:58 Temperature 97 F L Pulse Rate 135 H 134 H 129 H Respiratory Rate 24 H 24 H Blood Pressure 107/61 Pulse Oximetry 95 08/01/21 14:00 08/01/21 14:25 08/01/21 14:28 Temperature Pulse Rate 124 H 119 H 119 H Respiratory Rate 24 H 24 H Blood Pressure Pulse Oximetry 94 08/01/21 14:32 08/01/21 15:00 08/01/21 15:55 Temperature Pulse Rate 131 H 116 H 127 H Respiratory Rate 24 H 24 H Blood Pressure Pulse Oximetry 96 08/01/21 16:00 08/01/21 17:36 08/01/21 18:00 Temperature Pulse Rate 117 H 93 100 Respiratory Rate 24 H 24 H Blood Pressure 90/64 L 89/66 L
[2021-08-02] MEDS: ROCURONIUM BROMIDE 50 MG/5 ML VIAL IV PUSH (14:50)
[2021-08-02 15:16] LABS: Glucose Point of Care 178 mg/dl (65-105)
[2021-08-02 16:29] LABS: Partial Thromboplastin Time 116.5 SECONDS (22.3-36.8)
[2021-08-02] MEDS: MIDAZOLAM 100MG/NS 100ML(*CRX) 100 MG/100 ML BAG IV CONT (17:09)
[2021-08-02] MEDS: HEPARIN SOD/D5W 100 UNITS/ML 25,000 UNITS/250 ML BAG 9 UNITS IV CONT (17:10)
[2021-08-02 17:36] LABS: Glucose Point of Care 193 mg/dl (65-105)
[2021-08-02 22:58] LABS: Partial Thromboplastin Time 98.9 SECONDS (22.3-36.8)
[2021-08-02] MEDS: FENTANYL 2,500MCG/NS250ML(*CRX 2,500 MCG/250 ML BAG 12.5 MCG IV CONT (23:10)
[2021-08-03] VITALS (32 sets, daily range): BP systolic 86–118; BP diastolic 50–73; PULSE 78–98; RESP 20–22; TEMP 36.2–36.9; O2SAT 94–99
[2021-08-03] MEDS: INSULIN ASPART (*BKC) 100 UNITS/ML SUB-Q ×3 (00:34→17:46)
[2021-08-03 02:02] LABS: Glucose Point of Care 217 mg/dl (65-105)
[2021-08-03 04:21] LABS: Base Excess ABG 3.2 mEq/l (+/-2.0); Carboxyhemoglobin 0.3 % THb (0-2.0); Fractional Inspired Oxygen 65 %; HCO3 ABG 29.2 mEq/l (22.0-26.0); Methemoglobin ABG 0.4 %THb (0-1.5); Oxygen Content ABG 15.2 %vol (16.0-22.0); Oxygen Saturation ABG 95.6 % (95.0-100.0); Oxyhemoglobin 93.4 % THb (90.0-100.0); PO2 FiO2 Ratio Arterial Blood 1.25 %; Reduced Hemoglobin 5.9 %THb (0-5.0); Site Drawn LEFT RADIAL; Total Hemoglobin 11.5 g/dL (12.0-18.0); pH ABG 7.376 (7.350-7.450)
[2021-08-03 04:22] LABS: Arterial Blood Gas PEEP 10 cmH2O; Arterial Blood Gas Tidal Volume 320 ml; Arterial Blood Gas Vent Mode CMV; Arterial Blood Gas Ventilator rate 20 /MIN; Device VENTILATOR; Modified Allen's Test Unable to perform
[2021-08-03 04:44] LABS: Hematocrit 35.7 % (37.0-47.0); Hemoglobin 10.5 g/dL (12.0-15.0); Mean Corpuscular HGB Conc 29.4 g/dl (32-36); Mean Corpuscular Hemoglobin 24.8 pg (26-34); Mean Corpuscular Volume 84.4 fl (80-100); Mean Platelet Volume 11.8 fl (7.4-10.4); Platelet Count Result 352 k/mm3 (150-375); Red Blood Count 4.23 M/mm3 (4.2-5.4); Red Cell Distribution Width 15.4 % (11.5-14.5); White Blood Count 14.2 K/mm3 (4.5-10.0)
[2021-08-03 04:57] LABS: Anion Gap 6 mmol/L (8-16); Blood Urea Nitrogen 64 mg/dL (7-17); CRP 8.8 mg/dL (<1.0); Calcium 8.4 mg/dL (8.4-10.2); Carbon Dioxide 30 mmol/L (22-30); Chloride 99 mmol/L (98-107); Estimated CRCL calculation 17 ml/min; Estimated Glomerular Filt Rate 20; Glucose 227 mg/dL (65-110); Lactate Dehydrogenase 454 U/L (313-618); Partial Thromboplastin Time 94.6 SECONDS (22.3-36.8); Potassium 4.4 mmol/L (3.4-5.0); Sodium 135 mmol/L (137-145)
[2021-08-03 04:58] LABS: D Dimer 2.99 ug/mL (<0.48)
[2021-08-03] MEDS: CENTRAL LINE FLUSH 10 ML IV PUSH ×4 (05:08→21:29)
[2021-08-03] MEDS: AMIODARONE 360 MG/D5W 200 ML 360 MG/200 ML BAG 16.67 MG IV CONT ×2 (05:08→17:45)
[2021-08-03] MEDS: BUDESONIDE RESPULE NEB 0.5 MG/2 ML AMP INHALATION ×2 (08:52→21:36)
[2021-08-03] MEDS: PANTOPRAZOLE SODIUM IV 40 MG VIAL IV PUSH (09:00)
[2021-08-03] MEDS: MINERAL OIL/WHITE PETROLATUM OINTMENT 1 APPLIC EACH EYE ×2 (09:01→21:29)
[2021-08-03] MEDS: CHOLECALCIFEROL 1,000 UNITS TABLET 5000 UNITS PO (09:01)
[2021-08-03] MEDS: CYANOCOBALAMIN 1,000 MCG TABLET 5000 MCG PO (09:01)
[2021-08-03] MEDS: TOLNAFTATE 1% POWDER 45 GM BTL 1 APPLIC TOPICAL ×2 (09:01→21:29)
--- NOTE | 2021-08-03 09:02 | PM.IMPN ---
Progress Note: A&P Assessment and Plan (1) Acute respiratory failure with hypoxia: Code(s): J96.01 - Acute respiratory failure with hypoxia Status: Acute Assessment and Plan: Initially presented on 07/29 with shortness of breath, increasing oxygen requirements, requiring BiPAP, then transferred to the ICU on 08/01, intubated on 08/01. In the setting of pneumonia due to COVID 19. -continue bronchodilators -continue Pulmicort -continue fentanyl and Versed for sedation -prone intermittently -wean as possible (2) Pneumonia due to COVID-19 virus: Code(s): U07.1 - COVID-19; J12.82 - Pneumonia due to coronavirus disease 2018 Status: Acute Assessment and Plan: Pneumonia secondary to COVID-19. SARS-CoV-2 PCR positive on 07/31/2021 -patient has been started dexamethasone 20 mg IV x5 days then 10 mg IV x5 days -does not qualify for remdesivir due to chronic kidney disease and low GFR -Tocilizumab on 08/01/2021 (3) Atrial fibrillation with RVR: Code(s): I48.91 - Unspecified atrial fibrillation Status: Acute Assessment and Plan: 08/01/2021 new onset AFib RVR, received amiodarone bolus and amiodarone infusion -continue heparin infusion -continue to monitor -TSH was slightly low but T3 and T4 within normal limits (4) Diastolic CHF: Qualifiers: Heart failure chronicity: chronic Qualified Code(s): I50.32 - Chronic diastolic (congestive) heart failure Code(s): I50.30 - Unspecified diastolic (congestive) heart failure Status: Acute Assessment and Plan: Echocardiogram on 07/30/2021: Echocardiogram showed LVEF of 50-55%. Mildly increased LV wall thickness. Grade 1 diastolic dysfunction, mild to moderate aortic valve stenosis - Lasix was being held due to soft blood pressures (5) CKD (chronic kidney disease) stage 3, GFR 30-59 ml/min: Qualifiers: Chronic kidney disease stage 3 subtype: stage 3a (GFR 45-59) Qualified Code(s): N18.31 - Chronic kidney disease, stage 3a Code(s): N18.3 - Chronic kidney disease, stage 3 (moderate) Status: Chronic Assessment and Plan: Chronic kidney disease stage 3 Baseline creatinine has fluctuated between 1.3 and 2 over the past 2 years -08/02 creatinine 2.2-> 2.3, plateauing, monitor (6) DVT prophylaxis: Code(s): Z29.9 - Encounter for prophylactic measures, unspecified Status: Acute Assessment and Plan: Heparin infusion Subjective Date/time seen: 08/03/21 09:02 Remains intubated and sedated. Currently proned. Continues on norepinephrine 4, amiodarone drip, Fentanyl 125, Versed, Heparin gtt. HR 80-90s mostly,SBP 100-110s/60s-80s, in afib. Review of Systems Review of Systems: ROS unobtainable: Yes unobtainable due to medical condition Exam Narrative: Gen: Intubated, sedated, proned Abd: Soft, NT, ND Heart: Irregularly irregular Lungs: Transmitted upper airway sounds Ext: No lower extremity edema Objective Data Vital Signs Vital Signs: Vital Signs - 24 hr 08/02/21 09:05 08/02/21 09:09 08/02/21 09:12 Temperature Pulse Rate 106 H 99 94 Respiratory Rate 32 H 22 H Blood Pressure Pulse Oximetry 93 08/02/21 10:00 08/02/21 10:04 08/02/21 11:05 Temperature Pulse Rate 94 92 89 Respiratory Rate 20 20 Blood Pressure 88/65 L 89/58 L Pulse Oximetry 92 08/02/21 11:09 08/02/21 11:11 08/02/21 11:15 Temperature Pulse Rate 89 Respiratory Rate 24 H Blood Pressure 104/72 Pulse Oximetry 93 08/02/21 11:25 08/02/21 11:30 08/02/21 11:46 Temperature Pulse Rate 85 Respiratory Rate Blood Pressure 142/69 H 147/73 H Pulse Oximetry 95 08/02/21 12:00 08/02/21 14:00 08/02/21 14:56 Temperature 95.2 F L Pulse Rate 74 88 85 Respiratory Rate 20 20 Blood Pressure 108/60 120/74 Pulse Oximetry 94 93 93 08/02/21 15:06 08/02/21 15:09 08/02/21 15:32 Temperature Pulse Rate 91 80 79 Respiratory Rate 20
[2021-08-03] MEDS: SODIUM CHLORIDE 0.9% IV 1,000 ML 100 ML IV CONT ×2 (09:14→21:31)
[2021-08-03 11:38] LABS: Glucose Point of Care 159 mg/dl (65-105)
--- NOTE | 2021-08-03 12:30 | WPDINTPN ---
Progress Note: A&P Assessment and Plan (1) Acute respiratory failure with hypoxia: Code(s): J96.01 - Acute respiratory failure with hypoxia Status: Acute Assessment and Plan: Patient with acute hypoxic respiratory failure likely related to COVID pneumonia. Presented on 07/29/2021, increased oxygen requirements along with altered mental status, on BiPAP and using accessory muscles of ventilation, discussed with 2 granddaughters were agreeable to intubation and mechanical ventilation. Patient was intubated on 08/01/2021 -08/03/2021: Chest x-ray shows, Slight improvement in bilateral patchy lung disease with waxing and waning pattern suggesting COVID pneumonia with improvement in likely prior mild superimposed pulmonary edema. ABGs reviewed, wean FiO2 as tolerated to maintain O2 sats greater than 92% -continue bronchodilators, -continue Pulmicort -continue fentanyl and Versed for sedation -continue to prone patient daily for 18 hours (2) Pneumonia due to COVID-19 virus: Code(s): U07.1 - COVID-19; J12.82 - Pneumonia due to coronavirus disease 2019 Status: Acute Assessment and Plan: Pneumonia secondary to COVID-19. SARS-CoV-2 PCR positive on 07/31/2021 -patient has been started dexamethasone 20 mg IV x5 days then 10 mg IV x5 days -patient's GFR according to pharmacy is significantly low in patient does not qualify for remdesivir due to chronic kidney disease and low GFR -patient's CRP was 14.9, patient was given Tocilizumab on 08/01/2021, CRP down to 8.2 this morning, -ferritin and LDH are normal -D-dimer 2.9 (3) Atrial fibrillation with RVR: Code(s): I48.91 - Unspecified atrial fibrillation Status: Acute Assessment and Plan: 08/01/2021 Seem like new onset AFib RVR, received amiodarone bolus and amiodarone infusion, will infusion, currently rate controlled AFib -continue heparin infusion -continue to monitor -TSH was slightly low but T3 and T4 within normal limits -echocardiogram on 07/30/2021 showed LVEF of 50-55%. Grade 1 diastolic dysfunction, [id number] aortic valve stenosis. (4) Diastolic CHF: Qualifiers: Heart failure chronicity: chronic Qualified Code(s): I50.32 - Chronic diastolic (congestive) heart failure Code(s): I50.30 - Unspecified diastolic (congestive) heart failure Status: Acute Assessment and Plan: Echocardiogram on 07/30/2021: Echocardiogram showed LVEF of 50-55%. Mildly increased LV wall thickness. Grade 1 diastolic dysfunction, mild to moderate aortic valve stenosis -will hold Lasix for now as patient has soft blood pressures (5) CKD (chronic kidney disease) stage 3, GFR 30-59 ml/min: Qualifiers: Chronic kidney disease stage 3 subtype: stage 3a (GFR 45-59) Qualified Code(s): N18.31 - Chronic kidney disease, stage 3a Code(s): N18.3 - Chronic kidney disease, stage 3 (moderate) Status: Chronic Assessment and Plan: Chronic kidney disease stage 3, -creatinine is elevated and stable, urine output improving -Will give additional maintenance IV fluids gently due to COVID pneumonia -continue to monitor renal function, electrolytes and urine output (6) DVT prophylaxis: Code(s): Z29.9 - Encounter for prophylactic measures, unspecified Status: Acute Assessment and Plan: Heparin infusion (7) Shock: Code(s): R57.9 - Shock, unspecified Status: Acute Assessment and Plan: Shock likely related to positive pressure ventilation, sedation medications, COVID pneumonia, infection/sepsis -patient has received adequate IV fluids -lactic acid was normal -continue Levophed, maintain MAP >70 mmHg for optimal perfusion kidneys and other end organs -it is ceftriaxone azithromycin for now -07/29/2021: Blood and urine cultures are negative Additional Plan Stress ulcer prophylaxis: Protonix Discussed with Keke, patient's granddaughter and updated with patient's condition plan
[2021-08-03] MEDS: MIDAZOLAM 100MG/NS 100ML(*CRX) 100 MG/100 ML BAG IV CONT (14:18)
[2021-08-03 15:22] LABS: Partial Thromboplastin Time 123.8 SECONDS (22.3-36.8)
[2021-08-03 17:33] LABS: Glucose Point of Care 219 mg/dl (65-105)
[2021-08-03] MEDS: PRAMIPEXOLE 0.5 MG TABLET PO (17:55)
[2021-08-03] MEDS: FENTANYL 2,500MCG/NS250ML(*CRX 2,500 MCG/250 ML BAG 12.5 MCG IV CONT (18:55)
[2021-08-03 20:55] LABS: Partial Thromboplastin Time 121.6 SECONDS (22.3-36.8)
[2021-08-03] MEDS: HEPARIN SOD/D5W 100 UNITS/ML 25,000 UNITS/250 ML BAG 7 UNITS IV CONT (21:24)
[2021-08-03] MEDS: NOREPINEPHRINE 8 MG/D5W 250 ML 8 MG/250 ML BAG 7.5 MG IV CONT (23:16)
[2021-08-03 23:57] LABS: Glucose Point of Care 167 mg/dl (65-105)
[2021-08-04] VITALS (38 sets, daily range): BP systolic 105–151; BP diastolic 62–78; PULSE 61–782; RESP 20–23; TEMP 36.1–36.9; O2SAT 92–99; BMI 30.3
[2021-08-04 03:37] LABS: Hematocrit 34.8 % (37.0-47.0); Hemoglobin 10.3 g/dL (12.0-15.0); Mean Corpuscular HGB Conc 29.6 g/dl (32-36); Mean Corpuscular Hemoglobin 25.4 pg (26-34); Mean Corpuscular Volume 85.9 fl (80-100); Mean Platelet Volume 11.7 fl (7.4-10.4); Platelet Count Result 344 k/mm3 (150-375); Red Blood Count 4.05 M/mm3 (4.2-5.4); Red Cell Distribution Width 15.2 % (11.5-14.5); White Blood Count 15.4 K/mm3 (4.5-10.0)
[2021-08-04 03:51] LABS: Partial Thromboplastin Time 62.2 SECONDS (22.3-36.8)
[2021-08-04 04:00] LABS: Anion Gap 8 mmol/L (8-16); Blood Urea Nitrogen 76 mg/dL (7-17); Calcium 8.3 mg/dL (8.4-10.2); Carbon Dioxide 28 mmol/L (22-30); Chloride 99 mmol/L (98-107); Estimated CRCL calculation 14 ml/min; Estimated Glomerular Filt Rate 16; Glucose 220 mg/dL (65-110); Sodium 135 mmol/L (137-145)
[2021-08-04] MEDS: HEPARIN SODIUM 5,000 UNITS/ML VIAL 2500 UNITS IV PUSH (04:45)
[2021-08-04] MEDS: CENTRAL LINE FLUSH 10 ML IV PUSH ×4 (04:49→21:31)
[2021-08-04 04:58] LABS: Alveolar/Arterial O2 Gradient 268.9 mmHg; Base Excess ABG 1.2 mEq/l (+/-2.0); Carboxyhemoglobin 0.2 % THb (0-2.0); Fractional Inspired Oxygen 60 %; HCO3 ABG 28.6 mEq/l (22.0-26.0); Methemoglobin ABG 0.4 %THb (0-1.5); Oxygen Content ABG 15.4 %vol (16.0-22.0); Oxygen Saturation ABG 96.2 % (95.0-100.0); Oxyhemoglobin 95.1 % THb (90.0-100.0); PCO2 ABG 59.5 mmHg (35.0-45.0); PO2 ABG 93.5 mmHg (80.0-100.0); PO2 FiO2 Ratio Arterial Blood 1.56 %; Reduced Hemoglobin 4.3 %THb (0-5.0); Total Hemoglobin 11.4 g/dL (12.0-18.0)
[2021-08-04 04:59] LABS: Device VENTILATOR; Modified Allen's Test Unable to perform; Site Drawn LEFT RADIAL
[2021-08-04 05:00] LABS: Arterial Blood Gas PEEP 10 cmH2O; Arterial Blood Gas Tidal Volume 320 ml; Arterial Blood Gas Vent Mode CMV; Arterial Blood Gas Ventilator rate 20 /MIN
[2021-08-04] MEDS: AMIODARONE 360 MG/D5W 200 ML 360 MG/200 ML BAG 16.67 MG IV CONT (06:18)
[2021-08-04 06:34] LABS: Glucose Point of Care 190 mg/dl (65-105)
[2021-08-04] MEDS: BUDESONIDE RESPULE NEB 0.5 MG/2 ML AMP INHALATION ×2 (08:31→20:15)
[2021-08-04] MEDS: CHOLECALCIFEROL 1,000 UNITS TABLET 5000 UNITS PO (09:39)
[2021-08-04] MEDS: CYANOCOBALAMIN 1,000 MCG TABLET 5000 MCG PO (09:39)
[2021-08-04] MEDS: PANTOPRAZOLE SODIUM IV 40 MG VIAL IV PUSH (09:40)
[2021-08-04] MEDS: MINERAL OIL/WHITE PETROLATUM OINTMENT 1 APPLIC EACH EYE ×2 (09:40→21:29)
[2021-08-04] MEDS: TOLNAFTATE 1% POWDER 45 GM BTL 1 APPLIC TOPICAL ×2 (09:40→21:30)
--- NOTE | 2021-08-04 10:02 | PM.CNNEP ---
Assessment and Plan Assessment and plan (1) Acute kidney injury superimposed on chronic kidney disease: Code(s): N17.9 - Acute kidney failure, unspecified; N18.9 - Chronic kidney disease, unspecified Status: Acute Assessment and Plan: The patient has chronic kidney disease. This is most likely on the basis of hypertension and vascular disease. The patient has acute kidney injury superimposed on the above. There are multiple issues it may be related. The patient has hypotension, so the patient could be pre renal. Patient could have ATN from the inflammatory aspects of the COVID. Patient could have obstruction. Can check a renal ultrasound check on this Rhabdomyolysis could always be present a presence of severe viral infection. We can check a CPK It does not look like she was on any medications that would do this. She has not received any contrast The patient had a renal ultrasound today and this is pending. Will get a CPK, urine electrolytes, No need to change any medications at this point (2) Shock: Code(s): R57.9 - Shock, unspecified Status: Acute Assessment and Plan: The patient does on norepinephrine at 4 mics. Blood pressure still a little bit soft. This may be titrated upward shortly. (3) Acute respiratory failure with hypoxia: Code(s): J96.01 - Acute respiratory failure with hypoxia Status: Acute Assessment and Plan: The patient is on the ventilator and getting supportive care with pulmonary toilet. (4) Pneumonia due to COVID-19 virus: Code(s): U07.1 - COVID-19; J12.82 - Pneumonia due to coronavirus disease 2019 Status: Acute Assessment and Plan: She was not vaccinated. She is getting dexamethasone and supportive care (5) Anemia: Qualifiers: Anemia type: unspecified type Qualified Code(s): D64.9 - Anemia, unspecified Code(s): D64.9 - Anemia, unspecified Status: Acute Assessment and Plan: Hemoglobin is 10.3. If this drops much we can start Epogen (6) COPD with asthma: Code(s): J44.9 - Chronic obstructive pulmonary disease, unspecified Status: Acute Assessment and Plan: This is a chronic problem which complicates her acute respiratory issues. (7) Diastolic dysfunction: Code(s): I51.89 - Other ill-defined heart diseases Status: Acute Assessment and Plan: She had another echo showing this. Has [id number] aortic stenosis as well (8) Dyslipidemia: Code(s): E78.5 - Hyperlipidemia, unspecified Status: Acute History of Present Illness Reason for Consult Consult date: 08/04/21 Chief Complaint Chief complaint: CHF Exacerbation vs Pneumonia History of Present Illness Narrative: Maria Teresa is an unfortunate 80-year-old lady who has multiple medical problems including chronic kidney disease with a baseline creatinine between 1.4 and 1.7, hypertension, hyperlipidemia, mild aortic stenosis, diastolic dysfunction, pulmonary emboli, chronic venous insufficiency, hyperlipidemia, COPD with reversible airways disease, B12 deficiency, and vitamin-D deficiency among other issues. The patient came in the hospital because her granddaughter was checking on her and found her in bed having soiled her clothing. The patient was taken to the ER and evaluated there. She was swabbed for COVID and this was negative. The patient have pulmonary infiltrates on her chest x-ray. She was admitted and given supportive care. Repeat swab was done because the patient continued to worsen and this was positive. She was placed in isolation. She had progressively worsened oxygenation and eventually had to be intubated and moved to the ICU. The patient's blood pressure has been somewhat low so she was placed on norepinephrine. Currently she is is sedated. She is on the ventilator. Still on norepinephrine. She has been placed in the prone position intermittently routinely every
[2021-08-04 10:24] LABS: Creatine Kinase 215 U/L (30-135)
--- NOTE | 2021-08-04 10:53 | PM.IMPN ---
Progress Note: A&P Assessment and Plan (1) Acute respiratory failure with hypoxia: Code(s): J96.01 - Acute respiratory failure with hypoxia Status: Acute Assessment and Plan: Initially presented on 07/29 with shortness of breath, increasing oxygen requirements, requiring BiPAP, then transferred to the ICU on 08/01, intubated on 08/01. In the setting of pneumonia due to COVID 19. -continue bronchodilators -continue Pulmicort -continue fentanyl and Versed for sedation -prone intermittently -wean as possible (2) Pneumonia due to COVID-19 virus: Code(s): U07.1 - COVID-19; J12.82 - Pneumonia due to coronavirus disease 2018 Status: Acute Assessment and Plan: Pneumonia secondary to COVID-19. SARS-CoV-2 PCR positive on 07/31/2021 -patient has been started dexamethasone 20 mg IV x5 days then 10 mg IV x5 days -does not qualify for remdesivir due to chronic kidney disease and low GFR -Tocilizumab on 08/01/2021 - Given worsening respiratory status/ infiltrates she was also initiated on azithromycin and ceftriaxone 07/30 (3) Atrial fibrillation with RVR: Code(s): I48.91 - Unspecified atrial fibrillation Status: Acute Assessment and Plan: 08/01/2021 new onset AFib RVR, received amiodarone bolus and amiodarone infusion -continue heparin infusion -continue to monitor -TSH was slightly low but T3 and T4 within normal limits (4) Diastolic CHF: Qualifiers: Heart failure chronicity: chronic Qualified Code(s): I50.32 - Chronic diastolic (congestive) heart failure Code(s): I50.30 - Unspecified diastolic (congestive) heart failure Status: Acute Assessment and Plan: Echocardiogram on 07/30/2021: Echocardiogram showed LVEF of 50-55%. Mildly increased LV wall thickness. Grade 1 diastolic dysfunction, mild to moderate aortic valve stenosis - Lasix was being held due to soft blood pressures (5) CKD (chronic kidney disease) stage 3, GFR 30-59 ml/min: Qualifiers: Chronic kidney disease stage 3 subtype: stage 3a (GFR 45-59) Qualified Code(s): N18.31 - Chronic kidney disease, stage 3a Code(s): N18.3 - Chronic kidney disease, stage 3 (moderate) Status: Chronic Assessment and Plan: Chronic kidney disease stage 3 Baseline creatinine has fluctuated between 1.3 and 2 over the past 2 years LIDIA, likely ATN in setting of COVID and shock requiring pressor support -08/02 creatinine 2.2-> 2.3 -> 2.9 Obtain renal ultrasound Check urinalysis Check CK level (6) DVT prophylaxis: Code(s): Z29.9 - Encounter for prophylactic measures, unspecified Status: Acute Assessment and Plan: Heparin infusion Subjective Date/time seen: 08/04/21 10:53 Remains intubated and sedated. Currently proned. Urine output remains low, 150 mL overnight. Heart rate in the 70s. Systolic blood pressure in the 100s. Maps have been above 65. Remains on norepinephrine at 4 mcg/min. Review of Systems Review of Systems: ROS unobtainable: Yes unobtainable due to medical condition Exam Narrative: Gen: Intubated, sedated, proned Abd: Soft, NT, ND Heart: Irregularly irregular Lungs: Transmitted upper airway sounds Ext: No lower extremity edema Objective Data Vital Signs Vital Signs: Vital Signs - 24 hr 08/03/21 11:24 08/03/21 12:00 08/03/21 14:00 Temperature 98.4 F 98.0 F Pulse Rate 89 91 86 Respiratory Rate 20 20 Blood Pressure 95/62 L 104/67 Pulse Oximetry 94 96 98 08/03/21 14:18 08/03/21 16:00 08/03/21 16:12 Temperature 97.9 F Pulse Rate 85 89 89 Respiratory Rate 20 20 21 H Blood Pressure 99/50 L Pulse Oximetry 97 96 08/03/21 17:45 08/03/21 17:49 08/03/21 17:50 Temperature Pulse Rate 85 94 85 Respiratory Rate 20 20 Blood Pressure 101/65 Pulse Oximetry 08/03/21 17:52 08/03/21 18:00 08/03/21 18:55 Temperature 98.1 F Pulse Rate 85 83 88 Respiratory Rate 20 20 Blood Pressure 101/65 86/56
[2021-08-04 10:56] LABS: Partial Thromboplastin Time 149.5 SECONDS (22.3-36.8)
[2021-08-04 11:32] LABS: Creatine Kinase 273 U/L (30-135)
[2021-08-04] MEDS: MIDAZOLAM 100MG/NS 100ML(*CRX) 100 MG/100 ML BAG IV CONT (11:34)
[2021-08-04 11:38] LABS: Glucose Point of Care 148 mg/dl (65-105)
[2021-08-04] MEDS: AMIODARONE HCL 100 MG TABLET PO ×2 (13:00→23:54)
[2021-08-04] MEDS: FENTANYL 2,500MCG/NS250ML(*CRX 2,500 MCG/250 ML BAG 12.5 MCG IV CONT (15:02)
--- NOTE | 2021-08-04 15:15 | WPDINTPN ---
Progress Note: A&P Assessment and Plan (1) Acute respiratory failure with hypoxia: Code(s): J96.01 - Acute respiratory failure with hypoxia Status: Acute Assessment and Plan: Patient with acute hypoxic respiratory failure likely related to COVID pneumonia. Presented on 07/29/2021, increased oxygen requirements along with altered mental status, on BiPAP and using accessory muscles of ventilation, discussed with 2 granddaughters were agreeable to intubation and mechanical ventilation. Patient was intubated on 08/01/2021 -on low tidal volume strategy, currently on peep of 10 and 60% FiO2 -chest x-ray and ABGs reviewed, wean FiO2 as tolerated -continue bronchodilators, -continue Pulmicort -continue fentanyl and Versed for sedation -continue to prone patient daily for 18 hours (2) Pneumonia due to COVID-19 virus: Code(s): U07.1 - COVID-19; J12.82 - Pneumonia due to coronavirus disease 2019 Status: Acute Assessment and Plan: Pneumonia secondary to COVID-19. SARS-CoV-2 PCR positive on 07/31/2021 -patient has been started dexamethasone 20 mg IV x5 days then 10 mg IV x5 days -patient's GFR according to pharmacy is significantly low in patient does not qualify for remdesivir due to chronic kidney disease and low GFR -patient's CRP was 14.9, patient was given Tocilizumab on 08/01/2021, CRP down to 8.2 this morning, -ferritin and LDH are normal -D-dimer 2.9 (3) Atrial fibrillation with RVR: Code(s): I48.91 - Unspecified atrial fibrillation Status: Acute Assessment and Plan: 08/01/2021 Seem like new onset AFib RVR, received amiodarone bolus and amiodarone infusion, will infusion, currently rate controlled AFib -will switch IV amiodarone to p.o. -continue heparin infusion -continue to monitor -TSH was slightly low but T3 and T4 within normal limits -echocardiogram on 07/30/2021 showed LVEF of 50-55%. Grade 1 diastolic dysfunction, [id number] aortic valve stenosis. (4) Acute kidney injury superimposed on chronic kidney disease: Code(s): N17.9 - Acute kidney failure, unspecified; N18.9 - Chronic kidney disease, unspecified Status: Acute Assessment and Plan: Acute on chronic kidney disease stage 3 -decreased urine output, despite IV fluids, worsening creatinine -nephrology has been consulted -renal ultrasound 08/04/2021 showed medical renal disease cortical thinning, no hydronephrosis -urine lytes have been ordered and pending, -CK level 273 -will continue to monitor renal function, electrolytes and urine (5) Diastolic CHF: Qualifiers: Heart failure chronicity: chronic Qualified Code(s): I50.32 - Chronic diastolic (congestive) heart failure Code(s): I50.30 - Unspecified diastolic (congestive) heart failure Status: Acute Assessment and Plan: Echocardiogram on 07/30/2021: Echocardiogram showed LVEF of 50-55%. Mildly increased LV wall thickness. Grade 1 diastolic dysfunction, mild to moderate aortic valve stenosis -will hold Lasix for now as patient has soft blood pressures (6) DVT prophylaxis: Code(s): Z29.9 - Encounter for prophylactic measures, unspecified Status: Acute Assessment and Plan: Heparin infusion (7) Shock: Code(s): R57.9 - Shock, unspecified Status: Acute Assessment and Plan: Shock likely related to positive pressure ventilation, sedation medications, COVID pneumonia, infection/sepsis -patient has received adequate IV fluids -lactic acid was normal -continue Levophed, maintain MAP >70 mmHg for optimal perfusion kidneys and other end organs -it is ceftriaxone azithromycin for now -07/29/2021: Blood and urine cultures are negative Additional Plan Stress ulcer prophylaxis: Protonix Discussed with Keke, patient's granddaughter and updated with patient's condition plan of care. I answered all the questions. Code status: Full code Critical care time spent: 33 minutes
[2021-08-04] MEDS: PRAMIPEXOLE 0.5 MG TABLET PO (17:20)
[2021-08-04 17:24] LABS: Glucose Point of Care 161 mg/dl (65-105)
[2021-08-04 17:49] LABS: Partial Thromboplastin Time 98.6 SECONDS (22.3-36.8)
[2021-08-04] MEDS: INSULIN ASPART (*BKC) 100 UNITS/ML SUB-Q (23:54)
[2021-08-05] VITALS (33 sets, daily range): BP systolic 113–158; BP diastolic 62–77; PULSE 64–90; RESP 15–22; TEMP 35.6–36.2; O2SAT 92–100
[2021-08-05 00:13] LABS: Glucose Point of Care 213 mg/dl (65-105)
[2021-08-05 00:28] LABS: Add Urine Microscopic? YES; Appearance Urine Clear (Clear); Bacteria Urine Trace /hpf; Bilirubin Urine Negative (Negative); Blood Urine 1+ (Negative); Color Urine Yellow (Yellow); Glucose Urine UA Negative (Negative); Ketones Urine Negative (Negative); Leukocyte Esterase Ur Negative LEU/UL (NEGATIVE); Nitrate Urine Negative (Negative); Protein Urine Negative (Negative); RBC Urine 0-2 /hpf (0-2); Specific Grav Ur 1.013 (1.001-1.035); Squamous Epithelial Cell Urine Rare /hpf (Few); Uric Acid Crystals Urine Present /hpf; Urobilinogen Urine Negative mg/dL (<2.0); WBC Urine 0-3 /hpf (0-3)
[2021-08-05 00:33] LABS: Partial Thromboplastin Time 73.5 SECONDS (22.3-36.8)
[2021-08-05 00:38] LABS: Total Protein Urine Random 20 mg/dL; Ur Ttl Prot Creatinine Ratio 0.45 mg/mg (0-0.20)
[2021-08-05 01:37] LABS: Sodium Urine Random 23 meq/L
[2021-08-05 05:06] LABS: Alveolar/Arterial O2 Gradient 256.2 mmHg; Base Excess ABG 2.7 mEq/l (+/-2.0); Carboxyhemoglobin 0.2 % THb (0-2.0); Fractional Inspired Oxygen 60 %; HCO3 ABG 29.4 mEq/l (22.0-26.0); Methemoglobin ABG 0.4 %THb (0-1.5); Oxygen Content ABG 15.5 %vol (16.0-22.0); Oxygen Saturation ABG 97.7 % (95.0-100.0); Oxyhemoglobin 96.5 % THb (90.0-100.0); PCO2 ABG 55.8 mmHg (35.0-45.0); PO2 ABG 110.2 mmHg (80.0-100.0); PO2 FiO2 Ratio Arterial Blood 1.84 %; Reduced Hemoglobin 2.9 %THb (0-5.0); Total Hemoglobin 11.3 g/dL (12.0-18.0)
[2021-08-05 05:07] LABS: Arterial Blood Gas PEEP 10 cmH2O; Arterial Blood Gas Tidal Volume 320 ml; Arterial Blood Gas Vent Mode CMV; Arterial Blood Gas Ventilator rate 22 /MIN; Device VENTILATOR; Modified Allen's Test Pass; Site Drawn LEFT RADIAL
[2021-08-05 05:57] LABS: Hematocrit 34.2 % (37.0-47.0); Hemoglobin 10.1 g/dL (12.0-15.0); Mean Corpuscular HGB Conc 29.5 g/dl (32-36); Mean Corpuscular Hemoglobin 24.9 pg (26-34); Mean Corpuscular Volume 84.4 fl (80-100); Platelet Count Result 304 k/mm3 (150-375); Red Blood Count 4.05 M/mm3 (4.2-5.4); Red Cell Distribution Width 15.4 % (11.5-14.5); White Blood Count 12.4 K/mm3 (4.5-10.0)
[2021-08-05 05:59] LABS: Albumin Level 2.7 g/dL (3.5-5.1); Anion Gap 4 mmol/L (8-16); Blood Urea Nitrogen 84 mg/dL (7-17); CRP 3.2 mg/dL (<1.0); Calcium 8.5 mg/dL (8.4-10.2); Carbon Dioxide 30 mmol/L (22-30); Chloride 99 mmol/L (98-107); Estimated CRCL calculation 15 ml/min; Estimated Glomerular Filt Rate 17; Glucose 217 mg/dL (65-110); Lactate Dehydrogenase 425 U/L (313-618); Magnesium 1.8 mg/dL (1.6-2.3); Phosphorus 5.3 mg/dL (2.5-4.5); Potassium 5.2 mmol/L (3.4-5.0); Sodium 133 mmol/L (137-145)
[2021-08-05 06:05] LABS: D Dimer 2.47 ug/mL (<0.48)
[2021-08-05] MEDS: INSULIN ASPART (*BKC) 100 UNITS/ML SUB-Q (06:40)
[2021-08-05] MEDS: HEPARIN SODIUM 5,000 UNITS/ML VIAL 2500 UNITS IV PUSH (06:40)
[2021-08-05] MEDS: CENTRAL LINE FLUSH 10 ML IV PUSH ×4 (06:41→21:26)
[2021-08-05] MEDS: MIDAZOLAM 100MG/NS 100ML(*CRX) 100 MG/100 ML BAG IV CONT (08:04)
[2021-08-05] MEDS: BUDESONIDE RESPULE NEB 0.5 MG/2 ML AMP INHALATION ×2 (08:31→19:39)
[2021-08-05] MEDS: PANTOPRAZOLE SODIUM IV 40 MG VIAL IV PUSH (10:10)
[2021-08-05] MEDS: TOLNAFTATE 1% POWDER 45 GM BTL 1 APPLIC TOPICAL ×2 (10:10→21:26)
[2021-08-05] MEDS: AMIODARONE HCL 100 MG TABLET PO ×2 (10:11→21:53)
[2021-08-05] MEDS: CHOLECALCIFEROL 1,000 UNITS TABLET 5000 UNITS PO (10:12)
[2021-08-05] MEDS: MINERAL OIL/WHITE PETROLATUM OINTMENT 1 APPLIC EACH EYE ×2 (10:13→21:26)
[2021-08-05] MEDS: CYANOCOBALAMIN 1,000 MCG TABLET 5000 MCG PO (10:13)
[2021-08-05] MEDS: HEPARIN SOD/D5W 100 UNITS/ML 25,000 UNITS/250 ML BAG 7 UNITS IV CONT (11:06)
--- NOTE | 2021-08-05 11:11 | PCDIET ---
ICU Rounding Note: Patient tolerating Jevity 1.2 at 45mL/hr goal rate with 30mL water flush every 4 hours. Clarified change to Glucerna 1.2 with RN; formula being changed. Last recorded weight is 81.5kg which is increased from last review. +I/O. Bowel Motility: No documented BM. Labs Reviewed: WBC (12.4), RBC (4.05), Hgb (10.1), Hct (34.2), Glu (217), BUN (84), Cr (2.7), K (5.2), Na (133), PO4 (5.3) Meds Noted: Pacerone, Pulmicort, Vitamin B12, Decadron, Fentanyl, Novolog, Xopenex, Versed, Levophed, Protonix, Vitamin D Additional Notes: Left arm skin tear. Groin area macerated. Following daily in ICU rounds. Assessing/reassessing every Tuesday/Tuesday.
[2021-08-05] MEDS: FENTANYL 2,500MCG/NS250ML(*CRX 2,500 MCG/250 ML BAG 12.5 MCG IV CONT (11:47)
[2021-08-05 12:09] LABS: Partial Thromboplastin Time > 200.0 SECONDS (22.3-36.8)
[2021-08-05 12:20] LABS: Glucose Point of Care 166 mg/dl (65-105)
[2021-08-05 12:57] LABS: Partial Thromboplastin Time 163.7 SECONDS (22.3-36.8)
--- NOTE | 2021-08-05 12:57 | PM.IMPN ---
Progress Note: A&P Assessment and Plan (1) Acute respiratory failure with hypoxia: Code(s): J96.01 - Acute respiratory failure with hypoxia Status: Acute Assessment and Plan: Initially presented on 07/29 with shortness of breath, increasing oxygen requirements, requiring BiPAP, then transferred to the ICU on 08/01, intubated on 08/01. In the setting of pneumonia due to COVID 19. Continue bronchodilators Continue Pulmicort Continue fentanyl and Versed for sedation Prone intermittently Wean as possible (2) Pneumonia due to COVID-19 virus: Code(s): U07.1 - COVID-19; J12.82 - Pneumonia due to coronavirus disease 2019 Status: Acute Assessment and Plan: Pneumonia secondary to COVID-19. SARS-CoV-2 PCR positive on 07/31/2021 Patient has been started dexamethasone 20 mg IV x5 days then 10 mg IV x5 days Does not qualify for remdesivir due to chronic kidney disease and low GFR Tocilizumab on 08/01/2021 Given worsening respiratory status/ infiltrates she was also initiated on azithromycin and ceftriaxone 07/30 (3) Atrial fibrillation with RVR: Code(s): I48.91 - Unspecified atrial fibrillation Status: Acute Assessment and Plan: 08/01/2021 new onset AFib RVR, received amiodarone bolus and amiodarone infusion Amiodarone transitioned to PO Continue heparin infusion Continue to monitor TSH was slightly low but T3 and T4 within normal limits (4) Diastolic CHF: Qualifiers: Heart failure chronicity: chronic Qualified Code(s): I50.32 - Chronic diastolic (congestive) heart failure Code(s): I50.30 - Unspecified diastolic (congestive) heart failure Status: Acute Assessment and Plan: Echocardiogram on 07/30/2021: LVEF of 50-55%. Mildly increased LV wall thickness. Grade 1 diastolic dysfunction, mild to moderate aortic valve stenosis. (5) DVT prophylaxis: Code(s): Z29.9 - Encounter for prophylactic measures, unspecified Status: Acute Assessment and Plan: Heparin infusion (6) Acute kidney injury superimposed on chronic kidney disease: Code(s): N17.9 - Acute kidney failure, unspecified; N18.9 - Chronic kidney disease, unspecified Status: Acute Assessment and Plan: Chronic kidney disease stage 3 Baseline creatinine has fluctuated between 1.3 and 2 over the past 2 years LIDIA, likely ATN in setting of COVID and shock requiring pressor support -08/02 creatinine 2.2-> 2.3 -> 2.9 -> 2.7 Renal US no obstruction, chronic disease with cortical thinning CK level 200s Continue to keep mean arterial pressure above 65 Subjective Date/time seen: 08/05/21 12:57 Remains intubated and sedated. Currently in prone position. Urine output seems to be improving. 625 mL overnight. Tolerating tube feeds. Norepinephrine at 4 mics per minute. Heparin infusion ongoing. Review of Systems Review of Systems: ROS unobtainable: Yes unobtainable due to medical condition Exam Narrative: Gen: Intubated, sedated, proned Abd: Soft, NT, ND Heart: Irregularly irregular Lungs: Transmitted upper airway sounds Ext: No lower extremity edema Objective Data Vital Signs Vital Signs: Vital Signs - 24 hr 08/04/21 13:00 08/04/21 14:00 08/04/21 14:05 Temperature 97.4 F L Pulse Rate 72 69 63 Respiratory Rate 22 H Blood Pressure 147/77 H Pulse Oximetry 92 94 08/04/21 14:09 08/04/21 14:55 08/04/21 15:02 Temperature Pulse Rate 71 68 68 Respiratory Rate 22 H 22 H 22 H Blood Pressure Pulse Oximetry 08/04/21 15:06 08/04/21 16:00 08/04/21 16:55 Temperature 97.5 F L Pulse Rate 69 75 62 Respiratory Rate 22 H Blood Pressure 143/74 H 136/72 Pulse Oximetry 98 96 08/04/21 17:09 08/04/21 17:10 08/04/21 18:00 Temperature 97.4 F L Pulse Rate 76 68 61 Respiratory Rate 22 H 22 H 22 H Blood Pressure 145/78 H Pulse Oximetry 96 08/04/21 20:00 08/04/21 20:10 08/04/21 20:22 Temperature 97.0 F L Pulse
--- NOTE | 2021-08-05 15:04 | PM.PNNEP ---
Progress Note: A&P Assessment and Plan (1) Acute kidney injury superimposed on chronic kidney disease: Code(s): N17.9 - Acute kidney failure, unspecified; N18.9 - Chronic kidney disease, unspecified Status: Acute Assessment and Plan: The patient has chronic kidney disease. This is most likely on the basis of hypertension and vascular disease. The patient has acute kidney injury superimposed on the above. renal ultrasound shows chronic disease only. Urine electrolytes are non pre renal. UA is bland CPK was okay There are multiple issues it may be related. The patient has hypotension, so the patient could be pre renal. her Levophed dose has been reduced to 3. Patient could have ATN from the inflammatory aspects of the COVID. She is getting treatment for this will continue to watch. Hopefully the improved urine output and slightly lower creatinine is a sign for further improvement going forward. (2) Shock: Code(s): R57.9 - Shock, unspecified Status: Acute Assessment and Plan: The patient does on norepinephrine at 3 mics. Blood pressure still a little bit soft. (3) Acute respiratory failure with hypoxia: Code(s): J96.01 - Acute respiratory failure with hypoxia Status: Acute Assessment and Plan: The patient is on the ventilator and getting supportive care with pulmonary toilet. (4) Pneumonia due to COVID-19 virus: Code(s): U07.1 - COVID-19; J12.82 - Pneumonia due to coronavirus disease 2019 Status: Acute Assessment and Plan: She was not vaccinated. She is getting dexamethasone and supportive care (5) Anemia: Qualifiers: Anemia type: unspecified type Qualified Code(s): D64.9 - Anemia, unspecified Code(s): D64.9 - Anemia, unspecified Status: Acute Assessment and Plan: Hemoglobin is 10.3. If this drops much we can start Epogen (6) COPD with asthma: Code(s): J44.9 - Chronic obstructive pulmonary disease, unspecified Status: Acute Assessment and Plan: This is a chronic problem which complicates her acute respiratory issues. (7) Diastolic dysfunction: Code(s): I51.89 - Other ill-defined heart diseases Status: Acute Assessment and Plan: She had another echo showing this. Has [id number] aortic stenosis as well (8) Dyslipidemia: Code(s): E78.5 - Hyperlipidemia, unspecified Status: Acute Subjective Date/time seen: 08/05/21 15:04 Interval history: Lisa is a little better today. She is still in the prone position on the ventilator but urine output is up a little bit and her blood pressure seems a little better as well. Exam Narrative: WDWN Female on the ventilator, sedated, in the prone position skin no rash head ncat lungs course bibasilar breath sounds cor reg no rub or gallop abd BS+ nontender and soft ext no edema. Objective Data Vital Signs Vital Signs: Vital Signs - 24 hr 08/04/21 15:06 08/04/21 16:00 08/04/21 16:55 Temperature 36.4 C L Pulse Rate 69 75 62 Respiratory Rate 22 H Blood Pressure 143/74 H 136/72 Pulse Oximetry 98 96 08/04/21 17:09 08/04/21 17:10 08/04/21 18:00 Temperature 36.3 C L Pulse Rate 76 68 61 Respiratory Rate 22 H 22 H 22 H Blood Pressure 145/78 H Pulse Oximetry 96 08/04/21 20:00 08/04/21 20:10 08/04/21 20:22 Temperature 36.1 C L Pulse Rate 68 63 62 Respiratory Rate 22 H 22 H Blood Pressure 134/71 Pulse Oximetry 96 97 08/04/21 22:00 08/04/21 23:53 08/04/21 23:54 Temperature Pulse Rate 65 78 76 Respiratory Rate 22 H Blood Pressure 137/65 Pulse Oximetry 99 98 08/05/21 00:00 08/05/21 02:00 08/05/21 03:16 Temperature 35.7 C L 35.7 C L Pulse Rate 76 68 76 Respiratory Rate 22 H 22 H 22 H Blood Pressure 132/63 123/77 Pulse Oximetry 99 100 97 08/05/21 03:22 08/05/21 04:00 08/05/21 05:09 Temperature 35.6 C L Pulse Rate 69 78 83
--- NOTE | 2021-08-05 15:13 | WPDINTPN ---
Progress Note: A&P Assessment and Plan (1) Acute respiratory failure with hypoxia: Code(s): J96.01 - Acute respiratory failure with hypoxia Status: Acute Assessment and Plan: Patient with acute hypoxic respiratory failure likely related to COVID pneumonia. Presented on 07/29/2021, increased oxygen requirements along with altered mental status, on BiPAP and using accessory muscles of ventilation, discussed with 2 granddaughters were agreeable to intubation and mechanical ventilation. Patient was intubated on 08/01/2021 -on low tidal volume strategy, currently on peep of 10 and 60% FiO2, will wean FiO2 as tolerated -chest x-ray and ABGs reviewed, -continue bronchodilators, -continue Pulmicort -continue fentanyl and Versed for sedation -continue to prone patient daily for 18 hours (2) Pneumonia due to COVID-19 virus: Code(s): U07.1 - COVID-19; J12.82 - Pneumonia due to coronavirus disease 2019 Status: Acute Assessment and Plan: Pneumonia secondary to COVID-19. SARS-CoV-2 PCR positive on 07/31/2021 -patient has been started dexamethasone 20 mg IV x5 days then 10 mg IV x5 days -patient's GFR according to pharmacy is significantly low in patient does not qualify for remdesivir due to chronic kidney disease and low GFR -patient's CRP was 14.9, patient was given Tocilizumab on 08/01/2021, CRP down to 8.2 this morning, -08/05/2021: LDH within normal limits, D-dimer trending down, CRP and ferritin trending down, continue to trend inflammatory markers (3) Atrial fibrillation with RVR: Code(s): I48.91 - Unspecified atrial fibrillation Status: Acute Assessment and Plan: 08/01/2021 Seem like new onset AFib RVR, received amiodarone bolus and amiodarone infusion, will infusion, currently rate controlled AFib -OFF AMIODARONE INFUSION Started on P.O. amiodarone on 08/04/2021. -continue heparin infusion -continue to monitor -TSH was slightly low but T3 and T4 within normal limits -echocardiogram on 07/30/2021 showed LVEF of 50-55%. Grade 1 diastolic dysfunction, [id number] aortic valve stenosis. (4) Acute kidney injury superimposed on chronic kidney disease: Code(s): N17.9 - Acute kidney failure, unspecified; N18.9 - Chronic kidney disease, unspecified Status: Acute Assessment and Plan: Acute on chronic kidney disease stage 3 -nephrology has been consulted -renal ultrasound 08/04/2021 showed medical renal disease cortical thinning, no hydronephrosis -urine lytes are non prerenal, -CK level 273 -will continue to monitor renal function, electrolytes and urine -urine output improved after mild hydration, creatinine slightly improved. Will continue to monitor (5) Diastolic CHF: Qualifiers: Heart failure chronicity: chronic Qualified Code(s): I50.32 - Chronic diastolic (congestive) heart failure Code(s): I50.30 - Unspecified diastolic (congestive) heart failure Status: Acute Assessment and Plan: Echocardiogram on 07/30/2021: Echocardiogram showed LVEF of 50-55%. Mildly increased LV wall thickness. Grade 1 diastolic dysfunction, mild to moderate aortic valve stenosis -will hold Lasix for now as patient has soft blood pressures (6) DVT prophylaxis: Code(s): Z29.9 - Encounter for prophylactic measures, unspecified Status: Acute Assessment and Plan: Heparin infusion (7) Shock: Code(s): R57.9 - Shock, unspecified Status: Acute Assessment and Plan: Shock likely related to positive pressure ventilation, sedation medications, COVID pneumonia, infection/sepsis -patient has received adequate IV fluids -lactic acid was normal -continue Levophed, maintain MAP >70 mmHg for optimal perfusion kidneys and other end organs -it is ceftriaxone azithromycin for now -07/29/2021: Blood and urine cultures are negative Additional Plan Stress ulcer prophylaxis: Protonix 08/05/2021: Discussed with Lashell, patient
[2021-08-05] MEDS: NOREPINEPHRINE 8 MG/D5W 250 ML 8 MG/250 ML BAG 7.5 MG IV CONT (15:35)
[2021-08-05] MEDS: PRAMIPEXOLE 0.5 MG TABLET PO (17:39)
[2021-08-05 17:54] LABS: Glucose Point of Care 189 mg/dl (65-105)
[2021-08-05 19:55] LABS: Partial Thromboplastin Time 50.2 SECONDS (22.3-36.8)
[2021-08-05] MEDS: HEPARIN SODIUM 5,000 UNITS/ML VIAL 5000 UNITS IV PUSH (20:32)
[2021-08-05 23:59] LABS: Glucose Point of Care 170 mg/dl (65-105)
[2021-08-06] VITALS (37 sets, daily range): BP systolic 90–149; BP diastolic 40–79; PULSE 66–107; RESP 18–24; TEMP 35.9–36.8; O2SAT 90–100
[2021-08-06 04:24] LABS: Magnesium 2.2 mg/dL (1.6-2.3); Phosphorus 5.4 mg/dL (2.5-4.5)
[2021-08-06 04:54] LABS: Base Excess ABG 1.1 mEq/l (+/-2.0); Carboxyhemoglobin 0.3 % THb (0-2.0); Fractional Inspired Oxygen 45 %; HCO3 ABG 25.9 mEq/l (22.0-26.0); Methemoglobin ABG 0.4 %THb (0-1.5); Oxygen Content ABG 14.6 %vol (16.0-22.0); Oxygen Saturation ABG 95.1 % (95.0-100.0); Oxyhemoglobin 93.2 % THb (90.0-100.0); PCO2 ABG 42.1 mmHg (35.0-45.0); PO2 FiO2 Ratio Arterial Blood 1.67 %; Reduced Hemoglobin 6.1 %THb (0-5.0); Total Hemoglobin 11.1 g/dL (12.0-18.0); pH ABG 7.407 (7.350-7.450)
[2021-08-06 04:55] LABS: Device VENTILATOR; Modified Allen's Test Pass; Site Drawn LEFT RADIAL
[2021-08-06 04:56] LABS: Arterial Blood Gas PEEP 10 cmH2O; Arterial Blood Gas Vent Mode CMV; Arterial Blood Gas Ventilator rate 22 /MIN
[2021-08-06] MEDS: MIDAZOLAM 100MG/NS 100ML(*CRX) 100 MG/100 ML BAG IV CONT (05:34)
[2021-08-06] MEDS: CENTRAL LINE FLUSH 10 ML IV PUSH ×4 (05:35→21:21)
[2021-08-06 06:31] LABS: Glucose Point of Care 166 mg/dl (65-105)
[2021-08-06 08:24] LABS: Alanine Aminotransferase 16 U/L (4-35); Albumin Level 2.5 g/dL (3.5-5.1); Alkaline Phosphatase 61 U/L (38-126); Anion Gap 3 mmol/L (8-16); Aspartate Amino Transferase 21 U/L (14-36); Bilirubin,Total 0.2 mg/dL (0.2-1.3); Blood Urea Nitrogen 96 mg/dL (7-17); Calcium 8.7 mg/dL (8.4-10.2); Carbon Dioxide 28 mmol/L (22-30); Chloride 99 mmol/L (98-107); Estimated CRCL calculation 16 ml/min; Estimated Glomerular Filt Rate 18; Glucose 165 mg/dL (65-110); Potassium 5.8 mmol/L (3.4-5.0); Sodium 130 mmol/L (137-145)
[2021-08-06] MEDS: BUDESONIDE RESPULE NEB 0.5 MG/2 ML AMP INHALATION ×2 (08:32→19:55)
[2021-08-06 08:34] LABS: Partial Thromboplastin Time 105.7 SECONDS (22.3-36.8)
[2021-08-06] MEDS: FENTANYL 2,500MCG/NS250ML(*CRX 2,500 MCG/250 ML BAG 12.5 MCG IV CONT (10:00)
[2021-08-06] MEDS: TOLNAFTATE 1% POWDER 45 GM BTL 1 APPLIC TOPICAL ×2 (10:02→21:21)
[2021-08-06] MEDS: AMIODARONE HCL 100 MG TABLET PO ×2 (10:02→20:44)
[2021-08-06] MEDS: MINERAL OIL/WHITE PETROLATUM OINTMENT 1 APPLIC EACH EYE ×2 (10:03→20:45)
[2021-08-06 10:11] LABS: Hematocrit 33.8 % (37.0-47.0); Hemoglobin 9.8 g/dL (12.0-15.0); Mean Corpuscular Hemoglobin 24.4 pg (26-34); Mean Corpuscular Volume 84.1 fl (80-100); Mean Platelet Volume 11.6 fl (7.4-10.4); Platelet Count Result 294 k/mm3 (150-375); Red Blood Count 4.02 M/mm3 (4.2-5.4); Red Cell Distribution Width 15.3 % (11.5-14.5); White Blood Count 16.2 K/mm3 (4.5-10.0)
[2021-08-06 10:32] LABS: Magnesium 2.2 mg/dL (1.6-2.3)
--- NOTE | 2021-08-06 10:58 | PCDIET ---
ICU Rounding Note: Patient tolerating Glucerna 1.2 at 45mL/hr with 30mL water flush every 4 hours. If K+ remains elevated, would consider change to Nepro. In mean time, could consider medication to lower serum potassium. Noted pH in goal range. Last recorded weight is 81.1kg which is stable. +I/O. Bowel Motility: No documented BM as of yet. Labs Reviewed: Glu (166), BUN (96), Cr (2.6), K (5.8), Na (130), Alb (2.5), PO4 (5.4) Meds Noted: Pacerone, Decadron, Levophed, Pulmicort, Fentanyl, Xopenex, Protonix, Vitamin B12, Heparin, Novolog, Versed, Vitamin D Additional Notes: No change in skin reported. Following daily in ICU rounds. Assessing/reassessing every Tuesday/Tuesday.
--- NOTE | 2021-08-06 10:59 | PM.IMPN ---
Progress Note: A&P Assessment and Plan (1) Acute respiratory failure with hypoxia: Code(s): J96.01 - Acute respiratory failure with hypoxia Status: Acute Assessment and Plan: Initially presented on 07/29 with shortness of breath, increasing oxygen requirements, requiring BiPAP, then transferred to the ICU on 08/01, intubated on 08/01. In the setting of pneumonia due to COVID 19. Continue bronchodilators Continue Pulmicort Continue fentanyl and Versed for sedation Prone intermittently Wean as possible (2) Pneumonia due to COVID-19 virus: Code(s): U07.1 - COVID-19; J12.82 - Pneumonia due to coronavirus disease 2019 Status: Acute Assessment and Plan: Pneumonia secondary to COVID-19. SARS-CoV-2 PCR positive on 07/31/2021 Patient has been started dexamethasone 20 mg IV x5 days then 10 mg IV x5 days Does not qualify for remdesivir due to chronic kidney disease and low GFR Tocilizumab on 08/01/2021 Given worsening respiratory status/ infiltrates she was also initiated on azithromycin and ceftriaxone 07/30 (3) Atrial fibrillation with RVR: Code(s): I48.91 - Unspecified atrial fibrillation Status: Acute Assessment and Plan: 08/01/2021 new onset AFib RVR, received amiodarone bolus and amiodarone infusion Amiodarone transitioned to PO Continue heparin infusion Continue to monitor TSH was slightly low but T3 and T4 within normal limits (4) Diastolic CHF: Qualifiers: Heart failure chronicity: chronic Qualified Code(s): I50.32 - Chronic diastolic (congestive) heart failure Code(s): I50.30 - Unspecified diastolic (congestive) heart failure Status: Acute Assessment and Plan: Echocardiogram on 07/30/2021: LVEF of 50-55%. Mildly increased LV wall thickness. Grade 1 diastolic dysfunction, mild to moderate aortic valve stenosis. (5) DVT prophylaxis: Code(s): Z29.9 - Encounter for prophylactic measures, unspecified Status: Acute Assessment and Plan: Heparin infusion (6) Acute kidney injury superimposed on chronic kidney disease: Code(s): N17.9 - Acute kidney failure, unspecified; N18.9 - Chronic kidney disease, unspecified Status: Acute Assessment and Plan: Chronic kidney disease stage 3 Baseline creatinine has fluctuated between 1.3 and 2 over the past 2 years LIDIA, likely ATN in setting of COVID and shock requiring pressor support -08/02 creatinine 2.2-> 2.3 -> 2.9 -> 2.7 -> 2.6 Renal US no obstruction, chronic disease with cortical thinning CK level 200s Continue to keep mean arterial pressure above 65 Subjective Date/time seen: 08/06/21 10:59 Remains intubated and sedated. Currently in prone position. Tolerating tube feeds. Urine output 500 mL since midnight. Norepinephrine at 4 mics per minute which has been stable. Heparin infusion. Review of Systems Review of Systems: All systems reviewed & are unremarkable except as noted in HPI and below Exam Narrative: Gen: Intubated, sedated, proned Abd: Soft, NT, ND Heart: Irregularly irregular Lungs: Transmitted upper airway sounds Ext: No lower extremity edema Objective Data Vital Signs Vital Signs: Vital Signs - 24 hr 08/05/21 11:06 08/05/21 11:47 08/05/21 12:00 Temperature 97.1 F L Pulse Rate 88 78 74 Respiratory Rate 22 H 22 H Blood Pressure 119/70 Pulse Oximetry 94 92 08/05/21 13:59 08/05/21 14:00 08/05/21 14:03 Temperature Pulse Rate 79 79 90 Respiratory Rate 22 H 22 H Blood Pressure 120/70 Pulse Oximetry 94 93 08/05/21 14:11 08/05/21 16:00 08/05/21 17:58 Temperature 96.8 F L Pulse Rate 77 76 78 Respiratory Rate 22 H 22 H Blood Pressure 129/69 Pulse Oximetry 93 93 08/05/21 18:00 08/05/21 19:38 08/05/21 19:42 Temperature Pulse Rate 77 82 83 Respiratory Rate 22 H 15 Blood Pressure 145/71 H Pulse Oximetry 93 93 08/05/21 19:46 08/05/21 20:00 08/05/21 21:53 Temperature 96.4 F L P
--- NOTE | 2021-08-06 11:49 | WPDINTPN ---
Progress Note: A&P Assessment and Plan (1) Acute respiratory failure with hypoxia: Code(s): J96.01 - Acute respiratory failure with hypoxia Status: Acute Assessment and Plan: Patient with acute hypoxic respiratory failure likely related to COVID pneumonia. Presented on 07/29/2021, increased oxygen requirements along with altered mental status, on BiPAP and using accessory muscles of ventilation, discussed with 2 granddaughters were agreeable to intubation and mechanical ventilation. Patient was intubated on 08/01/2021 -on low tidal volume strategy, currently on peep of 10 and 55% FiO2, will wean FiO2 as tolerated -chest x-ray and ABGs reviewed -advance ET tube by 2 cm -continue bronchodilators, -continue Pulmicort -continue fentanyl and Versed for sedation -continue to prone patient daily for 18 hours (2) Pneumonia due to COVID-19 virus: Code(s): U07.1 - COVID-19; J12.82 - Pneumonia due to coronavirus disease 2019 Status: Acute Assessment and Plan: Pneumonia secondary to COVID-19. SARS-CoV-2 PCR positive on 07/31/2021 -patient has been started dexamethasone 20 mg IV x5 days then 10 mg IV x5 days -patient's GFR according to pharmacy is significantly low in patient does not qualify for remdesivir due to chronic kidney disease and low GFR -patient's CRP was 14.9, patient was given Tocilizumab on 08/01/2021, CRP down to 8.2 this morning, -08/05/2021: LDH within normal limits, D-dimer trending down, CRP and ferritin trending down, continue to trend inflammatory markers (3) Atrial fibrillation with RVR: Code(s): I48.91 - Unspecified atrial fibrillation Status: Acute Assessment and Plan: 08/01/2021 Seem like new onset AFib RVR, received amiodarone bolus and amiodarone infusion, will infusion, currently rate controlled AFib -OFF AMIODARONE INFUSION and on P.O. amiodarone on 08/04/2021. -continue heparin infusion -continue to monitor -TSH was slightly low but T3 and T4 within normal limits -echocardiogram on 07/30/2021 showed LVEF of 50-55%. Grade 1 diastolic dysfunction, gyfe-ne-jftnlvbv aortic valve stenosis. (4) Acute kidney injury superimposed on chronic kidney disease: Code(s): N17.9 - Acute kidney failure, unspecified; N18.9 - Chronic kidney disease, unspecified Status: Acute Assessment and Plan: Acute on chronic kidney disease stage 3 -nephrology has been consulted -renal ultrasound 08/04/2021 showed medical renal disease cortical thinning, no hydronephrosis -urine lytes are non prerenal, -CK level 273 -will continue to monitor renal function, electrolytes and urine -urine output improved after mild hydration, creatinine marginally improved. Will continue to monitor (5) Hyperkalemia: Code(s): E87.5 - Hyperkalemia Status: Acute Assessment and Plan: K of 5.8 today Will give insulin D50 and Kayexalate (6) Diastolic CHF: Qualifiers: Heart failure chronicity: chronic Qualified Code(s): I50.32 - Chronic diastolic (congestive) heart failure Code(s): I50.30 - Unspecified diastolic (congestive) heart failure Status: Acute Assessment and Plan: Echocardiogram on 07/30/2021: Echocardiogram showed LVEF of 50-55%. Mildly increased LV wall thickness. Grade 1 diastolic dysfunction, mild to moderate aortic valve stenosis (7) DVT prophylaxis: Code(s): Z29.9 - Encounter for prophylactic measures, unspecified Status: Acute Assessment and Plan: Heparin infusion (8) Shock: Code(s): R57.9 - Shock, unspecified Status: Acute Assessment and Plan: Shock likely related to positive pressure ventilation, sedation medications, COVID pneumonia, infection/sepsis -patient has received adequate IV fluids -lactic acid was normal -continue Levophed, maintain MAP >70 mmHg for optimal perfusion kidneys and other end organs -it is ceftriaxone azithromycin for now -07/29/2021: Blood and urine cultures a
[2021-08-06] MEDS: CHOLECALCIFEROL 1,000 UNITS TABLET 5000 UNITS PO (11:52)
[2021-08-06] MEDS: CYANOCOBALAMIN 1,000 MCG TABLET 5000 MCG PO (11:52)
[2021-08-06] MEDS: PANTOPRAZOLE SODIUM IV 40 MG VIAL IV PUSH (11:53)
--- NOTE | 2021-08-06 12:00 | PM.PNNEP ---
Progress Note: A&P Assessment and Plan (1) Acute kidney injury superimposed on chronic kidney disease: Code(s): N17.9 - Acute kidney failure, unspecified; N18.9 - Chronic kidney disease, unspecified Status: Acute Assessment and Plan: The patient has chronic kidney disease. This is most likely on the basis of hypertension and vascular disease. The patient has acute kidney injury superimposed on the above. renal ultrasound shows chronic disease only. Urine electrolytes are non pre renal. UA is bland CPK was okay Acute kidney injury most likely due to hypotension , infection and ATN. creatinine is slowly better. Will follow along. (2) Shock: Code(s): R57.9 - Shock, unspecified Status: Acute Assessment and Plan: The patient does on norepinephrine at 3 mics. Blood pressure still a little bit soft. (3) Acute respiratory failure with hypoxia: Code(s): J96.01 - Acute respiratory failure with hypoxia Status: Acute Assessment and Plan: The patient is on the ventilator and getting supportive care with pulmonary toilet. (4) Pneumonia due to COVID-19 virus: Code(s): U07.1 - COVID-19; J12.82 - Pneumonia due to coronavirus disease 2019 Status: Acute Assessment and Plan: She was not vaccinated. She is getting dexamethasone and supportive care (5) Anemia: Qualifiers: Anemia type: unspecified type Qualified Code(s): D64.9 - Anemia, unspecified Code(s): D64.9 - Anemia, unspecified Status: Acute Assessment and Plan: Hemoglobin is 9.8 Will start Epogen (6) COPD with asthma: Code(s): J44.9 - Chronic obstructive pulmonary disease, unspecified Status: Acute Assessment and Plan: This is a chronic problem which complicates her acute respiratory issues. (7) Diastolic dysfunction: Code(s): I51.89 - Other ill-defined heart diseases Status: Acute Assessment and Plan: She had another echo showing this. Has cdri-vi-ebssnutb aortic stenosis as well (8) Dyslipidemia: Code(s): E78.5 - Hyperlipidemia, unspecified Status: Acute Subjective Date/time seen: 08/06/21 12:00 Interval history: Lisa is Still on the ventilator. In the prone position. Still making a little urine. Exam Narrative: WDWN Female on the ventilator, sedated, in the prone position skin no rash head ncat lungs course bibasilar breath sounds cor reg no rub or gallop abd BS+ nontender and soft ext no edema. Objective Data Vital Signs Vital Signs: Vital Signs - 24 hr 08/05/21 13:59 08/05/21 14:00 08/05/21 14:03 Temperature Pulse Rate 79 79 90 Respiratory Rate 22 H 22 H Blood Pressure 120/70 Pulse Oximetry 94 93 08/05/21 14:11 08/05/21 16:00 08/05/21 17:58 Temperature 36.0 C L Pulse Rate 77 76 78 Respiratory Rate 22 H 22 H Blood Pressure 129/69 Pulse Oximetry 93 93 08/05/21 18:00 08/05/21 19:38 08/05/21 19:42 Temperature Pulse Rate 77 82 83 Respiratory Rate 22 H 15 Blood Pressure 145/71 H Pulse Oximetry 93 93 08/05/21 19:46 08/05/21 20:00 08/05/21 21:53 Temperature 35.8 C L Pulse Rate 78 74 78 Respiratory Rate 18 22 H Blood Pressure 113/68 Pulse Oximetry 93 08/05/21 22:00 08/05/21 23:08 08/06/21 00:00 Temperature 36.2 C L Pulse Rate 80 80 72 Respiratory Rate 22 H 22 H Blood Pressure 128/62 149/72 H Pulse Oximetry 93 95 94 08/06/21 01:50 08/06/21 01:58 08/06/21 01:59 Temperature Pulse Rate 72 80 74 Respiratory Rate 18 18 Blood Pressure Pulse Oximetry 95 08/06/21 02:00 08/06/21 04:00 08/06/21 05:07 Temperature 36.8 C Pulse Rate 88 86 80 Respiratory Rate 22 H 22 H Blood Pressure 104/52 L 99/64 L Pulse Oximetry 94 100 95 08/06/21 05:34 08/06/21 05:37 08/06/21 05:39 Temperature Pulse Rate 89 89 83 Respiratory Rate 22 H 22 H Blood Pressure 126/67 Pulse Oximetry
[2021-08-06 12:09] LABS: Glucose Point of Care 150 mg/dl (65-105)
[2021-08-06] MEDS: INSULIN HUMAN REGULAR (*BKC) 100 UNITS/ML 10 UNITS IV PUSH (14:37)
[2021-08-06] MEDS: DEXTROSE 50% 25 GM/50 ML SYRINGE IV PUSH (14:38)
[2021-08-06] MEDS: SODIUM POLYSTYRENE SULFONONATE 15 GM/60 ML BTL 30 GM FEED TUBE (14:38)
[2021-08-06] MEDS: EPOETIN ALFA-EPBX 10,000 UNITS/ML VIAL 10000 UNITS SUB-Q (14:39)
[2021-08-06 15:18] LABS: Partial Thromboplastin Time 117.5 SECONDS (22.3-36.8)
[2021-08-06 18:28] LABS: Glucose Point of Care 175 mg/dl (65-105)
[2021-08-06 21:43] LABS: Partial Thromboplastin Time 84.2 SECONDS (22.3-36.8)
[2021-08-07] VITALS (59 sets, daily range): BP systolic 81–157; BP diastolic 48–89; PULSE 63–115; RESP 15–28; TEMP 35.8–37.4; O2SAT 91–97
[2021-08-07] MEDS: HEPARIN SOD/D5W 100 UNITS/ML 25,000 UNITS/250 ML BAG 7 UNITS IV CONT (00:17)
[2021-08-07] MEDS: MIDAZOLAM 100MG/NS 100ML(*CRX) 100 MG/100 ML BAG IV CONT (00:24)
[2021-08-07 00:49] LABS: Glucose Point of Care 168 mg/dl (65-105)
[2021-08-07 04:00] LABS: Alveolar/Arterial O2 Gradient 195.8 mmHg; Base Excess ABG 5.2 mEq/l (+/-2.0); Carboxyhemoglobin 0.2 % THb (0-2.0); Fractional Inspired Oxygen 45 %; HCO3 ABG 30.9 mEq/l (22.0-26.0); Methemoglobin ABG 0.4 %THb (0-1.5); Oxygen Content ABG 13.7 %vol (16.0-22.0); PCO2 ABG 51.2 mmHg (35.0-45.0); PO2 ABG 66.8 mmHg (80.0-100.0); PO2 FiO2 Ratio Arterial Blood 1.48 %; Reduced Hemoglobin 8.4 %THb (0-5.0); Total Hemoglobin 10.7 g/dL (12.0-18.0); pH ABG 7.399 (7.350-7.450)
[2021-08-07 04:01] LABS: Arterial Blood Gas PEEP 5 cmH2O; Arterial Blood Gas Vent Mode CMV; Arterial Blood Gas Ventilator rate 22 /MIN; Device VENTILATOR; Modified Allen's Test Pass; Site Drawn RIGHT RADIAL
[2021-08-07 04:30] LABS: Hematocrit 32.3 % (37.0-47.0); Hemoglobin 9.6 g/dL (12.0-15.0); Mean Corpuscular HGB Conc 29.7 g/dl (32-36); Mean Corpuscular Hemoglobin 24.9 pg (26-34); Mean Corpuscular Volume 83.7 fl (80-100); Mean Platelet Volume 12.3 fl (7.4-10.4); Platelet Count Result 273 k/mm3 (150-375); Red Blood Count 3.86 M/mm3 (4.2-5.4); Red Cell Distribution Width 15.4 % (11.5-14.5); White Blood Count 15.6 K/mm3 (4.5-10.0)
[2021-08-07 04:45] LABS: Partial Thromboplastin Time 94.4 SECONDS (22.3-36.8)
[2021-08-07 04:46] LABS: Alanine Aminotransferase 21 U/L (4-35); Albumin Level 2.6 g/dL (3.5-5.1); Alkaline Phosphatase 53 U/L (38-126); Anion Gap 2 mmol/L (8-16); Aspartate Amino Transferase 25 U/L (14-36); Bilirubin,Total 0.3 mg/dL (0.2-1.3); Blood Urea Nitrogen 105 mg/dL (7-17); CRP 1.4 mg/dL (<1.0); Calcium 8.9 mg/dL (8.4-10.2); Carbon Dioxide 34 mmol/L (22-30); Chloride 99 mmol/L (98-107); Estimated CRCL calculation 17 ml/min; Estimated Glomerular Filt Rate 18; Glucose 147 mg/dL (65-110); Lactate Dehydrogenase 427 U/L (313-618); Magnesium 2.2 mg/dL (1.6-2.3); Phosphorus 5.5 mg/dL (2.5-4.5); Potassium 5.7 mmol/L (3.4-5.0); Sodium 135 mmol/L (137-145)
[2021-08-07 04:47] LABS: D Dimer 2.08 ug/mL (<0.48)
[2021-08-07] MEDS: NOREPINEPHRINE 8 MG/D5W 250 ML 8 MG/250 ML BAG 7.5 MG IV CONT (05:54)
[2021-08-07] MEDS: FENTANYL 2,500MCG/NS250ML(*CRX 2,500 MCG/250 ML BAG 12.5 MCG IV CONT (05:55)
[2021-08-07] MEDS: CENTRAL LINE FLUSH 10 ML IV PUSH ×6 (06:03→20:52)
[2021-08-07] MEDS: FUROSEMIDE INJ 40 MG/4 ML VIAL IV PUSH (08:54)
[2021-08-07] MEDS: SODIUM POLYSTYRENE SULFONONATE 15 GM/60 ML BTL 30 GM FEED TUBE (08:54)
[2021-08-07] MEDS: INSULIN HUMAN REGULAR (*BKC) 100 UNITS/ML 10 UNITS IV PUSH (08:55)
[2021-08-07] MEDS: DEXTROSE 50% 25 GM/50 ML SYRINGE IV PUSH (08:55)
[2021-08-07] MEDS: CHOLECALCIFEROL 1,000 UNITS TABLET 5000 UNITS PO (08:56)
[2021-08-07] MEDS: CYANOCOBALAMIN 1,000 MCG TABLET 5000 MCG PO (08:56)
[2021-08-07] MEDS: PANTOPRAZOLE SODIUM IV 40 MG VIAL IV PUSH (08:56)
[2021-08-07] MEDS: DEXAMETHASONE SOD PHOS INJ 4 MG/ML VIAL 10 MG IV PUSH (08:57)
[2021-08-07] MEDS: AMIODARONE HCL 100 MG TABLET PO ×2 (08:57→20:52)
[2021-08-07] MEDS: TOLNAFTATE 1% POWDER 45 GM BTL 1 APPLIC TOPICAL ×2 (08:58→20:52)
[2021-08-07] MEDS: MINERAL OIL/WHITE PETROLATUM OINTMENT 1 APPLIC EACH EYE ×2 (08:58→20:52)
[2021-08-07] MEDS: BUDESONIDE RESPULE NEB 0.5 MG/2 ML AMP INHALATION ×2 (09:04→20:43)
--- NOTE | 2021-08-07 10:40 | WPDINTPN ---
Progress Note: A&P Assessment and Plan (1) Acute respiratory failure with hypoxia: Code(s): J96.01 - Acute respiratory failure with hypoxia Status: Acute Assessment and Plan: Patient with acute hypoxic respiratory failure likely related to COVID pneumonia. Presented on 07/29/2021, increased oxygen requirements along with altered mental status, on BiPAP and using accessory muscles of ventilation, discussed with 2 granddaughters were agreeable to intubation and mechanical ventilation. Patient was intubated on 08/01/2021 -on low tidal volume strategy, currently on peep of 10 and 45% FiO2, I will decrease PEEP to 8 -chest x-ray and ABGs reviewed -continue bronchodilators, -continue Pulmicort -continue fentanyl and Versed for sedation -her sputum is growing Pseudomonas -will start cefepime (2) Pneumonia due to COVID-19 virus: Code(s): U07.1 - COVID-19; J12.82 - Pneumonia due to coronavirus disease 2019 Status: Acute Assessment and Plan: Pneumonia secondary to COVID-19. SARS-CoV-2 PCR positive on 07/31/2021 -patient has been started dexamethasone 20 mg IV x5 days then 10 mg IV x5 days -patient's GFR according to pharmacy is significantly low in patient does not qualify for remdesivir due to chronic kidney disease and low GFR -patient's CRP was 14.9, patient was given Tocilizumab on 08/01/2021, CRP down to 8.2 this morning, -08/05/2021: LDH within normal limits, D-dimer trending down, CRP and ferritin trending down, continue to trend inflammatory markers (3) Atrial fibrillation with RVR: Code(s): I48.91 - Unspecified atrial fibrillation Status: Acute Assessment and Plan: 08/01/2021 Seem like new onset AFib RVR, received amiodarone bolus and amiodarone infusion, will infusion, currently rate controlled AFib -OFF AMIODARONE INFUSION and on P.O. amiodarone on 08/04/2021. -continue heparin infusion -continue to monitor -TSH was slightly low but T3 and T4 within normal limits -echocardiogram on 07/30/2021 showed LVEF of 50-55%. Grade 1 diastolic dysfunction, bpcs-tm-fovxdgts aortic valve stenosis. (4) Acute kidney injury superimposed on chronic kidney disease: Code(s): N17.9 - Acute kidney failure, unspecified; N18.9 - Chronic kidney disease, unspecified Status: Acute Assessment and Plan: Acute on chronic kidney disease stage 3 -nephrology has been consulted -renal ultrasound 08/04/2021 showed medical renal disease cortical thinning, no hydronephrosis -urine lytes are non prerenal, -CK level 273 Her creatinine is stable at 2.5 but BUN is worse likely secondary to catabolic some and steroids Her potassium is still elevated at 5.7. I have given patient Kayexalate insulin D50 Discussed with nephrology. Will plan to start patient on hemodialysis. I spoke to patient's POA her granddaughter ruby and explained risks and benefits of insertion of hemodialysis catheter along with hemodialysis. She verbalized understanding and consented by phone for both. Will also check BMP later in the day Heparin is on hold now for the procedure (5) Hyperkalemia: Code(s): E87.5 - Hyperkalemia Status: Acute Assessment and Plan: See above (6) Diastolic CHF: Qualifiers: Heart failure chronicity: chronic Qualified Code(s): I50.32 - Chronic diastolic (congestive) heart failure Code(s): I50.30 - Unspecified diastolic (congestive) heart failure Status: Acute Assessment and Plan: Echocardiogram on 07/30/2021: Echocardiogram showed LVEF of 50-55%. Mildly increased LV wall thickness. Grade 1 diastolic dysfunction, mild to moderate aortic valve stenosis (7) DVT prophylaxis: Code(s): Z29.9 - Encounter for prophylactic measures, unspecified Status: Acute Assessment and Plan: Heparin infusion (8) Shock: Code(s): R57.9 - Shock, unspecified Status: Acute Assessment and Plan: Shock likely related to positive pr
--- NOTE | 2021-08-07 10:44 | PCDIET ---
Nutrition Follow-Up Complete: Nutrition Diagnosis: Altered nutrition related labs related to diabetes and corticosteroid use as evidenced by serum glucose of 220mg/dL. Nutrition Goal: Patient to meet estimated nutritional needs. Goal in progress. Tube feeding was changed to Nepro earlier today. Recommend goal of 35mL/hr which will provide 1386kcal and 62g protein over 22 hours/day. Water flushes of 30mL every 4 hours continued. Last recorded weight is 82.4 kg which is increased from last review. +I/O. Bowel Motility: Last BM on 08/06/21 x 1. Labs Reviewed: WBC (15.6), RBC (3.86), Hgb (9.6), Hct (32.3), Glu (147), BUN (105), Cr (2.5), K (5.7), Na (135), Alb (2.6), PO5 (5.5) Meds Noted: Pacerone, Nexterone, Pulmicort, Vitamin B12, Decadron, Retacrit, Fentanyl, Xopenex, Versed, Levophed, Protonix, Vitamin D, Lasix, SPS Additional Notes: No change in skin reported. Will continue to monitor with same goal. Nutrition Monitoring and Evaluation: Follow up every Tuesday/Tuesday.
--- NOTE | 2021-08-07 11:47 | PM.PNNEP ---
Progress Note: A&P Assessment and Plan (1) Acute kidney injury superimposed on chronic kidney disease: Code(s): N17.9 - Acute kidney failure, unspecified; N18.9 - Chronic kidney disease, unspecified Status: Acute Assessment and Plan: The patient has chronic kidney disease. This is most likely on the basis of hypertension and vascular disease. The patient has acute kidney injury superimposed on the above. renal ultrasound shows chronic disease only. Urine electrolytes are non pre renal. UA is bland CPK was okay Acute kidney injury most likely due to hypotension , infection and ATN. creatinine is slowly better. However her BUN has climbed and is now above 100. Her potassium was high yesterday. She was given Kayexalate but it was high again today. She is getting more Kayexalate now and will get a repeat potassium done. Discussed with Dr. Abbott. if the potassium continues to be a problem we will be forced to try dialysis to help this out. Will follow along. (2) Shock: Code(s): R57.9 - Shock, unspecified Status: Acute Assessment and Plan: The patient does on norepinephrine at 2 mics. Blood pressure still a little bit soft. (3) Acute respiratory failure with hypoxia: Code(s): J96.01 - Acute respiratory failure with hypoxia Status: Acute Assessment and Plan: The patient is on the ventilator and getting supportive care with pulmonary toilet. (4) Pneumonia due to COVID-19 virus: Code(s): U07.1 - COVID-19; J12.82 - Pneumonia due to coronavirus disease 2019 Status: Acute Assessment and Plan: She was not vaccinated. She is getting dexamethasone and supportive care (5) Anemia: Qualifiers: Anemia type: unspecified type Qualified Code(s): D64.9 - Anemia, unspecified Code(s): D64.9 - Anemia, unspecified Status: Acute Assessment and Plan: Hemoglobin is 9.6 Will start Epogen (6) COPD with asthma: Code(s): J44.9 - Chronic obstructive pulmonary disease, unspecified Status: Acute Assessment and Plan: This is a chronic problem which complicates her acute respiratory issues. (7) Diastolic dysfunction: Code(s): I51.89 - Other ill-defined heart diseases Status: Acute Assessment and Plan: She had another echo showing this. Has itib-cw-zchnyyvh aortic stenosis as well (8) Dyslipidemia: Code(s): E78.5 - Hyperlipidemia, unspecified Status: Acute Subjective Date/time seen: 08/07/21 11:47 Interval history: Lisa is Still on the ventilator. In the Supine position right now. Exam Narrative: WDWN Female on the ventilator, sedated skin no rash head ncat lungs course bibasilar breath sounds cor reg no rub or gallop abd BS+ nontender and soft ext no edema. Objective Data Vital Signs Vital Signs: Vital Signs - 24 hr 08/06/21 12:00 08/06/21 13:24 08/06/21 13:25 Temperature 36.6 C Pulse Rate 84 87 85 Respiratory Rate 22 H 23 H Blood Pressure 106/50 L Pulse Oximetry 96 97 08/06/21 14:00 08/06/21 14:54 08/06/21 14:55 Temperature 36.7 C Pulse Rate 83 80 80 Respiratory Rate 22 H 22 H 22 H Blood Pressure 147/53 H 124/66 Pulse Oximetry 96 08/06/21 16:00 08/06/21 16:42 08/06/21 18:00 Temperature 36.4 C Pulse Rate 90 94 83 Respiratory Rate 22 H 22 H Blood Pressure 92/56 L 99/63 L Pulse Oximetry 95 95 96 08/06/21 18:23 08/06/21 18:25 08/06/21 19:57 Temperature Pulse Rate 87 86 83 Respiratory Rate 22 H 21 H Blood Pressure 99/63 L Pulse Oximetry 08/06/21 19:59 08/06/21 20:00 08/06/21 20:01 Temperature 35.9 C L Pulse Rate 76 81 90 Respiratory Rate 22 H 23 H Blood Pressure 127/77 Pulse Oximetry 97 97 08/06/21 20:44 08/06/21 22:00 08/06/21 23:19 Temperature Pulse Rate 82 66 81 Respiratory Rate 22 H Blood Pressure 135/73 Pulse Oximetry 97 99 08/07/21 00:0
--- NOTE | 2021-08-07 12:55 | WPDPROCEDUR ---
Procedures Central Line Placement Right Femoral: Central Line Date: 08/07/21 Central Line Time: 12:30 Discussed w/ the patient/family/POA,the placement of a central venous catheter, including its clinical necessity/indication & associated potential risks, benifits and alternatives.: Yes The patient/family/POA understand(s) and acknowledge(s) the need to proceed with central venous catheter insertion as an important element of the patient's clinical management.: Yes Consent: Consent was obtained from patient's POA her granddaughter by phone after explanation of risks and benefits of insertion of hemodialysis catheter and hemodialysis. She verbalized understanding and consented for both Time Out Performed: Yes Patient Position: supine Patient placed on monitor/pulse ox: Yes Provider Prep: mask, sterile gown, sterile gloves, Max. sterile barrier precautions, cap and hand hygiene with conventional soap/water or alcohol based hand rub Central line prep: 2% Chlorhexidine scrub Sterile US Technique with sterile gel/sterile probe covers: Yes Central line lumen inserted: double Scottish: 12 Length (cm): 20 Depth of Insertion (cm): 20 Post Procedure: sutured in place, good blood return, all ports aspirated, flushed, capped and transparent dressing Patient tolerated procedure: well Complications: none Additional comments: Patient was on heparin earlier which was on hold. Patient had more than usual oozing which was controlled with pressure but no other major complications during the procedure
[2021-08-07 13:21] LABS: Glucose Point of Care 124 mg/dl (65-105)
[2021-08-07 13:40] LABS: Anion Gap 3 mmol/L (8-16); Blood Urea Nitrogen 108 mg/dL (7-17); Calcium 9.1 mg/dL (8.4-10.2); Carbon Dioxide 33 mmol/L (22-30); Chloride 98 mmol/L (98-107); Estimated CRCL calculation 16 ml/min; Estimated Glomerular Filt Rate 18; Glucose 128 mg/dL (65-110); Potassium 5.6 mmol/L (3.4-5.0); Sodium 134 mmol/L (137-145)
[2021-08-07 18:25] LABS: Creatine Kinase 33 U/L (30-135)
[2021-08-07 19:11] LABS: Hepatitis B Surface Antigen Negative (Negative)
[2021-08-07 19:29] LABS: Hepatitis B Surface Anti Res Negative
[2021-08-08] VITALS (45 sets, daily range): BP systolic 74–156; BP diastolic 48–83; PULSE 68–151; RESP 18–24; TEMP 36.4–37.2; O2SAT 94–98
[2021-08-08 00:11] LABS: Glucose Point of Care 160 mg/dl (65-105)
[2021-08-08 00:11] LABS: Glucose Point of Care 147 mg/dl (65-105)
[2021-08-08 04:58] LABS: Base Excess ABG 7.1 mEq/l (+/-2.0); Carboxyhemoglobin 0.3 % THb (0-2.0); Fractional Inspired Oxygen 55 %; HCO3 ABG 33.2 mEq/l (22.0-26.0); Methemoglobin ABG 0.2 %THb (0-1.5); Oxygen Content ABG 12.5 %vol (16.0-22.0); Oxygen Saturation ABG 96.8 % (95.0-100.0); Oxyhemoglobin 95.4 % THb (90.0-100.0); PCO2 ABG 56.2 mmHg (35.0-45.0); PO2 ABG 91.6 mmHg (80.0-100.0); PO2 FiO2 Ratio Arterial Blood 1.67 %; Reduced Hemoglobin 4.1 %THb (0-5.0); Total Hemoglobin 9.2 g/dL (12.0-18.0); pH ABG 7.389 (7.350-7.450)
[2021-08-08 04:59] LABS: Modified Allen's Test Pass; Site Drawn RIGHT RADIAL
[2021-08-08 05:00] LABS: Arterial Blood Gas PEEP 8 cmH2O; Arterial Blood Gas Tidal Volume 320 ml; Arterial Blood Gas Vent Mode CMV; Arterial Blood Gas Ventilator rate 22 /MIN; Device VENTILATOR
[2021-08-08] MEDS: CENTRAL LINE FLUSH 10 ML IV PUSH ×8 (05:12→21:57)
[2021-08-08 05:49] LABS: Hematocrit 28.4 % (37.0-47.0); Hemoglobin 8.5 g/dL (12.0-15.0); Mean Corpuscular HGB Conc 29.9 g/dl (32-36); Mean Corpuscular Hemoglobin 24.6 pg (26-34); Mean Corpuscular Volume 82.3 fl (80-100); Mean Platelet Volume 11.8 fl (7.4-10.4); Platelet Count Result 181 k/mm3 (150-375); Red Blood Count 3.45 M/mm3 (4.2-5.4); Red Cell Distribution Width 15.4 % (11.5-14.5)
[2021-08-08 06:01] LABS: Partial Thromboplastin Time 79.5 SECONDS (22.3-36.8)
[2021-08-08 06:33] LABS: Alanine Aminotransferase 18 U/L (4-35); Albumin Level 2.6 g/dL (3.5-5.1); Alkaline Phosphatase 46 U/L (38-126); Anion Gap 4 mmol/L (8-16); Aspartate Amino Transferase 26 U/L (14-36); Bilirubin,Total 0.3 mg/dL (0.2-1.3); Blood Urea Nitrogen 72 mg/dL (7-17); Calcium 8.5 mg/dL (8.4-10.2); Carbon Dioxide 34 mmol/L (22-30); Chloride 98 mmol/L (98-107); Estimated CRCL calculation 26 ml/min; Estimated Glomerular Filt Rate 31; Glucose 126 mg/dL (65-110); Magnesium 1.9 mg/dL (1.6-2.3); Phosphorus 4.8 mg/dL (2.5-4.5); Potassium 4.8 mmol/L (3.4-5.0); Sodium 136 mmol/L (137-145)
[2021-08-08] MEDS: BUDESONIDE RESPULE NEB 0.5 MG/2 ML AMP INHALATION ×2 (08:52→21:51)
[2021-08-08] MEDS: AMIODARONE HCL 100 MG TABLET PO ×2 (09:17→20:17)
[2021-08-08] MEDS: CYANOCOBALAMIN 1,000 MCG TABLET 5000 MCG PO (09:17)
[2021-08-08] MEDS: CHOLECALCIFEROL 1,000 UNITS TABLET 5000 UNITS PO (09:17)
[2021-08-08] MEDS: EPOETIN ALFA-EPBX 10,000 UNITS/ML VIAL 10000 UNITS SUB-Q (09:18)
[2021-08-08] MEDS: TOLNAFTATE 1% POWDER 45 GM BTL 1 APPLIC TOPICAL ×2 (09:18→20:18)
[2021-08-08] MEDS: MINERAL OIL/WHITE PETROLATUM OINTMENT 1 APPLIC EACH EYE ×2 (09:19→20:18)
[2021-08-08] MEDS: PANTOPRAZOLE SODIUM IV 40 MG VIAL IV PUSH (09:19)
[2021-08-08] MEDS: DEXAMETHASONE SOD PHOS INJ 4 MG/ML VIAL 10 MG IV PUSH (09:21)
--- NOTE | 2021-08-08 09:48 | PM.IMPN ---
Progress Note: A&P Assessment and Plan (1) Acute respiratory failure with hypoxia: Code(s): J96.01 - Acute respiratory failure with hypoxia Status: Acute Assessment and Plan: Initially presented on 07/29 with shortness of breath, increasing oxygen requirements, requiring BiPAP, then transferred to the ICU on 08/01, intubated on 08/01. In the setting of pneumonia due to COVID 19. Continue bronchodilators Continue Pulmicort Continue fentanyl and Versed for sedation Prone intermittently Wean as possible Sputum culture with pseudomonas, on Cefepime 08/07- (2) Pneumonia due to COVID-19 virus: Code(s): U07.1 - COVID-19; J12.82 - Pneumonia due to coronavirus disease 2019 Status: Acute Assessment and Plan: Pneumonia secondary to COVID-19. SARS-CoV-2 PCR positive on 07/31/2021 Patient has been started dexamethasone 20 mg IV x5 days then 10 mg IV x5 days Does not qualify for remdesivir due to chronic kidney disease and low GFR Tocilizumab on 08/01/2021 Given worsening respiratory status/ infiltrates she was also initiated on azithromycin and ceftriaxone 07/30 (3) Atrial fibrillation with RVR: Code(s): I48.91 - Unspecified atrial fibrillation Status: Acute Assessment and Plan: 08/01/2021 new onset AFib RVR, received amiodarone bolus and amiodarone infusion Amiodarone transitioned to PO Continue heparin infusion Continue to monitor TSH was slightly low but T3 and T4 within normal limits (4) Diastolic CHF: Qualifiers: Heart failure chronicity: chronic Qualified Code(s): I50.32 - Chronic diastolic (congestive) heart failure Code(s): I50.30 - Unspecified diastolic (congestive) heart failure Status: Acute Assessment and Plan: Echocardiogram on 07/30/2021: LVEF of 50-55%. Mildly increased LV wall thickness. Grade 1 diastolic dysfunction, mild to moderate aortic valve stenosis. (5) DVT prophylaxis: Code(s): Z29.9 - Encounter for prophylactic measures, unspecified Status: Acute Assessment and Plan: Heparin infusion (6) Acute kidney injury superimposed on chronic kidney disease: Code(s): N17.9 - Acute kidney failure, unspecified; N18.9 - Chronic kidney disease, unspecified Status: Acute Assessment and Plan: Chronic kidney disease stage 3 Baseline creatinine has fluctuated between 1.3 and 2 over the past 2 years LIDIA, likely ATN in setting of COVID and shock requiring pressor support Renal US no obstruction, chronic disease with cortical thinning CK level 200s Continue to keep mean arterial pressure above 65 Nephrology consulted, appreciate help. Dialysis 08/07 (creatinine 2.6, potassium 5.6 persistently) through a temporary femoral catheter. Subjective Date/time seen: 08/08/21 09:48 Remains intubated and sedated. Currently in supine position. Tolerating tube feeds. Urine output 1600 mL yesterday, 550 mL since midnight. Norepinephrine at 3 mics per minute which has been stable. Blood pressure remains soft. Heart rate is in the 90s regular sinus. Fentanyl and Heparin infusion. Right femoral temporary dialysis catheter placed 08/07 and underwent dialysis. Review of Systems Review of Systems: ROS unobtainable: Yes unobtainable due to endotracheal tube Exam Narrative: Gen: Intubated, sedated, proned Abd: Soft, NT, ND Heart: Irregularly irregular Lungs: Transmitted upper airway sounds Ext: No lower extremity edema Objective Data Vital Signs Vital Signs: Vital Signs - 24 hr 08/07/21 10:00 08/07/21 10:30 08/07/21 11:00 Temperature 98.0 F Pulse Rate 90 82 82 Respiratory Rate 18 22 H 22 H Blood Pressure 110/64 Pulse Oximetry 95 08/07/21 11:46 08/07/21 12:00 08/07/21 13:00 Temperature 97.9 F Pulse Rate 112 H 99 93 Respiratory Rate 19 22 H Blood Pressure 106/55 L Pulse Oximetry 95 93 08/07/21 14:00 08/07/21 14:37 08/07/21 14:39 Temperature 98.1 F Pulse Rate 97 101 H 94
--- NOTE | 2021-08-08 10:42 | WPDINTPN ---
Progress Note: A&P Assessment and Plan (1) Acute respiratory failure with hypoxia: Code(s): J96.01 - Acute respiratory failure with hypoxia Status: Acute Assessment and Plan: Patient with acute hypoxic respiratory failure likely related to COVID pneumonia. Presented on 07/29/2021, increased oxygen requirements along with altered mental status, on BiPAP and using accessory muscles of ventilation, discussed with 2 granddaughters were agreeable to intubation and mechanical ventilation. Patient was intubated on 08/01/2021 -on low tidal volume strategy, currently on peep of 8 and 55% % FiO2, will continue to wean FiO2 -chest x-ray and ABGs reviewed -continue bronchodilators, -continue fentanyl and Versed for sedation -will perform sedation holiday today -her sputum is growing Pseudomonas -continue cefepime which was started 08/07 -will need additional fluid removal with hemodialysis (2) Pneumonia due to COVID-19 virus: Code(s): U07.1 - COVID-19; J12.82 - Pneumonia due to coronavirus disease 2019 Status: Acute Assessment and Plan: Pneumonia secondary to COVID-19. SARS-CoV-2 PCR positive on 07/31/2021 -patient has been started dexamethasone 20 mg IV x5 days then 10 mg IV x5 days -patient's GFR according to pharmacy is significantly low in patient does not qualify for remdesivir due to chronic kidney disease and low GFR -patient's CRP was 14.9, patient was given Tocilizumab on 08/01/2021, CRP down to 8.2 this morning, -08/05/2021: LDH within normal limits, D-dimer trending down, CRP and ferritin trending down, continue to trend inflammatory markers (3) Atrial fibrillation with RVR: Code(s): I48.91 - Unspecified atrial fibrillation Status: Acute Assessment and Plan: 08/01/2021 Seem like new onset AFib RVR, received amiodarone bolus and amiodarone infusion, will infusion, currently rate controlled AFib -OFF AMIODARONE INFUSION and on P.O. amiodarone on 08/04/2021. -continue heparin infusion -continue to monitor -TSH was slightly low but T3 and T4 within normal limits -echocardiogram on 07/30/2021 showed LVEF of 50-55%. Grade 1 diastolic dysfunction, [id number] aortic valve stenosis. (4) Acute kidney injury superimposed on chronic kidney disease: Code(s): N17.9 - Acute kidney failure, unspecified; N18.9 - Chronic kidney disease, unspecified Status: Acute Assessment and Plan: Acute on chronic kidney disease stage 3 -nephrology has been consulted -renal ultrasound 08/04/2021 showed medical renal disease cortical thinning, no hydronephrosis -urine lytes are non prerenal, 08/07 Her creatinine is stable at 2.5 but BUN is worse likely secondary to catabolic some and steroids. Her potassium elevated elevated at 5.7. She was given Kayexalate insulin D50 without minimal improvement. After discussion with nephrology. Temporary hemodialysis catheter was placed and patient was started on dialysis. Patient received session yesterday Potassium is in normal range this morning. Expect patient will be dialyzed again and additional fluid removal may help with hypoxia Hemodialysis per Nephrology (5) Hyperkalemia: Code(s): E87.5 - Hyperkalemia Status: Acute Assessment and Plan: Resolved See above (6) Diastolic CHF: Qualifiers: Heart failure chronicity: chronic Qualified Code(s): I50.32 - Chronic diastolic (congestive) heart failure Code(s): I50.30 - Unspecified diastolic (congestive) heart failure Status: Acute Assessment and Plan: Echocardiogram on 07/30/2021: Echocardiogram showed LVEF of 50-55%. Mildly increased LV wall thickness. Grade 1 diastolic dysfunction, mild to moderate aortic valve stenosis (7) DVT prophylaxis: Code(s): Z29.9 - Encounter for prophylactic measures, unspecified Status: Acute Assessment and Plan: Currently on Heparin infusion (8) Shock: Code(s): R57.9 - Shock, unspecified
[2021-08-08] MEDS: MIDAZOLAM 100MG/NS 100ML(*CRX) 100 MG/100 ML BAG IV CONT (11:21)
--- NOTE | 2021-08-08 12:16 | PM.PNNEP ---
Progress Note: A&P Assessment and Plan (1) Acute kidney injury superimposed on chronic kidney disease: Code(s): N17.9 - Acute kidney failure, unspecified; N18.9 - Chronic kidney disease, unspecified Status: Acute Assessment and Plan: The patient has chronic kidney disease. This is most likely on the basis of hypertension and vascular disease. The patient has acute kidney injury superimposed on the above. renal ultrasound shows chronic disease only. Urine electrolytes are non pre renal. UA is bland CPK was okay Acute kidney injury most likely due to hypotension , infection and ATN. Her creatinine and BUN are both better because of the dialysis. She did not tolerate any fluid removal yesterday. her numbers look better today. If I do too much dialysis then her renal function may worsen because of hypotension induced by the dialysis. So at this point I think we should wait on dialysis and reassess tomorrow. considered dry ultrafiltration tomorrow as we would be able to get fluid off more easily as long as the electrolytes BUN creatinine are okay. Will try diuretics. Discussed with Dr. Abbott. Will follow along. (2) Shock: Code(s): R57.9 - Shock, unspecified Status: Acute Assessment and Plan: The patient does on norepinephrine at 3 mics. Blood pressure still a little bit soft. (3) Acute respiratory failure with hypoxia: Code(s): J96.01 - Acute respiratory failure with hypoxia Status: Acute Assessment and Plan: The patient is on the ventilator and getting supportive care with pulmonary toilet. (4) Pneumonia due to COVID-19 virus: Code(s): U07.1 - COVID-19; J12.82 - Pneumonia due to coronavirus disease 2019 Status: Acute Assessment and Plan: She was not vaccinated. She is getting dexamethasone and supportive care (5) Anemia: Qualifiers: Anemia type: unspecified type Qualified Code(s): D64.9 - Anemia, unspecified Code(s): D64.9 - Anemia, unspecified Status: Acute Assessment and Plan: Hemoglobin is 9.6 Will start Epogen (6) COPD with asthma: Code(s): J44.9 - Chronic obstructive pulmonary disease, unspecified Status: Acute Assessment and Plan: This is a chronic problem which complicates her acute respiratory issues. (7) Diastolic dysfunction: Code(s): I51.89 - Other ill-defined heart diseases Status: Acute Assessment and Plan: She had another echo showing this. Has [id number]-ey-[id number] aortic stenosis as well (8) Dyslipidemia: Code(s): E78.5 - Hyperlipidemia, unspecified Status: Acute Subjective Date/time seen: 08/08/21 12:16 Interval history: Lisa is still on the ventilator. Oxygenation is better in spite of being in the Supine position right now. she had dialysis yesterday. Her blood pressure did not tolerate this very well and in fact she needed higher doses of norepinephrine to get her through the treatment. Not much fluid was removed at all. Exam Narrative: WDWN Female on the ventilator, sedated skin no rash head ncat lungs course bibasilar breath sounds cor reg no rub or gallop abd BS+ nontender and soft ext no edema. Objective Data Vital Signs Vital Signs: Vital Signs - 24 hr 08/07/21 13:00 08/07/21 14:00 08/07/21 14:37 Temperature 36.7 C Pulse Rate 93 97 101 H Respiratory Rate 22 H 22 H Blood Pressure 95/60 L Pulse Oximetry 93 95 08/07/21 14:39 08/07/21 14:59 08/07/21 16:00 Temperature 36.3 C L Pulse Rate 94 98 98 Respiratory Rate 22 H 15 18 Blood Pressure 102/63 Pulse Oximetry 92 08/07/21 16:20 08/07/21 16:30 08/07/21 16:45 Temperature Pulse Rate 96 108 H 104 H Respiratory Rate Blood Pressure 121/62 81/48 L 99/52 L Pulse Oximetry 08/07/21 16:50 08/07/21 17:00 08/07/21 17:01 Temperature Pulse Rate 106 H 115 H 114 H Respiratory Rate
[2021-08-08 13:28] LABS: Glucose Point of Care 187 mg/dl (65-105)
[2021-08-08] MEDS: BUMETANIDE INJ 1 MG/4 ML VIAL 2 MG IV PUSH ×2 (13:35→16:51)
[2021-08-08] MEDS: METOPROLOL TARTRATE INJ 5 MG/5 ML VIAL IV PUSH ×2 (14:39→17:50)
[2021-08-08] MEDS: HEPARIN SOD/D5W 100 UNITS/ML 25,000 UNITS/250 ML BAG 7 UNITS IV CONT (16:55)
[2021-08-08 17:18] LABS: Glucose Point of Care 199 mg/dl (65-105)
[2021-08-08] MEDS: PROPOFOL IV EMULSION 100 ML 10.32 MG IV CONT (17:40)
[2021-08-08] MEDS: NOREPINEPHRINE 8 MG/D5W 250 ML 8 MG/250 ML BAG 5.63 MG IV CONT (21:55)
[2021-08-09] VITALS (34 sets, daily range): BP systolic 111–152; BP diastolic 58–96; PULSE 101–137; RESP 19–27; TEMP 36.1–37; O2SAT 92–98
[2021-08-09] MEDS: PROPOFOL IV EMULSION 100 ML 10.32 MG IV CONT ×2 (00:22→10:49)
[2021-08-09 01:03] LABS: Glucose Point of Care 181 mg/dl (65-105)
[2021-08-09 04:55] LABS: Hemoglobin 9.2 g/dL (12.0-15.0); Mean Corpuscular HGB Conc 30.7 g/dl (32-36); Mean Corpuscular Hemoglobin 25.5 pg (26-34); Mean Corpuscular Volume 83.1 fl (80-100); Platelet Count Result 202 k/mm3 (150-375); Red Blood Count 3.61 M/mm3 (4.2-5.4); Red Cell Distribution Width 15.7 % (11.5-14.5)
[2021-08-09 05:07] LABS: Partial Thromboplastin Time 91.4 SECONDS (22.3-36.8)
[2021-08-09 05:08] LABS: D Dimer 1.91 ug/mL (<0.48)
[2021-08-09 05:29] LABS: Alveolar/Arterial O2 Gradient 151.3 mmHg; Base Excess ABG 9.8 mEq/l (+/-2.0); Carboxyhemoglobin 0.2 % THb (0-2.0); Fractional Inspired Oxygen 45 %; HCO3 ABG 34.2 mEq/l (22.0-26.0); Methemoglobin ABG 0.5 %THb (0-1.5); Oxygen Content ABG 11.8 %vol (16.0-22.0); Oxygen Saturation ABG 98.5 % (95.0-100.0); Oxyhemoglobin 96.5 % THb (90.0-100.0); PCO2 ABG 46.7 mmHg (35.0-45.0); PO2 ABG 116.4 mmHg (80.0-100.0); PO2 FiO2 Ratio Arterial Blood 2.59 %; Reduced Hemoglobin 2.8 %THb (0-5.0); Total Hemoglobin 8.5 g/dL (12.0-18.0); pH ABG 7.483 (7.350-7.450)
[2021-08-09 05:52] LABS: Alanine Aminotransferase 22 U/L (4-35); Albumin Level 2.9 g/dL (3.5-5.1); Alkaline Phosphatase 59 U/L (38-126); Anion Gap 6 mmol/L (8-16); Aspartate Amino Transferase 25 U/L (14-36); Bilirubin,Total 0.3 mg/dL (0.2-1.3); Blood Urea Nitrogen 97 mg/dL (7-17); CRP 0.6 mg/dL (<1.0); Calcium 9.2 mg/dL (8.4-10.2); Carbon Dioxide 35 mmol/L (22-30); Chloride 95 mmol/L (98-107); Estimated CRCL calculation 22 ml/min; Estimated Glomerular Filt Rate 25; Glucose 150 mg/dL (65-110); Lactate Dehydrogenase 475 U/L (313-618); Magnesium 1.9 mg/dL (1.6-2.3); Phosphorus 5.3 mg/dL (2.5-4.5); Potassium 3.9 mmol/L (3.4-5.0); Sodium 136 mmol/L (137-145)
[2021-08-09] MEDS: CENTRAL LINE FLUSH 10 ML IV PUSH ×7 (05:57→20:25)
[2021-08-09 07:21] LABS: Glucose Point of Care 155 mg/dl (65-105)
[2021-08-09] MEDS: MINERAL OIL/WHITE PETROLATUM OINTMENT 1 APPLIC EACH EYE ×2 (08:17→20:24)
[2021-08-09] MEDS: TOLNAFTATE 1% POWDER 45 GM BTL 1 APPLIC TOPICAL ×2 (08:17→20:24)
[2021-08-09] MEDS: AMIODARONE HCL 100 MG TABLET PO ×2 (08:18→20:23)
[2021-08-09] MEDS: CHOLECALCIFEROL 1,000 UNITS TABLET 5000 UNITS PO (08:18)
[2021-08-09] MEDS: PANTOPRAZOLE SODIUM IV 40 MG VIAL IV PUSH (08:18)
[2021-08-09] MEDS: CYANOCOBALAMIN 1,000 MCG TABLET 5000 MCG PO (08:18)
[2021-08-09] MEDS: BUMETANIDE INJ 1 MG/4 ML VIAL 2 MG IV PUSH ×2 (08:39→17:50)
[2021-08-09] MEDS: BUDESONIDE RESPULE NEB 0.5 MG/2 ML AMP INHALATION ×2 (08:40→21:27)
--- NOTE | 2021-08-09 08:50 | WPDINTPN ---
Progress Note: A&P Assessment and Plan (1) Acute respiratory failure with hypoxia: Code(s): J96.01 - Acute respiratory failure with hypoxia Status: Acute Assessment and Plan: Patient with acute hypoxic respiratory failure likely related to COVID pneumonia. Presented on 07/29/2021, increased oxygen requirements along with altered mental status, on BiPAP and using accessory muscles of ventilation, discussed with 2 granddaughters were agreeable to intubation and mechanical ventilation. Patient was intubated on 08/01/2021 -on low tidal volume strategy, currently on peep of 8 and 45% % FiO2, will continue to wean FiO2 -chest x-ray and ABGs reviewed -continue bronchodilators, -continue propofol for sedation -will perform sedation holiday today -her sputum is growing Pseudomonas -continue cefepime which was started 08/07 -will need additional fluid removal with hemodialysis for vent wean (2) Pneumonia due to COVID-19 virus: Code(s): U07.1 - COVID-19; J12.82 - Pneumonia due to coronavirus disease 2019 Status: Acute Assessment and Plan: Pneumonia secondary to COVID-19. SARS-CoV-2 PCR positive on 07/31/2021 -patient has been started dexamethasone 20 mg IV x5 days then 10 mg IV x5 days -patient's GFR according to pharmacy is significantly low in patient does not qualify for remdesivir due to chronic kidney disease and low GFR -patient's CRP was 14.9, patient was given Tocilizumab on 08/01/2021, CRP down to 8.2 this morning, -08/05/2021: LDH within normal limits, D-dimer trending down, CRP and ferritin trending down, continue to trend inflammatory markers (3) Atrial fibrillation with RVR: Code(s): I48.91 - Unspecified atrial fibrillation Status: Acute Assessment and Plan: 08/01/2021 Seem like new onset AFib RVR, received amiodarone bolus and amiodarone infusion, will infusion, currently rate controlled AFib -OFF AMIODARONE INFUSION and on P.O. amiodarone on 08/04/2021. -continue heparin infusion -continue to monitor -TSH was slightly low but T3 and T4 within normal limits -echocardiogram on 07/30/2021 showed LVEF of 50-55%. Grade 1 diastolic dysfunction, [id number]-myddaujb aortic valve stenosis. -p.r.n. Lopressor (4) Acute kidney injury superimposed on chronic kidney disease: Code(s): N17.9 - Acute kidney failure, unspecified; N18.9 - Chronic kidney disease, unspecified Status: Acute Assessment and Plan: Acute on chronic kidney disease stage 3 -nephrology has been consulted -renal ultrasound 08/04/2021 showed medical renal disease cortical thinning, no hydronephrosis -urine lytes are non prerenal, 08/07 Temporary hemodialysis catheter was placed and patient was started on dialysis. Her urine output has improved and potassium is normal but her uremia is worsened anticipate additional sessions of hemodialysis Will discuss with Nephrology (5) Hyperkalemia: Code(s): E87.5 - Hyperkalemia Status: Acute Assessment and Plan: Resolved See above (6) Diastolic CHF: Qualifiers: Heart failure chronicity: chronic Qualified Code(s): I50.32 - Chronic diastolic (congestive) heart failure Code(s): I50.30 - Unspecified diastolic (congestive) heart failure Status: Acute Assessment and Plan: Echocardiogram on 07/30/2021: Echocardiogram showed LVEF of 50-55%. Mildly increased LV wall thickness. Grade 1 diastolic dysfunction, mild to moderate aortic valve stenosis (7) DVT prophylaxis: Code(s): Z29.9 - Encounter for prophylactic measures, unspecified Status: Acute Assessment and Plan: Currently on Heparin infusion (8) Shock: Code(s): R57.9 - Shock, unspecified Status: Acute Assessment and Plan: Shock likely related to positive pressure ventilation, sedation medications, COVID pneumonia, infection/sepsis -patient has received adequate IV fluids - Currently Levophed has been weaned off will continue
[2021-08-09] MEDS: DEXAMETHASONE SOD PHOS INJ 4 MG/ML VIAL 10 MG IV PUSH (08:59)
--- NOTE | 2021-08-09 10:07 | PM.IMPN ---
Progress Note: A&P Assessment and Plan (1) Acute respiratory failure with hypoxia: Code(s): J96.01 - Acute respiratory failure with hypoxia Status: Acute Assessment and Plan: Initially presented on 07/29 with shortness of breath, increasing oxygen requirements, requiring BiPAP, then transferred to the ICU on 08/01, intubated on 08/01. In the setting of pneumonia due to COVID 19. Continue bronchodilators Continue Pulmicort Continue fentanyl and Versed for sedation Prone intermittently Wean as possible Sputum culture with pseudomonas, on Cefepime 08/07- (2) Pneumonia due to COVID-19 virus: Code(s): U07.1 - COVID-19; J12.82 - Pneumonia due to coronavirus disease 2019 Status: Acute Assessment and Plan: Pneumonia secondary to COVID-19. SARS-CoV-2 PCR positive on 07/31/2021 Patient has been started dexamethasone 20 mg IV x5 days then 10 mg IV x5 days Does not qualify for remdesivir due to chronic kidney disease and low GFR Tocilizumab on 08/01/2021 Given worsening respiratory status/ infiltrates she was also initiated on azithromycin and ceftriaxone 07/30, now finished course. (3) Atrial fibrillation with RVR: Code(s): I48.91 - Unspecified atrial fibrillation Status: Acute Assessment and Plan: 08/01/2021 new onset AFib RVR, received amiodarone bolus and amiodarone infusion Amiodarone transitioned to PO Continue heparin infusion Continue to monitor TSH was slightly low but T3 and T4 within normal limits (4) Diastolic CHF: Qualifiers: Heart failure chronicity: chronic Qualified Code(s): I50.32 - Chronic diastolic (congestive) heart failure Code(s): I50.30 - Unspecified diastolic (congestive) heart failure Status: Acute Assessment and Plan: Echocardiogram on 07/30/2021: LVEF of 50-55%. Mildly increased LV wall thickness. Grade 1 diastolic dysfunction, mild to moderate aortic valve stenosis. (5) DVT prophylaxis: Code(s): Z29.9 - Encounter for prophylactic measures, unspecified Status: Acute Assessment and Plan: Heparin infusion (6) Acute kidney injury superimposed on chronic kidney disease: Code(s): N17.9 - Acute kidney failure, unspecified; N18.9 - Chronic kidney disease, unspecified Status: Acute Assessment and Plan: Chronic kidney disease stage 3 Baseline creatinine has fluctuated between 1.3 and 2 over the past 2 years LIDIA, likely ATN in setting of COVID and shock requiring pressor support Renal US no obstruction, chronic disease with cortical thinning CK level 200s Continue to keep mean arterial pressure above 65 Nephrology consulted, appreciate help. Dialysis 08/07 (creatinine 2.6, potassium 5.6 persistently) through a temporary femoral catheter. Subjective Date/time seen: 08/09/21 10:07 Remains intubated and sedated. Currently on FiO2 45%, peep of 8. Urine output overnight 1 L. seems to be improving. Had a sedation holiday, became tachypneic, and restless. She is on propofol this morning. Continues on heparin infusion. Of of norepi overnight. Review of Systems Review of Systems: All systems reviewed & are unremarkable except as noted in HPI and below Exam Narrative: Gen: Intubated, sedated, proned Abd: Soft, NT, ND Heart: Irregularly irregular Lungs: Transmitted upper airway sounds Ext: No lower extremity edema Objective Data Vital Signs Vital Signs: Vital Signs - 24 hr 08/08/21 11:21 08/08/21 12:00 08/08/21 12:30 Temperature Pulse Rate 103 H 104 H 107 H Respiratory Rate 22 H 22 H Blood Pressure 120/75 Pulse Oximetry 96 96 08/08/21 13:00 08/08/21 13:33 08/08/21 13:42 Temperature 99.0 F Pulse Rate 101 H 101 H 113 H Respiratory Rate 22 H 22 H 22 H Blood Pressure 136/68 136/68 Pulse Oximetry 98 08/08/21 13:43 08/08/21 14:00 08/08/21 14:39 Temperature Pulse Rate 113 H 117 H 130 H Respiratory Rate 20 Blood Pressure Pulse Oximetry
--- NOTE | 2021-08-09 10:54 | PM.CNNEP ---
Assessment and Plan Assessment and plan (1) Acute kidney injury superimposed on chronic kidney disease: Code(s): N17.9 - Acute kidney failure, unspecified; N18.9 - Chronic kidney disease, unspecified Status: Acute Assessment and Plan: The patient has chronic kidney disease. This is most likely on the basis of hypertension and vascular disease. The patient has acute kidney injury superimposed on the above. renal ultrasound shows chronic disease only. Urine electrolytes are non pre renal. UA is bland CPK was okay Acute kidney injury most likely due to hypotension , infection and ATN. Her creatinine and BUN are slightly higher. There were lower because of dialysis. Urine output looks better. On Bumex 2mg b.i.d.. I will not use metolazone because she is allergic to sulfa. Her blood pressure is better. Will continue to try diuretics. Because her blood pressure is better perhaps he will respond better. Her urine output was much better overnight. If her urine output is much better and her creatinine is better than we could hold off on dialysis. Otherwise we will treat her tomorrow. Discussed with Dr. Abbott. (2) Shock: Code(s): R57.9 - Shock, unspecified Status: Acute Assessment and Plan: Off pressors (3) Acute respiratory failure with hypoxia: Code(s): J96.01 - Acute respiratory failure with hypoxia Status: Acute Assessment and Plan: The patient is on the ventilator and getting supportive care with pulmonary toilet. she is supine. Oxygenation is a little bit better. (4) Pneumonia due to COVID-19 virus: Code(s): U07.1 - COVID-19; J12.82 - Pneumonia due to coronavirus disease 2019 Status: Acute Assessment and Plan: She was not vaccinated. She is getting dexamethasone and supportive care (5) Anemia: Qualifiers: Anemia type: unspecified type Qualified Code(s): D64.9 - Anemia, unspecified Code(s): D64.9 - Anemia, unspecified Status: Acute Assessment and Plan: Hemoglobin is 9.6 Will start Epogen (6) COPD with asthma: Code(s): J44.9 - Chronic obstructive pulmonary disease, unspecified Status: Acute Assessment and Plan: This is a chronic problem which complicates her acute respiratory issues. (7) Diastolic dysfunction: Code(s): I51.89 - Other ill-defined heart diseases Status: Acute Assessment and Plan: She had another echo showing this. Has bgtm-th-hqnkpgtt aortic stenosis as well (8) Dyslipidemia: Code(s): E78.5 - Hyperlipidemia, unspecified Status: Acute History of Present Illness Reason for Consult Consult date: 08/09/21 Chief Complaint Chief complaint: CHF Exacerbation vs Pneumonia History of Present Illness Narrative: Patient is sedated. Off pressors. Still on the ventilator. [facility] Past Medical History Medical History (Updated 08/06/21 @ 11:57 by Luis Abbott MD) Acute kidney injury superimposed on chronic kidney disease B12 deficiency Chronic bilateral low back pain without sciatica Chronic respiratory failure with hypoxia and hypercapnia CKD (chronic kidney disease) stage 3, GFR 30-59 ml/min COPD with asthma PFTs 06/22/2020 Depression Diastolic dysfunction echocardiogram 05/13/2020: Moderate concentric left ventricular hypertrophy, impaired diastolic relaxation grade 1, EF of 65%, mild aortic stenosis with peak velocity 1.8 peak gradient of 13 mean gradient of 7 valve area of 1.7 Dyslipidemia Essential (primary) hypertension Fibrocystic breast 11/2010 History of patellar fracture 02/2021 History of rib fracture 02/2021 - Right - 8th and 9 th Knee fracture, right Mild aortic stenosis Osteoporosis Peripheral polyneuropathy Pulmonary emboli (12/2020) RLS (restless legs syndrome) Rotator cuff arthropathy of both shoulders 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
[2021-08-09] MEDS: METOPROLOL TARTRATE INJ 5 MG/5 ML VIAL IV PUSH ×3 (11:45→21:13)
[2021-08-09 12:45] LABS: Glucose Point of Care 177 mg/dl (65-105)
[2021-08-09 18:08] LABS: Glucose Point of Care 191 mg/dl (65-105)
[2021-08-09] MEDS: PROPOFOL IV EMULSION 100 ML 10.08 MG IV CONT (19:35)
[2021-08-10] VITALS (42 sets, daily range): BP systolic 97–139; BP diastolic 49–82; PULSE 96–137; RESP 15–25; TEMP 35.6–36.8; O2SAT 92–100
[2021-08-10 00:39] LABS: Glucose Point of Care 168 mg/dl (65-105)
[2021-08-10] MEDS: METOPROLOL TARTRATE INJ 5 MG/5 ML VIAL IV PUSH ×3 (01:20→10:15)
[2021-08-10] MEDS: PROPOFOL IV EMULSION 100 ML 10.08 MG IV CONT ×2 (03:36→10:45)
[2021-08-10 04:51] LABS: Base Excess ABG 10.5 mEq/l (+/-2.0); Fractional Inspired Oxygen 70 %; HCO3 ABG 34.7 mEq/l (22.0-26.0); Oxygen Saturation ABG 97.3 % (95.0-100.0); Oxyhemoglobin 95.1 % THb (90.0-100.0); PCO2 ABG 45.1 mmHg (35.0-45.0); PO2 ABG 87.6 mmHg (80.0-100.0); PO2 FiO2 Ratio Arterial Blood 1.25 %; Total Hemoglobin 10.4 g/dL (12.0-18.0)
[2021-08-10 04:53] LABS: pH ABG 7.504 (7.350-7.450)
[2021-08-10 04:54] LABS: Arterial Blood Gas PEEP 8 cmH2O; Arterial Blood Gas Tidal Volume 320 ml; Arterial Blood Gas Vent Mode CMV; Arterial Blood Gas Ventilator rate 22 /MIN; Device VENTILATOR; Modified Allen's Test Pass; Site Drawn RIGHT RADIAL
[2021-08-10] MEDS: HEPARIN SOD/D5W 100 UNITS/ML 25,000 UNITS/250 ML BAG 7 UNITS IV CONT (05:59)
[2021-08-10] MEDS: CENTRAL LINE FLUSH 10 ML IV PUSH ×8 (06:00→20:34)
[2021-08-10 06:30] LABS: Partial Thromboplastin Time 86.7 SECONDS (22.3-36.8)
[2021-08-10 06:37] LABS: Alanine Aminotransferase 23 U/L (4-35); Albumin Level 2.8 g/dL (3.5-5.1); Alkaline Phosphatase 55 U/L (38-126); Anion Gap 6 mmol/L (8-16); Aspartate Amino Transferase 25 U/L (14-36); Bilirubin,Total 0.3 mg/dL (0.2-1.3); Calcium 9.7 mg/dL (8.4-10.2); Carbon Dioxide 39 mmol/L (22-30); Chloride 92 mmol/L (98-107); Estimated CRCL calculation 21 ml/min; Estimated Glomerular Filt Rate 24; Glucose 140 mg/dL (65-110); Potassium 3.8 mmol/L (3.4-5.0); Sodium 137 mmol/L (137-145)
[2021-08-10 06:45] LABS: Hematocrit 30.8 % (37.0-47.0); Hemoglobin 9.4 g/dL (12.0-15.0); Immature Platelet Fraction Pct 13.6 % (0.9-11.2); Mean Corpuscular HGB Conc 30.5 g/dl (32-36); Mean Corpuscular Hemoglobin 25.3 pg (26-34); Mean Corpuscular Volume 82.8 fl (80-100); Mean Platelet Volume 12.9 fl (7.4-10.4); Platelet Count Result 176 k/mm3 (150-375); Red Blood Count 3.72 M/mm3 (4.2-5.4); Red Cell Distribution Width 15.9 % (11.5-14.5); White Blood Count 24.1 K/mm3 (4.5-10.0)
[2021-08-10 06:47] LABS: Blood Urea Nitrogen 117 mg/dL (7-17)
[2021-08-10] MEDS: AMIODARONE HCL 100 MG TABLET PO ×2 (08:09→20:33)
[2021-08-10] MEDS: CYANOCOBALAMIN 1,000 MCG TABLET 5000 MCG PO (08:09)
[2021-08-10] MEDS: CHOLECALCIFEROL 1,000 UNITS TABLET 5000 UNITS PO (08:09)
[2021-08-10] MEDS: BUMETANIDE INJ 1 MG/4 ML VIAL 2 MG IV PUSH ×2 (08:10→18:11)
[2021-08-10] MEDS: DEXAMETHASONE SOD PHOS INJ 4 MG/ML VIAL 10 MG IV PUSH (08:10)
[2021-08-10] MEDS: TOLNAFTATE 1% POWDER 45 GM BTL 1 APPLIC TOPICAL ×2 (08:10→20:34)
[2021-08-10] MEDS: MINERAL OIL/WHITE PETROLATUM OINTMENT 1 APPLIC EACH EYE ×2 (08:10→20:34)
[2021-08-10] MEDS: PANTOPRAZOLE SODIUM IV 40 MG VIAL IV PUSH (08:10)
[2021-08-10] MEDS: BUDESONIDE RESPULE NEB 0.5 MG/2 ML AMP INHALATION ×2 (09:02→21:03)
[2021-08-10 10:33] LABS: Arterial Blood Gas PEEP 8 cmH2O; Arterial Blood Gas Tidal Volume 320 ml; Arterial Blood Gas Vent Mode CMV; Arterial Blood Gas Ventilator rate 22 /MIN; Device VENTILATOR
--- NOTE | 2021-08-10 12:17 | PCDIET ---
ICU Rounding Note: Patient tolerating Nepro at 45mL/hr. Clarified order for decrease in rate to 35mL/hr, given Propofol use. Nepro at 35mL/hr x 22 hours/day with current Propofol rate will provide 1652kcal per day. Last recorded weight is 81.9kg which is stable with last review. Bowel Motility: BM x 1 today. Labs Reviewed: WBC (24.1), RBC (3.72), Hgb (9.4), Hct (30.8), Glu (140), BUN (117), Cr (2.0), Alb (2.8) Meds Noted: Protonix, Vitamin D, Amiodarone, Pulmicort, Bumex, Retacrit, Novolog, Maxipime, Vitamin B12, Decadron, Lopressor Additional Notes: Left lower arm skin tear. Groin macerated. RN reports skin loose and edematous. Following daily in ICU rounds. Assessing/reassessing every Tuesday/Tuesday.
--- NOTE | 2021-08-10 14:30 | WPDINTPN ---
Progress Note: A&P Assessment and Plan (1) Acute respiratory failure with hypoxia: Code(s): J96.01 - Acute respiratory failure with hypoxia Status: Acute Assessment and Plan: Patient with acute hypoxic respiratory failure likely related to COVID pneumonia. Presented on 07/29/2021, increased oxygen requirements along with altered mental status, on BiPAP and using accessory muscles of ventilation, discussed with 2 granddaughters were agreeable to intubation and mechanical ventilation. Patient was intubated on 08/01/2021 -on low tidal volume strategy, currently on peep of 8 and 70% FiO2, patient desaturated after being in supine position and so FiO2 had to be increased -chest x-ray and ABGs reviewed -continue bronchodilators, -patient on propofol for sedation -her sputum is growing Pseudomonas -continue cefepime which was started 08/07 -will need additional fluid removal with hemodialysis for vent wean (2) Pneumonia due to COVID-19 virus: Code(s): U07.1 - COVID-19; J12.82 - Pneumonia due to coronavirus disease 2019 Status: Acute Assessment and Plan: Pneumonia secondary to COVID-19. SARS-CoV-2 PCR positive on 07/31/2021 -patient has been started dexamethasone 20 mg IV x5 days then 10 mg IV x5 days -patient's GFR according to pharmacy is significantly low in patient does not qualify for remdesivir due to chronic kidney disease and low GFR -patient's CRP was 14.9, patient was given Tocilizumab on 08/01/2021, CRP down to 8.2 this morning, -08/05/2021: LDH within normal limits, D-dimer trending down, CRP and ferritin trending down, continue to trend inflammatory markers (3) Atrial fibrillation with RVR: Code(s): I48.91 - Unspecified atrial fibrillation Status: Acute Assessment and Plan: 08/01/2021 Seem like new onset AFib RVR, received amiodarone bolus and amiodarone infusion, will infusion, currently rate controlled AFib -OFF AMIODARONE INFUSION and on P.O. amiodarone on 08/04/2021. -continue heparin infusion -continue to monitor -TSH was slightly low but T3 and T4 within normal limits -echocardiogram on 07/30/2021 showed LVEF of 50-55%. Grade 1 diastolic dysfunction, [id number] aortic valve stenosis. -p.r.n. Lopressor (4) Acute kidney injury superimposed on chronic kidney disease: Code(s): N17.9 - Acute kidney failure, unspecified; N18.9 - Chronic kidney disease, unspecified Status: Acute Assessment and Plan: Acute on chronic kidney disease stage 3 -nephrology has been consulted -renal ultrasound 08/04/2021 showed medical renal disease cortical thinning, no hydronephrosis -urine lytes are non prerenal, 08/07 Temporary hemodialysis catheter was placed and patient was started on dialysis. Her urine output has improved and potassium is normal but her uremia is worsened anticipate additional sessions of hemodialysis Will discuss with Nephrology regarding dialyzing patient today (5) Hyperkalemia: Code(s): E87.5 - Hyperkalemia Status: Acute Assessment and Plan: Resolved See above (6) Diastolic CHF: Qualifiers: Heart failure chronicity: chronic Qualified Code(s): I50.32 - Chronic diastolic (congestive) heart failure Code(s): I50.30 - Unspecified diastolic (congestive) heart failure Status: Acute Assessment and Plan: Echocardiogram on 07/30/2021: Echocardiogram showed LVEF of 50-55%. Mildly increased LV wall thickness. Grade 1 diastolic dysfunction, mild to moderate aortic valve stenosis (7) DVT prophylaxis: Code(s): Z29.9 - Encounter for prophylactic measures, unspecified Status: Acute Assessment and Plan: Currently on Heparin infusion (8) Shock: Code(s): R57.9 - Shock, unspecified Status: Acute Assessment and Plan: Shock likely related to positive pressure ventilation, sedation medications, COVID pneumonia, infection/sepsis -patient has received adequate IV fluids -
[2021-08-10 14:40] LABS: Glucose Point of Care 191 mg/dl (65-105)
--- NOTE | 2021-08-10 15:54 | P.PNNP_ITS ---
Progress Note: A&P Assessment and Plan (1) LIDIA (acute kidney injury): Code(s): N17.9 - Acute kidney failure, unspecified Status: Acute Assessment and Plan: * due to ATN from hemodynamic instability and infection (COVID-19) * renal ultrasound with CKD findings - nothing acute * urine electrolytes non-prerenal * CPK okay * UA is bland * reasonable urine output with diuretis but at the expense of worsening azotemia * will hold HD today but suspect will need it tomorrow due to rising BUN (2) Stage 3b chronic kidney disease: Code(s): N18.32 - Chronic kidney disease, stage 3b Status: Chronic Assessment and Plan: * baseline creatinine runs ~ 1.1 - 1.4mg/dl * due to hypertension and vascular disease (3) Shock: Code(s): R57.9 - Shock, unspecified Status: Acute Assessment and Plan: * resolving * off pressors * follow hemodynamics (4) Acute respiratory failure with hypoxia: Code(s): J96.01 - Acute respiratory failure with hypoxia Status: Acute Assessment and Plan: * remains on ventilator support * due to COVID 19 * continue supportive care (5) Pneumonia due to COVID-19 virus: Code(s): U07.1 - COVID-19; J12.82 - Pneumonia due to coronavirus disease 2018 Status: Acute Assessment and Plan: * getting steroids and dosed with Tocilizumab * not a candidate for remdesivir due to kidney disease * continue current therapy (6) Anemia: Qualifiers: Anemia type: unspecified type Qualified Code(s): D64.9 - Anemia, unspecified Code(s): D64.9 - Anemia, unspecified Status: Acute Assessment and Plan: * due to LIDIA, CKD and acute illness * Epogen with HD treatments * follow H/H Will continue to follow. Subjective Date/time seen: 08/10/21 15:54 Chart reviewed - assuming care from Dr. Lester; remains on ventilator support at this time; hemodynamically stable without need for pressor therapy (weaned off in the last 24 hours); no acute distress noted. Exam Narrative: General: WD/WN female on ventilator Heart: normal S1 and S2; no rub Lungs: coarse through out; decreased at bases Abdomen: soft, nontender, nondistended, positive bowel sounds Extremities: no cyanosis or clubbing; no edema Skin: warm and dry Objective Data Vital Signs Vital Signs: Vital Signs Temp Pulse Resp BP Pulse Ox 08/10/21 15:51 102 H 21 H 08/10/21 14:18 129 H 20 08/10/21 14:17 125 H 94 08/10/21 14:10 125 H 21 H 08/10/21 14:00 114 H 15 102/51 L 94 08/10/21 13:00 36.7 C 08/10/21 12:00 121 H 19 97/49 L 95 08/10/21 11:10 120 H 93 08/10/21 11:00 121 H 21 H 08/10/21 10:45 107 H 20 08/10/21 10:15 136 H 08/10/21 10:00 120 H 20 133/76 99 08/10/21 09:11 137 H 19 08/10/21 09:07 122 H 95 08/10/21 09:03 123 H 21 H 08/10/21 08:38 101 H 20 08/10/21 08:09 111 H 08/10/21 08:00 36.4 C 96 20 130/64 96 08/10/21 06:16 133 H 08/10/21 06:00 133 H 19 139/82 100 08/10/21 05:01 119 H 94 08/10/21 04:00 36.8 C 116 H 23 H 135/65 95 08/10/21 03:36 119 H 24 H 08/10/21 02:56 124 H 25 H 08/10/21 02:54 124 H
--- NOTE | 2021-08-10 15:54 | PM.PNNEP ---
Progress Note: A&P Assessment and Plan (1) LIDIA (acute kidney injury): Code(s): N17.9 - Acute kidney failure, unspecified Status: Acute Assessment and Plan: due to ATN from hemodynamic instability and infection (COVID-19) renal ultrasound with CKD findings - nothing acute urine electrolytes non-prerenal CPK okay UA is bland reasonable urine output with diuretis but at the expense of worsening azotemia will hold HD today but suspect will need it tomorrow due to rising BUN (2) Stage 3b chronic kidney disease: Code(s): N18.32 - Chronic kidney disease, stage 3b Status: Chronic Assessment and Plan: baseline creatinine runs ~ 1.1 - 1.4mg/dl due to hypertension and vascular disease (3) Shock: Code(s): R57.9 - Shock, unspecified Status: Acute Assessment and Plan: resolving off pressors follow hemodynamics (4) Acute respiratory failure with hypoxia: Code(s): J96.01 - Acute respiratory failure with hypoxia Status: Acute Assessment and Plan: remains on ventilator support due to COVID 19 continue supportive care (5) Pneumonia due to COVID-19 virus: Code(s): U07.1 - COVID-19; J12.82 - Pneumonia due to coronavirus disease 2019 Status: Acute Assessment and Plan: getting steroids and dosed with Tocilizumab not a candidate for remdesivir due to kidney disease continue current therapy (6) Anemia: Qualifiers: Anemia type: unspecified type Qualified Code(s): D64.9 - Anemia, unspecified Code(s): D64.9 - Anemia, unspecified Status: Acute Assessment and Plan: due to LIDIA, CKD and acute illness Epogen with HD treatments follow H/H Will continue to follow. Subjective Date/time seen: 08/10/21 15:54 Chart reviewed - assuming care from Dr. Lester; remains on ventilator support at this time; hemodynamically stable without need for pressor therapy (weaned off in the last 24 hours); no acute distress noted. Exam Narrative: General: WD/WN female on ventilator Heart: normal S1 and S2; no rub Lungs: coarse through out; decreased at bases Abdomen: soft, nontender, nondistended, positive bowel sounds Extremities: no cyanosis or clubbing; no edema Skin: warm and dry Objective Data Vital Signs Vital Signs: Vital Signs Temp Pulse Resp BP Pulse Ox 08/10/21 15:51 102 H 21 H 08/10/21 14:18 129 H 20 08/10/21 14:17 125 H 94 08/10/21 14:10 125 H 21 H 08/10/21 14:00 114 H 15 102/51 L 94 08/10/21 13:00 36.7 C 08/10/21 12:00 121 H 19 97/49 L 95 08/10/21 11:10 120 H 93 08/10/21 11:00 121 H 21 H 08/10/21 10:45 107 H 20 08/10/21 10:15 136 H 08/10/21 10:00 120 H 20 133/76 99 08/10/21 09:11 137 H 19 08/10/21 09:07 122 H 95 08/10/21 09:03 123 H 21 H 08/10/21 08:38 101 H 20 08/10/21 08:09 111 H 08/10/21 08:00 36.4 C 96 20 130/64 96 08/10/21 06:16 133 H 08/10/21 06:00 133 H 19 139/82 100 08/10/21 05:01 119 H 94 08/10/21 04:00 36.8 C 116 H 23 H 135/65 95 08/10/21 03:36 119 H 24 H 08/10/21 02:56 124 H 25 H 08/10/21 02:54 124 H 95 08/10/21 02:00 115 H 24 H 133/70 92 08/10/21 01:20 129 H 08/10/21 00:00 36.7 C 121 H 24 H 129/59 L 92 08/09/21 23:51 110 H 92 08/09/21 22:00 120 H 24 H 121/58 L 92 08/09/21 21:53 114 H 92 08/09/21 21:13 120 H 08/09/21 20:23 120 H 08/09/21 20:00 36.6 C 114 H 21 H 119/61 94 08/09/21 19:35 112 H 22 H Intake/Output Intake/Output: Intake & Output 08/07/21 08/08/21 08/09/21 08/10/21 23:59 23:59 23:59 23:59 Intake Total 4427 7544 1555 1588 Output Total 8226 5838 9034 3008 Balance -1012 Meds/Results Medications: Active Medications Generic Name Dose Route Start Last Admin Trade Name Freq PRN Reason Stop Dose Admin Amiodaro
[2021-08-10] MEDS: PROPOFOL IV EMULSION 100 ML 20.16 MG IV CONT (16:05)
[2021-08-10 18:16] LABS: Glucose Point of Care 192 mg/dl (65-105)
--- NOTE | 2021-08-10 18:30 | PM.IMPN ---
Progress Note: A&P Assessment and Plan (1) Acute respiratory failure with hypoxia: Code(s): J96.01 - Acute respiratory failure with hypoxia Status: Acute Assessment and Plan: Initially presented on 07/29 with shortness of breath, increasing oxygen requirements, requiring BiPAP, then transferred to the ICU on 08/01, intubated on 08/01. In the setting of pneumonia due to COVID 19. Continue bronchodilators Continue Pulmicort Continue fentanyl and Versed for sedation Prone intermittently Wean as possible Sputum culture with pseudomonas, on Cefepime 08/07- (2) Pneumonia due to COVID-19 virus: Code(s): U07.1 - COVID-19; J12.82 - Pneumonia due to coronavirus disease 2019 Status: Acute Assessment and Plan: Pneumonia secondary to COVID-19. SARS-CoV-2 PCR positive on 07/31/2021 Patient has been started dexamethasone 20 mg IV x5 days then 10 mg IV x5 days Does not qualify for remdesivir due to chronic kidney disease and low GFR Tocilizumab on 08/01/2021 Given worsening respiratory status/ infiltrates she was also initiated on azithromycin and ceftriaxone 07/30, now finished course. (3) Atrial fibrillation with RVR: Code(s): I48.91 - Unspecified atrial fibrillation Status: Acute Assessment and Plan: 08/01/2021 new onset AFib RVR, received amiodarone bolus and amiodarone infusion Amiodarone transitioned to PO Continue heparin infusion Continue to monitor TSH was slightly low but T3 and T4 within normal limits (4) Diastolic CHF: Qualifiers: Heart failure chronicity: chronic Qualified Code(s): I50.32 - Chronic diastolic (congestive) heart failure Code(s): I50.30 - Unspecified diastolic (congestive) heart failure Status: Acute Assessment and Plan: Echocardiogram on 07/30/2021: LVEF of 50-55%. Mildly increased LV wall thickness. Grade 1 diastolic dysfunction, mild to moderate aortic valve stenosis. (5) DVT prophylaxis: Code(s): Z29.9 - Encounter for prophylactic measures, unspecified Status: Acute Assessment and Plan: Heparin infusion (6) Acute kidney injury superimposed on chronic kidney disease: Code(s): N17.9 - Acute kidney failure, unspecified; N18.9 - Chronic kidney disease, unspecified Status: Acute Assessment and Plan: Chronic kidney disease stage 3 Baseline creatinine has fluctuated between 1.3 and 2 over the past 2 years LIDIA, likely ATN in setting of COVID and shock requiring pressor support Renal US no obstruction, chronic disease with cortical thinning CK level 200s Continue to keep mean arterial pressure above 65 Nephrology consulted, appreciate help. Dialysis 08/07 (creatinine 2.6, potassium 5.6 persistently) through a temporary femoral catheter. Subjective Date/time seen: 08/10/21 18:30 no meaningful interview possible Review of Systems Review of Systems: no meaningful interview possible Exam Neck: Neck: no JVD Resp: Other: mechanical ventilation, settings as below Cardio: Rate: regular rate Rhythm: regular rhythm GI: GI Palp: Yes Soft to palpation and No Tenderness to palpation present (GI) Objective Data Vital Signs Vital Signs: Vital Signs - 24 hr 08/09/21 19:35 08/09/21 20:00 08/09/21 20:23 Temperature 97.9 F Pulse Rate 112 H 114 H 120 H Respiratory Rate 22 H 21 H Blood Pressure 119/61 Pulse Oximetry 94 08/09/21 21:13 08/09/21 21:53 08/09/21 22:00 Temperature Pulse Rate 120 H 114 H 120 H Respiratory Rate 24 H Blood Pressure 121/58 L Pulse Oximetry 92 92 08/09/21 23:51 08/10/21 00:00 08/10/21 01:20 Temperature 98.1 F Pulse Rate 110 H 121 H 129 H Respiratory Rate 24 H Blood Pressure 129/59 L Pulse Oximetry 92 92 08/10/21 02:00 08/10/21 02:54 08/10/21 02:56 Temperature Pulse Rate 115 H 124 H 124 H Respiratory Rate 24 H 25 H Blood Pressure 133/70 Pulse Oximetry 92 95 08/10/21 03:36 08/10/21 04:00 08/10/21 05:01
--- NOTE | 2021-08-10 20:11 | ECG_ITS ---
Measurements Intervals [place] Rate: 102 P: 74 MS: 178 QRS: 8 QRSD: 105 T: 71 QT: 340 QTc: 444 Interpretive Statements SINUS TACHYCARDIA POOR R WAVE PROGRESSION, ANTERIOR LEADS BASELINE ARTIFACT- I, II, III, AVR, AVL, AVF, V1-V6 BORDERLINE ECG Electronically Signed On 08-11-2021 12:48:01 CDT by Arnold Berg D.O.
[2021-08-10] MEDS: PROPOFOL IV EMULSION 100 ML 22.68 MG IV CONT (22:00)
[2021-08-11] VITALS (49 sets, daily range): BP systolic 69–119; BP diastolic 42–68; PULSE 92–136; RESP 15–23; TEMP 36.2–37; O2SAT 91–100
[2021-08-11 00:49] LABS: Glucose Point of Care 137 mg/dl (65-105)
[2021-08-11 05:37] LABS: Alveolar/Arterial O2 Gradient 299.6 mmHg; Base Excess ABG 12.1 mEq/l (+/-2.0); Carboxyhemoglobin 0.2 % THb (0-2.0); Fractional Inspired Oxygen 60 %; HCO3 ABG 37.1 mEq/l (22.0-26.0); Methemoglobin ABG 0.3 %THb (0-1.5); Oxygen Content ABG 12.6 %vol (16.0-22.0); Oxyhemoglobin 92.4 % THb (90.0-100.0); PCO2 ABG 51.6 mmHg (35.0-45.0); PO2 ABG 71.4 mmHg (80.0-100.0); PO2 FiO2 Ratio Arterial Blood 1.19 %; Reduced Hemoglobin 7.1 %THb (0-5.0); Total Hemoglobin 9.6 g/dL (12.0-18.0); pH ABG 7.475 (7.350-7.450)
[2021-08-11 05:38] LABS: Arterial Blood Gas Vent Mode CMV; Arterial Blood Gas Ventilator rate 18 /MIN; Device VENTILATOR; Modified Allen's Test Pass; Site Drawn LEFT RADIAL
[2021-08-11 05:39] LABS: Arterial Blood Gas PEEP 8 cmH2O; Arterial Blood Gas Tidal Volume 300 ml
[2021-08-11 05:41] LABS: Hematocrit 28.4 % (37.0-47.0); Hemoglobin 8.6 g/dL (12.0-15.0); Immature Platelet Fraction Pct 13.1 % (0.9-11.2); Mean Corpuscular HGB Conc 30.3 g/dl (32-36); Mean Corpuscular Hemoglobin 25.2 pg (26-34); Mean Corpuscular Volume 83.3 fl (80-100); Mean Platelet Volume 12.7 fl (7.4-10.4); Platelet Count Result 163 k/mm3 (150-375); Red Blood Count 3.41 M/mm3 (4.2-5.4); Red Cell Distribution Width 15.9 % (11.5-14.5); White Blood Count 24.2 K/mm3 (4.5-10.0)
[2021-08-11 05:51] LABS: D Dimer 1.64 ug/mL (<0.48)
[2021-08-11 06:07] LABS: Albumin Level 2.8 g/dL (3.5-5.1)
[2021-08-11 06:08] LABS: Alanine Aminotransferase 23 U/L (4-35); Alkaline Phosphatase 57 U/L (38-126); Aspartate Amino Transferase 23 U/L (14-36); Bilirubin,Total 0.4 mg/dL (0.2-1.3); CRP < 0.5 mg/dL (<1.0); Calcium 9.4 mg/dL (8.4-10.2); Carbon Dioxide > 40 mmol/L (22-30); Chloride 89 mmol/L (98-107); Estimated CRCL calculation 19 ml/min; Estimated Glomerular Filt Rate 23; Glucose 123 mg/dL (65-110); Lactate Dehydrogenase 547 U/L (313-618); Phosphorus 6.3 mg/dL (2.5-4.5); Potassium 3.8 mmol/L (3.4-5.0); Sodium 135 mmol/L (137-145)
[2021-08-11 06:49] LABS: Blood Urea Nitrogen 134 mg/dL (7-17)
[2021-08-11] MEDS: PROPOFOL IV EMULSION 100 ML 12.6 MG IV CONT ×3 (06:51→21:18)
--- NOTE | 2021-08-11 07:25 | P.CDI_ITS ---
CDI Query Clarification Request - Sputum culture with pseudomonas, on Cefepime 08/07 has been documented Please clarify if there is any clinical significance for above finding: * Pseudomonas pneumonia * Colonization * Contamination * Other * No clinical significance * Unable to determine
--- NOTE | 2021-08-11 07:25 | WPDCDIQUERY2 ---
CDI Query Clarification Request - Sputum culture with pseudomonas, on Cefepime 08/07 has been documented Please clarify if there is any clinical significance for above finding: Pseudomonas pneumonia Colonization Contamination Other No clinical significance Unable to determine
[2021-08-11] MEDS: BUDESONIDE RESPULE NEB 0.5 MG/2 ML AMP INHALATION ×2 (08:35→20:42)
[2021-08-11] MEDS: CENTRAL LINE FLUSH 10 ML IV PUSH ×8 (08:40→21:18)
[2021-08-11] MEDS: AMIODARONE HCL 100 MG TABLET PO ×2 (08:43→21:16)
[2021-08-11] MEDS: CYANOCOBALAMIN 1,000 MCG TABLET 5000 MCG PO (08:44)
[2021-08-11] MEDS: CHOLECALCIFEROL 1,000 UNITS TABLET 5000 UNITS PO (08:44)
[2021-08-11] MEDS: DEXAMETHASONE SOD PHOS INJ 4 MG/ML VIAL 10 MG IV PUSH (08:44)
[2021-08-11] MEDS: PANTOPRAZOLE SODIUM IV 40 MG VIAL IV PUSH (08:45)
[2021-08-11] MEDS: TOLNAFTATE 1% POWDER 45 GM BTL 1 APPLIC TOPICAL ×2 (08:45→21:16)
[2021-08-11] MEDS: MINERAL OIL/WHITE PETROLATUM OINTMENT 1 APPLIC EACH EYE ×2 (08:45→21:16)
[2021-08-11] MEDS: BUMETANIDE INJ 1 MG/4 ML VIAL 2 MG IV PUSH (09:37)
--- NOTE | 2021-08-11 09:50 | WPDINTPN ---
Progress Note: A&P Assessment and Plan (1) Acute respiratory failure with hypoxia: Code(s): J96.01 - Acute respiratory failure with hypoxia Status: Acute Assessment and Plan: Patient with acute hypoxic respiratory failure likely related to COVID pneumonia. Presented on 07/29/2021, increased oxygen requirements along with altered mental status, on BiPAP and using accessory muscles of ventilation, discussed with 2 granddaughters were agreeable to intubation and mechanical ventilation. Patient was intubated on 08/01/2021 -on low tidal volume strategy, currently on peep of 8 and 60% FiO2, will wean FiO2 as tolerated -chest x-ray and ABGs reviewed -continue bronchodilators, -patient on propofol for sedation -Pseudomonas pneumonia, -continue cefepime which was initiated on 08/07/2021 -will need additional fluid removal with hemodialysis for vent wean (2) Pneumonia due to COVID-19 virus: Code(s): U07.1 - COVID-19; J12.82 - Pneumonia due to coronavirus disease 2019 Status: Acute Assessment and Plan: Pneumonia secondary to COVID-19. SARS-CoV-2 PCR positive on 07/31/2021 -patient has been started dexamethasone 20 mg IV x5 days then 10 mg IV x5 days -patient's GFR according to pharmacy is significantly low in patient does not qualify for remdesivir due to chronic kidney disease and low GFR -patient's CRP was 14.9, patient was given Tocilizumab on 08/01/2021, CRP down to 8.2 this morning, -08/05/2021: LDH within normal limits, D-dimer trending down, CRP and ferritin trending down, continue to trend inflammatory markers (3) Atrial fibrillation with RVR: Code(s): I48.91 - Unspecified atrial fibrillation Status: Acute Assessment and Plan: 08/01/2021 Seem like new onset AFib RVR, received amiodarone bolus and amiodarone infusion, will infusion, currently rate controlled AFib -OFF AMIODARONE INFUSION and on P.O. amiodarone since 08/04/2021. -continue heparin infusion -continue to monitor -TSH was slightly low but T3 and T4 within normal limits -echocardiogram on 07/30/2021 showed LVEF of 50-55%. Grade 1 diastolic dysfunction, [id number] aortic valve stenosis. -p.r.n. Lopressor (4) Acute kidney injury superimposed on chronic kidney disease: Code(s): N17.9 - Acute kidney failure, unspecified; N18.9 - Chronic kidney disease, unspecified Status: Acute Assessment and Plan: Acute on chronic kidney disease stage 3 -nephrology has been consulted -renal ultrasound 08/04/2021 showed medical renal disease cortical thinning, no hydronephrosis -urine lytes are non prerenal, 08/07 Temporary hemodialysis catheter was placed and patient was started on dialysis. -patient has been having good urine output in response to Bumex but her BUN and creatinine have worsened -discussed with Nephrology, will dialyze and remove fluid today (5) Hyperkalemia: Code(s): E87.5 - Hyperkalemia Status: Acute Assessment and Plan: Resolved (6) Diastolic CHF: Qualifiers: Heart failure chronicity: chronic Qualified Code(s): I50.32 - Chronic diastolic (congestive) heart failure Code(s): I50.30 - Unspecified diastolic (congestive) heart failure Status: Acute Assessment and Plan: Echocardiogram on 07/30/2021: Echocardiogram showed LVEF of 50-55%. Mildly increased LV wall thickness. Grade 1 diastolic dysfunction, mild to moderate aortic valve stenosis (7) Shock: Code(s): R57.9 - Shock, unspecified Status: Acute Assessment and Plan: Shock likely related to positive pressure ventilation, sedation medications, COVID pneumonia, infection/sepsis -patient has received adequate IV fluids - Currently off Levophed since 08/09/2021 -patient completed a course of ceftriaxone azithromycin -07/29/2021: Blood and urine cultures are negative Sputum culture is positive for Pseudomonas-continue cefepime (8) DVT prophylaxis: Code(s): Z29.9 - Enc
--- NOTE | 2021-08-11 10:03 | PM.PNNEP ---
Progress Note: A&P Assessment and Plan (1) LIDIA (acute kidney injury): Code(s): N17.9 - Acute kidney failure, unspecified Status: Acute Assessment and Plan: due to ATN from hemodynamic instability and infection (COVID-19) renal ultrasound with CKD findings - nothing acute urine electrolytes non-prerenal CPK okay UA is bland reasonable urine output with diuretis but at the expense of worsening azotemia HD today given worsening creatinine and BUN (2) Stage 3b chronic kidney disease: Code(s): N18.32 - Chronic kidney disease, stage 3b Status: Chronic Assessment and Plan: baseline creatinine runs ~ 1.1 - 1.4mg/dl due to hypertension and vascular disease (3) Shock: Code(s): R57.9 - Shock, unspecified Status: Acute Assessment and Plan: resolving off pressors follow hemodynamics (4) Acute respiratory failure with hypoxia: Code(s): J96.01 - Acute respiratory failure with hypoxia Status: Acute Assessment and Plan: remains on ventilator support due to COVID 19 continue supportive care (5) Pneumonia due to COVID-19 virus: Code(s): U07.1 - COVID-19; J12.82 - Pneumonia due to coronavirus disease 2018 Status: Acute Assessment and Plan: getting steroids and dosed with Tocilizumab not a candidate for remdesivir due to kidney disease continue current therapy (6) Anemia: Qualifiers: Anemia type: unspecified type Qualified Code(s): D64.9 - Anemia, unspecified Code(s): D64.9 - Anemia, unspecified Status: Acute Assessment and Plan: due to LIDIA, CKD and acute illness Epogen with HD treatments follow H/H Will continue to follow. Subjective Date/time seen: 08/11/21 10:03 Remains on ventilator support; making reasonable urine output with diuretics but BUN and creatinine are trending up; remains hemodynamically stable at this time; no issues/events overnight or earlier this AM; no apparent distress noted at this time. Exam Narrative: General: WD/WN female on ventilator Heart: normal S1 and S2; no rub Lungs: coarse through out; decreased at bases Abdomen: soft, nontender, nondistended, positive bowel sounds Extremities: no cyanosis or clubbing; no edema Skin: warm and intact Objective Data Vital Signs Vital Signs: Vital Signs Temp Pulse Resp BP Pulse Ox 08/11/21 08:50 101 H 18 08/11/21 08:43 96 08/11/21 08:35 96 18 99 08/11/21 08:00 36.5 C 101 H 20 113/61 97 08/11/21 06:51 96 18 08/11/21 06:00 36.6 C 96 17 107/61 97 08/11/21 05:10 92 96 08/11/21 04:00 36.3 C L 97 18 105/57 L 97 08/11/21 03:25 96 18 08/11/21 03:24 98 18 08/11/21 02:33 97 20 08/11/21 02:26 97 19 96 08/11/21 02:00 36.6 C 98 18 99/57 L 100 08/11/21 00:00 36.2 C L 96 18 103/57 L 95 08/10/21 23:06 102 H 97 08/10/21 22:38 101 H 97 08/10/21 22:00 36.6 C 99 21 H 113/61 99 08/10/21 21:27 97 97 08/10/21 21:10 98 21 H 08/10/21 21:04 97 21 H 97 08/10/21 20:33 98 08/10/21 20:00 36.6 C 97 15 108/64 98 08/10/21 19:57 96 08/10/21 18:22 96 20 08/10/21 18:00 35.6 C L 100 15 100/66 99 08/10/21 17:29 101 H 92 08/10/21 16:05 102 H 21 H 08/10/21 16:00 36.6 C 104 H 21 H 109/63 92 08/10/21 15:51 102 H 21 H 08/10/21 14:18 129 H 20 08/10/21 14:17 125 H 94 08/10/21 14:10 125 H 21 H 08/10/21 14:00 114 H 15 102/51 L 94 08/10/21 13:00 36.7 C 08/10/21 12:00 121 H 19 97/49 L 95 08/10/21 11:10 120 H 93 Intake/Output Intake/Output: Intake & Output 08/08/21 08/09/21 08/10/21 08/11/21 23:59 23:59 23:59 23:59 Intake Total 152 1555 1688 743 Output Total 1419 5584 3746 1300 [facility] [phone] Meds/Results Medications: Active Medications Generic Name Dose Route Start Last Admin Trade
--- NOTE | 2021-08-11 10:03 | P.PNNP_ITS ---
Progress Note: A&P Assessment and Plan (1) LIDIA (acute kidney injury): Code(s): N17.9 - Acute kidney failure, unspecified Status: Acute Assessment and Plan: * due to ATN from hemodynamic instability and infection (COVID-19) * renal ultrasound with CKD findings - nothing acute * urine electrolytes non-prerenal * CPK okay * UA is bland * reasonable urine output with diuretis but at the expense of worsening azotemia * HD today given worsening creatinine and BUN (2) Stage 3b chronic kidney disease: Code(s): N18.32 - Chronic kidney disease, stage 3b Status: Chronic Assessment and Plan: * baseline creatinine runs ~ 1.1 - 1.4mg/dl * due to hypertension and vascular disease (3) Shock: Code(s): R57.9 - Shock, unspecified Status: Acute Assessment and Plan: * resolving * off pressors * follow hemodynamics (4) Acute respiratory failure with hypoxia: Code(s): J96.01 - Acute respiratory failure with hypoxia Status: Acute Assessment and Plan: * remains on ventilator support * due to COVID 19 * continue supportive care (5) Pneumonia due to COVID-19 virus: Code(s): U07.1 - COVID-19; J12.82 - Pneumonia due to coronavirus disease 2018 Status: Acute Assessment and Plan: * getting steroids and dosed with Tocilizumab * not a candidate for remdesivir due to kidney disease * continue current therapy (6) Anemia: Qualifiers: Anemia type: unspecified type Qualified Code(s): D64.9 - Anemia, uns pecified Code(s): D64.9 - Anemia, unspecified Status: Acute Assessment and Plan: * due to LIDIA, CKD and acute illness * Epogen with HD treatments * follow H/H Will continue to follow. Subjective Date/time seen: 08/11/21 10:03 Remains on ventilator support; making reasonable urine output with diuretics but BUN and creatinine are trending up; remains hemodynamically stable at this time; no issues/events overnight or earlier this AM; no apparent distress noted at this time. Exam Narrative: General: WD/WN female on ventilator Heart: normal S1 and S2; no rub Lungs: coarse through out; decreased at bases Abdomen: soft, nontender, nondistended, positive bowel sounds Extremities: no cyanosis or clubbing; no edema Skin: warm and intact Objective Data Vital Signs Vital Signs: Vital Signs Temp Pulse Resp BP Pulse Ox 08/11/21 08:50 101 H 18 08/11/21 08:43 96 08/11/21 08:35 96 18 99 08/11/21 08:00 36.5 C 101 H 20 113/61 97 08/11/21 06:51 96 18 08/11/21 06:00 36.6 C 96 17 107/61 97 08/11/21 05:10 92 96 08/11/21 04:00 36.3 C L 97 18 105/57 L 97 08/11/21 03:25 96 18 08/11/21 03:24 98 18 08/11/21 02:33 97 20 08/11/21 02:26 97 19 96 08/11/21 02:00 36.6 C 98 18 99/57 L 100 08/11/21 00:00 36.2 C L 96 18 103/57 L 95 08/10/21 23:06 102 H 97 08/10/21 22:38 101 H 97 08/10/21 22:00 36.6 C 99 21 H 113/61 99 08/10/21 21:27 97 97 08/10/21 21:10 98 21 H 08/10/21 21:04 97 21 H 97 08/10/21 20:33 98 08/10/21 20:00 36.6 C 97 15 108/64 98 08/10/21 19:57 96 08/10/21 18:22 96 20 08/10/21 1
[2021-08-11 11:28] LABS: Haptoglobin 324 mg/dL (43-212)
--- NOTE | 2021-08-11 11:53 | PCDIET ---
Nutrition Follow-Up Complete: Nutrition Diagnosis: Altered nutrition related labs related to diabetes and corticosteroid use as evidenced by serum glucose of 220mg/dL. Nutrition Goal: Patient to meet estimated nutritional needs. Goal met. Patient currently receiving Nepro at 35mL/hr without issues, per RN. Continues on 30mL water flush every 4 hours. Last recorded weight is 74.5 kg which is down from last review. -I/O. Bowel Motility: Last documented BM on 08/10/21 x 1. Labs Reviewed: WBC (24.2), RBC (3.41), Hgb (8.6), Hct (28.4), Glu (123), BUN (134), Cr (2.1), Cl (89), Na (135), Alb (2.8), PO4 (6.3) Meds Noted: Xopenex, Protonix, Pacerone, Pulmicort, Bumex, Cefepime, Vitamin B12, Decadron, Retacrit, Vitamin D, Propofol (rate of 12.6mL/hr provides 332kcal per day) Additional Notes: Nepro at 35mL/hr x 22 hours/day with Propofol at current rate providing 23kcal/kg). Groin macerated. Left lower arm with skin tear. Plan for hemodialysis today. Will continue to monitor with same goal. Nutrition Monitoring and Evaluation: Follow up every Tuesday/Tuesday.
[2021-08-11 13:27] LABS: Glucose Point of Care 187 mg/dl (65-105)
[2021-08-11 15:34] LABS: Partial Thromboplastin Time 76.2 SECONDS (22.3-36.8)
[2021-08-11] MEDS: EPOETIN ALFA-EPBX 10,000 UNITS/ML VIAL 10000 UNITS IV PUSH (16:30)
[2021-08-11] MEDS: INSULIN ASPART (*BKC) 100 UNITS/ML SUB-Q (18:56)
[2021-08-11] MEDS: ALBUMIN HUMAN 25% 12.5 GM/50ML 50 ML IVPB (18:57)
[2021-08-11 20:01] LABS: Glucose Point of Care 219 mg/dl (65-105)
[2021-08-11] MEDS: HEPARIN SOD/D5W 100 UNITS/ML 25,000 UNITS/250 ML BAG 6 UNITS IV CONT (21:30)
[2021-08-11 22:04] LABS: Partial Thromboplastin Time 73.9 SECONDS (22.3-36.8)
[2021-08-11 23:14] LABS: Glucose Point of Care 112 mg/dl (65-105)
[2021-08-12] VITALS (19 sets, daily range): BP systolic 79–111; BP diastolic 48–57; PULSE 106–124; RESP 15–21; TEMP 36.4–36.6; O2SAT 93–98
[2021-08-12 04:46] LABS: Hematocrit 28.4 % (37.0-47.0); Hemoglobin 8.4 g/dL (12.0-15.0); Mean Corpuscular HGB Conc 29.6 g/dl (32-36); Mean Corpuscular Hemoglobin 25.2 pg (26-34); Mean Corpuscular Volume 85.3 fl (80-100); Mean Platelet Volume 13.4 fl (7.4-10.4); Platelet Count Result 187 k/mm3 (150-375); Red Blood Count 3.33 M/mm3 (4.2-5.4); Red Cell Distribution Width 16.4 % (11.5-14.5); White Blood Count 35.2 K/mm3 (4.5-10.0)
[2021-08-12 05:04] LABS: Alanine Aminotransferase 26 U/L (4-35); Albumin Level 3.1 g/dL (3.5-5.1); Alkaline Phosphatase 64 U/L (38-126); Anion Gap 10 mmol/L (8-16); Aspartate Amino Transferase 27 U/L (14-36); Bilirubin,Total 0.3 mg/dL (0.2-1.3); Blood Urea Nitrogen 87 mg/dL (7-17); Calcium 9.1 mg/dL (8.4-10.2); Carbon Dioxide 28 mmol/L (22-30); Chloride 99 mmol/L (98-107); Glucose 156 mg/dL (65-110); Magnesium 2.1 mg/dL (1.6-2.3); Phosphorus 6.3 mg/dL (2.5-4.5); Potassium 4.5 mmol/L (3.4-5.0); Sodium 137 mmol/L (137-145)
[2021-08-12 05:21] LABS: Estimated CRCL calculation 23 ml/min; Estimated Glomerular Filt Rate 29
[2021-08-12 05:27] LABS: Alveolar/Arterial O2 Gradient 212.4 mmHg; Base Excess ABG 2.8 mEq/l (+/-2.0); Carboxyhemoglobin 0.2 % THb (0-2.0); Fractional Inspired Oxygen 50 %; HCO3 ABG 29.9 mEq/l (22.0-26.0); Methemoglobin ABG 0.8 %THb (0-1.5); Oxygen Content ABG 10.8 %vol (16.0-22.0); Oxyhemoglobin 90.6 % THb (90.0-100.0); PO2 ABG 74.1 mmHg (80.0-100.0); PO2 FiO2 Ratio Arterial Blood 1.48 %; Reduced Hemoglobin 8.4 %THb (0-5.0); Total Hemoglobin 8.4 g/dL (12.0-18.0)
[2021-08-12 05:28] LABS: PCO2 ABG 62.2 mmHg (35.0-45.0)
[2021-08-12 05:29] LABS: Arterial Blood Gas Ventilator rate 18 /MIN; Device VENTILATOR; Modified Allen's Test Pass; Site Drawn LEFT RADIAL
[2021-08-12 05:30] LABS: Arterial Blood Gas PEEP 8 cmH2O; Arterial Blood Gas Tidal Volume 300 ml; Arterial Blood Gas Vent Mode CMV
[2021-08-12] MEDS: PROPOFOL IV EMULSION 100 ML 12.6 MG IV CONT ×2 (05:36→13:33)
[2021-08-12] MEDS: CENTRAL LINE FLUSH 10 ML IV PUSH ×4 (05:39→14:20)
[2021-08-12] MEDS: ALBUMIN HUMAN 25% 25 GM/100 ML 100 ML IVPB (08:43)
[2021-08-12] MEDS: NOREPINEPHRINE 8 MG/D5W 250 ML 8 MG/250 ML BAG 9.38 MG IV CONT (08:50)
[2021-08-12] MEDS: AMIODARONE HCL 100 MG TABLET PO (08:53)
[2021-08-12] MEDS: CHOLECALCIFEROL 1,000 UNITS TABLET 5000 UNITS PO (08:53)
[2021-08-12] MEDS: CYANOCOBALAMIN 1,000 MCG TABLET 5000 MCG PO (08:54)
[2021-08-12] MEDS: PANTOPRAZOLE SODIUM IV 40 MG VIAL IV PUSH (08:57)
[2021-08-12] MEDS: MINERAL OIL/WHITE PETROLATUM OINTMENT 1 APPLIC EACH EYE (08:57)
[2021-08-12] MEDS: TOLNAFTATE 1% POWDER 45 GM BTL 1 APPLIC TOPICAL (08:58)
[2021-08-12] MEDS: BUDESONIDE RESPULE NEB 0.5 MG/2 ML AMP INHALATION (09:03)
[2021-08-12] MEDS: BUMETANIDE INJ 1 MG/4 ML VIAL 2 MG IV PUSH (11:18)
--- NOTE | 2021-08-12 11:49 | PCDIET ---
ICU Rounding Note: Patient receiving Nepro at 35mL/hr goal rate with 30mL water flush every 4 hours. No issues reported. Last recorded weight is 74.5kg which is stable with last review, despite -I/O. Patient had 1L UF on 08/11/21. Bowel Motility: BM x 1 today. Labs Reviewed: WBC (35.2), RBC (3.33), Hgb (8.4), Hct (28.4), Glu (156), BUN (87), Cr (1.7), Alb (3.1), PO4 (6.3) Meds Noted: Propofol (rate of 12.6mL/hr provides 332kcal per day), Pacerone, Pulmicort, Maxipime, Vitamin B12, Xopenex, Levophed, Protonix, Vitamin D Additional Notes: Left lower arm skin tear. Groin macerated. Following daily in ICU rounds. Assessing/reassessing every Tuesday/Tuesday.
[2021-08-12 11:56] LABS: Glucose Point of Care 188 mg/dl (65-105)
--- NOTE | 2021-08-12 13:31 | WPDINTPN ---
Progress Note: A&P Assessment and Plan (1) Acute respiratory failure with hypoxia: Code(s): J96.01 - Acute respiratory failure with hypoxia Status: Acute Assessment and Plan: Patient with acute hypoxic respiratory failure likely related to COVID pneumonia. Presented on 07/29/2021, increased oxygen requirements along with altered mental status, on BiPAP and using accessory muscles of ventilation, discussed with 2 granddaughters were agreeable to intubation and mechanical ventilation. Patient was intubated on 08/01/2021 -on low tidal volume strategy, currently on peep of 8 and 50% FiO2, will wean FiO2 as tolerated -chest x-ray and ABGs reviewed -continue bronchodilators, -patient on propofol for sedation -Pseudomonas pneumonia, -continue cefepime which was initiated on 08/07/2021 -will need additional fluid removal with hemodialysis for vent wean (2) Pneumonia due to COVID-19 virus: Code(s): U07.1 - COVID-19; J12.82 - Pneumonia due to coronavirus disease 2019 Status: Acute Assessment and Plan: Pneumonia secondary to COVID-19. SARS-CoV-2 PCR positive on 07/31/2021 -patient has been started dexamethasone 20 mg IV x5 days then 10 mg IV x5 days -patient's GFR according to pharmacy is significantly low in patient does not qualify for remdesivir due to chronic kidney disease and low GFR -patient's CRP was 14.9, patient was given Tocilizumab on 08/01/2021, CRP down to 8.2 this morning, -08/05/2021: LDH within normal limits, D-dimer trending down, CRP and ferritin trending down, continue to trend inflammatory markers (3) Atrial fibrillation with RVR: Code(s): I48.91 - Unspecified atrial fibrillation Status: Acute Assessment and Plan: 08/01/2021 Seem like new onset AFib RVR, received amiodarone bolus and amiodarone infusion, will infusion, currently rate controlled AFib -OFF AMIODARONE INFUSION and on P.O. amiodarone since 08/04/2021. -continue heparin infusion -continue to monitor -TSH was slightly low but T3 and T4 within normal limits -echocardiogram on 07/30/2021 showed LVEF of 50-55%. Grade 1 diastolic dysfunction, [id number] aortic valve stenosis. -p.r.n. Lopressor (4) Acute kidney injury superimposed on chronic kidney disease: Code(s): N17.9 - Acute kidney failure, unspecified; N18.9 - Chronic kidney disease, unspecified Status: Acute Assessment and Plan: Acute on chronic kidney disease stage 3 -nephrology has been consulted -renal ultrasound 08/04/2021 showed medical renal disease cortical thinning, no hydronephrosis -urine lytes are non prerenal, 08/07 Temporary hemodialysis catheter was placed and patient was started on dialysis. -patient has been having good urine output in response to Bumex but her BUN and creatinine have worsened -discussed with Nephrology, patient received dialysis on 08/11, with removal of 1000 mL of fluid (5) Hyperkalemia: Code(s): E87.5 - Hyperkalemia Status: Acute Assessment and Plan: Resolved (6) Diastolic CHF: Qualifiers: Heart failure chronicity: chronic Qualified Code(s): I50.32 - Chronic diastolic (congestive) heart failure Code(s): I50.30 - Unspecified diastolic (congestive) heart failure Status: Acute Assessment and Plan: Echocardiogram on 07/30/2021: Echocardiogram showed LVEF of 50-55%. Mildly increased LV wall thickness. Grade 1 diastolic dysfunction, mild to moderate aortic valve stenosis (7) Shock: Code(s): R57.9 - Shock, unspecified Status: Acute Assessment and Plan: Shock likely related to positive pressure ventilation, sedation medications, COVID pneumonia, infection/sepsis -patient has received adequate IV fluids -patient was initially on Levophed which was stopped on 08/09/2021 -patient completed a course of ceftriaxone and azithromycin -07/29/2021: Blood and urine cultures are negative 08/04/2021 Sputum culture is positive for Pseudomo
[2021-08-12] MEDS: MORPHINE SULFATE INJ (*CRX) 10 MG/ML AMP 5 MG IV PUSH (14:20)
[2021-08-12] MEDS: LORazepam INJ (*CRX) 2 MG/ML VIAL IV PUSH ×3 (14:20→16:23)
[2021-08-12] MEDS: MORPHINE SULFATE (*CRX) 2 MG/ML INJ IV PUSH ×3 (14:50→17:10)
--- NOTE | 2021-08-12 17:51 | PC.NURSE ---
Patient at 1715 on 08/12/2021. Family at bedside.
[2021-08-12 18:56] LABS: IFOB Positive Control Positive; Immunochemical Fecal Occult Bl Positive (N)
--- NOTE | 2021-08-27 00:42 | PM.DDS ---
Discharge Summary Date and Time Date of : 08/12/21 Time of : 17:15 Provider Pronounced By: Jessie Blake RN and Jessie Montiel RN Probable Cause of Probable Cause of : respiratory & multiorgan failure related to COVID Summary Hospital Course: Patient was 80 yo lady who presented to [facility] on July 29. She was found to have COVID pneumonia, and developed worsening respiratory failure, and eventually required intubation & mechanical ventilation on August 01. She was subsequently taken to the ICU. During admission in the ICU she developed renal failure and required dialysis on August 07. She also developed Atrial fibrillation with RVR and required amiodarone infusion with bolus. Given multiorgan failure and prognosis that patient would likely not survive in absence of life support, decision was made by family to make patient comfort care. She on the afternoon of August 12. Additional Data Confirmation of as documented by pronouncing clinician: Pupillary Reflex, Palpable Pulses, Response to Stimuli, Heart Tones and Breath Sounds Name of Provider Notified: Dr. Jung Time Provider Notified: 17:21 Provider Requests Autopsy: No Family Requests Autopsy: No [employer] Notified: Yes Date [facility] Notified of : 08/12/21 Time [facility] Notified of : 17:21
== END 2021-08-12 17:15 | disposition expired | DRG 207 ==
LOC: ANHED 15:05 → ANHIMU 22:18 → ANHICU 08-03 14:01 → ANHIMU 08-13 12:53
PROVIDERS: Internal Medicine; Internal Medicine Nephrology; Nurse Practitioner; Admitting Provider Family Medicine; Emergency Provider General Practice; PCP Family Medicine; Visit Provider Internal Medicine Nephrology
DX: U07.1 COVID-19 (principal); J12.82 Pneumonia due to coronavirus disease 2019; J96.21 Acute and chronic respiratory failure with hypoxia; J15.1 Pneumonia due to Pseudomonas; J96.12 Chronic respiratory failure with hypercapnia; I13.0 Hypertensive heart and chronic kidney disease with heart failure and stage 1 through stage 4 chronic kidney disease, or unspecified chronic kidney disease; J44.0 Chronic obstructive pulmonary disease with (acute) lower respiratory infection; R57.9 Shock, unspecified; N17.9 Acute kidney failure, unspecified; I50.32 Chronic diastolic (congestive) heart failure; N18.30 Chronic kidney disease, stage 3 unspecified; Z99.81 Dependence on supplemental oxygen; E87.5 Hyperkalemia; Z66 Do not resuscitate; I48.91 Unspecified atrial fibrillation; D64.9 Anemia, unspecified; I35.0 Nonrheumatic aortic (valve) stenosis; E87.6 Hypokalemia; E78.5 Hyperlipidemia, unspecified; G62.9 Polyneuropathy, unspecified; G25.81 Restless legs syndrome; I87.2 Venous insufficiency (chronic) (peripheral); E53.8 Deficiency of other specified B group vitamins; E55.9 Vitamin D deficiency, unspecified; F32.9 Major depressive disorder, single episode, unspecified; Z96.643 Presence of artificial hip joint, bilateral; Z96.652 Presence of left artificial knee joint; Z79.899 Other long term (current) drug therapy; Z86.711 Personal history of pulmonary embolism; Z87.891 Personal history of nicotine dependence; Z88.2 Allergy status to sulfonamides; Z88.6 Allergy status to analgesic agent; Z98.41 Cataract extraction status, right eye; Z98.42 Cataract extraction status, left eye
CPT/HCPCS: 36415; 36600; 70450; 71045; 76775; 80048; 80053; 80069; 81001; 82274; 82375; 82550; 82565; 82570; 82728; 82805; 82948; 83010; 83050; 83605; 83615; 83735; 83880; 84100; 84132; 84156; 84300; 84439; 84443; 84450; 84460; 84480; 84484; 85025; 85027; 85055; 85380; 85610; 85730; 86140; 86706; 87040; 87070; 87077; 87086; 87186; 87205; 87340; 87426; 87804; 93005; 93306; 94002; 94003; 94640; 94660; 96365; 96367; 96375; 99285; C1752; A9270; C1751; C9113; C9803; G0257; J0282; J0456; J0692; J0696; J1100; J1644; J1815; J1940; J2060; J2250; J2270; J2704; J2930; J3010; J3262; J3480; J7030; J7040; J7050; P9047; Q5106; U0003; U0005